=== PATIENT | male | born 1940 | race American Indian/Alaskan Native ===

== ENCOUNTER 2016-11-29 09:54 | Inpatient (IN) | payer MEDICARE ==
[2016-11-29] MEDS ORDERED: MethylPREDNISolone 40 mg Vial IVP STA (10:36)
[2016-11-29] MEDS ORDERED: Albuterol 0.5% Inhal Sol (2.5 mg/0.5 ml) UD IH STA (10:36)
[2016-11-29] MEDS ORDERED: Sodium Chloride 0.9% 500 ML IV STA (10:38)
--- NOTE | 2016-11-29 10:41 | ED PDOC ---
Arrival/HPI - General Chief Complaint: Cough, Cold, Congestion Time Seen by Provider: 11/29/16 10:11 Historian: Patient - History of Present Illness Narrative History of Present Illness (Text): 11/29/16 76 yo male w/PMHx of HTN, NIDDM, CAD with ACS in 2016 s/p PTCA, come in for evaluation of URi sx for 1.5 weeks. Pt reports, (+) bodyaches, chills, nasal congestion, sore throat, and gradual worsening of cough. Pt sts, started as dry cough and now its more productive with yellow sputum. Otherwise, pt denies high fever, severe headache, dizziness, N/V, neck pain, CP, SOB, dyspnea, diaphoresis , palpitation, abd. pain, diarrhea, rash, back pain, denies recent travel. Pt denies use OTC medication for above symptoms. Ambulate to Ed for evaluation, not in any apparent distress. Past Medical History - Provider Review Nursing Documentation Reviewed: Yes - Travel History Have you recently traveled outside [place] w/in the past 3 mons?: No - Infectious Disease Hx of Infectious Diseases: None - Cardiac Hx DE: Yes Hx Hypertension: Yes - Pulmonary Hx Respiratory Disorders: No Hx Asthma: No Hx Bronchitis: No Hx Chronic Obstructive Pulmonary Disease (COPD): No Hx Emphysema: No Hx Pneumonia: No Hx Respiratory Aspiration: No Hx Respiratory Tract Infection: No Hx Sleep Apnea: No Hx Tuberculosis: No - Neurological Hx Neurological Disorder: No - HEENT Hx HEENT Disorder: No - Renal Hx Renal Disorder: Yes (elevated BUN/Crea - see's Dr Giang) - Endocrine/Metabolic Hx Diabetes Mellitus Type 2: Yes - Hematological/Oncological Hx Blood Disorders: No - Integumentary Hx Dermatological Disorder: No - Musculoskeletal/Rheumatological Hx Musculoskeletal Disorders: No - Gastrointestinal Hx Gastrointestinal Disorders: Yes Other/Comment: Umbilical Hernia - Genitourinary/Gynecological Hx Incontinence: No Hx Prostate Problems: Yes - Psychiatric Hx Psychophysiologic Disorder: No Hx Substance Use: No - Surgical History Hx Coronary Stent: Yes (x2) Family/Social History - Physician Review Nursing Documentation Reviewed: Yes Family/Social History: No Known Family HX Smoking Status: Never Smoked Hx Alcohol Use: No Hx Substance Use: No Allergies/Home Meds Allergies/Adverse Reactions: Allergies No Known Allergies Allergy (Verified 11/29/16 16:55) Home Medications: Home Meds Medication Instructions Recorded Confirmed Atorvastatin [Lipitor] 20 mg PO DAILY 11/29/16 11/29/16 Clopidogrel [Plavix] 75 mg PO DAILY 11/29/16 11/29/16 Enalapril Maleate [Vasotec] 10 mg PO BID 11/29/16 11/29/16 Glimepiride [amaRYL] 4 mg PO BID 11/29/16 11/29/16 Insulin Aspar/Insulin N 70/30 10 ml SC BID 11/29/16 11/29/16 [Novolog MIX 70/30-U/ML 3ML] Metoprolol Tartrate 25 mg PO BID 11/29/16 11/29/16 Novolog Mix 70/30-U/ml 3Ml 10 unit SQ BID 11/29/16 11/29/16 Review of Systems - Review of Systems Constitutional: Fatigue Eyes: Normal ENT: Sore Throat, Rhinorrhea Respiratory: Cough, Sputum. absent: SOB, Wheezing Cardiovascular: Normal. absent: Chest Pain, Palpitations Gastrointestinal: Normal. absent: Abdominal Pain, Diarrhea, Vomiting Genitourinary Male: Normal Musculoskeletal: Normal Skin: Normal. absent: Rash Neurological: Normal Endocrine: Normal Hemo/Lymphatic: Normal Psychiatric: Normal Physical Exam Vital Signs Temp Pulse Resp BP Pulse Ox 11/29/16 13:21 81 17 150/70 95 11/29/16 09:57 98.9 F 102 H 18 147/73 96 Temperature: Afebrile Blood Pressure: Normal Pulse: Tachycardic Respiratory Rate: Normal Appearance: Positive for: Well-Appearing, Non-Toxic, Comfortable Pain Distress: None Mental Status: Positive for: Alert and Oriented X 3 - Systems Exam Head: Present: Atraumatic Conjunctiva: Present: Normal Ears: Present: NORMAL TM (B/L) Mouth: Present: Moist Mucous Membranes, Normal Lips. No: Drooling Pharnyx: Present: ERYTHEMA (mild B/L). No: EXUDATE, TONSILS ENLARGED Nose (Internal): Present: Clear Mucous (scant B/L) Neck: Present: Trachea Midline. No: JVD, Lymphadenopathy, Bruit Respiratory/Chest: Present: Clear to Auscultation, Good Air Exchange. No: Respiratory Distress, Accessory Muscle Use Cardiovascular: Present: Regular Rate and Rhythm, Normal S1, S2. No: Murmurs Abdomen: Present: Normal Bowel Sounds. No: Tenderness, Distention, Peritoneal Signs, Rebound, Guarding Upper Extremity: Present: Normal ROM, NORMAL PULSES. No: Deformity Lower Extremity: Present: NORMAL PULSES, Normal ROM, Neurovascularly Intact. No : Edema, CALF TENDERNESS, Swelling, Deformity Neurological: Present: GCS=15, Speech Normal Skin: Present: Warm, Dry, Normal Color. No: Rashes Psychiatric: Present: Alert, Oriented x 3, Normal Insight, Normal Concentration Medical Decision Making ED Course and Treatment: 11/29/16 12:43 On re-eval, pt remained unchanged. CXR review and c/w B/L perihilar fullness r/o infiltrate. Blood work review and appears abnormal compare to previous visits. Case discussed with pt's PMD and admission recommend and arranged. As per admission, is on blue list will place admission under . Results review and discussed with family and pt, agrees with plan. - Lab Interpretations Lab Results: 11/29/16 11:01 11/29/16 11:01 Lab Results 11/29/16 11:01: Influenza Typ A,B (EIA) Negative for flu a/b, Grp A Beta Strep Ag Negative 11/29/16 11:01: Sodium 143, Potassium 5.2 H, Chloride 110 H, Carbon Dioxide 21, Anion Gap 17, BUN 50 H, Creatinine 3.4 H, Est GFR ( Amer) 21, Est GFR ( Non-Af Amer) 18, Random Glucose 269 H, Calcium 9.3, Lactate Dehydrogenase 647, Total Creatine Kinase 712 H, CK-MB (CK-2) 3.2, CK-MB (CK-2) % Cancelled, Troponin I 0.05 D, NT-Pro-B Natriuret Pep 8810 H 11/29/16 11:01: PT 11.1, INR 1.03, APTT 33.6 H 11/29/16 11:01: WBC 9.8 D, RBC 3.55, Hgb 9.6 L, Hct 29.1 L, MCV 82.0, MCH 27.0 , MCHC 33.0, RDW 14.3, Plt Count 157, MPV 9.0, Gran % 80.9 H, Lymph % (Auto) 7.9 L, [place] % (Auto) 10.2 H, Eos % (Auto) 0.7 L, Baso % (Auto) 0.3, Gran # 7.89 H, Lymph # 0.8 L, [place] # 1.0 H, Eos # 0.1, Baso # 0.03 Interpretation: Abnormal lab values - RAD Interpretation Narrative RAD Interpretations (Text): 11/29/16 17:48 Findings are most compatible with right basilar pneumonia. Left suprahilar opacity could represent pneumonia however underlying mass cannot be entirely excluded. Follow-up after medical management is recommended to ensure complete resolution. Radiology Orders: 11/29/16 10:36 CHEST TWO VIEWS (PA/LAT) [RAD] Stat (+) perihilar B/L infiltrate - EKG Interpretation EKG Interpretation (Text): 11/29/16 10:50 SR@89/min, NAD, Qwave in III, no acute ST-T changes. Comparison: Com.w/previous EKG - Medication Orders Current Medication Orders: Discontinued Medications Albuterol Sulfate (Albuterol 0.5% Inhal Chana (2.5 Mg/0.5 Ml) Ud) 2.5 mg IH STAT STA Stop: 11/29/16 10:37 Last Admin: 11/29/16 11:02 Dose: 2.5 mg Sodium Chloride (Sodium Chloride 0.9%) 500 mls @ 999 mls/hr IV .Q31M STA Stop: 11/29/16 11:08 Last Admin: 11/29/16 11:04 Dose: 999 mls/hr Ceftriaxone Sodium (Rocephin 1 Gram Ivpb) 1 gm in 100 mls @ 200 mls/hr IVPB STAT STA PRN Reason: Protocol Stop: 11/29/16 12:13 Last Admin: 11/29/16 12:53 Dose: 200 mls/hr Azithromycin (Zithromax 500mg In Ns) 500 mg in 250 mls @ 167 mls/hr IVPB STAT STA PRN Reason: Protocol Stop: 11/29/16 13:13 Last Admin: 11/29/16 16:52 Dose: 167 mls/hr Methylprednisolone (Solu-Medrol) 80 mg IVP STAT STA Stop: 11/29/16 10:37 Last Admin: 11/29/16 11:02 Dose: 80 mg Disposition/Present on Arrival - Present on Arrival Any Indicators Present on Arrival: No History of DVT/PE: No History of Uncontrolled Diabetes: No Urinary Catheter: No History of Decub. Ulcer: No History Surgical Site Infection Following: None - Disposition Have Diagnosis and Disposition been Completed?: Yes Diagnosis: Pneumonia Disposition: HOSPITALIZED Disposition Time: 12:41 Patient Plan: Admission Patient Problems: Current Active Problems Problem Status Onset Pneumonia Acute Condition: STABLE
[2016-11-29 11:07] LABS: BASO # 0.03 K/mm3 (0.0-2.0); BASO % 0.3 % (0.0-3.0); EOS # 0.1 (0.0-0.7); EOS % 0.7 % (1.5-5.0); GRAN # 7.89 (1.4-6.5); GRAN % 80.9 % (50.0-68.0); HEMATOCRIT 29.1 % (42.0-52.0); LYMPH # 0.8 (1.2-3.4); LYMPH % 7.9 % (22.0-35.0); MONO % 10.2 % (1.0-6.0); RED CELL DISTRIBUTION WIDTH 14.3 % (11.5-14.5); WHITE BLOOD COUNT 9.8 10^3/ul (4.5-11.0)
[2016-11-29 11:17] LABS: INR 1.03 (0.93-1.08); PARTIAL THROMBOPLASTIN TIME 33.6 Seconds (23.7-30.8)
[2016-11-29 11:18] LABS: CALCIUM 9.3 mg/dL (8.4-10.5); POTASSIUM 5.2 mmol/L (3.6-5.0)
[2016-11-29 11:28] LABS: TROPONIN I 0.05 ng/mL
[2016-11-29] MEDS ORDERED: Azithromycin 500MG/NS 250ml 500 MG/250 ML BAG IVPB STA (11:44)
[2016-11-29] MEDS ORDERED: cefTRIAXone 1 gm 1 GM/100 ML BAG IVPB STA (11:44)
--- NOTE | 2016-11-29 13:05 | RAD ---
HISTORY: cough, sputum production COMPARISON: 09/16/2015 TECHNIQUE: Chest PA and lateral FINDINGS: LUNGS: The lungs are well inflated. There is airspace disease in the right lateral lung base. There is also opacity in the left suprahilar region. PLEURA: No significant pleural effusion identified. No pneumothorax apparent. CARDIOVASCULAR: Normal. OSSEOUS STRUCTURES: No significant abnormalities. VISUALIZED UPPER ABDOMEN: Normal. OTHER FINDINGS: None. IMPRESSION: Findings are most compatible with right basilar pneumonia. Left suprahilar opacity could represent pneumonia however underlying mass cannot be entirely excluded. Follow-up after medical management is recommended to ensure complete resolution.
--- NOTE | 2016-11-29 20:52 | CARD ---
APPROVED REPORT EKG Measurement Heart [id number] <Conclusion> Normal sinus rhythm Normal ECG
[2016-11-29 21:19] VITALS: BMI 24.7
[2016-11-29] MEDS ORDERED: Pneumococcal 23-Valent Vaccine IM ONE (21:19)
[2016-11-29] MEDS: Insulin Human NPH/Reg 70/30 Vial(3 ml) SC SCH (22:00)
[2016-11-30] MEDS ORDERED: Albuterol-Ipratrop 3 mg / 0.5 (3 ml) UD IH PRN (06:47)
[2016-11-30] MEDS: Albuterol-Ipratrop 3 mg / 0.5 (3 ml) UD IH SCH ×3 (07:17→20:28)
[2016-11-30] MEDS: Budesonide 0.5 mg/2 ml Inhal Susp UD IH SCH ×2 (07:17→20:28)
--- NOTE | 2016-11-30 07:38 | CON ---
PULMONARY CONSULTATION DATE: 11/30/2016 REASON FOR CONSULTATION: Pneumonia. REFERRING PHYSICIAN: Dr. Galarza. History was obtained via extensive discussion with the night nurse. I have also discussed the case with the patient at length, and reviewed the chart at length. HISTORY OF PRESENT ILLNESS: The patient is a 76-year-old male, with past medical history significant for hypertension, diabetes mellitus, coronary artery disease, myocardial infarction in the past, status post PTCA in 2016, who presents to [facility] with main complaints of worsening dyspnea on exertion, cough, and sputum production for the past week. The patient denies shortness of breath at rest. There is also no history of chest pain, coughing up of blood, or chest pain-made worse with deep respirations. The patient does state to temperatures at home. No history of chills or infectious exposure. No history of night sweats, weight loss or appetite change prior to the above events. No history of leg or calf pains. No history of syncope or diaphoresis. No history of recent travel or trauma. REVIEW OF SYSTEMS: The patient does admit to nasal congestion and runny nose-about a week ago-symptoms resolved. No history of nausea, vomiting or diarrhea. No acute urinary symptoms. No new neurologic or musculoskeletal complaints. Rest of the review of systems is negative. ALLERGIES: NO KNOWN ALLERGIES. SOCIAL HISTORY: Negative for tobacco. Negative for alcohol. FAMILY HISTORY: No inheritable diseases. HOME MEDICATIONS: Include metoprolol, insulin, glimepiride, Vasotec, Plavix, Lipitor. PHYSICAL EXAMINATION: SUBJECTIVE: The patient appears comfortable at rest. He is not short of breath. VITAL SIGNS: Temperature 99.1, pulse 70, respirations 18, blood pressure 147/74. Oxygen saturation on room is 93% to 96%. HEENT: Normocephalic and atraumatic. NECK: No JVD. CARDIOVASCULAR: Systolic ejection murmur at the lower left sternal border. No S3 gallop. LUNGS: Decreased breath sounds at the bases. Mild bilateral rhonchi. No wheezing. EXTREMITIES: No clubbing, cyanosis or edema. Calves are nontender to palpation. GASTROINTESTINAL: Abdomen is soft, nontender and nondistended. Bowel sounds are positive. SKIN: No acute rash. NEUROLOGIC: Limited at the present time. PERTINENT LABORATORY DATA: Chest x-ray was done yesterday and reviewed. There are small patchy infiltrates noted in the right lower lobe and left perihilar areas. CBC: White count 9.8, hemoglobin 9.6, hematocrit 29.1, and platelets of 157. Complete metabolic profile: Potassium 5.2, chloride 110, BUN 50, creatinine 3.4, glucose 303, creatine kinase 712, troponin 0.05. B-type natriuretic peptide 8810. Rest of the metabolic profiles within normal limits. IMPRESSION: 1. Community-acquired pneumonia. 2. Acute bronchitis. 3. Mild anemia. 4. Renal insufficiency. 5. Coronary artery disease. PLAN: Again, I did discuss the case with the nurse and the patient at length. The patient presents to [facility] with a 1-week history of worsening pulmonary symptoms. Apparently, the pulmonary symptoms were preceded by nasal congestion/runny nose. These upper respiratory symptoms have now resolved. I did review the chest x-ray as above. There are small patchy infiltrates in the right lower lobe and left perihilar areas consistent with pneumonia. Pancultures have been ordered and will be analyzed when feasible. The patient has been started on intravenous ceftriaxone. I will add intravenous doxycycline for the time being. On physical exam, there is mild bronchospasm present. There is no significant alveolar-arterial gradient. I will start the patient on DuoNeb treatment and inhaled steroids. I will try to avoid intravenous steroids at this point in time, as the patient's blood glucose is running high. Cardiology and renal evaluations have been ordered. The patient does feel better and is clinically improved this morning-compared to the past few days. Additional pulmonary intervention will be based on the clinical status of the patient. I will discuss the above with Dr. Galarza. Thank you very much for this pulmonary consultation. Bill Rose MD CHARISSA
[2016-11-30] MEDS ORDERED: cefTRIAXone 1 gm 1 GM/100 ML BAG IVPB SCH (10:00)
--- NOTE | 2016-11-30 10:05 | HP ---
HISTORY OF PRESENT ILLNESS: The patient is a 76-year-old male who was admitted with pneumonia. I received a call from the patient's daughter who was quite upset about the patient is suffering from an upper respiratory infection, being febrile, coughing, having difficulty breathing over the past several days. After discussing the case with the patient himself over the phone, the patient agreed to presentation to the emergency room, was seen, evaluated, and admitted. PAST MEDICAL HISTORY: The patient is known to have coronary artery disease, he is status post myocardial infarction, status post PTCA, history of hypertension, insulin-dependent diabetes mellitus, and benign prostatic hypertrophy. ALLERGIES: HE HAS NO KNOWN MEDICAL ALLERGIES. SOCIAL HISTORY: He never smoked. He is a non-alcoholic drinker. He works as a [employer]. Chest x-ray in the emergency room showed a white basilar infiltrate and a possible right suprahilar infiltrate versus mass lesion. REVIEW OF SYSTEMS: Otherwise unremarkable. PHYSICAL EXAMINATION GENERAL: The patient is awake, alert, and oriented. VITAL SIGNS: His blood pressures 158/80, heart rate 76, and he is afebrile at 99.1 degrees Fahrenheit. HEENT: The head, eyes, ears, nose, and throat are unremarkable. NECK: Supple. No lymphadenopathy. No goiter. LUNGS: Clear to auscultation and percussion however. HEART: Regular. Systolic murmur was appreciated. ABDOMEN: Soft and nontender. EXTREMITIES: Free of cyanosis, clubbing, or edema. NEUROLOGIC: There were no focal neurological signs. MEDICATIONS: At the time of admission, included atorvastatin 20 mg, Plavix 75 mg, Vasotec 10 mg twice a day, Amaryl 1 mg twice a day, NovoLog 70/30, 10 minutes twice a day, metoprolol tartrate 25 mg twice a day. LABORATORY STUDIES: Showed white blood cell count to be 9.8, hemoglobin and hematocrit 9.6 and 29.1, platelet count is 157. Sodium is 143, potassium is 5.2, blood urea nitrogen is 50, creatinine is 3.4, which is just above baseline for this patient. Glucose is 369, CK is elevated. BNP is elevated at 8810. IMPRESSION AND PLAN: The patient was treated with intravenous antibiotics in the emergency room. I will be ordering Rocephin 1 gram q.24 hours, continuing with the patient's medications from home for his coronary disease, diabetes, and hypertension. We are asking Dr. Giang, his residential nurse, Dr. Terrell, his graphics specialist, and Dr. Rose, his spanish language lecturer to consult on his case. The patient will be evaluated in morning and we will continue to follow him closely. Rony Galarza MD MTDD
[2016-11-30] MEDS: cefTRIAXone 1 gm 1 GM/100 ML BAG IVPB SCH (10:48)
[2016-11-30] MEDS: Insulin Human NPH/Reg 70/30 Vial(3 ml) SC SCH ×2 (13:21→18:15)
--- NOTE | 2016-11-30 19:41 | CON ---
DATE: 11/30/2016 The patient admitted for Dr. Oliver Galarza. REFERRING PHYSICIAN: Dr. Galarza. REASON FOR CONSULTATION: Evaluation of the patient known to me with chronic kidney disease stage III/IV, who presents with a right-sided pneumonia and a slight elevation of his creatinine above baseline levels. HISTORY OF PRESENT ILLNESS: The patient is a pleasant 76-year-old black male with a long history of IDDM, history of diabetic nephropathy, history of chronic kidney disease stage III/IV, history of non-nephrotic range proteinuria, history of gout, history of BPH, HTN, history of ASHD, status post PTCA, history of aortic insufficiency, mitral regurgitation, tricuspid regurgitation, history of mild anemia. The patient presented to Dr. Galarza with a 1-week history of a cough and chest congestion. He was sent over to the emergency room. Chest x-ray was done which showed a right basilar pneumonia. The patient was admitted for IV antibiotic therapy and for evaluation of what appears to be community-acquired pneumonia. The patient states that he works as a [employer] and might have been exposed to clients who had been sick. We are asked to evaluate the patient for his chronic kidney disease with a slightly higher creatinine above baseline levels, baseline creatinine is in the low 3 range. The patient presented with a creatinine of 3.4 on admission. PAST MEDICAL HISTORY: Significant history for IDDM, history of diabetic nephropathy, history of chronic kidney disease stage III/IV, BPH, gout, HTN ASHD, status post PTCA with mild valvular heart disease, history of anemia likely secondary to chronic kidney disease. PAST SURGICAL HISTORY: Significant for hand surgery almost 35 years ago. MEDICATIONS AT HOME: Include that of metoprolol, insulin, Amaryl, Vasotec, Plavix, Lipitor, [id number] iron, and vitamin D. ALLERGIES: NO KNOWN ALLERGIES TO MEDICATIONS. MEDICATIONS PRESENTLY IN THE HOSPITAL: Include that of Amaryl, doxycycline, DuoNeb, Lipitor, Rocephin, Pulmicort, Plavix, Lopressor, and Zestril. SOCIAL HISTORY: No history of cigarette smoking. No history of alcohol use. The patient was never a cigarette smoker. The patient is employed as a [employer]. FAMILY HISTORY: Positive for stroke, hypertension, and diabetes in his father who at the age of 83. The patient's mother at the age of 57, reasons unknown. REVIEW OF SYSTEMS: GENERAL: The patient states appetite and weight have been stable until this recent illness. EAR, NOSE, AND THROAT: Denies any hearing or visual problems. PULMONARY: No shortness of breath but positive cough and chest congestion. No wheezing. No history of asthma. No history of previous or recent pneumonia. No history of bronchitis. CARDIAC: History of ASHD which is stable, status post PTCA. GASTROINTESTINAL: No nausea, no vomiting, no diarrhea, no constipation, no abdominal pain. GENITOURINARY: History of chronic kidney disease, stage III/IV, stable. ENDOCRINE: History of diabetes with both micro and vascular complications. MUSCULOSKELETAL: No complaints. NEUROLOGIC: No history of CVA, TIA, seizures, or syncope. HEMATOLOGY AND ONCOLOGY: History of mild anemia, secondary to chronic kidney disease. No history of malignancy. PSYCHIATRIC: History is negative. PHYSICAL EXAMINATION: GENERAL: The patient is currently seen on 5R. He is sitting up in a chair. Family is in the room with him. He appears to be in no acute distress. VITAL SIGNS: Blood pressure ranging from 144 to 158 systolic, diastolic ranging from 67 to 81. Temperature 97.6. Respiratory rate is 18 with a pulse of 96. Oxygen saturation is 96%. HEENT: Shows him to be normocephalic and atraumatic. Conjunctivae are pale. Sclerae nonicteric. Pupils equal and reactive to light and accommodation. Extraocular muscles are intact. Posterior pharynx is normal. NECK: Supple. No neck vein distention. No thyromegaly. No lymphadenopathy. No bruits. CHEST: Clear to auscultation and percussion with slight decrease breath sounds at the right base. No rales, no rhonchi, no wheezing. CARDIOVASCULAR: Shows a regular rate and rhythm with MR/AI/TR. Distal lower extremity pulses are 2+ bilaterally. ABDOMEN: Soft. Bowel sounds normal. No rebound, no guarding, no masses. No organomegaly noted. BACK: No CVAT. No spinal tenderness. EXTREMITIES: Show no cyanosis, clubbing, or edema. NEUROLOGIC: Shows him to be alert and oriented x3 with no gross focal, motor, or sensory deficits noted. LABORATORY DATA AND IMAGING: Admitting chest x-rays showed a right basilar infiltrate consistent with a right lower lobe pneumonia. Admitting EKG showed normal sinus rhythm. Microbiology: Culture done on 11/29 are negative. Blood cultures that is 24 hours. Throat culture is negative. CBC: White blood cell count 9.8 with a hemoglobin of 9.6, platelet count of 157,000. Coags: PT 11.1, PTT 33.6. Chemistries show sodium of 143, potassium 5.2, chloride 110 with a CO2 of 21, BUN 50 with creatinine of 3.4. Again, the patient's baseline creatinine is in the low 3 range. Glucose is 269. Calcium 9.3. Cardiac enzymes are negative. BNP was 8810. Serologies negative for influenza A and B, negative beta strep. ASSESSMENT: 1. Right lower lobe pneumonia. The patient is being treated appropriately with both oral and IV antibiotics. He has been seen by pulmonary. He is thought to have a community-acquired pneumonia. 2. Stable chronic kidney disease, stage III/IV. The patient's baseline creatinine is in the low 3 range. At present, his creatinine is 3.4. This is likely in the setting of perhaps mild decrease in oral fluid intake in the setting of a right lower lobe pneumonia. The patient is able to drink fluids, IV fluids are not necessary at this point in time. Encouraged the patient to hydrate himself and I expect his creatinine to fall back to baseline levels. His BUN is close to baseline levels. His chronic kidney disease is felt to be secondary to longstanding diabetic nephropathy. 3. History of insulin-dependent diabetes mellitus. The patient will continue insulin regimen as ordered by Dr. Galarza. 4. History of benign prostatic hypertrophy, currently stable. 5. History of gout, no recent attacks. 6. History of atherosclerotic heart disease, status post percutaneous transluminal coronary angioplasty, currently stable. 7. History of anemia in part secondary to chronic kidney disease and part secondary to pneumonia with bone marrow suppression. I will check iron saturations and in light of the fact that his hemoglobin is less than 10, the patient will be dosed with Aranesp 16 mcg x1 dose. 8. No past history of secondary hyperparathyroidism, but we will check phosphorus level, PTH level, and vitamin D level. The patient will continue a renal diet. 9. HTN controlled. Continue present antihypertensive medications, NANCY inhibitor plus B- Ricardo therapy. PLAN: 1. Continue to follow labs on a daily basis. 2. Encouraged the patient to increase oral hydration. 3. Continue IV and oral antibiotic therapy as per pulmonary. 4. Aranesp with oral iron supplements, and we will check iron levels with labs tomorrow. 5. Continue renal diet. 6. Check phosphorus level, PTH, and vitamin D 25-hydroxy level. 7. No other renal diagnostics are necessary at this time as the patient had been worked up extensively in the outpatient setting. Thank you for letting me partake and share in the care of our mutual patient. Shane Giang MD MTDD
[2016-12-01] MEDS: Albuterol-Ipratrop 3 mg / 0.5 (3 ml) UD IH SCH ×4 (01:13→20:02)
--- NOTE | 2016-12-01 02:54 | PN ---
DATE: 11/30/2016 DAILY PROGRESS NOTE SUBJECTIVE: The patient was seen this Tuesday at noon hour in 573, bed #2. He is comfortable, out of bed, sitting in a chair, and in good spirits. PHYSICAL EXAMINATION: GENERAL He is awake, alert, and appropriate. HEENT: Conjunctivae are pink. Mucous membranes are moist. LUNGS: Show good aeration with some rhonchi at the bases, more so on the right. HEART: Not tachycardiac. EXTREMITIES: Show no edema. IMPRESSION: Pneumonia. PLAN: Continue antibiotics and aerosol treatment for now. The patient is doing very well and he continues to do well. He remains afebrile with normal white count. I think he is going to be discharged to home within the next few days. Oliver Galarza MD
[2016-12-01 07:03] LABS: BASO # 0.02 K/mm3 (0.0-2.0); BASO % 0.2 % (0.0-3.0); EOS # 0.1 (0.0-0.7); EOS % 1.2 % (1.5-5.0); GRAN # 9.84 (1.4-6.5); GRAN % 82.4 % (50.0-68.0); HEMATOCRIT 27.7 % (42.0-52.0); LYMPH # 1.3 (1.2-3.4); LYMPH % 10.5 % (22.0-35.0); MEAN CELL VOLUME 80.5 fl (80.0-105.0); MEAN CORPUSCULAR HGB CONC 33.6 g/dl (31.0-37.0); MEAN PLATELET VOLUME 9.4 fl (7.0-11.0); MONO # 0.7 (0.1-0.6); MONO % 5.7 % (1.0-6.0); RED CELL DISTRIBUTION WIDTH 13.9 % (11.5-14.5); WHITE BLOOD COUNT 11.9 10^3/ul (4.5-11.0)
[2016-12-01 07:28] LABS: ALB/GLOB RATIO 1.1 (1.1-1.8); ALKALINE PHOSPHATASE 97 U/L (38-126); ALT/SGPT 39 U/L (7-56); AST/SGOT 43 U/L (17-59); BILIRUBIN,TOTAL 0.2 mg/dL (0.2-1.3); BLOOD UREA NITROGEN 65 mg/dL (7-21); CARBON DIOXIDE 21 mmol/L (21-33); CHLORIDE 109 mmol/L (98-107); GFR AFRICAN-AMERICAN 25; GLUCOSE,RANDOM 233 mg/dL (70-110); MAGNESIUM 1.8 mg/dL (1.7-2.2); PHOSPHOROUS 4.4 mg/dL (2.5-4.5); POTASSIUM 4.9 mmol/L (3.6-5.0); SODIUM 142 mmol/L (132-148); TOTAL PROTEIN 6.2 g/dL (5.8-8.3)
[2016-12-01] MEDS: Budesonide 0.5 mg/2 ml Inhal Susp UD IH SCH ×2 (07:30→20:02)
--- NOTE | 2016-12-01 08:27 | PN ---
PULMONARY NOTE DATE: 12/01/2016 SUBJECTIVE: The patient appears comfortable this morning. He is not short of breath at rest. PHYSICAL EXAMINATION VITAL SIGNS: Temperature is 97.1, pulse 66, respirations 18, blood pressure 132/76. Oxygen saturation on room air is 96%. HEENT: Normocephalic and atraumatic. NECK: No JVD. CARDIOVASCULAR: Systolic ejection murmur at the lower left sternal border. No S3 gallop. LUNGS: Improved breath sounds at the bases. Much less rhonchi. No wheezing. EXTREMITIES: No clubbing, cyanosis or edema. Calves are nontender to palpation. GASTROINTESTINAL: Abdomen is soft, nontender, and nondistended. Bowel sounds are positive. SKIN: No acute rash. NEUROLOGIC: Limited at the present time. IMPRESSION: 1. Community-acquired pneumonia. 2. Acute bronchitis. 3. Mild anemia. 4. Renal insufficiency. 5. Coronary artery disease. PLAN: The patient appears very comfortable this morning. He is not short of breath at rest. His cough is much less. He does state to feeling much better overall. On physical exam, his bronchospasm is significantly less. I will continue the current nebulizer treatments and inhaled steroids for now. Cultures are so far negative. I will continue the current antibiotic therapy for now. Temperatures are resolving. Clinical status for the patient is significantly improved. I will discuss the above with Dr. Galarza. Bill Rose MD MTDD
[2016-12-01] MEDS: Insulin Human NPH/Reg 70/30 Vial(3 ml) SC SCH ×2 (08:30→16:50)
[2016-12-01] MEDS ORDERED: Darbepoetin Alfa 60 mcg/ml Inj SC ONE (10:00)
--- NOTE | 2016-12-01 10:23 | IP.NPCORE ---
Pneumonia Progress Notes - Oxygenation Assessment (REQUIRED) Documented 02: Yes O2 Saturation: 93 Oxygen Delivery Method: Room Air Date: 11/29/16 Documented P02: Yes - Blood Cultures (REQUIRED) Culture drawn: Yes - Initial Antibiotic Initial Antibiotic given within Four Hours:: Yes - Appropriate Antibiotic Appropriate Antibiotic within 24 hours of Admission:: Yes No change in antibiotics: No - Pneumonia Vaccine Pneumonia Vaccine: Yes (will be offered at discharge ) - Smoking Cessation Smoking Cessation counseling provided:: No (n/a) Ex-Smoker (has not smoked in the last 12 months): No Current Smoker - smoking cessation education provided: No
[2016-12-01] MEDS: Iron Complex Polysacch 150mg Cap PO SCH (11:09)
[2016-12-01] MEDS: cefTRIAXone 1 gm 1 GM/100 ML BAG IVPB SCH (11:13)
--- NOTE | 2016-12-01 11:39 | RAD ---
HISTORY: Pneumonia F/U COMPARISON: Chest radiographs 11/29/2016. TECHNIQUE: Chest PA and lateral FINDINGS: LUNGS: Diminished airspace disease seen at the right base and is likely resolved at this time. Persistent but diminished atelectasis or infiltrate seen at the medial left upper lung zone. No new infiltrate is identified throughout. PLEURA: No significant pleural effusion identified. No pneumothorax apparent. CARDIOVASCULAR: Normal. OSSEOUS STRUCTURES: No significant abnormalities. VISUALIZED UPPER ABDOMEN: Normal. OTHER FINDINGS: None. IMPRESSION: Likely resolved right basilar atelectasis or infiltrate with diminished medial left suprahilar infiltrate or atelectasis identified with significant residual. Continued clinical and radiographic follow-up are advised.
[2016-12-01 12:25] LABS: VITAMIN D 25 OH TOTAL 32.9 NG/ML (30.0-100.0)
--- NOTE | 2016-12-01 16:09 | CON ---
DATE: 12/01/2016 CARDIOLOGY CONSULTATION HISTORY OF PRESENT ILLNESS: The patient is a 76-year-old male who presents with symptoms consistent with upper respiratory infection. He complains of chest pain, which is worse on coughing. PAST MEDICAL HISTORY: The patient's past medical history is notable for history of PTCA and stent of his coronary arteries in 09/2015, stress test performed in 02/2016 reveal fixed defects in his perfusion scan with an ejection fraction of 52%. He denies angina. Denies shortness of breath. The patient's past medical history is notable for hypertension as well as diabetes mellitus. SOCIAL HISTORY: He does not smoke. REVIEW OF SYSTEMS: Reviewed in detail. No cardiac symptomatology is noted. PHYSICAL EXAMINATION: VITAL SIGNS: Blood pressure 142/64 with a heart rate in the 70s. NECK: Negative JVD. LUNGS: Without rales. HEART: S1 and S2. EXTREMITIES: Without edema. SIGNIFICANT STUDIES/LABORATORY DATA: EKG shows no acute changes. Hemoglobin is 9.3. Chemistries, BUN and creatinine is 65 and 3.0 with a glucose of 233. IMPRESSION: 1. Cough with upper respiratory infection. 2. Stable angina. 3. Coronary artery disease. 4. Renal insufficiency. 5. Diabetes mellitus. 6. Hypertension. PLAN: Given these findings, the patient was restarted on his clopidogrel. From a cardiac perspective, there are no acute changes at this time. Jameson Terrell MD
--- NOTE | 2016-12-01 23:31 | PN ---
DATE: 12/01/2016 SUBJECTIVE: The patient is seen lying in bed. He reports feeling much better. His cough is better. His shortness of breath is much improved. He denies any pain. He denies any chest tightness. PHYSICAL EXAMINATION: GENERAL: Elderly male lying in bed. VITAL SIGNS: Blood pressure 142/64, heart rate 79, respiratory rate 19, temperature 97.9. HEENT: Normocephalic, atraumatic. NECK: Supple, no JVD. LUNGS: Bilateral equal air entry, bilateral equal expansion. No rales. CARDIAC: S1 and S2. Regular rate and rhythm. No murmur, no rub. ABDOMEN: Soft, nondistended, nontender, bowel sounds present. EXTREMITIES: No lower extremity edema. INTAKE AND OUTPUT: Not charted. LABORATORY DATA: WBC 11.9, hemoglobin 9.3, hematocrit 27.7, platelets 173. Sodium 142, potassium 4.9, chloride 109, CO2 of 21, BUN 65, creatinine 3.0, glucose 233, calcium 9.0, phosphorus 4.4, magnesium 1.8. Iron 44, saturation 23%, and ferritin 204. Influenza serology negative. INR 1.0. Blood cultures, no growth. Chest x-ray, resolved right basilar atelectasis with diminished medial left suprahilar infiltrate. CURRENT MEDICATIONS: List reviewed. ASSESSMENT: 1. Acute kidney injury superimposed on chronic kidney disease stage IV, resolving. 2. Resolving right lower lobe pneumonia. 3. Scm-ntnihaq-aziysubdg diabetes mellitus. 4. Benign prostatic hyperplasia. 5. Gout. 6. Coronary artery disease. 7. Anemia of chronic kidney disease. 8. Secondary hyperparathyroidism. 9. Hypertension. PLAN: 1. Continue antibiotics as per ID recommendations. 2. Switch to p.o. antibiotics. 3. Will need as an outpatient. 4. Blood pressure is uncontrolled. 5. Continue to monitor fingersticks. 6. Discharge planning. Lis Pa MD
[2016-12-02] MEDS: Albuterol-Ipratrop 3 mg / 0.5 (3 ml) UD IH SCH ×2 (01:11→08:18)
[2016-12-02 03:33] VITALS: RESP 18
[2016-12-02] MEDS: Budesonide 0.5 mg/2 ml Inhal Susp UD IH SCH (08:18)
[2016-12-02] MEDS: Insulin Human NPH/Reg 70/30 Vial(3 ml) SC SCH (08:18)
[2016-12-02 08:23] VITALS: BP 165/86; PULSE 65; TEMP 97.8; O2SAT 99
--- NOTE | 2016-12-02 09:22 | PN ---
DATE: 12/02/2016 SUBJECTIVE: The patient appears very comfortable this morning. He is not short of breath at rest. PHYSICAL EXAMINATION: VITAL SIGNS: Temperature is 98.6, pulse is 71, respirations 18, blood pressure 157/79. Oxygen saturation on room is 98%. HEENT: Normocephalic and atraumatic. NECK: No JVD. CARDIOVASCULAR: Systolic ejection murmur at the lower left sternal border. No S3 gallop. LUNGS: Very minimal/much less rhonchi. No wheezing. EXTREMITIES: No clubbing, cyanosis, or edema. Calves are nontender to palpation. GASTROINTESTINAL: Abdomen is soft, nontender, and nondistended. Bowel sounds are positive. SKIN: No acute rash. NEUROLOGIC: Limited at the present time. PERTINENT LABORATORY DATA: Chest x-ray was repeated yesterday and reviewed. The chest x-ray is significantly improved-- with resolution of the right lower lobe infiltrate and almost complete resolution of the left perihilar infiltrate. IMPRESSION: 1. Community acquired pneumonia. 2. Acute bronchitis. 3. Mild anemia. 4. Renal insufficiency. 5. Coronary artery disease. PLAN: The patient appears very comfortable this morning. He is not short of breath at rest. His cough is much less. He does state this morning that he is feeling much, much better overall. On physical exam, his bronchospasm continues to resolve. I will continue the current nebulizer treatments and inhaled steroids for now. The patient remains on intravenous antibiotic therapy. His temperatures have fully resolved. The chest x-ray is also significantly improved. Inputs by cardiology and renal are noted. Clinical status of the patient is significantly improved overall. The patient is advised to increase his activity as tolerated. I will discuss the above with Dr. Galarza. Bill Rose MD MTDD
[2016-12-02] MEDS: Iron Complex Polysacch 150mg Cap PO SCH (10:03)
[2016-12-02] MEDS: cefTRIAXone 1 gm 1 GM/100 ML BAG IVPB SCH (10:04)
--- NOTE | 2016-12-03 05:07 | DS ---
SUMMARY: This is a 76-year-old man known to my office, usually seen by Dr. Rony Galarza. The patient comes to the emergency room with fever, cough, and difficulty breathing for few days. He was seen in the emergency room and evaluated. Chest x-ray showed a right lower lobe pneumonia. He was started on IV antibiotics and aerosol treatment and admitted. The patient has known coronary artery disease status post myocardial infarction and PTCA along with history of hypertension, diabetes, benign prostatic hypertrophy, and chronic renal insufficiency. He is followed by renal group, Dr. Giang, who know him for his renal disease. Course of hospital stay, the patient was admitted to the medical floor, treated with intravenous antibiotics. Consultation by Dr. Giang for renal, Dr. Rose for pulmonary, and Dr. Terrell, appeals board referee that knows him well were called. With gentle hydration, IV fluids, antibiotics, and some aerosol treatments, the patient improved nicely. Sugars remained elevated through the course of his stay, but BUN and creatinine, which initially were in the 50 and 3.4 range peaked at 65 and 3. The patient had improved clinically and was doing much better, was ambulatory, feeling well, able to sleep, and so today was discharged to home by Dr. Rony Galarza. Antibiotics were called to the drug store and he was instructed to follow up in the office in one week. Oliver Galarza MD
== END 2016-12-02 10:26 | disposition home or self-care (01) | DRG 194 ==
LOC: ED 09:54 → ERH 12:10 → 5RSO 13:51
PROVIDERS: ADMIT Internal Medicine; ATTEND Internal Medicine
PROC: 3E0F7GC Introduction of Other Therapeutic Substance into Respiratory Tract, Via Natural or Artificial Opening (ICD-10-PCS; principal; 2016-11-30)
DX: J18.9 Pneumonia, unspecified organism (principal); N18.4 Chronic kidney disease, stage 4 (severe); E11.21 Type 2 diabetes mellitus with diabetic nephropathy; N17.9 Acute kidney failure, unspecified; D63.1 Anemia in chronic kidney disease; N25.81 Secondary hyperparathyroidism of renal origin; I08.3 Combined rheumatic disorders of mitral, aortic and tricuspid valves; I12.9 Hypertensive chronic kidney disease with stage 1 through stage 4 chronic kidney disease, or unspecified chronic kidney disease; N40.0 Benign prostatic hyperplasia without lower urinary tract symptoms; I25.118 Atherosclerotic heart disease of native coronary artery with other forms of angina pectoris; E11.22 Type 2 diabetes mellitus with diabetic chronic kidney disease; M10.9 Gout, unspecified; R80.9 Proteinuria, unspecified; J20.9 Acute bronchitis, unspecified; I25.2 Old myocardial infarction; Z79.4 Long term (current) use of insulin; Z79.02 Long term (current) use of antithrombotics/antiplatelets; Z95.5 Presence of coronary angioplasty implant and graft

== ENCOUNTER 2017-04-03 06:08 | Emergency (ER) | payer MEDICARE ==
[2017-04-03 06:11] VITALS: BMI 24.6
--- NOTE | 2017-04-03 06:20 | ED PDOC ---
Arrival/HPI - General Time Seen by Provider: 04/03/17 06:12 Historian: Patient, EMS - History of Present Illness Narrative History of Present Illness (Text): 04/03/17 06:17 Shabbir Moura is a 76 year old male, whose past medical history includes hypertension, diabetes, CAD s/p PR, chronic kidney disease, and BPH, who presents to the Emergency department brought in by EMS status post fall for hypoglycemia prior to arrival. Patient states earlier this morning prior to taking his Metformin his blood sugar was 86. Patient states he lost consciousness and fell forward on to his face. Patient reports a bloody nose, but states he feels fine otherwise. EMS was notified, patient noted to be hypoglycemic at 40, and was given D-50 en route. On arrival to Emergency department, patient's fingerstick was 119. Patient denies any fever, chills, chest pain, shortness of breath, nausea, vomiting, back pain, neck pain, headache, dizziness, or any other complaints. Time/Duration: Other (today) Symptom Onset: Sudden Symptom Course: Unchanged Activities at Onset: Light Context: Home Past Medical History - Provider Review Nursing Documentation Reviewed: Yes - Infectious Disease Hx of Infectious Diseases: None - Cardiac Hx Cardiac Disorders: Yes (CAD WITH ACS,2016 PTCA.PR) Hx Hypertension: Yes - Pulmonary Hx Respiratory Disorders: No Hx Asthma: No Hx Bronchitis: No Hx Chronic Obstructive Pulmonary Disease (COPD): No Hx Emphysema: No Hx Pneumonia: No Hx Respiratory Aspiration: No Hx Respiratory Tract Infection: No Hx Sleep Apnea: No Hx Tuberculosis: No - Neurological Hx Neurological Disorder: No - HEENT Hx HEENT Disorder: No - Renal Hx Renal Disorder: Yes (elevated BUN/Crea - see's Dr Giang) - Endocrine/Metabolic Hx Diabetes Mellitus Type 2: Yes - Hematological/Oncological Hx Blood Disorders: No - Integumentary Hx Dermatological Disorder: No - Musculoskeletal/Rheumatological Hx Musculoskeletal Disorders: No Hx Falls: No - Gastrointestinal Hx Gastrointestinal Disorders: Yes Other/Comment: Umbilical Hernia - Genitourinary/Gynecological Hx Incontinence: No Hx Prostate Problems: Yes - Psychiatric Hx Psychophysiologic Disorder: No Hx Substance Use: No - Surgical History Hx Coronary Stent: Yes (x2) Family/Social History - Physician Review Nursing Documentation Reviewed: Yes Family/Social History: Unknown Family HX Smoking Status: Never Smoked Hx Alcohol Use: No Hx Substance Use: No Allergies/Home Meds Allergies/Adverse Reactions: Allergies No Known Allergies Allergy (Verified 04/03/17 06:13) Home Medications: Home Meds Medication Instructions Recorded Confirmed Atorvastatin [Lipitor] 20 mg PO DAILY 11/29/16 04/03/17 Clopidogrel [Plavix] 75 mg PO DAILY 11/29/16 04/03/17 Enalapril Maleate [Vasotec] 10 mg PO BID 11/29/16 04/03/17 Glimepiride [amaRYL] 4 mg PO BID 11/29/16 04/03/17 Insulin Aspar/Insulin N 70/30 10 unit SC BID 11/29/16 04/03/17 [Novolog Mix 70/30-U/ml 3Ml] Metoprolol Tartrate 25 mg PO BID 11/29/16 04/03/17 Colchicine [Colcrys] 0.6 mg PO DAILY 04/03/17 04/03/17 Dutasteride [Avodart] 0.5 mg PO DAILY 04/03/17 04/03/17 Gabapentin [Neurontin] 300 mg PO TID 04/03/17 04/03/17 Levofloxacin [Levaquin] 500 mg PO DAILY 04/03/17 04/03/17 Pantoprazole Sodium [Protonix] 40 mg PO DAILY 04/03/17 04/03/17 Triamterene/Hydrochlorothiazid 1 tab PO DAILY 04/03/17 04/03/17 [Triamterene-Hctz 37.5-25 mg Cp] Review of Systems - Physician Review All systems were reviewed & negative as marked: Yes - Review of Systems Constitutional: Normal. absent: Fevers Eyes: Normal ENT: Normal Respiratory: Normal. absent: SOB, Cough Cardiovascular: Syncope Gastrointestinal: Normal. absent: Abdominal Pain, Diarrhea, Nausea, Vomiting Genitourinary Male: Normal. absent: Dysuria, Frequency, Hematuria, Urinary Output Changes Musculoskeletal: Normal. absent: Back Pain, Neck Pain Skin: Normal. absent: Rash Neurological: Normal. absent: Dizziness Endocrine: Other (+hypoglycemia) Hemo/Lymphatic: Normal Psychiatric: Normal Physical Exam Vital Signs Reviewed: Yes Vital Signs Pulse Resp BP Pulse Ox 04/03/17 11:51 59 L 18 138/63 04/03/17 10:48 59 L 18 138/63 100 04/03/17 08:09 56 L 18 138/83 100 04/03/17 06:32 58 L 18 148/67 99 Temperature: Afebrile Blood Pressure: Normal Pulse: Regular Respiratory Rate: Normal Appearance: Positive for: Well-Appearing, Non-Toxic, Comfortable Pain Distress: None Mental Status: Positive for: Alert and Oriented X 3 Finger Stick Blood Glucose: 119 - Systems Exam Head: Present: Atraumatic, Normocephalic Pupils: Present: PERRL Extroacular Muscles: Present: EOMI Conjunctiva: Present: Normal Ears: Present: Normal, NORMAL TM, Normal Canal. No: Erythema, TM Bulging, Fluid Mouth: Present: Moist Mucous Membranes Pharnyx: Present: Normal. No: ERYTHEMA, EXUDATE, TONSILS ENLARGED, Peritonsilar Swelling, Uvular Deviation, Muffled/Hoarse Voice, Strider, Soft Palate/Uvular Edema Nose (External): Present: Atraumatic Neck: Present: Normal Range of Motion Respiratory/Chest: Present: Clear to Auscultation, Good Air Exchange. No: Respiratory Distress, Accessory Muscle Use Cardiovascular: Present: Regular Rate and Rhythm, Normal S1, S2. No: Murmurs Abdomen: Present: Normal Bowel Sounds. No: Tenderness, Distention, Peritoneal Signs Back: Present: Normal Inspection Upper Extremity: Present: Normal Inspection. No: Cyanosis, Edema Lower Extremity: Present: Normal Inspection. No: Edema Neurological: Present: GCS=15, CN II-XII Intact, Speech Normal Skin: Present: Warm, Dry, Normal Color. No: Rashes Psychiatric: Present: Alert, Oriented x 3, Normal Insight, Normal Concentration Medical Decision Making ED Course and Treatment: 04/03/17 06:17 Impression: 76 year old male presents for hypoglycemia s/p fall/syncopal episode today. Plan: -- CT Head w/o contrast -- CT Maxillofacial w/o contrast -- EKG -- Labs, troponin -- Reassess and disposition Prior Visits: Notes and results from previous visits were reviewed. On 11/29/16, pt was seen in the Emergency department for URI symptoms, body aches, chills, nasal conghestion, sore throat, and cough. Pt was admitted to the hospital for further evaluation. Progress Notes: Reviewed EKG, sinus bradycardia at 58 bpm. No acute changes. 04/03/17 07:[address] Imm, pending CT, labs, re-evaluation, and disposition. - Lab Interpretations Lab Results: 04/03/17 06:40 04/03/17 06:40 Lab Results 04/03/17 06:40: Sodium 143, Potassium 5.3 H, Chloride 111 H, Carbon Dioxide 18 L , Anion Gap 19, BUN 87 H, Creatinine 4.6 H, Est GFR ( Amer) 15, Est GFR ( Non-Af Amer) 13, Random Glucose 119 H, Calcium 8.8, Total Bilirubin 0.3, AST 94 H D, ALT 59 H, Alkaline Phosphatase 94, Troponin I 0.11 D, Total Protein 6.3, Albumin 3.7, Globulin 2.6, Albumin/Globulin Ratio 1.4 04/03/17 06:40: PT 11.3, INR 0.98, APTT 29.9 04/03/17 06:40: WBC 5.6 D, RBC 3.95, Hgb 10.4 L, Hct 32.3 L, MCV 81.8, MCH 26.3 , MCHC 32.2, RDW 15.3 H, Plt Count 126, MPV 10.8, Gran % 75.6 H, Lymph % (Auto) 14.7 L, Becker % (Auto) 7.0 H, Eos % (Auto) 2.3, Baso % (Auto) 0.4, Gran # 4.23, Lymph # 0.8 L, Becker # 0.4, Eos # 0.1, Baso # 0.02 - RAD Interpretation Radiology Orders: 04/03/17 06:18 HEAD W/O CONTRAST [CT] Stat 04/03/17 06:20 MAXILLOFACIAL W/O CONTRAST [CT] Stat - EKG Interpretation Interpreted by ED Physician: Yes Type: 12 lead EKG - Medication Orders Current Medication Orders: Discontinued Medications Amoxicillin/Clavulanate Potassium (Augmentin 875 Mg-125 Mg Tab) 1 tab PO STAT STA PRN Reason: Protocol Stop: 04/03/17 08:36 Last Admin: 04/03/17 09:31 Dose: 1 tab Ketorolac Tromethamine (Toradol) 15 mg IVP STAT STA Stop: 04/03/17 14:11 Last Admin: 04/03/17 14:26 Dose: 15 mg MAR Pain Assessment Document 04/03/17 14:26 [facility] (Rec: 04/03/17 14:26 [facility]-[id number]) Pain Reassessment Is this a pain reassessment? Yes Sleep Is patient sleeping during reassessment? No Presence of Pain Presence of Pain Yes Pain Scale Used Pain Scale Used Numeric Location Upper or Lower Upper Description Description Intermittent Intensity of Pain at present 4 Pain Behavior Guarding IVP Administration Document 04/03/17 14:26 [facility] (Rec: 04/03/17 14:26 [facility]-[id number]) Charges for Administration # of IVP Administrations 1 - Transfer of Care Patient signed out to Dr:: imm labs ct and dispo - Scribe Statement The provider has reviewed the documentation as recorded by the Jalilibbj Gomez Provider Scribe Attestation: All medical record entries made by the Scribe were at my direction and personally dictated by me. I have reviewed the chart and agree that the record accurately reflects my personal performance of the history, physical exam, medical decision making, and the department course for this patient. I have also personally directed, reviewed, and agree with the discharge instructions and disposition. Disposition/Present on Arrival - Present on Arrival Any Indicators Present on Arrival: No History of DVT/PE: No History of Uncontrolled Diabetes: No Urinary Catheter: No History Surgical Site Infection Following: None - Disposition Have Diagnosis and Disposition been Completed?: Yes Diagnosis: Hypoglycemia Disposition: HOSPITALIZED Disposition Time: 07:00 Patient Problems: Current Active Problems Problem Status Onset Hypoglycemia Acute Condition: FAIR
[2017-04-03 06:33] VITALS: RESP 18
[2017-04-03 07:14] LABS: BASO # 0.02 [, K/mm3] (0.0-2.0); BASO % 0.4 % (0.0-3.0); EOS # 0.1 (0.0-0.7); EOS % 2.3 % (1.5-5.0); GRAN # 4.23 (1.4-6.5); GRAN % 75.6 % (50.0-68.0); HEMOGLOBIN 10.4 g/dL (14.0-18.0); LYMPH # 0.8 (1.2-3.4); LYMPH % 14.7 % (22.0-35.0); MEAN CELL VOLUME 81.8 fl (80.0-105.0); MEAN CORPUSCULAR HEMOGLOBIN 26.3 pg (25.0-35.0); MEAN CORPUSCULAR HGB CONC 32.2 g/dl (31.0-37.0); MEAN PLATELET VOLUME 10.8 fl (7.0-11.0); MONO # 0.4 (0.1-0.6); RBC 3.95 [, 10^6/uL] (3.5-6.1); RED CELL DISTRIBUTION WIDTH 15.3 % (11.5-14.5); WHITE BLOOD COUNT 5.6 [, 10^3/ul] (4.5-11.0)
[2017-04-03 07:24] LABS: TROPONIN I 0.11 ng/mL
--- NOTE | 2017-04-03 08:00 | CT ---
EXAM: CT Head Without Intravenous Contrast EXAM DATE/TIME: 04/03/2017 6:18 AM CLINICAL HISTORY: 76 years old, male; Injury or trauma; Fall; Initial encounter; Abrasion; Face; Injury date: 04-03-17; Injury details: Injury to pt nose; Additional info: Syncope TECHNIQUE: Axial computed tomography images of the head/brain without intravenous contrast. All CT scans at this facility use one or more dose reduction techniques, viz.: automated exposure control; ma/kV adjustment per patient size (including targeted exams where dose is matched to indication; i.e. head); or iterative reconstruction technique. Coronal and sagittal reformatted images were created and reviewed. COMPARISON: No relevant prior studies available. FINDINGS: LIMITATIONS: Mild streak/motion artifact. BRAIN: Diffuse, age-related cortical atrophy and ventriculomegaly. No significant acute abnormality identified. No acute hemorrhage seen within the brain. No acute extra-axial fluid collections visualized. No evidence of significant mass effect within the brain. VENTRICLES: See above. BONES/JOINTS: No acute fractures or other acute bony abnormality noted. SOFT TISSUES: No acute abnormality of the visualized soft tissues is seen. VASCULATURE: Atherosclerotic calcification. MASTOID AIR CELLS: Mastoid air cells appear clear. IMPRESSION: - No evidence of acute intracranial injury or fractures. - See above for remaining findings.
[2017-04-03 08:01] LABS: ALB/GLOB RATIO 1.4 (1.1-1.8); ALBUMIN 3.7 g/dL (3.0-4.8); CALCIUM 8.8 mg/dL (8.4-10.5)
[2017-04-03 08:02] LABS: INR 0.98 (0.93-1.08); PARTIAL THROMBOPLASTIN TIME 29.9 Seconds (25.1-36.5); PROTHROMBIN TIME 11.3 SECONDS (9.4-12.5)
--- NOTE | 2017-04-03 08:09 | CT ---
EXAM: CT Maxillofacial Without Intravenous Contrast EXAM DATE/TIME: 04/03/2017 6:20 AM CLINICAL HISTORY: 76 years old, male; Injury or trauma; Fall; Initial encounter; Blunt trauma (contusions or hematomas); Nose; Injury date: 04-03-17; Injury details: Pt hit nose; Additional info: Syncope TECHNIQUE: Axial computed tomography images of the face without intravenous contrast. All CT scans at this facility use one or more dose reduction techniques, viz.: automated exposure control; ma/kV adjustment per patient size (including targeted exams where dose is matched to indication; i.e. head); or iterative reconstruction technique. Coronal and sagittal reformatted images were created and reviewed. COMPARISON: No relevant prior studies available. FINDINGS: BONES/JOINTS: No acute facial bone fractures are seen. No evidence of acute dislocation. SOFT TISSUES: Bilateral nasal soft tissue swelling. No evidence of soft tissue hematoma. ORBITS: Intraorbital soft tissues appear grossly intact. SINUSES: Sinus inflammatory disease. There is a tiny fluid level in the right maxillary sinus, most likely secondary to acute sinusitis. Sinus mcknight appear intact. There is also complete opacification of the right sphenoid sinus and mild mucosal thickening in the bilateral maxillary and ethmoid sinuses. DENTAL: Lucency seen surrounding the root of a right upper anterior tooth, image 64/series 601, suspicious for a periodontal abscess. NASOPHARYNX: Fluid is seen throughout the nasal cavity. THYROID: Visualized portions of the left lobe of the thyroid gland appear enlarged. No focal nodules seen. IMPRESSION: - No acute facial bone fractures identified. - Findings suspicious for a periodontal abscess. See above. - Sinus inflammatory disease, including acute right maxillary sinusitis. - See above for remaining findings.
[2017-04-03] MEDS ORDERED: Amoxicillin-Clav 875-125 mg Tab PO STA (08:35)
--- NOTE | 2017-04-03 08:35 | ED PDOC ---
Physical Exam - Physical Exam Narrative Physical Exam (Text): Signed out to me at change of shift pending CT Head. CT Head shows no ICH or fracture. Facial CT shows no fracture. Suggestion of periodontal abscess and sinusitis. Will place on Augmentin. On oral sulfonylurea, will keep for obs for hypoglycemia. Dr. Galarza accepts to his service. Vital Signs Pulse Resp BP Pulse Ox 04/03/17 08:09 56 L 18 138/83 100 04/03/17 06:32 58 L 18 148/67 99 Finger Stick Blood Glucose: 119 Medical Decision Making - Lab Interpretations Lab Results: 04/03/17 06:40 04/03/17 06:40 Lab Results 04/03/17 06:40: Sodium 143, Potassium 5.3 H, Chloride 111 H, Carbon Dioxide 18 L , Anion Gap 19, BUN 87 H, Creatinine 4.6 H, Est GFR ( Amer) 15, Est GFR ( Non-Af Amer) 13, Random Glucose 119 H, Calcium 8.8, Total Bilirubin 0.3, AST 94 H D, ALT 59 H, Alkaline Phosphatase 94, Troponin I 0.11 D, Total Protein 6.3, Albumin 3.7, Globulin 2.6, Albumin/Globulin Ratio 1.4 04/03/17 06:40: PT 11.3, INR 0.98, APTT 29.9 04/03/17 06:40: WBC 5.6 D, RBC 3.95, Hgb 10.4 L, Hct 32.3 L, MCV 81.8, MCH 26.3 , MCHC 32.2, RDW 15.3 H, Plt Count 126, MPV 10.8, Gran % 75.6 H, Lymph % (Auto) 14.7 L, [place]wood % (Auto) 7.0 H, Eos % (Auto) 2.3, Baso % (Auto) 0.4, Gran # 4.23, Lymph # 0.8 L, Haywood # 0.4, Eos # 0.1, Baso # 0.02 - RAD Interpretation Radiology Orders: 04/03/17 06:18 HEAD W/O CONTRAST [CT] Stat 04/03/17 06:20 MAXILLOFACIAL W/O CONTRAST [CT] Stat Disposition/Present on Arrival - Present on Arrival Any Indicators Present on Arrival: No History of DVT/PE: No History of Uncontrolled Diabetes: No Urinary Catheter: No History of Decub. Ulcer: No History Surgical Site Infection Following: None - Disposition Have Diagnosis and Disposition been Completed?: Yes Diagnosis: Hypoglycemia Disposition: HOSPITALIZED Disposition Time: 08:35 Patient Plan: Observation Condition: FAIR Referrals: Rony Galarza MD [Primary Care Provider] - Follow up with primary
--- NOTE | 2017-04-03 10:33 | CARD ---
APPROVED REPORT EKG Measurement Heart [id number] IA 188P63 [id number] <Conclusion> Sinus bradycardia Otherwise normal ECG No change except the rate is slower
[2017-04-03] MEDS ORDERED: levoFLOXacin 500 MG TAB PO SCH (16:00)
[2017-04-03] MEDS ORDERED: hydroCHLOROthiazide-Triamterene 25 mg-37.5 mg Cap UD PO SCH (16:00)
[2017-04-03] MEDS ORDERED: Pantoprazole 40 mg EC Tab PO SCH (16:00)
[2017-04-03] MEDS ORDERED: AVODART 0.5 MG PO SCH (16:00)
[2017-04-03] MEDS ORDERED: Iron Complex Polysacch 150mg Cap PO SCH (16:00)
[2017-04-03 17:16] VITALS: BP 150/78; PULSE 78; O2SAT 98
[2017-04-03] MEDS ORDERED: Insulin Lispro (humaLOG) MIX 75/25(10 ml) SC SCH (18:00)
== END 2017-04-03 17:26 | disposition home or self-care (01) ==
LOC: ED 06:08 → UNDOADMOB 08:40 → ERH 08:40 → ED 17:26
DX: E11.649 Type 2 diabetes mellitus with hypoglycemia without coma (principal); I25.10 Atherosclerotic heart disease of native coronary artery without angina pectoris; I12.9 Hypertensive chronic kidney disease with stage 1 through stage 4 chronic kidney disease, or unspecified chronic kidney disease; N18.9 Chronic kidney disease, unspecified; N40.0 Benign prostatic hyperplasia without lower urinary tract symptoms
CPT/HCPCS: 70450; 70486; 80053; 84484; 85025; 85610; 85730; 93005; 96374; 99284; J1885

== ENCOUNTER 2017-07-05 06:50 | Day surgery (SDC) | payer MEDICARE ==
[2017-06-29 09:52] VITALS: BMI 22.8
[2017-07-05] MEDS ORDERED: Lidocaine 2% Inj (20ml) ONE (07:06)
[2017-07-05] MEDS ORDERED: Phenylephrine 10 mg/ml Inj ONE (07:06)
[2017-07-05] MEDS ORDERED: Midazolam 2 MG/2 ML VIAL ONE ×2 (07:07→08:28)
[2017-07-05] MEDS ORDERED: Iohexol 350mgl/ml 50 ML ONE (07:09)
[2017-07-05] MEDS ORDERED: Iodixanol 320 MG/ML 200 ML BOTTLE IV ONE (07:09)
[2017-07-05] MEDS ORDERED: Nitroglycerin 50mg in D5W 50 MG/250 ML BOTTLE IV ONE (07:09)
[2017-07-05] MEDS ORDERED: Iodixanol 320 MG/ML 100 ML BOTTLE IV ONE (07:09)
[2017-07-05 07:23] LABS: BASO # 0.01 K/mm3 (0.0-2.0); BASO % 0.2 % (0.0-3.0); EOS # 0.3 (0.0-0.7); GRAN # 3.05 (1.4-6.5); HEMOGLOBIN 10.2 g/dL (14.0-18.0); LYMPH # 1.5 (1.2-3.4); LYMPH % 28.6 % (22.0-35.0); MEAN CELL VOLUME 80.1 fl (80.0-105.0); MEAN CORPUSCULAR HEMOGLOBIN 26.1 pg (25.0-35.0); MEAN CORPUSCULAR HGB CONC 32.6 g/dl (31.0-37.0); MEAN PLATELET VOLUME 9.4 fl (7.0-11.0); MONO # 0.3 (0.1-0.6); MONO % 6.2 % (1.0-6.0); RBC 3.91 10^6/uL (3.5-6.1); RED CELL DISTRIBUTION WIDTH 15.4 % (11.5-14.5); WHITE BLOOD COUNT 5.2 10^3/ul (4.5-11.0)
[2017-07-05 07:35] LABS: INR 0.97 (0.93-1.08); PARTIAL THROMBOPLASTIN TIME 31.6 Seconds (25.1-36.5); PROTHROMBIN TIME 11.1 SECONDS (9.4-12.5)
[2017-07-05 07:38] LABS: CALCIUM 9.3 mg/dL (8.4-10.5)
[2017-07-05] MEDS ORDERED: Sodium Bicarbonate (8.4%) 50 Meq Syringe IVP ONE ×2 (07:56→07:57)
[2017-07-05] MEDS: Midazolam 2 MG/2 ML VIAL ONE ×2 (08:42→08:47)
[2017-07-05] MEDS ORDERED: Sodium Chloride 0.9% 1,000 ML IV SCH (09:30)
--- NOTE | 2017-07-05 10:47 | CARD ---
APPROVED REPORT EKG Measurement Heart [id number] [place] 182P71 [id number] <Conclusion> Sinus bradycardia Otherwise normal ECG
--- NOTE | 2017-07-05 10:51 | CARD ---
APPROVED REPORT EKG Measurement Heart [id number] [place] 174P67 [id number] <Conclusion> Normal sinus rhythm Normal ECG
--- NOTE | 2017-07-05 11:03 | CARD ---
APPROVED REPORT EKG Measurement Heart [id number] DC 174P67 [id number] <Conclusion> Normal sinus rhythm Normal ECG
--- NOTE | 2017-07-05 12:16 | CARDCATH ---
PROCEDURE DATE: 07/05/2017 CARDIAC CATH AND PTCA HISTORY: The patient is a 76-year-old male with multiple cardiac risk factors including diabetes mellitus and documented coronary artery disease, who presents with angina and an abnormal stress test. The patient has a baseline renal insufficiency with a creatinine today of 3.7. He was pretreated with aggressive IV hydration with normal saline as well as IV bicarb infusion. The amount of contrast was limited due to his renal insufficiency. The right femoral artery was cannulated with a 6-[place]izen [place] sheath. There were no complications. I performed moderate sedation, which included the presence of an independent trained observer that assisted in monitoring the patient's level of consciousness and physiologic status. After administration of Versed and fentanyl, my intra service time was 30 minutes. The findings on catheterization revealed a dominant RCA. The RCA was occluded in its midportion. The left main artery was unremarkable. The LAD and diagonal vessels revealed diffuse intimal irregularities without critical lesions. The circumflex artery revealed intimal irregularities without significant stenoses. The left ventricle was entered. The LVEDP was noted to be 10 mmHg. There was no gradient across the aortic valve. The patient was started on intravenous Angiomax on the fluoroscopic guide, the guiding catheter was placed in the ostium of the RCA. An 0.014 ATW wire followed by a run-through followed by a [place] wire was used across the total occlusion with the help of a guideliner for better support. A 2 balloon was utilized to dilate the occlusion as well as the mid and distal vessel. This was followed by placement of a 2.5 x 15 mm drug-eluting stent that was deployed at 15 atmospheres of pressure. Repeat coronary arteriography revealed an excellent result with resolution of DALE 3 flow through the total occlusion and no residual stenoses. Angio-Seal was used to close the femoral artery site. The patient tolerated the procedure well. In summary, the procedure was successful for a PTCA and stent of an occluded mid RCA lesion and stented with a drug-eluting stent. Cardiac catheterization revealed single-vessel CAD with stable hemodynamics with an LVEDP of 10 mmHg. Given these findings, the patient will need to remain on aspirin indefinitely and Plavix for at least a year and undergo a strict cardiac risk reduction program. The PRU was tested to rule out resistance to Plavix. Jameson Terrell MD [facility] # [id number]
--- NOTE | 2017-07-06 05:02 | HP ---
DATE OF EXAM: 07/05/2017 CHIEF COMPLAINT: Admitted post cardiac cath. HISTORY OF PRESENT ILLNESS: This is a 76-year-old man with a history of coronary artery disease, cardiac catheterization and stent placement in the past, who was taken to [facility] today after an abnormal stress test was done last week for cardiac catheterization and stent placement by Dr. Jameson Terrell. PAST MEDICAL HISTORY: Significant for hypertension, diabetes since approximately 2002. His only surgical history was colonoscopy in 2005. He has some baseline renal insufficiency with creatinine of 3. CURRENT MEDICATIONS: Include Lipitor 20 mg, metoprolol 25 mg b.i.d., Plavix 75 daily, colchicine 0.6 daily, enalapril 10 daily, Xyzal 5 daily, gabapentin 300 mg t.i.d., amlodipine 10 mg daily, Avodart 0.5 mg daily, insulin 70/30 10, Glucophage, in the distant past. ALLERGIES: HE HAS NO KNOWN ALLERGIES TO MEDICATIONS. SOCIAL HISTORY: He does not smoke or drink alcohol. REVIEW OF SYSTEMS: Otherwise unremarkable except for arthritis pains. PHYSICAL EXAMINATION: GENERAL: The patient was seen this Tuesday at the noon hour in room 266, bed 2. He is comfortable post cardiac catheterization and in no acute distress and feels well. HEENT: Head and neck are unremarkable. Conjunctivae are pink. Mucous membranes are moist. NECK: Supple without masses. LUNGS: Show good aeration, right and left. HEART: Regular, not tachycardic. ABDOMEN: Soft, nontender. Right groin was clean with no hematoma or ecchymoses. EXTREMITIES: Patient move all extremities. There were good DP and PT pulses present. IMPRESSION: 1. Coronary artery disease, status post cardiac catheterization. 2. Hypertension. 3. Diabetes. 4. Gout. 5. Osteoarthritis. PLAN: Continue postop care per Dr. Jameson Terrell with gentle hydration in view of the patient's renal insufficiency. Check morning labs. He may be ready for discharge as early as tomorrow. We will follow. Oliver Galarza MD
[2017-07-06 05:31] VITALS: O2SAT 96
[2017-07-06 06:22] LABS: BASO # 0.02 K/mm3 (0.0-2.0); BASO % 0.4 % (0.0-3.0); EOS # 0.3 (0.0-0.7); EOS % 5.3 % (1.5-5.0); GRAN # 3.9 (1.4-6.5); GRAN % 68.3 % (50.0-68.0); HEMOGLOBIN 9.7 g/dL (14.0-18.0); LYMPH # 1.2 (1.2-3.4); LYMPH % 20.4 % (22.0-35.0); MEAN CELL VOLUME 79.7 fl (80.0-105.0); MEAN CORPUSCULAR HEMOGLOBIN 26.3 pg (25.0-35.0); MEAN PLATELET VOLUME 9.9 fl (7.0-11.0); MONO # 0.3 (0.1-0.6); MONO % 5.6 % (1.0-6.0); RBC 3.69 10^6/uL (3.5-6.1); RED CELL DISTRIBUTION WIDTH 15.5 % (11.5-14.5); WHITE BLOOD COUNT 5.7 10^3/ul (4.5-11.0)
--- NOTE | 2017-07-06 10:04 | PN ---
DATE: 07/06/2017 CARDIOLOGY FOLLOWUP SUBJECTIVE: The patient is chest pain free. PHYSICAL EXAMINATION VITAL SIGNS: Stable. NECK: Negative JVD. LUNGS: Without rales. HEART: Reveals S1, S2. EXTREMITIES: Without edema. LABORATORY DATA: Hemoglobin is 9.7. Chemistries: BUN and creatinine is 61 and 3 compared to 69 and 3.7 pre-procedure. IMPRESSION: 1. Stable post percutaneous transluminal coronary angioplasty and stent of an occluded right coronary artery. 2. Diabetes mellitus. 3. Hypercholesterolemia. 4. Renal insufficiency. PLAN: Given these findings, the patient is doing well post PTCA. The patient is for discharge today. Followup and instructions given to the patient in detail. Jameson Terrell MD
--- NOTE | 2017-07-06 10:54 | CARD ---
APPROVED REPORT EKG Measurement Heart [id number] HI 158P73 [id number] <Conclusion> Normal sinus rhythm Normal ECG
[2017-07-06] MEDS ORDERED: Sod Polystyrene Sulf 15 gm/60 ml Susp PO ONE (11:48)
[2017-07-06 12:30] VITALS: BP 134/79; PULSE 92; RESP 20; TEMP 98.1
--- NOTE | 2017-07-07 07:11 | DS ---
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 Jameson Terrell. Patient is known to have a history of hypertension, diabetes. He is status post colonoscopy in 2005. He has chronic renal disease with creatinine around 3. He also has a history of diabetic foot ulcers and toe amputations. Because of the patient's renal failure with creatinine of 3.7, he was held overnight. He received IV fluids with sodium bicarbonate. By the following morning, his creatinine was down to 3.0 and he was feeling well. He was cleared by Cardiology and therefore was discharged to home. Prior to discharge, he received a dose of Kayexalate for the potassium that is 5.5 and he will be followed up in the office next week, where his electrolytes will once again be examined. FINAL DIAGNOSES: 1. Coronary artery disease. 2. Insulin-dependent diabetes. 3. Chronic renal failure, secondary to diabetes. 4. Hypertension. Rony Galarza MD
== END 2017-07-06 13:39 | disposition home or self-care (01) ==
LOC: CATH 06:50 → 2RNO 09:45 → UNDOADMIN 10:48 → CATH 10:48 → 2RNO 10:48 → CATH 07-06 13:39
PROVIDERS: ATTEND Internal Medicine Cardiovascular Disease
DX: I25.10 Atherosclerotic heart disease of native coronary artery without angina pectoris (principal); I12.9 Hypertensive chronic kidney disease with stage 1 through stage 4 chronic kidney disease, or unspecified chronic kidney disease; E11.22 Type 2 diabetes mellitus with diabetic chronic kidney disease; N18.9 Chronic kidney disease, unspecified; E78.00 Pure hypercholesterolemia, unspecified; I25.2 Old myocardial infarction; Z79.4 Long term (current) use of insulin
CPT/HCPCS: 36415 ×2; 80048 ×2; 82948 ×2; 85025 ×2; 85576; 85610; 85730; 86850; 86900; 93005 ×2; 93458; 99152; 99153; C1725; C1760; C1769 ×4; C1874; C1887 ×2; C2629; C9600; J0583; J1644; J2250; J3010; J7030; J7040; Q9966; Q9967

== ENCOUNTER 2017-11-01 18:17 | Inpatient (IN) | payer MEDICARE ==
[2017-11-01 18:29] VITALS: BMI 23.5
[2017-11-01 19:29] LABS: BASO # 0.07 K/mm3 (0.0-2.0); EOS # 0.4 (0.0-0.7); EOS % 5.5 % (1.5-5.0); GRAN % 59.3 % (50.0-68.0); HEMOGLOBIN 8.7 g/dL (14.0-18.0); LYMPH # 1.7 (1.2-3.4); MEAN CELL VOLUME 74.4 fl (80.0-105.0); MEAN CORPUSCULAR HEMOGLOBIN 25.1 pg (25.0-35.0); MEAN CORPUSCULAR HGB CONC 33.7 g/dl (31.0-37.0); MONO # 0.7 (0.1-0.6); MONO % 10.2 % (1.0-6.0); PLATELET COUNT 138 10^3/uL (120.0-450.0); RBC 3.47 10^6/uL (3.5-6.1); RED CELL DISTRIBUTION WIDTH 18.2 % (11.5-14.5); WHITE BLOOD COUNT 7.1 10^3/ul (4.5-11.0)
[2017-11-01 19:30] LABS: VENOUS BLOOD GAS BASE EXCESS -15.4 mmol/L (0.0-2.0); VENOUS BLOOD GAS PO2 51 mm/Hg (30-55)
[2017-11-01 19:37] LABS: VENOUS BLOOD PH 7.17 (7.32-7.43)
[2017-11-01 19:43] LABS: INR 1.15; PARTIAL THROMBOPLASTIN TIME 34.1 Seconds (25.1-36.5); PROTHROMBIN TIME 13.2 SECONDS (9.4-12.5)
[2017-11-01] MEDS ORDERED: Sodium Chloride 0.9% 1,000 ML IV STA (19:46)
--- NOTE | 2017-11-01 19:57 | ED PDOC ---
Arrival/HPI - General Chief Complaint: Weakness/Neurological Deficit Time Seen by Provider: 11/01/17 18:34 Historian: Patient - History of Present Illness Narrative History of Present Illness (Text): 11/01/17 19:19 77 year old male, whose past medical history includes hypertension, diabetes, CAD s/p NE and [place] [address] [place] [facility] [place] chronic kidney disease, and BPH, who presents to the Emergency department brought in by EMS complaining of generalized weakness, loss of appetite and increased somnolence since 1 week. Patient currently denies any somatic complaints but requests medical attention. Patient denies any focal neurological deficits or any urinary symptoms. Patient denies any fever, chills, nausea, vomiting, diarrhea, abdominal pain, chest pain, shortness of breath, cough, headache, dizziness, neck pain, back pain, or any other complaints. Time/Duration: 1 week Symptom Onset: Gradual Symptom Course: Unchanged Quality: Aching Activities at Onset: Light Context: Home Past Medical History - Provider Review Nursing Documentation Reviewed: Yes - Infectious Disease Hx of Infectious Diseases: None - Cardiac Hx NE: Yes (with cardiac cath x 1 stent) Hx Hypertension: Yes Hx Pacemaker: No - Pulmonary Hx Respiratory Disorders: No Hx Asthma: No Hx Bronchitis: No Hx Chronic Obstructive Pulmonary Disease (COPD): No Hx Emphysema: No Hx Pneumonia: No Hx Respiratory Aspiration: No Hx Respiratory Tract Infection: No Hx Sleep Apnea: No Hx Tuberculosis: No - Neurological Hx Paralysis: No - HEENT Hx HEENT Disorder: No - Renal Hx Renal Disorder: Yes (elevated BUN/Crea - see's Dr Giang) - Endocrine/Metabolic Hx Diabetes Mellitus Type 2: Yes - Hematological/Oncological Hx Blood Transfusions: No - Integumentary Hx Dermatological Disorder: No - Musculoskeletal/Rheumatological Hx Musculoskeletal Disorders: No - Gastrointestinal Hx Gastrointestinal Disorders: Yes Other/Comment: Umbilical Hernia - Genitourinary/Gynecological Hx Incontinence: No Hx Prostate Problems: Yes - Psychiatric Hx Emotional Abuse: No Hx Physical Abuse: No Hx Substance Use: No - Surgical History Hx Cardiac Catheterization: Yes - Anesthesia Hx Anesthesia: Yes Hx Anesthesia Reactions: No Hx Malignant Hyperthermia: No - Suicidal Assessment Feels Threatened In Home Enviroment: No Family/Social History - Physician Review Nursing Documentation Reviewed: Yes Family/Social History: No Known Family HX Smoking Status: Never Smoked Hx Alcohol Use: No Hx Substance Use: No Allergies/Home Meds Allergies/Adverse Reactions: Allergies No Known Allergies Allergy (Verified 04/03/17 06:13) Home Medications: Home Meds Medication Instructions Recorded Confirmed Atorvastatin [Lipitor] 20 mg PO DAILY 11/29/16 07/05/17 Enalapril Maleate [Vasotec] 10 mg PO BID 11/29/16 07/05/17 Glimepiride [amaRYL] 4 mg PO BID 11/29/16 07/06/17 Metoprolol Tartrate 25 mg PO BID 11/29/16 07/06/17 Colchicine [Colcrys] 0.6 mg PO DAILY 04/03/17 07/05/17 Dutasteride [Avodart] 0.5 mg PO DAILY 04/03/17 07/05/17 Gabapentin [Neurontin] 300 mg PO TID 04/03/17 07/05/17 Triamterene/Hydrochlorothiazid 1 tab PO DAILY 04/03/17 07/05/17 [Triamterene-Hctz 37.5-25 mg Cp] Insulin Glargine, Recombina 10 unit SC HS 07/01/17 07/05/17 [Lantus] Aspirin 81 mg PO DAILY 07/06/17 07/06/17 Review of Systems - Physician Review All systems were reviewed & negative as marked: Yes - Review of Systems Constitutional: absent: Fevers Respiratory: absent: SOB, Cough Cardiovascular: absent: Chest Pain, Palpitations Gastrointestinal: absent: Abdominal Pain, Diarrhea, Nausea, Vomiting Musculoskeletal: absent: Back Pain, Neck Pain Neurological: absent: Headache, Dizziness Physical Exam Vital Signs Reviewed: Yes Vital Signs Temp Pulse Resp BP Pulse Ox 11/01/17 20:38 60 16 112/58 L 98 11/01/17 18:36 98.4 F 58 L 18 90/55 L 98 Temperature: Afebrile Blood Pressure: Hypotensive Pulse: Regular Respiratory Rate: Normal Appearance: Positive for: Non-Toxic, Other (Weak) Pain Distress: None Mental Status: Positive for: Alert and Oriented X 3 Finger Stick Blood Glucose: 176 - Systems Exam Head: Present: Atraumatic, Normocephalic Pupils: Present: PERRL Extroacular Muscles: Present: EOMI Conjunctiva: Present: Normal Mouth: Present: Moist Mucous Membranes Neck: Present: Normal Range of Motion Respiratory/Chest: Present: Clear to Auscultation, Good Air Exchange. No: Respiratory Distress, Accessory Muscle Use Cardiovascular: Present: Regular Rate and Rhythm, Normal S1, S2. No: Murmurs Abdomen: No: Tenderness, Distention, Peritoneal Signs Back: Present: Normal Inspection Upper Extremity: Present: Normal Inspection. No: Cyanosis, Edema Lower Extremity: Present: Normal Inspection. No: Edema Neurological: Present: GCS=15, CN II-XII Intact, Speech Normal, Motor Func Grossly Intact, Normal Sensory Function, Memory Normal Skin: Present: Warm, Dry, Normal Color. No: Rashes Psychiatric: Present: Alert, Oriented x 3, Normal Insight, Normal Concentration Medical Decision Making ED Course and Treatment: 11/01/17 18:49 Impression: 77 year old male presents to the Emergency Department complaining of generalized weakness, increased somnolence and loss of appetite. Plan: -- VBG -- EKG -- Labs -- Chest X-ray -- IV Fluids -- Urinalysis -- Reassess and disposition Prior Visits: Notes and results from previous visits were reviewed. Progress Notes: 11/01/17 21:26 EKG Sinus mary @ 58bpm CXR NAD Lab was reviewed, hyperkalemia was noted with no EKG changes. Elevated CR/BUN was noted. Cr was 10.0 which is significantly higher from his Cr baseline. PT have acute on chronic renal failure. ABG show that pt is in metabolic acidosis. These findings could be secondary to dehydration leading to SEJAL. 1L of NS was ordered in ED. Case was MILADIS Rios, pt's Supervisor [employer] and he recommends cocktail for medication to treat pt's hyperkalemia. States they will see pt tomorrow morning for possible emergency dialysis. Case was MILADIS weller and pt was admitted to his service. he stated that the pt's recent lab showed Cr of 7.0 and he tried to get in touch with the pt today, but couldn't. Case was MILADIS Jasmine, the intensivit. He accepted pt to the unit. States he will see pt. - Lab Interpretations Lab Results: 11/01/17 19:19 11/01/17 20:15 Lab Results 11/01/17 20:47: pCO2 25 L, pO2 104.0 H, HCO3 11.2 L, ABG pH 7.26 L, ABG Total CO2 12.0 L, ABG O2 Saturation 95.7, ABG O2 Content 11.5 L, ABG Base Excess - 14.4 L, ABG Hemoglobin 8.4 L, ABG Carboxyhemoglobin 0 L, POC ABG HHb (Measured) 4.3, ABG Methemoglobin 0.0, ABG O2 Capacity 12.0 L, Hgb O2 Saturation 95.7, FiO2 21.0 11/01/17 20:28: Blood Type Pending, Antibody Screen Pending, BBK History Checked Patient has bt 11/01/17 20:15: Sodium 142, Chloride 113 H, Potassium 6.5 H*, Carbon Dioxide 11 L, Anion Gap 24 H, BUN 131 H*, Creatinine 10.1 H* D, Est GFR ( Amer) 6, Est GFR (Non-Af Amer) 5, Random Glucose 141 H, Calcium 8.5, Magnesium 2.3 H, Total Bilirubin 1.7 H, AST 381 H D, ALT 560 H, Alkaline Phosphatase 369 H D, Troponin I < 0.01 D, Total Protein 6.0, Albumin 3.2, Globulin 2.8, Albumin/ Globulin Ratio 1.1 11/01/17 19:19: Free T4 1.65, TSH 3rd Generation 0.29 L 11/01/17 19:19: pO2 51, VBG pH 7.17 L*, VBG pCO2 33.0 L, VBG HCO3 12.0 L, VBG Total CO2 13.0 L, VBG O2 Sat (Calc) 85.5 H, VBG Base Excess -15.4 L, VBG Potassium 6.3 H*, Sodium 138.0, Chloride 112.0 H, Glucose 158 H, Lactate 1.4, FiO2 21.0, Venous Blood Potassium 6.3 H* 11/01/17 19:19: PT 13.2 H, INR 1.15, APTT 34.1 11/01/17 19:19: WBC 7.1 D, RBC 3.47 L, Hgb 8.7 L, Hct 25.8 L, MCV 74.4 L D, MCH 25.1, MCHC 33.7, RDW 18.2 H, Plt Count 138, Gran % 59.3, Lymph % (Auto) 24.0 , Moody % (Auto) 10.2 H, Eos % (Auto) 5.5 H, Baso % (Auto) 1.0, Gran # 4.20, Lymph # (Auto) 1.7, Moody # (Auto) 0.7 H, Eos # (Auto) 0.4, Baso # (Auto) 0.07 11/01/17 18:34: POC Glucose (mg/dL) 176 H - RAD Interpretation Radiology Orders: 11/01/17 18:48 CHEST PORTABLE [RAD] Stat - Medication Orders Current Medication Orders: Sodium Chloride (Sodium Chloride 0.9%) 1,000 mls @ 100 mls/hr IV .Q10H STA Stop: 11/02/17 05:45 Last Admin: 11/01/17 20:31 Dose: 100 mls/hr eMAR Start Stop Document 11/01/17 20:31 IT (Rec: 11/01/17 20:31 IT [id number]) Intravenous Solution Start Date 11/01/17 Start Time 20:31 Discontinued Medications Albuterol Sulfate (Albuterol 0.5% Inhal Chana (2.5 Mg/0.5 Ml) Ud) 10 mg IH STAT STA Stop: 11/01/17 21:10 Calcium Gluconate (Calcium Gluconate Iv) 1,000 mg IVP ONCE ONE Stop: 11/01/17 21:09 Last Admin: 11/01/17 21:30 Dose: 1,000 mg IVP Administration Document 11/01/17 21:30 IT (Rec: 11/01/17 21:30 IT [id number]) Charges for Administration # of IVP Administrations 1 Dextrose (Dextrose 50% Inj) 50 ml IVP STAT STA Stop: 11/01/17 21:18 Last Admin: 11/01/17 21:30 Dose: 50 ml IVP Administration Document 11/01/17 21:30 IT (Rec: 11/01/17 21:30 IT [id number]) Charges for Administration # of IVP Administrations 1 Insulin Human Regular (Humulin R) 10 units SC ONCE STA Stop: 11/01/17 21:12 Last Admin: 11/01/17 21:30 Dose: 10 u MAR Blood Glucose Document 11/01/17 21:30 IT (Rec: 11/01/17 21:30 IT [id number]) Blood Glucose Finger Stick Blood Glucose (70-120) 149 Subcutaneous Administrations Document 08/21/18 21:30 IT (Rec: 11/01/17 21:30 IT [id number]) Charges for Administration # of Subcutaneous Administrations 1 Sodium Polystyrene Sulfonate (Kayexalate Susp) 30 gm PO STAT STA Stop: 11/01/17 21:09 Last Admin: 11/01/17 21:29 Dose: 30 gm - Scribe Statement The provider has reviewed the documentation as recorded by the Jalilibbj Brown. All medical record entries made by the Jalilibbj were at my direction and personally dictated by me. I have reviewed the chart and agree that the record accurately reflects my personal performance of the history, physical exam, medical decision making, and the department course for this patient. I have also personally directed, reviewed, and agree with the discharge instructions and disposition. Disposition/Present on Arrival - Present on Arrival Any Indicators Present on Arrival: No History of DVT/PE: No History of Uncontrolled Diabetes: No Urinary Catheter: No History of Decub. Ulcer: No History Surgical Site Infection Following: None - Disposition Have Diagnosis and Disposition been Completed?: Yes Diagnosis: Renal failure (ARF), acute on chronic, Anemia, Hepatic failure, acute Disposition: HOSPITALIZED Disposition Time: 21:20 Patient Plan: Admission Patient Problems: Current Active Problems Problem Status Onset Anemia Acute Hepatic failure, acute Acute Renal failure (ARF), acute on chronic Acute Condition: GUARDED
[2017-11-01 20:07] LABS: FREE T4 1.65 ng/dL (0.78-2.19)
[2017-11-01 20:45] LABS: TROPONIN I < 0.01 ng/mL
[2017-11-01 20:50] LABS: ARTERIAL BLOOD GAS HCO3 11.2 mmol/L (21-28); ARTERIAL BLOOD GAS HEMOGLOBIN 8.4 g/dL (11.7-17.4); ARTERIAL BLOOD GAS O2 CONTENT 11.5 ML/dl (15-23); ARTERIAL BLOOD GAS O2 SAT 95.7 % (95-98); ARTERIAL BLOOD GAS PCO2 25 mm/Hg (35-45); ARTERIAL BLOOD GAS PH 7.26 (7.35-7.45)
[2017-11-01 20:51] LABS: ALB/GLOB RATIO 1.1 (1.1-1.8); ALBUMIN 3.2 g/dL (3.0-4.8); ALT/SGPT 560 U/L (7-56); AST/SGOT 381 U/L (17-59); BLOOD UREA NITROGEN 131 mg/dL (7-21); CALCIUM 8.5 mg/dL (8.4-10.5); GFR NON-AFRICAN AMERICAN 5
[2017-11-01] MEDS ORDERED: Sod Polystyrene Sulf 15 gm/60 ml Susp PO STA (21:08)
[2017-11-01] MEDS ORDERED: Albuterol 0.5% Inhal Sol (2.5 mg/0.5 ml) UD IH STA (21:09)
[2017-11-01] MEDS ORDERED: Insulin Regular 1 UNITS/0.01 ML ML SC STA (21:11)
[2017-11-01] MEDS ORDERED: Dextrose 50% SYRINGE Inj (50 ml) IVP STA (21:17)
--- NOTE | 2017-11-01 22:34 | CP.PCM.CON ---
<Ascencion Bennett - Last Filed: 11/02/17 03:03> History of Present Illness - History of Present Illness History of Present Illness: Ascencion Bennett, PGY-1 ICU Consult for Hospitalist Service CC: Leg weakness and loss of appetite HPI: Mr. Moura is a 77 year old with a PMHx of CAD s/p 2 stents most recently in RCA on 06/29, HTN, DM, HLD, BPH, Gout, OA who presents with a one week history of bilateral lower extremity weakness, feeling like his legs are giving out along with nausea and poor appetite. Patient reports no inciting factors or changes in medications at that time that may have caused his symptoms. Patient admits to not taking his medications for a few days because he has been feeling nauseous and unable to tolerate anything orally. Patient also complains of abdominal bloating and constipation, but states that is a chronic issue that has been with him for a long time. Patient notes that he used enema and milk of magnesia this week due to the feelings of constipation, at which point patient experienced nonpainful, nonbloody BM a day ago. Patient denies fevers, chills, headaches, dizziness, sore throat, shortness of breath, productive cough, chest pain, palpitations, abdominal pain, vomiting, changes in urinary or bowel habits, dysuria, polyuria, or pins and needles in extremities. PMHx: CAD s/p 2 stents most recently in RCA on 06/29, HTN, DM, HLD, BPH, Gout, OA PSHx: Colonscopy 2006 NKDA Social: Denies ETOH, Tobacco and IVDU. Lives at home with family and is independent with ADL's at baseline Fam hx: brother from DM complications Meds: Awaiting complete list to be brought by family member this evening PMD: Dr. Galarza Cardio: Dr. Terrell Nephrology: Dr. Giang Review of Systems - Review of Systems Review of Systems: 12 point ROS completed and negative except as described in HPI. Past Patient History - Infectious Disease Hx of Infectious Diseases: None - Past Social History Smoking Status: Never Smoked - CARDIAC Hx Heart Attack: Yes (with cardiac cath x 1 stent) Hx Hypertension: Yes Hx Pacemaker: No - PULMONARY Hx Respiratory Disorders: No Hx Asthma: No Hx Bronchitis: No Hx Chronic Obstructive Pulmonary Disease (COPD): No Hx Emphysema: No Hx Pneumonia: No Hx Respiratory Aspiration: No Hx Respiratory Tract Infection: No Hx Sleep Apnea: No Hx Tuberculosis: No - NEUROLOGICAL Hx Paralysis: No - HEENT Hx HEENT Problems: No - RENAL Hx Chronic Kidney Disease: Yes (elevated BUN/Crea - see's Dr Giang) - ENDOCRINE/METABOLIC Hx Diabetes Mellitus Type 2: Yes - HEMATOLOGICAL/ONCOLOGICAL Hx Blood Transfusions: No - INTEGUMENTARY Hx Dermatological Problems: No - MUSCULOSKELETAL/RHEUMATOLOGICAL Hx Musculoskeletal Disorders: No - GASTROINTESTINAL Hx Gastrointestinal Disorders: Yes Other/Comment: Umbilical Hernia - GENITOURINARY/GYNECOLOGICAL Hx Incontinence: No Hx Prostate Problems: Yes - PSYCHIATRIC Hx Emotional Abuse: No Hx Physical Abuse: No Hx Substance Use: No - SURGICAL HISTORY Hx Cardiac Catheterization: Yes - ANESTHESIA Hx Anesthesia: Yes Hx Anesthesia Reactions: No Hx Malignant Hyperthermia: No Meds Allergies/Adverse Reactions: Allergies Allergy/AdvReac Type Severity Reaction Status Date / Time No Known Allergies Allergy Verified 04/03/17 06:13 - Medications Medications: Current Medications Sodium Chloride (Sodium Chloride 0.9%) 1,000 mls @ 100 mls/hr IV .Q10H STA Stop: 11/02/17 05:45 Last Admin: 11/01/17 20:31 Dose: 100 mls/hr Physical Exam - Constitutional Appears: Well, Non-toxic, No Acute Distress - Head Exam Head Exam: ATRAUMATIC, NORMAL INSPECTION, NORMOCEPHALIC - Eye Exam Eye Exam: EOMI, Normal appearance Pupil Exam: PERRL - ENT Exam ENT Exam: Mucous Membranes Moist, Normal Exam - Neck Exam Neck exam: Positive for: Full Rom, Normal Inspection. Negative for: Tenderness - Respiratory Exam Respiratory Exam: Decreased Breath Sounds, Rhonchi, NORMAL BREATHING PATTERN - Cardiovascular Exam Cardiovascular Exam: RRR, +S1, +S2 - GI/Abdominal Exam GI & Abdominal Exam: Normal Bowel Sounds, Soft. absent: Distended, Firm, Guarding, Rebound, Tenderness Additional comments: Nonpainful, reducible 2 cm umbilical hernia - Extremities Exam Extremities exam: Positive for: full ROM, normal inspection, pedal edema (trace) , pedal pulses present. Negative for: calf tenderness, tenderness - Back Exam Back exam: NORMAL INSPECTION. absent: CVA tenderness (L), CVA tenderness (R) - Neurological Exam Neurological exam: Alert, Oriented x3 Additional comments: Patient responds to verbal stimuli, answers questions appropriately, follows commands, and moves extremities past midline. no focal deficits; sensory and motor intact in both UE and LE bilaterally - Psychiatric Exam Psychiatric exam: Normal Affect, Normal Mood - Skin Skin Exam: Dry, Intact, Normal Color, Warm Results - Vital Signs Recent Vital Signs: Last Vital Signs Temp 98.4 F 11/01/17 18:36 Pulse 60 11/01/17 20:38 Resp 16 11/01/17 20:38 BP 112/58 L 11/01/17 20:38 Pulse Ox 98 11/01/17 20:38 - Labs Result Diagrams: 11/01/17 19:19 11/02/17 02:05 Assessment & Plan - Assessment and Plan (Free Text) Assessment: Mr. Moura is a 77 M with PMHx of HTN, DM, HLD, BPH, Gout and CAD s/p RCA stent 06/29 who presents with a week-long history of fatigue, LE weakness and poor oral intake. Neuro: - Maintain normothermia Cardio: - HR reviewed - BPs reviewed - keep MAPs > 65 - f/u BNP (elevated last admission) - continue to monitor vitals Pulm: - no signs of respiratory distress, VSS, SaO2 98% on RA - CXR performed showed some vascular congestion bilaterally but no effusions, cardiomegaly, or consolidations. Costophrenic angles clear. f/u official read - keep SaO2 above 92% GI: - f/u Lipase (elevated in past) - T bili elevated at 1.7 without abdominal tenderness elicited or pain reported - Transaminitis AST/ALT 381/560 - will hold acetaminophen for now - prophylaxis with protonix 40 PO Renal/Electrolytes: - ABG showed gap metabolic acidosis with appropriately compensated respiratory alkalosis 2/2 uremia 2/2 medication noncompliance and poor oral intake - creatinine and BUN reviewed - SEJAL from baseline, most current 131/10.1, last was 61/3.0 - Lactate 1.4 - f/u UA - 1 amp bicarb - Hyperkalemia 6.5 on admission. Repleted with albuterol 10 mg INH, calcium gluconate 1 gm IVP, kayexalate 30 gm PO, d5 50% - F/u 2 am BMP - will hold nephrotoxic agents - Nephrology consult placed (Dr. Giang) - recommendations appreciated - HHD 2 gram Na, moderate carb - Mg 2.3 will monitor - f/u medication list from family Endo: - keep patient euglycemic - 1 amp bicarb in d5w after completion of NS @ 100 cc/hr - ISS lispro medium - accuchecks achs - f/u POC glucose at 4am to evaluate need for D5W - TSH 0.29 and Free T4 1.65 - f/u lipid panel and a1c - f/u medication list from family Heme: - Hgb reviewed at 8.7 (9.7 on last admission) - no obvious signs of bleeding - INR 1.15 - f/u FOBT - DVT prophylaxis with subq heparin. - f/u medication list from family Patient seen, case reviewed, and plan discussed with Dr. Jasmine. Ascencion Bennett, PGY-1 <Florecita Jasmine - Last Filed: 11/02/17 04:17> Meds - Medications Medications: Current Medications Heparin Sodium (Porcine) (Heparin) 5,000 units SC Q8 [facility] PRN Reason: Protocol Last Admin: 11/02/17 00:29 Dose: 5,000 units Sodium Chloride (Sodium Chloride 0.9%) 1,000 mls @ 100 mls/hr IV .Q10H STA Stop: 11/02/17 05:45 Last Admin: 11/01/17 20:31 Dose: 100 mls/hr Sodium Bicarbonate 50 meq/ (Dextrose) 1,050 mls @ 100 mls/hr IV .[id number] [facility] Last Admin: 11/02/17 00:29 Dose: 100 mls/hr Insulin Human Lispro (Humalog Med) 0 units SC ACHS [facility] PRN Reason: Protocol Pantoprazole Sodium (Protonix Ec Tab) 40 mg PO 0600 [facility] Results - Vital Signs Recent Vital Signs: Last Vital Signs Temp 98.1 F 11/01/17 23:37 Pulse 69 11/02/17 02:10 Resp 17 11/02/17 02:10 BP 148/77 11/02/17 02:00 Pulse Ox 97 11/02/17 02:10 - Labs Result Diagrams: 11/01/17 19:19 11/02/17 02:05 Labs: Laboratory Results - last 24 hr 11/02/17 02:05 Sodium 148 Potassium 5.5 H Chloride 116 H Carbon Dioxide 14 L Anion Gap 24 H BUN 128 H* Creatinine 10.3 H* Est GFR ( Amer) 6 Est GFR (Non-Af Amer) 5 Random Glucose 46 L* D Calcium 8.7 Attending/Attestation - Attestation I have personally seen and examined this patient.: Yes I have fully participated in the care of the patient.: Yes I have reviewed all pertinent clinical information: Yes Notes (Text): 11/02/17 04:16 Seen with resident when he was in bed # 2 in the ER. Agree with documentation.
[2017-11-01] MEDS ORDERED: Sodium Bicarbonate 8.4% 50 MEQ in Dextrose 5% In Water 1,000 ML IV SCH (23:15)
[2017-11-02 02:56] LABS: CALCIUM 8.7 mg/dL (8.4-10.5)
[2017-11-02] MEDS ORDERED: Dextrose 50% SYRINGE Inj (50 ml) IVP ONE (03:01)
[2017-11-02] MEDS ORDERED: Pantoprazole 40 mg EC Tab PO SCH (06:00)
[2017-11-02 06:27] LABS: BASO # 0.02 K/mm3 (0.0-2.0); BASO % 0.3 % (0.0-3.0); EOS # 0.5 (0.0-0.7); GRAN # 3.58 (1.4-6.5); HEMOGLOBIN 8.8 g/dL (14.0-18.0); LYMPH # 1.3 (1.2-3.4); LYMPH % 22.3 % (22.0-35.0); MEAN CELL VOLUME 73.8 fl (80.0-105.0); MEAN CORPUSCULAR HEMOGLOBIN 24.8 pg (25.0-35.0); MEAN CORPUSCULAR HGB CONC 33.6 g/dl (31.0-37.0); MONO # 0.5 (0.1-0.6); MONO % 8.4 % (1.0-6.0); PLATELET COUNT 114 10^3/uL (120.0-450.0); RBC 3.55 10^6/uL (3.5-6.1); RED CELL DISTRIBUTION WIDTH 18.2 % (11.5-14.5)
[2017-11-02 06:37] LABS: B-TYPE NATRIURETIC PEPTIDE 4630 pg/mL (0-450)
[2017-11-02 07:00] LABS: ALB/GLOB RATIO 1.1 (1.1-1.8); ALBUMIN 3.1 g/dL (3.0-4.8); ALT/SGPT 566 U/L (7-56); AST/SGOT 330 U/L (17-59); BLOOD UREA NITROGEN 128 mg/dL (7-21); CALCIUM 8.3 mg/dL (8.4-10.5); GFR NON-AFRICAN AMERICAN 5; HDL CHOLESTEROL 27 mg/dL (29-60); LDL CHOLESTEROL < 30 mg/dL (0-129); LIPASE 1750 U/L (23-300)
[2017-11-02 07:53] LABS: CREATININE,RANDOM URINE 87 mg/dL
[2017-11-02 07:59] LABS: CK MB% 3.7 % (2.5-3.0); CK-MB 9.1 ng/mL (0.0-3.6)
[2017-11-02] MEDS: Insulin Lispro (humaLOG) MEDIUM Coverage SC SCH ×4 (08:11→22:20)
[2017-11-02 08:26] LABS: OSMOLALITY,URINE 361 mosm/kg (300-1000)
--- NOTE | 2017-11-02 08:27 | RAD ---
Date of service: 11/01/2017 HISTORY: admission COMPARISON: Chest radiographs 12/01/2016. FINDINGS: LUNGS: No active pulmonary disease. PLEURA: No significant pleural effusion identified, no pneumothorax apparent. CARDIOVASCULAR: Stable cardiomediastinal silhouette. OSSEOUS STRUCTURES: No significant abnormalities. VISUALIZED UPPER ABDOMEN: Normal. OTHER FINDINGS: None. IMPRESSION: No interval acute cardiopulmonary disease appreciated.
[2017-11-02 08:45] LABS: URINE BILIRUBIN NEGATIVE (NEGATIVE); URINE BLOOD SMALL (NEGATIVE); URINE GLUCOSE (UA) NEGATIVE (NEGATIVE); URINE LEUKOCYTE ESTERASE NEGATIVE Leu/uL (NEGATIVE); URINE PROTEIN 100 mg/dL (<30 mg/dL); URINE UROBILINOGEN 0.2 E.U./dL (<1 E.U./dL)
[2017-11-02 08:47] LABS: URINE APPEARANCE CLEAR (CLEAR); URINE COLOR YELLOW (YELLOW)
[2017-11-02 08:58] LABS: URINE AMORPHOUS SEDIMENT FEW; URINE BACTERIA MANY (NEG); URINE COARSE GRANULAR CAST TRACE /hpf (0-2)
[2017-11-02] MEDS ORDERED: Sodium Chloride 0.9% 1,000 ML IV STA (09:28)
--- NOTE | 2017-11-02 11:35 | CP.CCUPN ---
<Bob Ramirez - Last Filed: 11/02/17 11:42> CCU Subjective - Physician Review Events Since Last Encounter (Free Text): Bob Ramirez, PGY-1 ICU Progress Note Patient seen and examined at bedside. Patient complains of poor sleep and poor appetite. Bladder scan shows post void volume of 150cc. Will get abdominal US. Admits to generalized weakness and nonspecific complaints. Denies CP, SOB, abdominal pain, urinary complaints and back pain. ROS noted here, otherwise unremarkable. CCU Objective - Vital Signs / Intake & Output Vital Signs (Last 4 hours): Vital Signs Pulse Resp BP Pulse Ox 11/02/17 09:10 84 23 100 11/02/17 09:00 84 17 167/86 H 100 11/02/17 08:50 81 19 100 11/02/17 08:40 79 18 100 11/02/17 08:30 81 16 100 11/02/17 08:20 83 18 100 11/02/17 08:10 86 30 H 95 11/02/17 08:00 80 15 100 11/02/17 07:50 81 13 11/02/17 07:40 88 41 H 11/02/17 07:30 89 100 11/02/17 07:20 82 17 99 Intake and Output (Last 8hrs): Intake & Output 11/01/17 11/02/17 11/02/17 22:59 06:59 14:59 Intake Total 1050 300 Output Total 150 325 Balance 900 -25 Intake: IV 800 200 NaBicarb 800 200 Oral 250 100 Output: Urine 150 125 Urine, Voided 150 125 Stool 200 Other: # Voids Urine, Voided 4 # Bowel Movements 4 - Physical Exam Head: Positive for: Atraumatic, Normocephalic Pupils: Positive for: PERRL Extroacular Muscles: Positive for: EOMI Conjunctiva: Positive for: Normal Mouth: Positive for: Moist Mucous Membranes Respiratory/Chest: Positive for: Clear to Auscultation, Good Air Exchange. Negative for: Respiratory Distress, Accessory Muscle Use Cardiovascular: Positive for: Regular Rate and Rhythm, Normal S1, S2. Negative for: Murmurs Abdomen: Positive for: Normal Bowel Sounds. Negative for: Tenderness, Distention, Peritoneal Signs Back: Positive for: Normal Inspection Upper Extremity: Positive for: Normal Inspection, NORMAL PULSES. Negative for: Cyanosis Lower Extremity: Positive for: Normal Inspection, NORMAL PULSES Neurological: Positive for: GCS=15, CN II-XII Intact, Speech Normal, Motor Func Grossly Intact, Normal Sensory Function, Memory Normal Skin: Positive for: Warm, Dry, Normal Color. Negative for: Rashes Psychiatric: Positive for: Alert, Oriented x 3, Normal Insight, Normal Concentration - Medications Active Medications: Active Medications Generic Name Dose Route Start Last Admin Trade Name Freq PRN Reason Stop Dose Admin Heparin Sodium (Porcine) 5,000 units 11/01/17 23:15 11/02/17 00:29 Heparin SC 5,000 units Q8 [facility] Administration Protocol Insulin Human Lispro 0 units 11/02/17 07:30 11/02/17 08:11 Humalog Med SC Not Given ACHS [facility] Protocol - Patient Studies Lab Studies: Lab Studies 11/02/17 11/02/17 11/02/17 Range/Units 07:49 07:00 06:30 WBC (4.5-11.0) 10^3/ul RBC (3.5-6.1) 10^6/uL Hgb (14.0-18.0) g/dL Hct (42.0-52.0) % MCV (80.0-105.0) fl MCH (25.0-35.0) pg MCHC (31.0-37.0) g/dl RDW (11.5-14.5) % Plt Count (120.0-450.0) 10^3/uL Gran % (50.0-68.0) % Lymph % (Auto) (22.0-35.0) % [place] % (Auto) (1.0-6.0) % Eos % (Auto) (1.5-5.0) % Baso % (Auto) (0.0-3.0) % Gran # (1.4-6.5) Lymph # (Auto) (1.2-3.4) [place] # (Auto) (0.1-0.6) Eos # (Auto) (0.0-0.7) Baso # (Auto) (0.0-2.0) K/mm3 Sodium (132-148) mmol/L Potassium (3.6-5.0) mmol/L Chloride (98-107) mmol/L Carbon Dioxide (21-33) mmol/L Anion Gap (10-20) BUN (7-21) mg/dL Creatinine (0.8-1.5) mg/dl Est GFR ( Amer) Est GFR (Non-Af Amer) POC Glucose (mg/dL) 124 H (65-110) mg/dL Random Glucose (70-110) mg/dL Serum Osmolality (272-300) mosm/kg Calcium (8.4-10.5) mg/dL Phosphorus 7.2 H (2.5-4.5) mg/dL Magnesium (1.7-2.2) mg/dL Total Bilirubin (0.2-1.3) mg/dL AST (17-59) U/L ALT (7-56) U/L Alkaline Phosphatase (38-126) U/L Total Creatine Kinase (35-230) U/L CK-MB (CK-2) (0.0-3.6) ng/mL CK-MB (CK-2) % (2.5-3.0) % NT-Pro-B Natriuret Pep (0-450) pg/mL Total Protein (5.8-8.3) g/dL Albumin (3.0-4.8) g/dL Globulin gm/dL Albumin/Globulin Ratio (1.1-1.8) Triglycerides (35-160) mg/dL Cholesterol (130-200) mg/dL LDL Cholesterol Direct (0-129) mg/dL HDL Cholesterol (29-60) mg/dL Lipase (23-300) U/L TSH 3rd Generation (0.46-4.68) mIU/mL Urine Color Yellow (YELLOW) Urine Appearance Clear (CLEAR) Urine pH 6.0 (4.7-8.0) Ur Specific [place] 1.025 (1.005-1.035) Urine Protein 100 H (<30 mg/dL) mg/dL Urine Glucose (UA) Negative (NEGATIVE) mg/dL Urine Ketones Negative (NEGATIVE) mg/dL Urine Blood Small H (NEGATIVE) Urine Nitrate Negative (NEGATIVE) Urine Bilirubin Negative (NEGATIVE) Urine Urobilinogen 0.2 (<1 E.U./dL) E.U./dL Ur Leukocyte Esterase Negative (NEGATIVE) Roman/uL Urine RBC 5 - 10 (0-2) /hpf Urine WBC 1 - 3 (0-6) /hpf Ur Epithelial Cells None (0-5) /hpf Amorphous Sediment Few Urine Bacteria Many (NEG) Coarse Granular Casts Trace H (0-2) /hpf Urine Other Uyeast Urine Osmolality (300-1000) mosm/kg Ur Random Creatinine mg/dL Ur Random Sodium meq/L 11/02/17 11/02/17 11/02/17 Range/Units 06:30 05:30 05:30 WBC (4.5-11.0) 10^3/ul RBC (3.5-6.1) 10^6/uL Hgb (14.0-18.0) g/dL Hct (42.0-52.0) % MCV (80.0-105.0) fl MCH (25.0-35.0) pg MCHC (31.0-37.0) g/dl RDW (11.5-14.5) % Plt Count (120.0-450.0) 10^3/uL Gran % (50.0-68.0) % Lymph % (Auto) (22.0-35.0) % Dixie % (Auto) (1.0-6.0) % Eos % (Auto) (1.5-5.0) % Baso % (Auto) (0.0-3.0) % Gran # (1.4-6.5) Lymph # (Auto) (1.2-3.4) [place] # (Auto) (0.1-0.6) Eos # (Auto) (0.0-0.7) Baso # (Auto) (0.0-2.0) K/mm3 Sodium (132-148) mmol/L Potassium (3.6-5.0) mmol/L Chloride (98-107) mmol/L Carbon Dioxide (21-33) mmol/L Anion Gap (10-20) BUN (7-21) mg/dL Creatinine (0.8-1.5) mg/dl Est GFR ( Amer) Est GFR (Non-Af Amer) POC Glucose (mg/dL) (65-110) mg/dL Random Glucose (70-110) mg/dL Serum Osmolality 340 H (272-300) mosm/kg Calcium (8.4-10.5) mg/dL Phosphorus (2.5-4.5) mg/dL Magnesium (1.7-2.2) mg/dL Total Bilirubin (0.2-1.3) mg/dL AST (17-59) U/L ALT (7-56) U/L Alkaline Phosphatase (38-126) U/L Total Creatine Kinase 244 H (35-230) U/L CK-MB (CK-2) 9.1 H (0.0-3.6) ng/mL CK-MB (CK-2) % 3.7 H (2.5-3.0) % NT-Pro-B Natriuret Pep (0-450) pg/mL Total Protein (5.8-8.3) g/dL Albumin (3.0-4.8) g/dL Globulin gm/dL Albumin/Globulin Ratio (1.1-1.8) Triglycerides (35-160) mg/dL Cholesterol (130-200) mg/dL LDL Cholesterol Direct (0-129) mg/dL HDL Cholesterol (29-60) mg/dL Lipase (23-300) U/L TSH 3rd Generation 0.24 L (0.46-4.68) mIU/mL Urine Color (YELLOW) Urine Appearance (CLEAR) Urine pH (4.7-8.0) Ur Specific [place] (1.005-1.035) Urine Protein (<30 mg/dL) mg/dL Urine Glucose (UA) (NEGATIVE) mg/dL Urine Ketones (NEGATIVE) mg/dL Urine Blood (NEGATIVE) Urine Nitrate (NEGATIVE) Urine Bilirubin (NEGATIVE) Urine Urobilinogen (<1 E.U./dL) E.U./dL Ur Leukocyte Esterase (NEGATIVE) Roman/uL Urine RBC (0-2) /hpf Urine WBC (0-6) /hpf Ur Epithelial Cells (0-5) /hpf Amorphous Sediment Urine Bacteria (NEG) Coarse Granular Casts (0-2) /hpf Urine Other Urine Osmolality 361 (300-1000) mosm/kg Ur Random Creatinine 87 mg/dL Ur Random Sodium 70 meq/L 11/02/17 11/02/17 11/02/17 Range/Units 05:30 05:30 02:51 WBC 6.0 (4.5-11.0) 10^3/ul RBC 3.55 (3.5-6.1) 10^6/uL Hgb 8.8 L (14.0-18.0) g/dL Hct 26.2 L (42.0-52.0) % MCV 73.8 L (80.0-105.0) fl MCH 24.8 L (25.0-35.0) pg MCHC 33.6 (31.0-37.0) g/dl RDW 18.2 H (11.5-14.5) % Plt Count 114 L (120.0-450.0) 10^3/uL Gran % 60.0 (50.0-68.0) % Lymph % (Auto) 22.3 (22.0-35.0) % Dixie % (Auto) 8.4 H (1.0-6.0) % Eos % (Auto) 9.0 H (1.5-5.0) % Baso % (Auto) 0.3 (0.0-3.0) % Gran # 3.58 (1.4-6.5) Lymph # (Auto) 1.3 (1.2-3.4) Dix[place] # (Auto) 0.5 (0.1-0.6) Eos # (Auto) 0.5 (0.0-0.7) Baso # (Auto) 0.02 (0.0-2.0) K/mm3 Sodium 144 (132-148) mmol/L Potassium 5.0 (3.6-5.0) mmol/L Chloride 112 H (98-107) mmol/L Carbon Dioxide 14 L (21-33) mmol/L Anion Gap 23 H (10-20) BUN 128 H* (7-21) mg/dL Creatinine 10.0 H* (0.8-1.5) mg/dl Est GFR ( Amer) 6 Est GFR (Non-Af Amer) 5 POC Glucose (mg/dL) 48 L (65-110) mg/dL Random Glucose 111 H (70-110) mg/dL Serum Osmolality (272-300) mosm/kg Calcium 8.3 L (8.4-10.5) mg/dL Phosphorus (2.5-4.5) mg/dL Magnesium 2.2 (1.7-2.2) mg/dL Total Bilirubin 1.9 H (0.2-1.3) mg/dL AST 330 H (17-59) U/L ALT 566 H (7-56) U/L Alkaline Phosphatase 373 H (38-126) U/L Total Creatine Kinase (35-230) U/L CK-MB (CK-2) (0.0-3.6) ng/mL CK-MB (CK-2) % (2.5-3.0) % NT-Pro-B Natriuret Pep 4630 H (0-450) pg/mL Total Protein 5.9 (5.8-8.3) g/dL Albumin 3.1 (3.0-4.8) g/dL Globulin 2.8 gm/dL Albumin/Globulin Ratio 1.1 (1.1-1.8) Triglycerides 112 (35-160) mg/dL Cholesterol 66 L (130-200) mg/dL LDL Cholesterol Direct < 30 (0-129) mg/dL HDL Cholesterol 27 L (29-60) mg/dL Lipase 1750 H (23-300) U/L TSH 3rd Generation (0.46-4.68) mIU/mL Urine Color (YELLOW) Urine Appearance (CLEAR) Urine pH (4.7-8.0) Ur Specific [place] (1.005-1.035) Urine Protein (<30 mg/dL) mg/dL Urine Glucose (UA) (NEGATIVE) mg/dL Urine Ketones (NEGATIVE) mg/dL Urine Blood (NEGATIVE) Urine Nitrate (NEGATIVE) Urine Bilirubin (NEGATIVE) Urine Urobilinogen (<1 E.U./dL) E.U./dL Ur Leukocyte Esterase (NEGATIVE) Roman/uL Urine RBC (0-2) /hpf Urine WBC (0-6) /hpf Ur Epithelial Cells (0-5) /hpf Amorphous Sediment Urine Bacteria (NEG) Coarse Granular Casts (0-2) /hpf Urine Other Urine Osmolality (300-1000) mosm/kg Ur Random Creatinine mg/dL Ur Random Sodium meq/L 11/02/17 Range/Units 02:05 WBC (4.5-11.0) 10^3/ul RBC (3.5-6.1) 10^6/uL Hgb (14.0-18.0) g/dL Hct (42.0-52.0) % MCV (80.0-105.0) fl MCH (25.0-35.0) pg MCHC (31.0-37.0) g/dl RDW (11.5-14.5) % Plt Count (120.0-450.0) 10^3/uL Gran % (50.0-68.0) % Lymph % (Auto) (22.0-35.0) % [place] % (Auto) (1.0-6.0) % Eos % (Auto) (1.5-5.0) % Baso % (Auto) (0.0-3.0) % Gran # (1.4-6.5) Lymph # (Auto) (1.2-3.4) [place] # (Auto) (0.1-0.6) Eos # (Auto) (0.0-0.7) Baso # (Auto) (0.0-2.0) K/mm3 Sodium 148 (132-148) mmol/L Potassium 5.5 H (3.6-5.0) mmol/L Chloride 116 H (98-107) mmol/L Carbon Dioxide 14 L (21-33) mmol/L Anion Gap 24 H (10-20) BUN 128 H* (7-21) mg/dL Creatinine 10.3 H* (0.8-1.5) mg/dl Est GFR ( Amer) 6 Est GFR (Non-Af Amer) 5 POC Glucose (mg/dL) (65-110) mg/dL Random Glucose 46 L* D (70-110) mg/dL Serum Osmolality (272-300) mosm/kg Calcium 8.7 (8.4-10.5) mg/dL Phosphorus (2.5-4.5) mg/dL Magnesium (1.7-2.2) mg/dL Total Bilirubin (0.2-1.3) mg/dL AST (17-59) U/L ALT (7-56) U/L Alkaline Phosphatase (38-126) U/L Total Creatine Kinase (35-230) U/L CK-MB (CK-2) (0.0-3.6) ng/mL CK-MB (CK-2) % (2.5-3.0) % NT-Pro-B Natriuret Pep (0-450) pg/mL Total Protein (5.8-8.3) g/dL Albumin (3.0-4.8) g/dL Globulin gm/dL Albumin/Globulin Ratio (1.1-1.8) Triglycerides (35-160) mg/dL Cholesterol (130-200) mg/dL LDL Cholesterol Direct (0-129) mg/dL HDL Cholesterol (29-60) mg/dL Lipase (23-300) U/L TSH 3rd Generation (0.46-4.68) mIU/mL Urine Color (YELLOW) Urine Appearance (CLEAR) Urine pH (4.7-8.0) Ur Specific [place] (1.005-1.035) Urine Protein (<30 mg/dL) mg/dL Urine Glucose (UA) (NEGATIVE) mg/dL Urine Ketones (NEGATIVE) mg/dL Urine Blood (NEGATIVE) Urine Nitrate (NEGATIVE) Urine Bilirubin (NEGATIVE) Urine Urobilinogen (<1 E.U./dL) E.U./dL Ur Leukocyte Esterase (NEGATIVE) Roman/uL Urine RBC (0-2) /hpf Urine WBC (0-6) /hpf Ur Epithelial Cells (0-5) /hpf Amorphous Sediment Urine Bacteria (NEG) Coarse Granular Casts (0-2) /hpf Urine Other Urine Osmolality (300-1000) mosm/kg Ur Random Creatinine mg/dL Ur Random Sodium meq/L Laboratory Results - last 24 hr 11/02/17 11/02/17 11/02/17 02:05 02:51 05:30 WBC 6.0 RBC 3.55 Hgb 8.8 L Hct 26.2 L MCV 73.8 L MCH 24.8 L MCHC 33.6 RDW 18.2 H Plt Count 114 L Gran % 60.0 Lymph % (Auto) 22.3 Dixie % (Auto) 8.4 H Eos % (Auto) 9.0 H Baso % (Auto) 0.3 Gran # 3.58 Lymph # (Auto) 1.3 Dixie # (Auto) 0.5 Eos # (Auto) 0.5 Baso # (Auto) 0.02 Sodium 148 Potassium 5.5 H Chloride 116 H Carbon Dioxide 14 L Anion Gap 24 H BUN 128 H* Creatinine 10.3 H* Est GFR ( Amer) 6 Est GFR (Non-Af Amer) 5 POC Glucose (mg/dL) 48 L Random Glucose 46 L* D Serum Osmolality Calcium 8.7 Phosphorus Magnesium Total Bilirubin AST ALT Alkaline Phosphatase Total Creatine Kinase CK-MB (CK-2) CK-MB (CK-2) % NT-Pro-B Natriuret Pep Total Protein Albumin Globulin Albumin/Globulin Ratio Triglycerides Cholesterol LDL Cholesterol Direct HDL Cholesterol Lipase TSH 3rd Generation Urine Color Urine Appearance Urine pH Ur Specific [place] Urine Protein Urine Glucose (UA) Urine Ketones Urine Blood Urine Nitrate Urine Bilirubin Urine Urobilinogen Ur Leukocyte Esterase Urine RBC Urine WBC Ur Epithelial Cells Amorphous Sediment Urine Bacteria Coarse Granular Casts Urine Other Urine Osmolality Ur Random Creatinine Ur Random Sodium 11/02/17 11/02/17 11/02/17 05:30 05:30 05:30 WBC RBC Hgb Hct MCV MCH MCHC RDW Plt Count Gran % Lymph % (Auto) [place] % (Auto) Eos % (Auto) Baso % (Auto) Gran # Lymph # (Auto) [place] # (Auto) Eos # (Auto) Baso # (Auto) Sodium 144 Potassium 5.0 Chloride 112 H Carbon Dioxide 14 L Anion Gap 23 H BUN 128 H* Creatinine 10.0 H* Est GFR ( Amer) 6 Est GFR (Non-Af Amer) 5 POC Glucose (mg/dL) Random Glucose 111 H Serum Osmolality 340 H Calcium 8.3 L Phosphorus Magnesium 2.2 Total Bilirubin 1.9 H AST 330 H ALT 566 H Alkaline Phosphatase 373 H Total Creatine Kinase 244 H CK-MB (CK-2) 9.1 H CK-MB (CK-2) % 3.7 H NT-Pro-B Natriuret Pep 4630 H Total Protein 5.9 Albumin 3.1 Globulin 2.8 Albumin/Globulin Ratio 1.1 Triglycerides 112 Cholesterol 66 L LDL Cholesterol Direct < 30 HDL Cholesterol 27 L Lipase 1750 H TSH 3rd Generation 0.24 L Urine Color Urine Appearance Urine pH Ur Specific [place] Urine Protein Urine Glucose (UA) Urine Ketones Urine Blood Urine Nitrate Urine Bilirubin Urine Urobilinogen Ur Leukocyte Esterase Urine RBC Urine WBC Ur Epithelial Cells Amorphous Sediment Urine Bacteria Coarse Granular Casts Urine Other Urine Osmolality Ur Random Creatinine Ur Random Sodium 11/02/17 11/02/17 11/02/17 06:30 06:30 07:00 WBC RBC Hgb Hct MCV MCH MCHC RDW Plt Count Gran % Lymph % (Auto) [place] % (Auto) Eos % (Auto) Baso % (Auto) Gran # Lymph # (Auto) [place] # (Auto) Eos # (Auto) Baso # (Auto) Sodium Potassium Chloride Carbon Dioxide Anion Gap BUN Creatinine Est GFR ( Amer) Est GFR (Non-Af Amer) POC Glucose (mg/dL) Random Glucose Serum Osmolality Calcium Phosphorus 7.2 H Magnesium Total Bilirubin AST ALT Alkaline Phosphatase Total Creatine Kinase CK-MB (CK-2) CK-MB (CK-2) % NT-Pro-B Natriuret Pep Total Protein Albumin Globulin Albumin/Globulin Ratio Triglycerides Cholesterol LDL Cholesterol Direct HDL Cholesterol Lipase TSH 3rd Generation Urine Color Yellow Urine Appearance Clear Urine pH 6.0 Ur Specific [place] 1.025 Urine Protein 100 H Urine Glucose (UA) Negative Urine Ketones Negative Urine Blood Small H Urine Nitrate Negative Urine Bilirubin Negative Urine Urobilinogen 0.2 Ur Leukocyte Esterase Negative Urine RBC 5 - 10 Urine WBC 1 - 3 Ur Epithelial Cells None Amorphous Sediment Few Urine Bacteria Many Coarse Granular Casts Trace H Urine Other Uyeast Urine Osmolality 361 Ur Random Creatinine 87 Ur Random Sodium 70 11/02/17 07:49 WBC RBC Hgb Hct MCV MCH MCHC RDW Plt Count Gran % Lymph % (Auto) [place] % (Auto) Eos % (Auto) Baso % (Auto) Gran # Lymph # (Auto) [place] # (Auto) Eos # (Auto) Baso # (Auto) Sodium Potassium Chloride Carbon Dioxide Anion Gap BUN Creatinine Est GFR ( Amer) Est GFR (Non-Af Amer) POC Glucose (mg/dL) 124 H Random Glucose Serum Osmolality Calcium Phosphorus Magnesium Total Bilirubin AST ALT Alkaline Phosphatase Total Creatine Kinase CK-MB (CK-2) CK-MB (CK-2) % NT-Pro-B Natriuret Pep Total Protein Albumin Globulin Albumin/Globulin Ratio Triglycerides Cholesterol LDL Cholesterol Direct HDL Cholesterol Lipase TSH 3rd Generation Urine Color Urine Appearance Urine pH Ur Specific [place] Urine Protein Urine Glucose (UA) Urine Ketones Urine Blood Urine Nitrate Urine Bilirubin Urine Urobilinogen Ur Leukocyte Esterase Urine RBC Urine WBC Ur Epithelial Cells Amorphous Sediment Urine Bacteria Coarse Granular Casts Urine Other Urine Osmolality Ur Random Creatinine Ur Random Sodium Fingerstick Blood Sugar Results: 176 Critical Care Progress Note - Nutrition Nutrition: Nutrition Category Date Time Status Heart Healthy Diet [DIET] Diets 11/02/17 Breakfast Active Assessment/Plan - Assessment and Plan (Free Text) Assessment: This is a 77 year old male with PMH of HT, DM, CAD s/p stents in RCA two months ago, CKD, and BPH presenting to ICU for management of acute on chronic kidney disease secondary to poor oral intake of uncertain etiology. Will consider HIV vs malignancy. Cardio on consult due to stent placement 2 months ago. Plan: Neuro: -maintain normothermia -AAO x3, moving extremities spontaneously past midline Cardio: -maintain MAP>65 -will monitor vitals including HR and BP. Stable overnight -echo 06/2017 showed EF 60% with RVSP 47 -Cardio on consult, Dr. Terrell Lungs: -SaO2 >90% -supplementary O2 PRN -CXR: no interval change Renal: -maintain euvolemia -avoid nephrotoxic agents, hypochloremia -replace electrolytes as needed -BUN/Cr today is 128/10. Baseline BUN/Cr=50s/3s. -Abdominal US pending -ABG today reads pH/pO2/pCO2/bicarb 7.26/104/25/11 at FiO2 of 21 indicating anion gap metabolic acidosis secondary to uremia. Lactate WNL. -NS @ 100 -strict I/O -post void bladder scan this morning shows 150cc -FENA is 5.6% indicating probable post renal obstructive etiology -Nephro consult, Dr. Giang Heme: -Hg today is 8.8, will monitor -Resume plavix, ASA -DVT ppx with heparin 5k Endo: -maintain euglycemia -insulin lispro ACHS ID: -WBC is WNL and afebrile -Will work up for HIV due to generalized complaints -GI: -Consistent carb diet -no need for GI prophylaxis at this time <Sylvester Barger - Last Filed: 11/02/17 16:21> CCU Objective - Vital Signs / Intake & Output Vital Signs (Last 4 hours): Vital Signs Pulse Resp BP Pulse Ox 11/02/17 15:20 86 33 H 94 L 11/02/17 15:10 87 20 100 11/02/17 15:01 86 18 167/72 H 100 11/02/17 15:00 87 23 167/72 H 100 11/02/17 14:50 88 19 100 11/02/17 14:40 91 H 12 99 11/02/17 14:30 88 16 100 11/02/17 14:20 93 H 100 11/02/17 14:10 100 H 20 11/02/17 14:00 99 H 34 H 82 L 11/02/17 13:50 91 H 17 99 11/02/17 13:40 95 H 41 H 100 11/02/17 13:30 90 23 98 11/02/17 13:20 99 H 20 100 11/02/17 13:10 91 H 31 H 100 11/02/17 13:00 92 H 21 180/86 H 99 11/02/17 12:50 90 18 100 11/02/17 12:40 89 20 100 11/02/17 12:30 93 H 19 100 Intake and Output (Last 8hrs): Intake & Output 11/02/17 11/02/17 11/02/17 06:59 14:59 22:59 Intake Total 1050 300 Output Total 150 450 Balance 900 -150 Intake: IV 800 200 Left forearm 800 200 Oral 250 100 Output: Urine 150 250 Urine, Voided 150 125 Stool 200 Other: # Voids Urine, Voided 4 # Bowel Movements 4 - Medications Active Medications: Active Medications Generic Name Dose Route Start Last Admin Trade Name Freq PRN Reason Stop Dose Admin Amlodipine Besylate 10 mg 11/02/17 13:00 11/02/17 15:00 Norvasc PO 10 mg DAILY SHIRA Administration Aspirin 81 mg 11/02/17 12:15 11/02/17 15:00 Ecotrin PO 81 mg DAILY SHIRA Administration Calcium Acetate 667 mg 11/02/17 17:00 Phoslo PO WM SHIRA Clopidogrel Bisulfate 75 mg 11/02/17 12:15 11/02/17 15:00 Plavix PO 75 mg DAILY SHIRA Administration Heparin Sodium (Porcine) 5,000 units 11/01/17 23:15 11/02/17 15:00 Heparin SC 5,000 units Q8 SHIRA Administration Protocol Sodium Chloride 1,000 mls @ 100 mls/hr 11/02/17 11:45 11/02/17 12:30 Sodium Chloride 0.9% IV 100 mls/hr .Q10H SHIRA Administration Insulin Human Lispro 0 units 11/02/17 07:30 11/02/17 12:08 Humalog Med SC Not Given ACHS [facility] Protocol - Patient Studies Lab Studies: Lab Studies 11/02/17 11/02/17 11/02/17 Range/Units 12:00 11:35 07:49 WBC (4.5-11.0) 10^3/ul RBC (3.5-6.1) 10^6/uL Hgb (14.0-18.0) g/dL Hct (42.0-52.0) % MCV (80.0-105.0) fl MCH (25.0-35.0) pg MCHC (31.0-37.0) g/dl RDW (11.5-14.5) % Plt Count (120.0-450.0) 10^3/uL Gran % (50.0-68.0) % Lymph % (Auto) (22.0-35.0) % [place] % (Auto) (1.0-6.0) % Eos % (Auto) (1.5-5.0) % Baso % (Auto) (0.0-3.0) % Gran # (1.4-6.5) Lymph # (Auto) (1.2-3.4) [place] # (Auto) (0.1-0.6) Eos # (Auto) (0.0-0.7) Baso # (Auto) (0.0-2.0) K/mm3 Sodium (132-148) mmol/L Potassium (3.6-5.0) mmol/L Chloride (98-107) mmol/L Carbon Dioxide (21-33) mmol/L Anion Gap (10-20) BUN (7-21) mg/dL Creatinine (0.8-1.5) mg/dl Est GFR ( Amer) Est GFR (Non-Af Amer) POC Glucose (mg/dL) 102 124 H (65-110) mg/dL Random Glucose (70-110) mg/dL Hemoglobin A1c (4.2-6.5) % Serum Osmolality (272-300) mosm/kg Calcium (8.4-10.5) mg/dL Phosphorus (2.5-4.5) mg/dL Magnesium (1.7-2.2) mg/dL Iron 55 (45-180) ug/dL TIBC 248 L (261-462) ug/dL % Saturation 22 (20-55) % Total Bilirubin (0.2-1.3) mg/dL AST (17-59) U/L ALT (7-56) U/L Alkaline Phosphatase (38-126) U/L Total Creatine Kinase (35-230) U/L CK-MB (CK-2) (0.0-3.6) ng/mL CK-MB (CK-2) % (2.5-3.0) % NT-Pro-B Natriuret Pep (0-450) pg/mL Total Protein (5.8-8.3) g/dL Albumin (3.0-4.8) g/dL Globulin gm/dL Albumin/Globulin Ratio (1.1-1.8) Triglycerides (35-160) mg/dL Cholesterol (130-200) mg/dL LDL Cholesterol Direct (0-129) mg/dL HDL Cholesterol (29-60) mg/dL Lipase (23-300) U/L TSH 3rd Generation (0.46-4.68) mIU/mL Urine Color (YELLOW) Urine Appearance (CLEAR) Urine pH (4.7-8.0) Ur Specific [place] (1.005-1.035) Urine Protein (<30 mg/dL) mg/dL Urine Glucose (UA) (NEGATIVE) mg/dL Urine Ketones (NEGATIVE) mg/dL Urine Blood (NEGATIVE) Urine Nitrate (NEGATIVE) Urine Bilirubin (NEGATIVE) Urine Urobilinogen (<1 E.U./dL) E.U./dL Ur Leukocyte Esterase (NEGATIVE) Roman/uL Urine RBC (0-2) /hpf Urine WBC (0-6) /hpf Ur Epithelial Cells (0-5) /hpf Amorphous Sediment Urine Bacteria (NEG) Coarse Granular Casts (0-2) /hpf Urine Other Urine Osmolality (300-1000) mosm/kg Ur Random Creatinine mg/dL Ur Random Sodium meq/L 11/02/17 11/02/17 11/02/17 Range/Units 07:00 06:30 06:30 WBC (4.5-11.0) 10^3/ul RBC (3.5-6.1) 10^6/uL Hgb (14.0-18.0) g/dL Hct (42.0-52.0) % MCV (80.0-105.0) fl MCH (25.0-35.0) pg MCHC (31.0-37.0) g/dl RDW (11.5-14.5) % Plt Count (120.0-450.0) 10^3/uL Gran % (50.0-68.0) % Lymph % (Auto) (22.0-35.0) % [place] % (Auto) (1.0-6.0) % Eos % (Auto) (1.5-5.0) % Baso % (Auto) (0.0-3.0) % Gran # (1.4-6.5) Lymph # (Auto) (1.2-3.4) [place] # (Auto) (0.1-0.6) Eos # (Auto) (0.0-0.7) Baso # (Auto) (0.0-2.0) K/mm3 Sodium (132-148) mmol/L Potassium (3.6-5.0) mmol/L Chloride (98-107) mmol/L Carbon Dioxide (21-33) mmol/L Anion Gap (10-20) BUN (7-21) mg/dL Creatinine (0.8-1.5) mg/dl Est GFR ( Amer) Est GFR (Non-Af Amer) POC Glucose (mg/dL) (65-110) mg/dL Random Glucose (70-110) mg/dL Hemoglobin A1c (4.2-6.5) % Serum Osmolality (272-300) mosm/kg Calcium (8.4-10.5) mg/dL Phosphorus 7.2 H (2.5-4.5) mg/dL Magnesium (1.7-2.2) mg/dL Iron (45-180) ug/dL TIBC (261-462) ug/dL % Saturation (20-55) % Total Bilirubin (0.2-1.3) mg/dL AST (17-59) U/L ALT (7-56) U/L Alkaline Phosphatase (38-126) U/L Total Creatine Kinase (35-230) U/L CK-MB (CK-2) (0.0-3.6) ng/mL CK-MB (CK-2) % (2.5-3.0) % NT-Pro-B Natriuret Pep (0-450) pg/mL Total Protein (5.8-8.3) g/dL Albumin (3.0-4.8) g/dL Globulin gm/dL Albumin/Globulin Ratio (1.1-1.8) Triglycerides (35-160) mg/dL Cholesterol (130-200) mg/dL LDL Cholesterol Direct (0-129) mg/dL HDL Cholesterol (29-60) mg/dL Lipase (23-300) U/L TSH 3rd Generation (0.46-4.68) mIU/mL Urine Color Yellow (YELLOW) Urine Appearance Clear (CLEAR) Urine pH 6.0 (4.7-8.0) Ur Specific [place] 1.025 (1.005-1.035) Urine Protein 100 H (<30 mg/dL) mg/dL Urine Glucose (UA) Negative (NEGATIVE) mg/dL Urine Ketones Negative (NEGATIVE) mg/dL Urine Blood Small H (NEGATIVE) Urine Nitrate Negative (NEGATIVE) Urine Bilirubin Negative (NEGATIVE) Urine Urobilinogen 0.2 (<1 E.U./dL) E.U./dL Ur Leukocyte Esterase Negative (NEGATIVE) Roman/uL Urine RBC 5 - 10 (0-2) /hpf Urine WBC 1 - 3 (0-6) /hpf Ur Epithelial Cells None (0-5) /hpf Amorphous Sediment Few Urine Bacteria Many (NEG) Coarse Granular Casts Trace H (0-2) /hpf Urine Other Uyeast Urine Osmolality 361 (300-1000) mosm/kg Ur Random Creatinine 87 mg/dL Ur Random Sodium 70 meq/L 11/02/17 11/02/17 11/02/17 Range/Units 05:30 05:30 05:30 WBC (4.5-11.0) 10^3/ul RBC (3.5-6.1) 10^6/uL Hgb (14.0-18.0) g/dL Hct (42.0-52.0) % MCV (80.0-105.0) fl MCH (25.0-35.0) pg MCHC (31.0-37.0) g/dl RDW (11.5-14.5) % Plt Count (120.0-450.0) 10^3/uL Gran % (50.0-68.0) % Lymph % (Auto) (22.0-35.0) % [place] % (Auto) (1.0-6.0) % Eos % (Auto) (1.5-5.0) % Baso % (Auto) (0.0-3.0) % Gran # (1.4-6.5) Lymph # (Auto) (1.2-3.4) [place] # (Auto) (0.1-0.6) Eos # (Auto) (0.0-0.7) Baso # (Auto) (0.0-2.0) K/mm3 Sodium (132-148) mmol/L Potassium (3.6-5.0) mmol/L Chloride (98-107) mmol/L Carbon Dioxide (21-33) mmol/L Anion Gap (10-20) BUN (7-21) mg/dL Creatinine (0.8-1.5) mg/dl Est GFR ( Amer) Est GFR (Non-Af Amer) POC Glucose (mg/dL) (65-110) mg/dL Random Glucose (70-110) mg/dL Hemoglobin A1c 7.0 H (4.2-6.5) % Serum Osmolality 340 H (272-300) mosm/kg Calcium (8.4-10.5) mg/dL Phosphorus (2.5-4.5) mg/dL Magnesium (1.7-2.2) mg/dL Iron (45-180) ug/dL TIBC (261-462) ug/dL % Saturation (20-55) % Total Bilirubin (0.2-1.3) mg/dL AST (17-59) U/L ALT (7-56) U/L Alkaline Phosphatase (38-126) U/L Total Creatine Kinase 244 H (35-230) U/L CK-MB (CK-2) 9.1 H (0.0-3.6) ng/mL CK-MB (CK-2) % 3.7 H (2.5-3.0) % NT-Pro-B Natriuret Pep (0-450) pg/mL Total Protein (5.8-8.3) g/dL Albumin (3.0-4.8) g/dL Globulin gm/dL Albumin/Globulin Ratio (1.1-1.8) Triglycerides (35-160) mg/dL Cholesterol (130-200) mg/dL LDL Cholesterol Direct (0-129) mg/dL HDL Cholesterol (29-60) mg/dL Lipase (23-300) U/L TSH 3rd Generation 0.24 L (0.46-4.68) mIU/mL Urine Color (YELLOW) Urine Appearance (CLEAR) Urine pH (4.7-8.0) Ur Specific [place] (1.005-1.035) Urine Protein (<30 mg/dL) mg/dL Urine Glucose (UA) (NEGATIVE) mg/dL Urine Ketones (NEGATIVE) mg/dL Urine Blood (NEGATIVE) Urine Nitrate (NEGATIVE) Urine Bilirubin (NEGATIVE) Urine Urobilinogen (<1 E.U./dL) E.U./dL Ur Leukocyte Esterase (NEGATIVE) Roman/uL Urine RBC (0-2) /hpf Urine WBC (0-6) /hpf Ur Epithelial Cells (0-5) /hpf Amorphous Sediment Urine Bacteria (NEG) Coarse Granular Casts (0-2) /hpf Urine Other Urine Osmolality (300-1000) mosm/kg Ur Random Creatinine mg/dL Ur Random Sodium meq/L 11/02/17 11/02/17 11/02/17 Range/Units 05:30 05:30 02:51 WBC 6.0 (4.5-11.0) 10^3/ul RBC 3.55 (3.5-6.1) 10^6/uL Hgb 8.8 L (14.0-18.0) g/dL Hct 26.2 L (42.0-52.0) % MCV 73.8 L (80.0-105.0) fl MCH 24.8 L (25.0-35.0) pg MCHC 33.6 (31.0-37.0) g/dl RDW 18.2 H (11.5-14.5) % Plt Count 114 L (120.0-450.0) 10^3/uL Gran % 60.0 (50.0-68.0) % Lymph % (Auto) 22.3 (22.0-35.0) % Dixie % (Auto) 8.4 H (1.0-6.0) % Eos % (Auto) 9.0 H (1.5-5.0) % Baso % (Auto) 0.3 (0.0-3.0) % Gran # 3.58 (1.4-6.5) Lymph # (Auto) 1.3 (1.2-3.4) Dixie # (Auto) 0.5 (0.1-0.6) Eos # (Auto) 0.5 (0.0-0.7) Baso # (Auto) 0.02 (0.0-2.0) K/mm3 Sodium 144 (132-148) mmol/L Potassium 5.0 (3.6-5.0) mmol/L Chloride 112 H (98-107) mmol/L Carbon Dioxide 14 L (21-33) mmol/L Anion Gap 23 H (10-20) BUN 128 H* (7-21) mg/dL Creatinine 10.0 H* (0.8-1.5) mg/dl Est GFR ( Amer) 6 Est GFR (Non-Af Amer) 5 POC Glucose (mg/dL) 48 L (65-110) mg/dL Random Glucose 111 H (70-110) mg/dL Hemoglobin A1c (4.2-6.5) % Serum Osmolality (272-300) mosm/kg Calcium 8.3 L (8.4-10.5) mg/dL Phosphorus (2.5-4.5) mg/dL Magnesium 2.2 (1.7-2.2) mg/dL Iron (45-180) ug/dL TIBC (261-462) ug/dL % Saturation (20-55) % Total Bilirubin 1.9 H (0.2-1.3) mg/dL AST 330 H (17-59) U/L ALT 566 H (7-56) U/L Alkaline Phosphatase 373 H (38-126) U/L Total Creatine Kinase (35-230) U/L CK-MB (CK-2) (0.0-3.6) ng/mL CK-MB (CK-2) % (2.5-3.0) % NT-Pro-B Natriuret Pep 4630 H (0-450) pg/mL Total Protein 5.9 (5.8-8.3) g/dL Albumin 3.1 (3.0-4.8) g/dL Globulin 2.8 gm/dL Albumin/Globulin Ratio 1.1 (1.1-1.8) Triglycerides 112 (35-160) mg/dL Cholesterol 66 L (130-200) mg/dL LDL Cholesterol Direct < 30 (0-129) mg/dL HDL Cholesterol 27 L (29-60) mg/dL Lipase 1750 H (23-300) U/L TSH 3rd Generation (0.46-4.68) mIU/mL Urine Color (YELLOW) Urine Appearance (CLEAR) Urine pH (4.7-8.0) Ur Specific [place] (1.005-1.035) Urine Protein (<30 mg/dL) mg/dL Urine Glucose (UA) (NEGATIVE) mg/dL Urine Ketones (NEGATIVE) mg/dL Urine Blood (NEGATIVE) Urine Nitrate (NEGATIVE) Urine Bilirubin (NEGATIVE) Urine Urobilinogen (<1 E.U./dL) E.U./dL Ur Leukocyte Esterase (NEGATIVE) Roman/uL Urine RBC (0-2) /hpf Urine WBC (0-6) /hpf Ur Epithelial Cells (0-5) /hpf Amorphous Sediment Urine Bacteria (NEG) Coarse Granular Casts (0-2) /hpf Urine Other Urine Osmolality (300-1000) mosm/kg Ur Random Creatinine mg/dL Ur Random Sodium meq/L 11/02/17 Range/Units 02:05 WBC (4.5-11.0) 10^3/ul RBC (3.5-6.1) 10^6/uL Hgb (14.0-18.0) g/dL Hct (42.0-52.0) % MCV (80.0-105.0) fl MCH (25.0-35.0) pg MCHC (31.0-37.0) g/dl RDW (11.5-14.5) % Plt Count (120.0-450.0) 10^3/uL Gran % (50.0-68.0) % Lymph % (Auto) (22.0-35.0) % Dixie % (Auto) (1.0-6.0) % Eos % (Auto) (1.5-5.0) % Baso % (Auto) (0.0-3.0) % Gran # (1.4-6.5) Lymph # (Auto) (1.2-3.4) Dixie # (Auto) (0.1-0.6) Eos # (Auto) (0.0-0.7) Baso # (Auto) (0.0-2.0) K/mm3 Sodium 148 (132-148) mmol/L Potassium 5.5 H (3.6-5.0) mmol/L Chloride 116 H (98-107) mmol/L Carbon Dioxide 14 L (21-33) mmol/L Anion Gap 24 H (10-20) BUN 128 H* (7-21) mg/dL Creatinine 10.3 H* (0.8-1.5) mg/dl Est GFR ( Amer) 6 Est GFR (Non-Af Amer) 5 POC Glucose (mg/dL) (65-110) mg/dL Random Glucose 46 L* D (70-110) mg/dL Hemoglobin A1c (4.2-6.5) % Serum Osmolality (272-300) mosm/kg Calcium 8.7 (8.4-10.5) mg/dL Phosphorus (2.5-4.5) mg/dL Magnesium (1.7-2.2) mg/dL Iron (45-180) ug/dL TIBC (261-462) ug/dL % Saturation (20-55) % Total Bilirubin (0.2-1.3) mg/dL AST (17-59) U/L ALT (7-56) U/L Alkaline Phosphatase (38-126) U/L Total Creatine Kinase (35-230) U/L CK-MB (CK-2) (0.0-3.6) ng/mL CK-MB (CK-2) % (2.5-3.0) % NT-Pro-B Natriuret Pep (0-450) pg/mL Total Protein (5.8-8.3) g/dL Albumin (3.0-4.8) g/dL Globulin gm/dL Albumin/Globulin Ratio (1.1-1.8) Triglycerides (35-160) mg/dL Cholesterol (130-200) mg/dL LDL Cholesterol Direct (0-129) mg/dL HDL Cholesterol (29-60) mg/dL Lipase (23-300) U/L TSH 3rd Generation (0.46-4.68) mIU/mL Urine Color (YELLOW) Urine Appearance (CLEAR) Urine pH (4.7-8.0) Ur Specific [place] (1.005-1.035) Urine Protein (<30 mg/dL) mg/dL Urine Glucose (UA) (NEGATIVE) mg/dL Urine Ketones (NEGATIVE) mg/dL Urine Blood (NEGATIVE) Urine Nitrate (NEGATIVE) Urine Bilirubin (NEGATIVE) Urine Urobilinogen (<1 E.U./dL) E.U./dL Ur Leukocyte Esterase (NEGATIVE) Roman/uL Urine RBC (0-2) /hpf Urine WBC (0-6) /hpf Ur Epithelial Cells (0-5) /hpf Amorphous Sediment Urine Bacteria (NEG) Coarse Granular Casts (0-2) /hpf Urine Other Urine Osmolality (300-1000) mosm/kg Ur Random Creatinine mg/dL Ur Random Sodium meq/L Laboratory Results - last 24 hr 11/02/17 11/02/17 11/02/17 02:05 02:51 05:30 WBC 6.0 RBC 3.55 Hgb 8.8 L Hct 26.2 L MCV 73.8 L MCH 24.8 L MCHC 33.6 RDW 18.2 H Plt Count 114 L Gran % 60.0 Lymph % (Auto) 22.3 Dixie % (Auto) 8.4 H Eos % (Auto) 9.0 H Baso % (Auto) 0.3 Gran # 3.58 Lymph # (Auto) 1.3 Dixie # (Auto) 0.5 Eos # (Auto) 0.5 Baso # (Auto) 0.02 Sodium 148 Potassium 5.5 H Chloride 116 H Carbon Dioxide 14 L Anion Gap 24 H BUN 128 H* Creatinine 10.3 H* Est GFR ( Amer) 6 Est GFR (Non-Af Amer) 5 POC Glucose (mg/dL) 48 L Random Glucose 46 L* D Hemoglobin A1c Serum Osmolality Calcium 8.7 Phosphorus Magnesium Iron TIBC % Saturation Total Bilirubin AST ALT Alkaline Phosphatase Total Creatine Kinase CK-MB (CK-2) CK-MB (CK-2) % NT-Pro-B Natriuret Pep Total Protein Albumin Globulin Albumin/Globulin Ratio Triglycerides Cholesterol LDL Cholesterol Direct HDL Cholesterol Lipase TSH 3rd Generation Urine Color Urine Appearance Urine pH Ur Specific [place] Urine Protein Urine Glucose (UA) Urine Ketones Urine Blood Urine Nitrate Urine Bilirubin Urine Urobilinogen Ur Leukocyte Esterase Urine RBC Urine WBC Ur Epithelial Cells Amorphous Sediment Urine Bacteria Coarse Granular Casts Urine Other Urine Osmolality Ur Random Creatinine Ur Random Sodium 11/02/17 11/02/17 11/02/17 05:30 05:30 05:30 WBC RBC Hgb Hct MCV MCH MCHC RDW Plt Count Gran % Lymph % (Auto) Dixie % (Auto) Eos % (Auto) Baso % (Auto) Gran # Lymph # (Auto) [place] # (Auto) Eos # (Auto) Baso # (Auto) Sodium 144 Potassium 5.0 Chloride 112 H Carbon Dioxide 14 L Anion Gap 23 H BUN 128 H* Creatinine 10.0 H* Est GFR ( Amer) 6 Est GFR (Non-Af Amer) 5 POC Glucose (mg/dL) Random Glucose 111 H Hemoglobin A1c 7.0 H Serum Osmolality 340 H Calcium 8.3 L Phosphorus Magnesium 2.2 Iron TIBC % Saturation Total Bilirubin 1.9 H AST 330 H ALT 566 H Alkaline Phosphatase 373 H Total Creatine Kinase CK-MB (CK-2) CK-MB (CK-2) % NT-Pro-B Natriuret Pep 4630 H Total Protein 5.9 Albumin 3.1 Globulin 2.8 Albumin/Globulin Ratio 1.1 Triglycerides 112 Cholesterol 66 L LDL Cholesterol Direct < 30 HDL Cholesterol 27 L Lipase 1750 H TSH 3rd Generation 0.24 L Urine Color Urine Appearance Urine pH Ur Specific [place] Urine Protein Urine Glucose (UA) Urine Ketones Urine Blood Urine Nitrate Urine Bilirubin Urine Urobilinogen Ur Leukocyte Esterase Urine RBC Urine WBC Ur Epithelial Cells Amorphous Sediment Urine Bacteria Coarse Granular Casts Urine Other Urine Osmolality Ur Random Creatinine Ur Random Sodium 11/02/17 11/02/17 11/02/17 05:30 06:30 06:30 WBC RBC Hgb Hct MCV MCH MCHC RDW Plt Count Gran % Lymph % (Auto) Dixie % (Auto) Eos % (Auto) Baso % (Auto) Gran # Lymph # (Auto) Dixie # (Auto) Eos # (Auto) Baso # (Auto) Sodium Potassium Chloride Carbon Dioxide Anion Gap BUN Creatinine Est GFR ( Amer) Est GFR (Non-Af Amer) POC Glucose (mg/dL) Random Glucose Hemoglobin A1c Serum Osmolality Calcium Phosphorus 7.2 H Magnesium Iron TIBC % Saturation Total Bilirubin AST ALT Alkaline Phosphatase Total Creatine Kinase 244 H CK-MB (CK-2) 9.1 H CK-MB (CK-2) % 3.7 H NT-Pro-B Natriuret Pep Total Protein Albumin Globulin Albumin/Globulin Ratio Triglycerides Cholesterol LDL Cholesterol Direct HDL Cholesterol Lipase TSH 3rd Generation Urine Color Urine Appearance Urine pH Ur Specific [place] Urine Protein Urine Glucose (UA) Urine Ketones Urine Blood Urine Nitrate Urine Bilirubin Urine Urobilinogen Ur Leukocyte Esterase Urine RBC Urine WBC Ur Epithelial Cells Amorphous Sediment Urine Bacteria Coarse Granular Casts Urine Other Urine Osmolality 361 Ur Random Creatinine 87 Ur Random Sodium 70 11/02/17 11/02/17 11/02/17 07:00 07:49 11:35 WBC RBC Hgb Hct MCV MCH MCHC RDW Plt Count Gran % Lymph % (Auto) Dixie % (Auto) Eos % (Auto) Baso % (Auto) Gran # Lymph # (Auto) Dixie # (Auto) Eos # (Auto) Baso # (Auto) Sodium Potassium Chloride Carbon Dioxide Anion Gap BUN Creatinine Est GFR ( Amer) Est GFR (Non-Af Amer) POC Glucose (mg/dL) 124 H 102 Random Glucose Hemoglobin A1c Serum Osmolality Calcium Phosphorus Magnesium Iron TIBC % Saturation Total Bilirubin AST ALT Alkaline Phosphatase Total Creatine Kinase CK-MB (CK-2) CK-MB (CK-2) % NT-Pro-B Natriuret Pep Total Protein Albumin Globulin Albumin/Globulin Ratio Triglycerides Cholesterol LDL Cholesterol Direct HDL Cholesterol Lipase TSH 3rd Generation Urine Color Yellow Urine Appearance Clear Urine pH 6.0 Ur Specific [place] 1.025 Urine Protein 100 H Urine Glucose (UA) Negative Urine Ketones Negative Urine Blood Small H Urine Nitrate Negative Urine Bilirubin Negative Urine Urobilinogen 0.2 Ur Leukocyte Esterase Negative Urine RBC 5 - 10 Urine WBC 1 - 3 Ur Epithelial Cells None Amorphous Sediment Few Urine Bacteria Many Coarse Granular Casts Trace H Urine Other Uyeast Urine Osmolality Ur Random Creatinine Ur Random Sodium 11/02/17 12:00 WBC RBC Hgb Hct MCV MCH MCHC RDW Plt Count Gran % Lymph % (Auto) Dixie % (Auto) Eos % (Auto) Baso % (Auto) Gran # Lymph # (Auto) [place] # (Auto) Eos # (Auto) Baso # (Auto) Sodium Potassium Chloride Carbon Dioxide Anion Gap BUN Creatinine Est GFR ( Amer) Est GFR (Non-Af Amer) POC Glucose (mg/dL) Random Glucose Hemoglobin A1c Serum Osmolality Calcium Phosphorus Magnesium Iron 55 TIBC 248 L % Saturation 22 Total Bilirubin AST ALT Alkaline Phosphatase Total Creatine Kinase CK-MB (CK-2) CK-MB (CK-2) % NT-Pro-B Natriuret Pep Total Protein Albumin Globulin Albumin/Globulin Ratio Triglycerides Cholesterol LDL Cholesterol Direct HDL Cholesterol Lipase TSH 3rd Generation Urine Color Urine Appearance Urine pH Ur Specific [place] Urine Protein Urine Glucose (UA) Urine Ketones Urine Blood Urine Nitrate Urine Bilirubin Urine Urobilinogen Ur Leukocyte Esterase Urine RBC Urine WBC Ur Epithelial Cells Amorphous Sediment Urine Bacteria Coarse Granular Casts Urine Other Urine Osmolality Ur Random Creatinine Ur Random Sodium Critical Care Progress Note - Nutrition Nutrition: Nutrition Category Date Time Status Consistent Carbohydrate [DIET] Diets 11/02/17 Lunch Ordered Addendum Addendum: 11/02/17 16:20 ICU Attending Addendum: Patient seen and examined. Case reviewed on round with housestaff. Agree with resident note above with the following additions/exceptions: 77 year old with a PMHx of CAD s/p 2 stents most recently in [facility] on 06/29, HTN, DM, HLD, BPH, Gout, OA who presents with a one week history of bilateral lower extremity weakness, nausea and poor appetite found to be in profound renal failure. Unclear etiology of the renal failure? Possible hypovolemia / ATN. Making some urine. Will check US of kidneys (obstructive?). He has only rec/d 1 L of fluids , will challenge him with another 1 L bolus then maintsain at 100cc/hr. Monitor urine output, insert glasgow. His cardio should be notified given his recent stents. He should be resumed on his antiplat meds to protect the stent. Lipase elevated - possible etoh / toxin ingestion / hypertrig / stone will check US abd as well obtain deeper hx as for risk factors for his renal dysfucntion including sexual , social and drug hx agree with HIV test as well nystatin for thrush Rest of care as noted above. Sylvester Barger MD [facility] Critical care time : 40 mins
[2017-11-02] MEDS: Sodium Chloride 0.9% 1,000 ML IV SCH ×2 (12:30→22:21)
[2017-11-02 13:13] LABS: IRON 55 ug/dL (45-180)
[2017-11-02 13:24] LABS: % IRON SATURATION 22 % (20-55); TOTAL IRON BINDING CAPACITY 248 ug/dL (261-462)
--- NOTE | 2017-11-02 14:31 | CON ---
Copied To: Shane Giang MD Attending MD: Shane Giang MD DATE: 11/02/2017 The patient admitted for Dr. Rony Galarza and Dr. Oliver Galarza. REFERRING MD: Dr. Galarza. REASON FOR CONSULTATION: Evaluation of a patient well known to me with progressive chronic kidney disease who presented to the hospital with an elevated BUN and creatinine and life-threatening hyperkalemia. HISTORY OF PRESENT ILLNESS: The patient is a 77-year-old black male with a history of hypertension, history of progressive chronic kidney disease, chronic kidney disease stage IV. The patient has had for the most part stable creatinines in the 3 to 4 range. He did have one outpatient creatinine in the 5 to 6 range with adjustment of medications and removal of his NANCY inhibitors. Creatinine have fallen back into the 3 to 4 range. The patient was to have [facility] to learn about all options regarding renal replacement therapy. The patient decided he was not interested in doing it at this point in time. He had not see me back for several months. The patient presents to the hospital with an elevated BUN and creatinine significantly above his baseline levels. BUN was 131 with a creatinine of 10.1. Today's BUN is 128 with a creatinine of 10. Potassium was 6.5, non-hemolyzed. He was treated appropriately in the emergency room, potassium fell to 5.5 and today it is 5. CO2 level was 11, when the patient presented, it is currently 14. The patient has a long history of IDDM, history of diabetic nephropathy, we ruled out any other causes of kidney failure in the outpatient setting. The patient had a full set of serologies several years ago, which for the most part were negative. History of BPH. The patient had an outpatient renal ultrasound when his creatinine went up into the 5-6 range, which was negative for obstructive uropathy. History of gout, history of anemia, history of diabetic neuropathy, history of secondary hyperparathyroidism. The patient presented to the hospital feeling weak and sick. He was noted to have the elevated BUN and creatinine and high potassium level as noted above. The patient is reluctant to start dialysis, but he realizes that he has limited options. PAST MEDICAL HISTORY: Significant for IDDM, diabetic nephropathy, progressive chronic kidney disease, hypertension, ASHD, history of BPH with no obstructive uropathy, history of gout, anemia, history of diabetic neuropathy and history of secondary hyperparathyroidism secondary to chronic kidney disease. PAST SURGICAL HISTORY: Significant for hand surgery done 35 to 40 years ago. MEDICATIONS AT HOME: Include that of Avodart, amlodipine, Amaryl, insulin, enalapril was discontinued in the outpatient setting, Plavix, Zanaflex, and uncertain if the patient is taking hydralazine. ALLERGIES: NO KNOWN ALLERGIES TO MEDICATIONS. CURRENT MEDICATIONS: Include that of aspirin, subcu heparin, sliding scale insulin, Plavix, and normal saline at 100 mL an hour. The patient is status post Kayexalate, insulin, D50, calcium and bicarbonate. SOCIAL HISTORY: No history of cigarette smoking. No history of alcohol use. No history of drug use. The patient does not use caffeine. The patient is a retired [employer]. He is . FAMILY HISTORY: Positive for stroke, hypertension and diabetes. REVIEW OF SYSTEMS: A 10 plus systems reviewed with the patient. All negative except what is noted above. GENERAL: The patient states appetite has been stable until recently weight have been stable. ENT: Denies any hearing or visual problems. PULMONARY: No shortness of breath. No history of COPD, asthma, bronchitis, emphysema. CARDIAC HISTORY: Negative. No chest pains, no palpitations. GI: No nausea, vomiting, diarrhea, constipation or abdominal pain. : History of chronic kidney disease, history of BPH as noted above. ENDOCRINE: History of IDDM with diabetic nephropathy and neuropathy. No history of retinopathy. MUSCULOSKELETAL: No complaints. NEUROLOGIC: No history of CVA, TIA, seizures or syncope. HEME/ONC: Positive for anemia secondary to chronic kidney disease. PSYCHIATRIC HISTORY: Negative. PHYSICAL EXAMINATION: GENERAL: The patient is currently seen in ICU, bed 1. INTAKE/OUTPUT: Since admission shows a total intake of 1350 with a total output of 475. The patient's weight is 150 pounds. VITAL SIGNS: Blood pressure is 164/74, pulse is 88, temperature is 98.1 with a respiratory rate of 19. HEENT: Shows him to be normocephalic, atraumatic. Conjunctivae are pale. Sclerae are nonicteric. Pupils are equal and reactive to light and accommodation. Posterior pharynx is normal. NECK: Supple. No neck vein distention. No thyromegaly or lymphadenopathy. No bruits. CHEST: Clear to auscultation and percussion. No rales, rhonchi or wheezing. CARDIOVASCULAR: Shows a regular rate and rhythm with MR/TR/AI. No S3, no S4, no rub. ABDOMEN: Soft. Bowel sounds normal. Mild distention. No rebound or guarding. BACK: No CVAT. No spinal tenderness. EXTREMITIES: Show no lower extremity cyanosis, clubbing or edema. Distal lower extremity pulses are 1 to 2+ bilaterally. NEUROLOGIC: Shows him to be alert and oriented. Positive mild asterixis. No gross focal motor or sensory deficits noted. LABORATORY DATA AND IMAGING: Admitting EKG shows normal sinus rhythm. Admitting chest x-ray shows no acute pulmonary disease. CBC: White blood cell count today is 6, hemoglobin 8.8, platelet count is 114,000. Coags are normal. Admitting blood gas showed a pH of 7.26 with a pO2 of 104, pCO2 25 with a bicarbonate level of 12. This was the second blood gas. The initial blood gas showed a venous blood gas of 7.17. Lactic acid level was normal. Chemistries: Sodium 142, potassium was 6.5 with medication reduced to 5.5 today 5. CO2 level up from 11 to 14. BUN was 131, it is 128 today. Creatinine is 10.1 down to 10. Glucose level was 141, repeat is 111. Estimated GFR is 5 mL/minute. Calcium is 8.3. Phosphorus level was elevated at 7.2. Mild elevation of his liver enzymes. BNP was 4630. Troponin level was negative. TSH level was low at 0.29, free T4 level was normal. Urine showed 2 to 3+ protein. Urine osmolality was 361. Urine sodium was 70 with urine creatinine of 87. Fractional secretion of sodium was greater than 1%. Microbiology: No cultures available for comment. ASSESSMENT: 1. History of chronic kidney disease stage IV. In the last 2 months, the patient has had significant progression of his kidney disease. There appears to be no acute nephrotoxic insult as best as I could tell. No recent dye studies. The patient does not use anti-inflammatories. The patient had been progressively getting weaker and sicker at home. The patient presents with an elevated BUN and creatinine in the range that requires dialysis. He also had life-threatening hyperkalemia. The patient was to have attended the outpatient renal center predialysis classes to determine what type of modality of renal replacement therapy he would like to do. This was never done. The patient appears to have been in denial to some extent about his need to accept the fact that he was approaching end-stage renal disease. Whatever be it may, the patient will receive a PermCath in the hospital to initiate dialysis. He will likely be on dialysis three times a week. He did have a negative renal ultrasound in the early part of the summer. I will await the follow-up renal ultrasound to make certain he does not have any obstructive uropathy prior to placing a PermCath and setting up dialysis. 2. Life-threatening hyperkalemia. The patient will adhere to low potassium diet. Angiotensin-converting enzyme inhibition was stopped earlier in the summer by me. The patient was also significantly acidotic. The patient will be placed on bicarb supplements until dialysis starts. 3. History of anemia secondary to chronic kidney disease. The patient will be started on Aranesp therapy. We will check his iron levels. 4. History of benign prostatic hypertrophy, but no history of obstructive uropathy. Renal ultrasound is pending. 5. History of insulin-dependent diabetes mellitus with diabetic nephropathy, longstanding history of diabetic neuropathy. 6. History of secondary hyperparathyroidism secondary to chronic kidney disease. 7. History of hypertension. The patient's blood pressure maybe treated with calcium channel maranda therapy, hydralazine and clonidine and perhaps beta-maranda therapy, but no angiotensin-converting enzyme inhibition. No angiotensin receptor maranda therapy. 8. ASHD stable. PLAN: 1. Lengthy discussion with the patient and ICU house staff and ICU nurse. The patient has approached end-stage renal disease. In all likelihood, dialysis will be initiated during present hospitalization unless we find acute reversible etiology such as obstructive uropathy. 2. Continue all dietary restrictions. 3. Supplement sodium bicarbonate. 4. Adjust blood pressure medicines. 5. Aranesp and check iron levels. 6. Continue sliding scale insulin. 7. Continue to monitor the patient in the ICU until we are certain that he is hemodynamically stable. 8. Perhaps most importantly discussed with the patient the need to initiate dialysis. He is somewhat reluctant, but agrees to start dialysis as we deem necessary. Greater than 35 minutes spent in the care of this critically ill patient. Shane Giang MD : 11/02/2017 12:53:18 CHARISSA
--- NOTE | 2017-11-02 16:11 | US ---
Date of service: 11/02/2017 HISTORY: renal failure; transaminitis COMPARISON: None. TECHNIQUE: Sonographic evaluation of the abdomen. FINDINGS: LIVER: Measures 14.1 cm. Normal echogenicity of the liver parenchyma. No mass. No intrahepatic bile duct dilatation. GALLBLADDER: Gallbladder is completely contracted limiting evaluation of the wall thickness. Trace pericholecystic fluid collection is questioned. Mild mural thickening is not excluded nevertheless. Clinically correlate. No reported sonographic Mcallister sign. COMMON BILE DUCT: Measures 3.4 mm. No stones. No dilatation. PANCREAS: The head of the pancreas is obscured by overlying bowel gas with remainder unremarkable. RIGHT KIDNEY: Measures 10.5cm. Moderate bilateral renal cortical atrophy with renal parenchyma otherwise unremarkable appearing. No calculus, mass, or hydronephrosis. LEFT KIDNEY: Measures 9.2cm. Moderate bilateral renal cortical atrophy with renal parenchyma otherwise unremarkable appearing. No calculus, mass, or hydronephrosis. SPLEEN: Normal in size and contour, measuring 9.1 cm. No mass. AORTA: No aneurysmal dilatation. IVC: Unremarkable. OTHER FINDINGS: None. IMPRESSION: Gallbladder is contracted with mural thickening likely nevertheless. Evaluation of the wall is difficult due to contraction. No cholelithiasis or sonographic Mcallister sign. Trace pericholecystic fluid may indicate inflammatory change. Clinically correlate. Normal CBD caliber. No intrahepatic biliary dilatation. Partial imaging of the pancreas with remainder the examination reflecting only bilateral renal cortical atrophy.
[2017-11-02 16:40] LABS: URINE BILIRUBIN NEGATIVE (NEGATIVE); URINE BLOOD SMALL (NEGATIVE); URINE GLUCOSE (UA) NEGATIVE (NEGATIVE); URINE LEUKOCYTE ESTERASE MODERATE Leu/uL (NEGATIVE); URINE PROTEIN 100 mg/dL (<30 mg/dL); URINE UROBILINOGEN 0.2 E.U./dL (<1 E.U./dL)
[2017-11-02 16:46] LABS: URINE APPEARANCE CLEAR (CLEAR); URINE COLOR YELLOW (YELLOW)
[2017-11-02 17:20] LABS: URINE BACTERIA MANY (NEG); URINE WBC 0 - 2 /hpf (0-6)
[2017-11-02 17:21] LABS: URINE AMORPHOUS SEDIMENT FEW; URINE COARSE GRANULAR CAST TRACE /hpf (0-2)
[2017-11-02 17:34] LABS: HEPATITIS B SURFACE AG Negative (NEGATIVE)
[2017-11-02 17:51] LABS: HEPATITIS C ANTIBODY NEGATIVE (NEGATIVE)
--- NOTE | 2017-11-02 23:33 | CARD ---
APPROVED REPORT Date of service: 11/01/2017 EKG Measurement Heart [id number] <Conclusion> Sinus bradycardia Otherwise normal ECG
--- NOTE | 2017-11-03 01:53 | PN ---
Copied To: Rony Galarza MD Attending MD: Rony Galarza MD DATE: 11/02/2017 SUBJECTIVE: The patient is a 77-year-old male with a history of insulin dependent diabetes mellitus, coronary artery disease, hypertension, chronic renal failure, baseline creatinine approximately 3, who underwent stenting of his right coronary artery in 06/2017, who was seen in office visit complaining of weakness, abdominal bloating. Blood work was drawn, and with the results, the patient presented to the emergency room for evaluation. He is admitted to the Intensive Care Unit with acute on chronic renal failure, and also with hepatic failure. When seen today, the patient is comfortable. He is lying in bed. He says he is feeling better. He has not yet received dialysis, Dr. Evans has been called for dialysis access. He underwent ultrasound of the abdomen and pelvis earlier today. The liver was essentially negative. The gallbladder was contracted and no calculi were seen. Ultrasound of the kidneys showed bilateral atrophy. This morning's laboratory shows sodium to be 144, potassium 5, blood urea nitrogen is 128, creatinine is 10. Glucose was 111, calcium is slightly depressed at 8.3. Total bilirubin is 1.9, AST is 330, ALT is 566, alkaline phosphatase is 373. BNP is elevated at 4630. Lipase is elevated at 1750. Thyroid-stimulating hormone is slightly depressed at 0.24. ASSESSMENT AND PLAN: So at this point in time, we are waiting dialysis. Case to be discussed with Dr. Giang, the director of casework. Rony Galarza MD
[2017-11-03 06:02] LABS: BASO # 0.01 K/mm3 (0.0-2.0); BASO % 0.2 % (0.0-3.0); EOS # 0.7 (0.0-0.7); EOS % 12.8 % (1.5-5.0); GRAN # 2.79 (1.4-6.5); GRAN % 54.3 % (50.0-68.0); HEMOGLOBIN 8.5 g/dL (14.0-18.0); LYMPH # 1.1 (1.2-3.4); LYMPH % 22.2 % (22.0-35.0); MEAN CELL VOLUME 72.6 fl (80.0-105.0); MEAN CORPUSCULAR HEMOGLOBIN 24.8 pg (25.0-35.0); MEAN CORPUSCULAR HGB CONC 34.1 g/dl (31.0-37.0); MONO # 0.5 (0.1-0.6); MONO % 10.5 % (1.0-6.0); PLATELET COUNT 118 10^3/uL (120.0-450.0); RBC 3.43 10^6/uL (3.5-6.1); RED CELL DISTRIBUTION WIDTH 18.2 % (11.5-14.5); WHITE BLOOD COUNT 5.1 10^3/ul (4.5-11.0)
[2017-11-03 06:22] LABS: ALBUMIN 2.7 g/dL (3.0-4.8); CALCIUM 7.9 mg/dL (8.4-10.5)
[2017-11-03] MEDS ORDERED: Dextrose 50% SYRINGE Inj (50 ml) IVP STA (06:26)
[2017-11-03] MEDS: Sodium Chloride 0.9% 1,000 ML IV SCH (07:02)
[2017-11-03] MEDS ORDERED: Dextrose 50% SYRINGE Inj (50 ml) IV PRN (08:16)
--- NOTE | 2017-11-03 08:18 | HP ---
Copied To: Rony Galarza MD Attending MD: Rony Galarza MD HISTORY OF PRESENT ILLNESS: The patient is a 77-year-old male who was complaining of weakness, lethargy, abdominal bloating. He was seen in an office visit the day before admission. Blood work was drawn. On the day of admission, I attempted calling the patient because of a marked elevation in his blood urea nitrogen, and creatinine as well as in his liver enzymes. There was no answer, and about 30 minutes later, I received a call from the emergency room that the patient presented to the ER for hospitalization. He was evaluated by the ER and admitted to the Intensive Care Unit with acute renal failure on chronic renal failure and elevated liver enzymes. 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 He has benign prostatic hypertrophy. He is status post myocardial infarction and status post PTCA with Dr. Terrell. SOCIAL HISTORY: He never smoked, is a nonalcoholic drinker. He works as a [employer]. ALLERGIES: He has no known medical allergies. MEDICATIONS: On admission, his medications included Lipitor 20 mg once a day, Vasotec 10 mg twice a day, Amaryl 4 mg twice a day, metoprolol 25 mg twice a day, colchicine 0.6 mg daily, Avodart 0.5 mg daily, gabapentin 300 mg three times a day, Dyazide one capsule daily, Lantus 10 units subcutaneously at bedtime and aspirin 81 mg once a day. PHYSICAL EXAMINATION: VITAL SIGNS: In emergency room, his blood pressure was 90/55, heart rate is 58, and he was afebrile at 98.4 degrees Fahrenheit. GENERAL: He is awake, alert and oriented x3. HEENT: The head, eyes, ears, nose and throat are unremarkable. NECK: Supple, with no lymphadenopathy and no goiter. LUNGS: Clear to auscultation and percussion. HEART: Regular. No murmurs are appreciated. ABDOMEN: Soft, nontender. Normal bowel sounds. No organomegaly. EXTREMITIES: Free of cyanosis, clubbing or edema. NEUROLOGICAL: The patient is awake, alert and oriented, with no focal neurological signs. LABORATORY DATA: EKG shows sinus bradycardia at 58 beats per minute. Chest x-ray showed no acute disease. White blood cell count was 7.1, hemoglobin was 8.7, hematocrit 25.8, platelet count is 138. Sodium is 142, potassium 6.5, chloride 113, carbon dioxide 11, blood urea nitrogen 131, creatinine is 10. The patient's baseline creatinine is approximately 3. His glucose is 141. Troponins were less than 0.01. ASSESSMENT AND PLAN: The patient is evaluated by the surveyor geodetic and admitted to the Intensive Care Unit. Dr. Giang, his electro winning operator, is called for consultation. Dr. Terrell, his silk snapper, is also called. After discussion with Dr. Giang, we will contact Dr. Jameson Evans for hemodialysis access. Ultrasound of the abdomen is ordered. Workup for the elevated liver enzymes has been started. Rony Galarza MD
--- NOTE | 2017-11-03 10:34 | CP.CCUPN ---
<NovaQing rennerruiz - Last Filed: 11/03/17 10:30> CCU Subjective - Physician Review Events Since Last Encounter (Free Text): Bob Ramirez, PGY-1 ICU Progress Note Patient seen and examined at bedside this morning. Reports no complaints and good appetite. Glucose was found to be 46 this morning, given D50 injection and started on D5 @ 75. Scheduled for dialysis catheter placement today. Will transfer to [facility]. Denies CP, SOB, abdominal pain, back pain, urinary complaints and swelling. CCU Objective - Vital Signs / Intake & Output Vital Signs (Last 4 hours): Vital Signs Pulse Resp BP Pulse Ox 11/03/17 09:30 88 19 97 11/03/17 09:23 172/86 H 11/03/17 09:20 92 H 18 100 11/03/17 09:10 89 16 100 11/03/17 09:02 95 H 19 172/86 H 100 11/03/17 09:00 94 H 53 H 87 L 11/03/17 08:50 94 H 19 100 11/03/17 08:40 94 H 18 100 11/03/17 08:30 92 H 16 100 11/03/17 08:20 96 H 28 H 100 11/03/17 08:10 95 H 19 100 11/03/17 08:00 94 H 19 175/86 H 100 11/03/17 07:50 99 H 22 91 L 11/03/17 07:45 101 H 21 11/03/17 07:40 100 H 26 H 100 11/03/17 07:30 100 H 19 100 11/03/17 07:20 93 H 32 H 100 11/03/17 07:10 93 H 18 99 11/03/17 07:00 90 16 152/63 H 100 11/03/17 06:50 91 H 17 99 11/03/17 06:40 93 H 19 96 Intake and Output (Last 8hrs): Intake & Output 11/02/17 11/03/17 11/03/17 22:59 06:59 14:59 Intake Total 700 1400 Output Total 600 950 Balance 100 450 Intake: IV 700 1200 0.9ns 1200 Left forearm 700 Oral 200 Output: Urine 600 950 Urine, Voided 600 950 - Physical Exam Head: Positive for: Atraumatic, Normocephalic Pupils: Positive for: PERRL Extroacular Muscles: Positive for: EOMI Conjunctiva: Positive for: Normal Mouth: Positive for: Moist Mucous Membranes Neck: Positive for: Normal Range of Motion Respiratory/Chest: Positive for: Clear to Auscultation, Good Air Exchange. Negative for: Respiratory Distress, Accessory Muscle Use Cardiovascular: Positive for: Regular Rate and Rhythm, Normal S1, S2. Negative for: Murmurs Abdomen: Positive for: Normal Bowel Sounds. Negative for: Tenderness, Distention, Peritoneal Signs Back: Positive for: Normal Inspection Upper Extremity: Positive for: Normal Inspection, NORMAL PULSES. Negative for: Cyanosis Lower Extremity: Positive for: Normal Inspection, NORMAL PULSES Neurological: Positive for: GCS=15, CN II-XII Intact, Speech Normal, Motor Func Grossly Intact, Normal Sensory Function, Memory Normal Skin: Positive for: Warm, Dry, Normal Color. Negative for: Rashes Psychiatric: Positive for: Alert, Oriented x 3, Normal Insight, Normal Concentration - Medications Active Medications: Active Medications Generic Name Dose Route Start Last Admin Trade Name Freq PRN Reason Stop Dose Admin Amlodipine Besylate 10 mg 11/02/17 13:00 11/03/17 09:23 Norvasc PO 10 mg DAILY SHIRA Administration Aspirin 81 mg 11/02/17 12:15 11/02/17 15:00 Ecotrin PO 81 mg DAILY SHIRA Administration Calcium Acetate 667 mg 11/02/17 17:00 11/03/17 09:25 Phoslo PO 667 mg WM SHIRA Administration Clopidogrel Bisulfate 75 mg 11/02/17 12:15 11/02/17 15:00 Plavix PO 75 mg DAILY SHIRA Administration Dextrose 0 ml 11/03/17 08:16 Dextrose 50% Inj IV STAT PRN Hypoglycemia Protocol Protocol Heparin Sodium (Porcine) 5,000 units 11/01/17 23:15 11/02/17 15:00 Heparin SC 5,000 units Q8 SHIRA Administration Protocol Dextrose 1,000 mls @ 0 mls/hr 11/03/17 08:16 Dextrose 5% In Water 1000 Ml IV .Q0M PRN Hypoglycemia Protocol Protocol Per Protocol Dextrose 1,000 mls @ 75 mls/hr 11/03/17 09:15 11/03/17 09:27 Dextrose 5% In Water 1000 Ml IV 75 mls/hr .[id number] SHIRA Administration - Patient Studies Lab Studies: Lab Studies 0811/03/17 11/03/17 Range/Units 10:05 07:32 05:35 WBC (4.5-11.0) 10^3/ul RBC (3.5-6.1) 10^6/uL Hgb (14.0-18.0) g/dL Hct (42.0-52.0) % MCV (80.0-105.0) fl MCH (25.0-35.0) pg MCHC (31.0-37.0) g/dl RDW (11.5-14.5) % Plt Count (120.0-450.0) 10^3/uL Gran % (50.0-68.0) % Lymph % (Auto) (22.0-35.0) % [place] % (Auto) (1.0-6.0) % Eos % (Auto) (1.5-5.0) % Baso % (Auto) (0.0-3.0) % Gran # (1.4-6.5) Lymph # (Auto) (1.2-3.4) [place] # (Auto) (0.1-0.6) Eos # (Auto) (0.0-0.7) Baso # (Auto) (0.0-2.0) K/mm3 Sodium 149 H (132-148) mmol/L Potassium 4.4 (3.6-5.0) mmol/L Chloride 121 H (98-107) mmol/L Carbon Dioxide 13 L (21-33) mmol/L Anion Gap 20 (10-20) BUN 106 H (7-21) mg/dL Creatinine 8.1 H* (0.8-1.5) mg/dl Est GFR ( Amer) 8 Est GFR (Non-Af Amer) 6 POC Glucose (mg/dL) 103 159 H (65-110) mg/dL Random Glucose 46 L* D (70-110) mg/dL Hemoglobin A1c (4.2-6.5) % Calcium 7.9 L (8.4-10.5) mg/dL Iron (45-180) ug/dL TIBC (261-462) ug/dL % Saturation (20-55) % Ferritin ng/mL Total Bilirubin 3.8 H (0.2-1.3) mg/dL AST 270 H (17-59) U/L ALT 491 H (7-56) U/L Alkaline Phosphatase 409 H (38-126) U/L Total Protein 5.3 L (5.8-8.3) g/dL Albumin 2.7 L (3.0-4.8) g/dL Globulin 2.6 gm/dL Albumin/Globulin Ratio 1.0 L (1.1-1.8) Vitamin B12 (239-931) pg/mL Folate ng/mL Urine Color (YELLOW) Urine Appearance (CLEAR) Urine pH (4.7-8.0) Ur Specific [place] (1.005-1.035) Urine Protein (<30 mg/dL) mg/dL Urine Glucose (UA) (NEGATIVE) mg/dL Urine Ketones (NEGATIVE) mg/dL Urine Blood (NEGATIVE) Urine Nitrate (NEGATIVE) Urine Bilirubin (NEGATIVE) Urine Urobilinogen (<1 E.U./dL) E.U./dL Ur Leukocyte Esterase (NEGATIVE) Roman/uL Urine RBC (0-2) /hpf Urine WBC (0-6) /hpf Ur Epithelial Cells (0-5) /hpf Amorphous Sediment Urine Bacteria (NEG) Coarse Granular Casts (0-2) /hpf Urine Other Hep Bs Antigen (NEGATIVE) Hep Bs Antibody (NEGATIVE) Hepatitis C Antibody (NEGATIVE) 11/03/17 11/02/17 11/02/17 Range/Units 05:35 22:08 16:34 WBC 5.1 (4.5-11.0) 10^3/ul RBC 3.43 L (3.5-6.1) 10^6/uL Hgb 8.5 L (14.0-18.0) g/dL Hct 24.9 L (42.0-52.0) % MCV 72.6 L (80.0-105.0) fl MCH 24.8 L (25.0-35.0) pg MCHC 34.1 (31.0-37.0) g/dl RDW 18.2 H (11.5-14.5) % Plt Count 118 L (120.0-450.0) 10^3/uL Gran % 54.3 (50.0-68.0) % Lymph % (Auto) 22.2 (22.0-35.0) % [place] % (Auto) 10.5 H (1.0-6.0) % Eos % (Auto) 12.8 H (1.5-5.0) % Baso % (Auto) 0.2 (0.0-3.0) % Gran # 2.79 (1.4-6.5) Lymph # (Auto) 1.1 L (1.2-3.4) [place] # (Auto) 0.5 (0.1-0.6) Eos # (Auto) 0.7 (0.0-0.7) Baso # (Auto) 0.01 (0.0-2.0) K/mm3 Sodium (132-148) mmol/L Potassium (3.6-5.0) mmol/L Chloride (98-107) mmol/L Carbon Dioxide (21-33) mmol/L Anion Gap (10-20) BUN (7-21) mg/dL Creatinine (0.8-1.5) mg/dl Est GFR ( Amer) Est GFR (Non-Af Amer) POC Glucose (mg/dL) 112 H 78 (65-110) mg/dL Random Glucose (70-110) mg/dL Hemoglobin A1c (4.2-6.5) % Calcium (8.4-10.5) mg/dL Iron (45-180) ug/dL TIBC (261-462) ug/dL % Saturation (20-55) % Ferritin ng/mL Total Bilirubin (0.2-1.3) mg/dL AST (17-59) U/L ALT (7-56) U/L Alkaline Phosphatase (38-126) U/L Total Protein (5.8-8.3) g/dL Albumin (3.0-4.8) g/dL Globulin gm/dL Albumin/Globulin Ratio (1.1-1.8) Vitamin B12 (239-931) pg/mL Folate ng/mL Urine Color (YELLOW) Urine Appearance (CLEAR) Urine pH (4.7-8.0) Ur Specific [place] (1.005-1.035) Urine Protein (<30 mg/dL) mg/dL Urine Glucose (UA) (NEGATIVE) mg/dL Urine Ketones (NEGATIVE) mg/dL Urine Blood (NEGATIVE) Urine Nitrate (NEGATIVE) Urine Bilirubin (NEGATIVE) Urine Urobilinogen (<1 E.U./dL) E.U./dL Ur Leukocyte Esterase (NEGATIVE) Roman/uL Urine RBC (0-2) /hpf Urine WBC (0-6) /hpf Ur Epithelial Cells (0-5) /hpf Amorphous Sediment Urine Bacteria (NEG) Coarse Granular Casts (0-2) /hpf Urine Other Hep Bs Antigen (NEGATIVE) Hep Bs Antibody (NEGATIVE) Hepatitis C Antibody (NEGATIVE) 11/02/17 11/02/17 11/02/17 Range/Units 16:32 12:00 12:00 WBC (4.5-11.0) 10^3/ul RBC (3.5-6.1) 10^6/uL Hgb (14.0-18.0) g/dL Hct (42.0-52.0) % MCV (80.0-105.0) fl MCH (25.0-35.0) pg MCHC (31.0-37.0) g/dl RDW (11.5-14.5) % Plt Count (120.0-450.0) 10^3/uL Gran % (50.0-68.0) % Lymph % (Auto) (22.0-35.0) % [place] % (Auto) (1.0-6.0) % Eos % (Auto) (1.5-5.0) % Baso % (Auto) (0.0-3.0) % Gran # (1.4-6.5) Lymph # (Auto) (1.2-3.4) [place] # (Auto) (0.1-0.6) Eos # (Auto) (0.0-0.7) Baso # (Auto) (0.0-2.0) K/mm3 Sodium (132-148) mmol/L Potassium (3.6-5.0) mmol/L Chloride (98-107) mmol/L Carbon Dioxide (21-33) mmol/L Anion Gap (10-20) BUN (7-21) mg/dL Creatinine (0.8-1.5) mg/dl Est GFR ( Amer) Est GFR (Non-Af Amer) POC Glucose (mg/dL) (65-110) mg/dL Random Glucose (70-110) mg/dL Hemoglobin A1c (4.2-6.5) % Calcium (8.4-10.5) mg/dL Iron 55 (45-180) ug/dL TIBC 248 L (261-462) ug/dL % Saturation 22 (20-55) % Ferritin ng/mL Total Bilirubin (0.2-1.3) mg/dL AST (17-59) U/L ALT (7-56) U/L Alkaline Phosphatase (38-126) U/L Total Protein (5.8-8.3) g/dL Albumin (3.0-4.8) g/dL Globulin gm/dL Albumin/Globulin Ratio (1.1-1.8) Vitamin B12 (239-931) pg/mL Folate ng/mL Urine Color Yellow (YELLOW) Urine Appearance Clear (CLEAR) Urine pH 6.0 (4.7-8.0) Ur Specific [place] 1.015 (1.005-1.035) Urine Protein 100 H (<30 mg/dL) mg/dL Urine Glucose (UA) Negative (NEGATIVE) mg/dL Urine Ketones Negative (NEGATIVE) mg/dL Urine Blood Small H (NEGATIVE) Urine Nitrate Negative (NEGATIVE) Urine Bilirubin Negative (NEGATIVE) Urine Urobilinogen 0.2 (<1 E.U./dL) E.U./dL Ur Leukocyte Esterase Moderate H (NEGATIVE) Roman/uL Urine RBC 5 - 10 (0-2) /hpf Urine WBC 0 - 2 (0-6) /hpf Ur Epithelial Cells 1 - 3 (0-5) /hpf Amorphous Sediment Few Urine Bacteria Many (NEG) Coarse Granular Casts Trace H (0-2) /hpf Urine Other Uyeast Hep Bs Antigen (NEGATIVE) Hep Bs Antibody Positive (NEGATIVE) Hepatitis C Antibody (NEGATIVE) 11/02/17 11/02/17 11/02/17 Range/Units 12:00 11:35 05:30 WBC (4.5-11.0) 10^3/ul RBC (3.5-6.1) 10^6/uL Hgb (14.0-18.0) g/dL Hct (42.0-52.0) % MCV (80.0-105.0) fl MCH (25.0-35.0) pg MCHC (31.0-37.0) g/dl RDW (11.5-14.5) % Plt Count (120.0-450.0) 10^3/uL Gran % (50.0-68.0) % Lymph % (Auto) (22.0-35.0) % [place] % (Auto) (1.0-6.0) % Eos % (Auto) (1.5-5.0) % Baso % (Auto) (0.0-3.0) % Gran # (1.4-6.5) Lymph # (Auto) (1.2-3.4) [place] # (Auto) (0.1-0.6) Eos # (Auto) (0.0-0.7) Baso # (Auto) (0.0-2.0) K/mm3 Sodium (132-148) mmol/L Potassium (3.6-5.0) mmol/L Chloride (98-107) mmol/L Carbon Dioxide (21-33) mmol/L Anion Gap (10-20) BUN (7-21) mg/dL Creatinine (0.8-1.5) mg/dl Est GFR ( Amer) Est GFR (Non-Af Amer) POC Glucose (mg/dL) 102 (65-110) mg/dL Random Glucose (70-110) mg/dL Hemoglobin A1c 7.0 H (4.2-6.5) % Calcium (8.4-10.5) mg/dL Iron (45-180) ug/dL TIBC (261-462) ug/dL % Saturation (20-55) % Ferritin 270.0 ng/mL Total Bilirubin (0.2-1.3) mg/dL AST (17-59) U/L ALT (7-56) U/L Alkaline Phosphatase (38-126) U/L Total Protein (5.8-8.3) g/dL Albumin (3.0-4.8) g/dL Globulin gm/dL Albumin/Globulin Ratio (1.1-1.8) Vitamin B12 > 1000 H (239-931) pg/mL Folate 13.0 ng/mL Urine Color (YELLOW) Urine Appearance (CLEAR) Urine pH (4.7-8.0) Ur Specific [place] (1.005-1.035) Urine Protein (<30 mg/dL) mg/dL Urine Glucose (UA) (NEGATIVE) mg/dL Urine Ketones (NEGATIVE) mg/dL Urine Blood (NEGATIVE) Urine Nitrate (NEGATIVE) Urine Bilirubin (NEGATIVE) Urine Urobilinogen (<1 E.U./dL) E.U./dL Ur Leukocyte Esterase (NEGATIVE) Roman/uL Urine RBC (0-2) /hpf Urine WBC (0-6) /hpf Ur Epithelial Cells (0-5) /hpf Amorphous Sediment Urine Bacteria (NEG) Coarse Granular Casts (0-2) /hpf Urine Other Hep Bs Antigen Negative (NEGATIVE) Hep Bs Antibody (NEGATIVE) Hepatitis C Antibody Negative (NEGATIVE) Laboratory Results - last 24 hr 11/02/17 11/02/17 11/02/17 05:30 11:35 12:00 WBC RBC Hgb Hct MCV MCH MCHC RDW Plt Count Gran % Lymph % (Auto) [place] % (Auto) Eos % (Auto) Baso % (Auto) Gran # Lymph # (Auto) [place] # (Auto) Eos # (Auto) Baso # (Auto) Sodium Potassium Chloride Carbon Dioxide Anion Gap BUN Creatinine Est GFR ( Amer) Est GFR (Non-Af Amer) POC Glucose (mg/dL) 102 Random Glucose Hemoglobin A1c 7.0 H Calcium Iron TIBC % Saturation Ferritin 270.0 Total Bilirubin AST ALT Alkaline Phosphatase Total Protein Albumin Globulin Albumin/Globulin Ratio Vitamin B12 > 1000 H Folate 13.0 Urine Color Urine Appearance Urine pH Ur Specific [place] Urine Protein Urine Glucose (UA) Urine Ketones Urine Blood Urine Nitrate Urine Bilirubin Urine Urobilinogen Ur Leukocyte Esterase Urine RBC Urine WBC Ur Epithelial Cells Amorphous Sediment Urine Bacteria Coarse Granular Casts Urine Other Hep Bs Antigen Negative Hep Bs Antibody Hepatitis C Antibody Negative 11/02/17 11/02/17 11/02/17 12:00 12:00 16:32 WBC RBC Hgb Hct MCV MCH MCHC RDW Plt Count Gran % Lymph % (Auto) [place] % (Auto) Eos % (Auto) Baso % (Auto) Gran # Lymph # (Auto) [place] # (Auto) Eos # (Auto) Baso # (Auto) Sodium Potassium Chloride Carbon Dioxide Anion Gap BUN Creatinine Est GFR ( Amer) Est GFR (Non-Af Amer) POC Glucose (mg/dL) Random Glucose Hemoglobin A1c Calcium Iron 55 TIBC 248 L % Saturation 22 Ferritin Total Bilirubin AST ALT Alkaline Phosphatase Total Protein Albumin Globulin Albumin/Globulin Ratio Vitamin B12 Folate Urine Color Yellow Urine Appearance Clear Urine pH 6.0 Ur Specific [place] 1.015 Urine Protein 100 H Urine Glucose (UA) Negative Urine Ketones Negative Urine Blood Small H Urine Nitrate Negative Urine Bilirubin Negative Urine Urobilinogen 0.2 Ur Leukocyte Esterase Moderate H Urine RBC 5 - 10 Urine WBC 0 - 2 Ur Epithelial Cells 1 - 3 Amorphous Sediment Few Urine Bacteria Many Coarse Granular Casts Trace H Urine Other Uyeast Hep Bs Antigen Hep Bs Antibody Positive Hepatitis C Antibody 11/02/17 11/02/17 11/03/17 16:34 22:08 05:35 WBC 5.1 RBC 3.43 L Hgb 8.5 L Hct 24.9 L MCV 72.6 L MCH 24.8 L MCHC 34.1 RDW 18.2 H Plt Count 118 L Gran % 54.3 Lymph % (Auto) 22.2 [place] % (Auto) 10.5 H Eos % (Auto) 12.8 H Baso % (Auto) 0.2 Gran # 2.79 Lymph # (Auto) 1.1 L [place] # (Auto) 0.5 Eos # (Auto) 0.7 Baso # (Auto) 0.01 Sodium Potassium Chloride Carbon Dioxide Anion Gap BUN Creatinine Est GFR ( Amer) Est GFR (Non-Af Amer) POC Glucose (mg/dL) 78 112 H Random Glucose Hemoglobin A1c Calcium Iron TIBC % Saturation Ferritin Total Bilirubin AST ALT Alkaline Phosphatase Total Protein Albumin Globulin Albumin/Globulin Ratio Vitamin B12 Folate Urine Color Urine Appearance Urine pH Ur Specific [place] Urine Protein Urine Glucose (UA) Urine Ketones Urine Blood Urine Nitrate Urine Bilirubin Urine Urobilinogen Ur Leukocyte Esterase Urine RBC Urine WBC Ur Epithelial Cells Amorphous Sediment Urine Bacteria Coarse Granular Casts Urine Other Hep Bs Antigen Hep Bs Antibody Hepatitis C Antibody 11/03/17 11/03/17 11/03/17 05:35 07:32 10:05 WBC RBC Hgb Hct MCV MCH MCHC RDW Plt Count Gran % Lymph % (Auto) [place] % (Auto) Eos % (Auto) Baso % (Auto) Gran # Lymph # (Auto) [place] # (Auto) Eos # (Auto) Baso # (Auto) Sodium 149 H Potassium 4.4 Chloride 121 H Carbon Dioxide 13 L Anion Gap 20 BUN 106 H Creatinine 8.1 H* Est GFR ( Amer) 8 Est GFR (Non-Af Amer) 6 POC Glucose (mg/dL) 159 H 103 Random Glucose 46 L* D Hemoglobin A1c Calcium 7.9 L Iron TIBC % Saturation Ferritin Total Bilirubin 3.8 H AST 270 H ALT 491 H Alkaline Phosphatase 409 H Total Protein 5.3 L Albumin 2.7 L Globulin 2.6 Albumin/Globulin Ratio 1.0 L Vitamin B12 Folate Urine Color Urine Appearance Urine pH Ur Specific [place] Urine Protein Urine Glucose (UA) Urine Ketones Urine Blood Urine Nitrate Urine Bilirubin Urine Urobilinogen Ur Leukocyte Esterase Urine RBC Urine WBC Ur Epithelial Cells Amorphous Sediment Urine Bacteria Coarse Granular Casts Urine Other Hep Bs Antigen Hep Bs Antibody Hepatitis C Antibody Fingerstick Blood Sugar Results: 112 Critical Care Progress Note - Nutrition Nutrition: Nutrition Category Date Time Status Liquid Diet [DIET] Diets 11/03/17 Breakfast Ordered Assessment/Plan - Assessment and Plan (Free Text) Assessment: This is a 77 year old male with PMH of HT, DM, CAD s/p stents in RCA two months ago, CKD, and BPH under ICU management for acute on chronic kidney disease stage 5 secondary to progressive diabetic nephropathy. Scheduled for dialysis catheter placement today. Transfer to [facility]. Plan: Neuro: -maintain normothermia -AAO x3, moving extremities spontaneously past midline Cardio: -maintain MAP>65 -will monitor vitals including HR and BP. Stable overnight -echo 06/2017 showed EF 60% with RVSP 47 -Cardio on consult, Dr. Terrell Lungs: -SaO2 >90% -supplementary O2 PRN -CXR: no interval change Renal: -maintain euvolemia -avoid nephrotoxic agents, hypochloremia -replace electrolytes as needed -BUN/Cr today is 106/8.1. Baseline BUN/Cr=50s/3s. -Abdominal US shows contracted gallbladder and bilateral renal cortical renal atrophy -strict I/O -Nephro consult, Dr. Giang Heme: -plavix, ASA and heparing on hold due to catheter placement today Endo: -maintain euglycemia -insulin lispro ACHS stopped due to hypoglycmeia. Has not required insulin since arrival to ICU -D5 @ 75 ID: -WBC is WNL and afebrile -HIV blood work pening -GI: -Consistent carb diet -no need for GI prophylaxis at this time <Sylvester Barger - Last Filed: 11/03/17 17:29> CCU Objective - Vital Signs / Intake & Output Intake and Output (Last 8hrs): Intake & Output 0811/03/17 11/03/17 06:59 14:59 22:59 Intake Total 1400 400 Output Total 950 400 Balance 450 0 Intake: IV 1200 300 0.9ns 1200 Left forearm 300 Oral 200 100 Output: Urine 950 400 Urine, Voided 950 400 - Medications Active Medications: Active Medications Generic Name Dose Route Start Last Admin Trade Name Freq PRN Reason Stop Dose Admin Acetaminophen 650 mg 11/03/17 13:03 Tylenol 325mg Tab PO Q4 PRN Pain, Mild (1-3) Amlodipine Besylate 10 mg 11/02/17 13:00 11/03/17 09:23 Norvasc PO 10 mg DAILY SHIRA Administration Aspirin 81 mg 11/02/17 12:15 11/02/17 15:00 Ecotrin PO 81 mg DAILY SHIRA Administration Calcium Acetate 667 mg 11/02/17 17:00 11/03/17 09:25 Phoslo PO 667 mg WM SHIRA Administration Clopidogrel Bisulfate 75 mg 11/02/17 12:15 11/02/17 15:00 Plavix PO 75 mg DAILY SHIRA Administration Darbepoetin Hipol[place] 100 mcg 11/04/17 13:00 Aranesp IVP 11/04/17 13:01 ONCE ONE Dextrose 0 ml 11/03/17 08:16 Dextrose 50% Inj IV STAT PRN Hypoglycemia Protocol Protocol Heparin Sodium (Porcine) 5,000 units 11/01/17 23:15 11/02/17 15:00 Heparin SC 5,000 units Q8 SHIRA Administration Protocol Dextrose 1,000 mls @ 0 mls/hr 11/03/17 08:16 Dextrose 5% In Water 1000 Ml IV .Q0M PRN Hypoglycemia Protocol Protocol Per Protocol Dextrose 1,000 mls @ 75 mls/hr 11/03/17 09:15 11/03/17 09:27 Dextrose 5% In Water 1000 Ml IV 75 mls/hr .[id number] SHIRA Administration Ondansetron HCl 4 mg 11/03/17 13:03 Zofran Inj IVP Q6H PRN Nausea/Vomiting Oxycodone/Acetaminophen 1 tab 11/03/17 13:03 Percocet 5/325 Mg Tab PO 11/06/17 13:04 Q4H PRN Pain, moderate (4-7) - Patient Studies Lab Studies: Microbiology Studies 11/02/17 16:32 Urine Culture - Final Urine,Clean Catch MULTIPLE SPECIES. SUGGEST REPEAT SPECIMEN. Lab Studies 11/03/17 11/03/17 11/03/17 Range/Units 13:16 10:05 07:32 WBC (4.5-11.0) 10^3/ul RBC (3.5-6.1) 10^6/uL Hgb (14.0-18.0) g/dL Hct (42.0-52.0) % MCV (80.0-105.0) fl MCH (25.0-35.0) pg MCHC (31.0-37.0) g/dl RDW (11.5-14.5) % Plt Count (120.0-450.0) 10^3/uL Gran % (50.0-68.0) % Lymph % (Auto) (22.0-35.0) % [place] % (Auto) (1.0-6.0) % Eos % (Auto) (1.5-5.0) % Baso % (Auto) (0.0-3.0) % Gran # (1.4-6.5) Lymph # (Auto) (1.2-3.4) [place] # (Auto) (0.1-0.6) Eos # (Auto) (0.0-0.7) Baso # (Auto) (0.0-2.0) K/mm3 Sodium (132-148) mmol/L Potassium (3.6-5.0) mmol/L Chloride (98-107) mmol/L Carbon Dioxide (21-33) mmol/L Anion Gap (10-20) BUN (7-21) mg/dL Creatinine (0.8-1.5) mg/dl Est GFR ( Amer) Est GFR (Non-Af Amer) POC Glucose (mg/dL) 105 103 159 H (65-110) mg/dL Random Glucose (70-110) mg/dL Calcium (8.4-10.5) mg/dL Ferritin ng/mL Total Bilirubin (0.2-1.3) mg/dL AST (17-59) U/L ALT (7-56) U/L Alkaline Phosphatase (38-126) U/L Total Protein (5.8-8.3) g/dL Albumin (3.0-4.8) g/dL Globulin gm/dL Albumin/Globulin Ratio (1.1-1.8) Vitamin B12 (239-931) pg/mL Folate ng/mL Hep Bs Antigen (NEGATIVE) Hep Bs Antibody (NEGATIVE) Hepatitis C Antibody (NEGATIVE) HIV 1&2 Ag/Ab, 4th Gen (Nonreactive) 11/03/17 11/03/17 11/03/17 Range/Units 05:35 05:35 05:30 WBC 5.1 (4.5-11.0) 10^3/ul RBC 3.43 L (3.5-6.1) 10^6/uL Hgb 8.5 L (14.0-18.0) g/dL Hct 24.9 L (42.0-52.0) % MCV 72.6 L (80.0-105.0) fl MCH 24.8 L (25.0-35.0) pg MCHC 34.1 (31.0-37.0) g/dl RDW 18.2 H (11.5-14.5) % Plt Count 118 L (120.0-450.0) 10^3/uL Gran % 54.3 (50.0-68.0) % Lymph % (Auto) 22.2 (22.0-35.0) % [place] % (Auto) 10.5 H (1.0-6.0) % Eos % (Auto) 12.8 H (1.5-5.0) % Baso % (Auto) 0.2 (0.0-3.0) % Gran # 2.79 (1.4-6.5) Lymph # (Auto) 1.1 L (1.2-3.4) [place] # (Auto) 0.5 (0.1-0.6) Eos # (Auto) 0.7 (0.0-0.7) Baso # (Auto) 0.01 (0.0-2.0) K/mm3 Sodium 149 H (132-148) mmol/L Potassium 4.4 (3.6-5.0) mmol/L Chloride 121 H (98-107) mmol/L Carbon Dioxide 13 L (21-33) mmol/L Anion Gap 20 (10-20) BUN 106 H (7-21) mg/dL Creatinine 8.1 H* (0.8-1.5) mg/dl Est GFR ( Amer) 8 Est GFR (Non-Af Amer) 6 POC Glucose (mg/dL) (65-110) mg/dL Random Glucose 46 L* D (70-110) mg/dL Calcium 7.9 L (8.4-10.5) mg/dL Ferritin ng/mL Total Bilirubin 3.8 H (0.2-1.3) mg/dL AST 270 H (17-59) U/L ALT 491 H (7-56) U/L Alkaline Phosphatase 409 H (38-126) U/L Total Protein 5.3 L (5.8-8.3) g/dL Albumin 2.7 L (3.0-4.8) g/dL Globulin 2.6 gm/dL Albumin/Globulin Ratio 1.0 L (1.1-1.8) Vitamin B12 (239-931) pg/mL Folate ng/mL Hep Bs Antigen Negative (NEGATIVE) Hep Bs Antibody (NEGATIVE) Hepatitis C Antibody (NEGATIVE) HIV 1&2 Ag/Ab, 4th Gen (Nonreactive) 11/02/17 11/02/17 11/02/17 Range/Units 22:08 16:34 12:00 WBC (4.5-11.0) 10^3/ul RBC (3.5-6.1) 10^6/uL Hgb (14.0-18.0) g/dL Hct (42.0-52.0) % MCV (80.0-105.0) fl MCH (25.0-35.0) pg MCHC (31.0-37.0) g/dl RDW (11.5-14.5) % Plt Count (120.0-450.0) 10^3/uL Gran % (50.0-68.0) % Lymph % (Auto) (22.0-35.0) % [place] % (Auto) (1.0-6.0) % Eos % (Auto) (1.5-5.0) % Baso % (Auto) (0.0-3.0) % Gran # (1.4-6.5) Lymph # (Auto) (1.2-3.4) [place] # (Auto) (0.1-0.6) Eos # (Auto) (0.0-0.7) Baso # (Auto) (0.0-2.0) K/mm3 Sodium (132-148) mmol/L Potassium (3.6-5.0) mmol/L Chloride (98-107) mmol/L Carbon Dioxide (21-33) mmol/L Anion Gap (10-20) BUN (7-21) mg/dL Creatinine (0.8-1.5) mg/dl Est GFR ( Amer) Est GFR (Non-Af Amer) POC Glucose (mg/dL) 112 H 78 (65-110) mg/dL Random Glucose (70-110) mg/dL Calcium (8.4-10.5) mg/dL Ferritin ng/mL Total Bilirubin (0.2-1.3) mg/dL AST (17-59) U/L ALT (7-56) U/L Alkaline Phosphatase (38-126) U/L Total Protein (5.8-8.3) g/dL Albumin (3.0-4.8) g/dL Globulin gm/dL Albumin/Globulin Ratio (1.1-1.8) Vitamin B12 (239-931) pg/mL Folate ng/mL Hep Bs Antigen (NEGATIVE) Hep Bs Antibody Positive (NEGATIVE) Hepatitis C Antibody (NEGATIVE) HIV 1&2 Ag/Ab, 4th Gen (Nonreactive) 11/02/17 11/02/17 Range/Units 12:00 09:40 WBC (4.5-11.0) 10^3/ul RBC (3.5-6.1) 10^6/uL Hgb (14.0-18.0) g/dL Hct (42.0-52.0) % MCV (80.0-105.0) fl MCH (25.0-35.0) pg MCHC (31.0-37.0) g/dl RDW (11.5-14.5) % Plt Count (120.0-450.0) 10^3/uL Gran % (50.0-68.0) % Lymph % (Auto) (22.0-35.0) % [place] % (Auto) (1.0-6.0) % Eos % (Auto) (1.5-5.0) % Baso % (Auto) (0.0-3.0) % Gran # (1.4-6.5) Lymph # (Auto) (1.2-3.4) [place] # (Auto) (0.1-0.6) Eos # (Auto) (0.0-0.7) Baso # (Auto) (0.0-2.0) K/mm3 Sodium (132-148) mmol/L Potassium (3.6-5.0) mmol/L Chloride (98-107) mmol/L Carbon Dioxide (21-33) mmol/L Anion Gap (10-20) BUN (7-21) mg/dL Creatinine (0.8-1.5) mg/dl Est GFR ( Amer) Est GFR (Non-Af Amer) POC Glucose (mg/dL) (65-110) mg/dL Random Glucose (70-110) mg/dL Calcium (8.4-10.5) mg/dL Ferritin 270.0 ng/mL Total Bilirubin (0.2-1.3) mg/dL AST (17-59) U/L ALT (7-56) U/L Alkaline Phosphatase (38-126) U/L Total Protein (5.8-8.3) g/dL Albumin (3.0-4.8) g/dL Globulin gm/dL Albumin/Globulin Ratio (1.1-1.8) Vitamin B12 > 1000 H (239-931) pg/mL Folate 13.0 ng/mL Hep Bs Antigen Negative (NEGATIVE) Hep Bs Antibody (NEGATIVE) Hepatitis C Antibody Negative (NEGATIVE) HIV 1&2 Ag/Ab, 4th Gen Nonreactive (Nonreactive) Laboratory Results - last 24 hr 11/02/17 11/02/17 11/02/17 09:40 12:00 12:00 WBC RBC Hgb Hct MCV MCH MCHC RDW Plt Count Gran % Lymph % (Auto) [place] % (Auto) Eos % (Auto) Baso % (Auto) Gran # Lymph # (Auto) [place] # (Auto) Eos # (Auto) Baso # (Auto) Sodium Potassium Chloride Carbon Dioxide Anion Gap BUN Creatinine Est GFR ( Amer) Est GFR (Non-Af Amer) POC Glucose (mg/dL) Random Glucose Calcium Ferritin 270.0 Total Bilirubin AST ALT Alkaline Phosphatase Total Protein Albumin Globulin Albumin/Globulin Ratio Vitamin B12 > 1000 H Folate 13.0 Hep Bs Antigen Negative Hep Bs Antibody Positive Hepatitis C Antibody Negative HIV 1&2 Ag/Ab, 4th Gen Nonreactive 11/02/17 11/02/17 11/03/17 16:34 22:08 05:30 WBC RBC Hgb Hct MCV MCH MCHC RDW Plt Count Gran % Lymph % (Auto) [place] % (Auto) Eos % (Auto) Baso % (Auto) Gran # Lymph # (Auto) [place] # (Auto) Eos # (Auto) Baso # (Auto) Sodium Potassium Chloride Carbon Dioxide Anion Gap BUN Creatinine Est GFR ( Amer) Est GFR (Non-Af Amer) POC Glucose (mg/dL) 78 112 H Random Glucose Calcium Ferritin Total Bilirubin AST ALT Alkaline Phosphatase Total Protein Albumin Globulin Albumin/Globulin Ratio Vitamin B12 Folate Hep Bs Antigen Negative Hep Bs Antibody Hepatitis C Antibody HIV 1&2 Ag/Ab, 4th Gen 11/03/17 11/03/17 11/03/17 05:35 05:35 07:32 WBC 5.1 RBC 3.43 L Hgb 8.5 L Hct 24.9 L MCV 72.6 L MCH 24.8 L MCHC 34.1 RDW 18.2 H Plt Count 118 L Gran % 54.3 Lymph % (Auto) 22.2 [place] % (Auto) 10.5 H Eos % (Auto) 12.8 H Baso % (Auto) 0.2 Gran # 2.79 Lymph # (Auto) 1.1 L [place] # (Auto) 0.5 Eos # (Auto) 0.7 Baso # (Auto) 0.01 Sodium 149 H Potassium 4.4 Chloride 121 H Carbon Dioxide 13 L Anion Gap 20 BUN 106 H Creatinine 8.1 H* Est GFR ( Amer) 8 Est GFR (Non-Af Amer) 6 POC Glucose (mg/dL) 159 H Random Glucose 46 L* D Calcium 7.9 L Ferritin Total Bilirubin 3.8 H AST 270 H ALT 491 H Alkaline Phosphatase 409 H Total Protein 5.3 L Albumin 2.7 L Globulin 2.6 Albumin/Globulin Ratio 1.0 L Vitamin B12 Folate Hep Bs Antigen Hep Bs Antibody Hepatitis C Antibody HIV 1&2 Ag/Ab, 4th Gen 11/03/17 11/03/17 10:05 13:16 WBC RBC Hgb Hct MCV MCH MCHC RDW Plt Count Gran % Lymph % (Auto) [place] % (Auto) Eos % (Auto) Baso % (Auto) Gran # Lymph # (Auto) [place] # (Auto) Eos # (Auto) Baso # (Auto) Sodium Potassium Chloride Carbon Dioxide Anion Gap BUN Creatinine Est GFR ( Amer) Est GFR (Non-Af Amer) POC Glucose (mg/dL) 103 105 Random Glucose Calcium Ferritin Total Bilirubin AST ALT Alkaline Phosphatase Total Protein Albumin Globulin Albumin/Globulin Ratio Vitamin B12 Folate Hep Bs Antigen Hep Bs Antibody Hepatitis C Antibody HIV 1&2 Ag/Ab, 4th Gen Critical Care Progress Note - Nutrition Nutrition: Nutrition Category Date Time Status Renal Diet [DIET] Diets 11/03/17 Lunch Ordered Addendum Addendum: 11/03/17 17:26 ICU Attending Addendum: Patient seen and examined. Case reviewed on round with housestaff. Agree with resident note above with the following additions/exceptions: 77 year old with a PMHx of CAD s/p 2 stents most recently in RCA on 06/29, HTN, DM, HLD, BPH, Gout, OA who presents with a one week history of bilateral lower extremity weakness, nausea and poor appetite found to be in profound renal failure. Unclear etiology of the renal failure? Possible hypovolemia / ATN. US kidneys not impressive. Urine output picked up significantly after increase in fluids IV yesterday (put out 2L urine) As per renal who has relationship with patient as outpatient, patient to begin HD tomorrow permacath inserted this AM His cardio should be notified given his recent stents. He should be resumed on his antiplat meds to protect the stent. oral nystatin for thrush Hemodynamically stable, actually is hypertensive. Ok to be transferred out of ICU Will hold anti-htn as he will get his first dialysis tomorrow Rest of care as noted above. Sylvester Barger MD [employer] Critical care time : 30 mins
[2017-11-03] MEDS ORDERED: Lidocaine PF 2% (5 ml) Inj (For Cardiac Arrhy) ONE (11:52)
[2017-11-03] MEDS ORDERED: Nitroglycerin 50mg in D5W 50 MG/250 ML BOTTLE IV ONE (11:53)
[2017-11-03] MEDS ORDERED: Midazolam 2 MG/2 ML VIAL ONE (12:36)
[2017-11-03] MEDS ORDERED: Oxycodone/Acetaminophen 5/325 mg Tab PO PRN (13:03)
--- NOTE | 2017-11-03 13:43 | PN ---
Copied To: Shane Giang MD Attending MD: Shane Giang MD DATE: 11/03/2017 SUBJECTIVE: The patient is currently seen in ICU, bed 1. He is leaving for placement of a PermCath catheter. His creatinine remains elevated with slight improvement secondary to IV fluid hydration. Potassium level had corrected. The patient is agreeable to initiate hemodialysis. A discussion was held with Dr. Rony Galarza regarding this matter. MEDICATIONS: Medication list reviewed. The patient is currently receiving dextrose for p.r.n. hypoglycemia, aspirin is on hold, heparin is on hold, Plavix is on hold. He is on Norvasc and PhosLo. OBJECTIVE: INTAKE/OUTPUT: Intake is 3600, output is 2000. VITAL SIGNS: Blood pressure 172/86, respiratory rate 19, oxygen saturation 97%, pulse of 88 with a temperature of 98.1. HEENT: Shows him to be normocephalic, atraumatic. Conjunctivae remain pale. Sclerae are nonicteric. NECK: Supple. No neck vein distention. CHEST: Clear to auscultation and percussion. No rales, rhonchi or wheezing. CARDIOVASCULAR: Shows regular rate and rhythm with MR/TR/AI. No S3, no S4, no rub. ABDOMEN: Soft. Bowel sounds normal. No rebound, guarding or masses. EXTREMITIES: Show no lower extremity cyanosis, clubbing or edema. NEURO: Shows him to be alert and oriented with perhaps slight reduction in his mild asterixis. LABORATORY DATA AND IMAGING: Abdominal ultrasound done yesterday showed bilateral renal cortical atrophy of moderate degree. No obstructive uropathy. Labs, CBC, white blood cell count today 5.1, hemoglobin with hydration down to 8.5, platelet count is 118,000. Chemistry shows sodium of 149. Chloride 121, CO2 is extremely low at 13. BUN 106 with a creatinine of 8.1. Glucose is 46. All insulin products have been discontinued. Calcium is 7.9 with an albumin level of 2.7, corrects to normal. The patient's phosphorus level was 7.2. Magnesium level was 2.2. Liver enzymes remain mildly elevated with a bilirubin of 3.8, AST 270, ALT of 491 and an alkaline phosphatase of 409. Abdominal ultrasound in relation to the liver shows normal liver measuring 14.1 cm. Common bile duct is normal. No stones. No dilatation. Gallbladder is contracted. ASSESSMENT: 1. Progression of chronic kidney disease in the setting of known diabetic nephropathy. There appears to be no acute injury, he had improvement in BUN and creatinine of a very mild degree and likely secondary to copious volume hydration. The patient remains severely acidotic. Hyperkalemia had been treated. The safest approach is to initiate dialysis here. The patient would all likelihood required 3 times a week dialysis, but if we do see continued improvement in urine output and a slight decline in his creatinine, perhaps the patient could be maintained on twice a week dialysis. He is currently receiving a PermCath catheter. This will allow us to initiate dialysis. The patient will likely remain in [facility] for his outpatient dialysis. 2. Status post life-threatening hyperkalemia. 3. History of anemia secondary to chronic kidney disease. Iron saturations were okay at 22%. The patient will be started on Aranesp therapy with dialysis. 4. History of benign prostatic hyperplasia, but no evidence for obstructive uropathy. 5. History of insulin-dependent diabetes mellitus with diabetic nephropathy, longstanding history of diabetic kidney disease and likely diabetic neuropathy. The patient presently has been hypoglycemic as evidenced by glucose levels in the 40 range. Insulin had been discontinued. I have explained to the patient that because of the significant weakness in the kidney, whatever insulin his pancreas might be making is not being degraded. 6. History of secondary hyperparathyroidism. The patient's phosphorus level is 7.2 and binder therapy had been started. The patient will adhere to a renal diet. 7. History of hypertension. I expect improvement of blood pressure control with the initiation of dialysis. For right now, he will remain on calcium-channel maranda therapy. 8. History of arteriosclerotic heart disease status post percutaneous transluminal coronary angioplasty stent. The patient had been on Plavix and aspirin. This is presently on hold for placement of his PermCath. PLAN: 1. Discussed with the patient in great detail again the need to initiate dialysis, consents have been signed. In all likelihood, hemodialysis will start tomorrow. 2. Expect to see improvement in blood pressure control with dialysis. 3. Aranesp with dialysis to help improve his anemia. 4. Continue all dietary restrictions and binder therapy. 5. We will have licensed clinical social worker discuss with the patient the procedure for outpatient dialysis once the patient is discharged from the ICU. 6. Case discussed with staff in Interventional Radiology, ICU staff, and ICU house staff. Greater than 35 minutes were spent in the care of this patient. Shane Giang MD
--- NOTE | 2017-11-03 18:18 | VASCULAR ---
PROCEDURE: Ultrasound and fluoroscopic tunneled right IJ dialysis catheter. CLINICAL HISTORY: ESRD PHYSICIAN(S): Jameson Evans M.D. TECHNIQUE: The relative risks and indications for the procedure were explained to the patient and informed written consent obtained. The patient was placed supine on the arteriography table and the right neck/chest was prepped and draped in the usual sterile fashion. 1% Xylocaine was used to anesthetize the skin and soft tissues at the puncture site. Conscious sedation and monitoring were provided throughout the procedure by a nurse. Under direct ultrasound guidance, the rightinternal jugular vein was punctured with a micropuncture set. A 0.035 Glidewire was advanced into the IVC. Sequential dilatation was performed with subsequent placement of a 28cm Nextgen catheter with its tip in the right atrium. A retrograde tunnel below the right clavicle was performed. The catheter was trimmed and the hub attached. Both ports aspirate and inject easily. The catheter was secured and a dressing applied. The patient tolerated the procedure well. IMPRESSION: 1. Ultrasound and fluoroscopically placed right IJ tunneled dialysis catheter.
--- NOTE | 2017-11-03 22:31 | PN ---
Copied To: Oliver Galarza MD Attending MD: Oliver Galarza MD DATE: 11/03/2017 DAILY PROGRESS NOTE SUBJECTIVE: The patient was seen this . He is in the intensive care and now headed to the OR for placement of a dialysis catheter. Case was discussed at length with Dr. Giang, whose very impressive progress note and consultation sum up his case beautifully. Interim, he will probably be ready to leave intensive care later today and begin dialysis as early as tomorrow. Arrangements were made for him to continue his dialysis on an outpatient basis after discharge. I will continue to follow the lead from Renal and reassess the patient again in the morning. Oliver Galarza MD
[2017-11-04 06:37] LABS: EOS # 0.8 (0.0-0.7); EOS % 14.6 % (1.5-5.0); GRAN # 2.84 (1.4-6.5); GRAN % 54.6 % (50.0-68.0); HEMOGLOBIN 7.8 g/dL (14.0-18.0); LYMPH # 0.9 (1.2-3.4); LYMPH % 17.5 % (22.0-35.0); MEAN CELL VOLUME 70.5 fl (80.0-105.0); MEAN CORPUSCULAR HEMOGLOBIN 24.8 pg (25.0-35.0); MEAN CORPUSCULAR HGB CONC 35.1 g/dl (31.0-37.0); MONO # 0.7 (0.1-0.6); MONO % 13.3 % (1.0-6.0); PLATELET COUNT 107 10^3/uL (120.0-450.0); RBC 3.15 10^6/uL (3.5-6.1); RED CELL DISTRIBUTION WIDTH 18.1 % (11.5-14.5); WHITE BLOOD COUNT 5.2 10^3/ul (4.5-11.0)
[2017-11-04 06:52] LABS: ALBUMIN 2.5 g/dL (3.0-4.8); CALCIUM 7.8 mg/dL (8.4-10.5)
--- NOTE | 2017-11-04 10:30 | CON ---
Copied To: Jameson Terrell MD Attending MD: Jameson Terrell MD DATE: 11/04/2017 CARDIOLOGY CONSULTATION HISTORY: The patient is a 77-year-old male who presents with shortness of breath and renal failure. The patient's past medical history includes a history of diabetes mellitus, documented coronary artery disease as well as chronic renal insufficiency with creatinine of 3.7 in 06/2017. At that time, he underwent successful PTCA and stent of an occluded RCA with a drug-eluting stent. He presents with renal failure and anemia. The patient denies chest pain. His cardiac risk factors include hypertension, diabetes mellitus and hypercholesterolemia. SOCIAL HISTORY: The patient denies smoking. REVIEW OF SYSTEMS: Fourteen-point review of systems is reviewed in detail. He complains of malaise and mild shortness of breath. PHYSICAL EXAMINATION: VITAL SIGNS: Blood pressure is 136/82, the heart rate is in the 90s. NECK: Negative JVD. LUNGS: Without rales. HEART: Reveals S1, S2. EXTREMITIES: Without edema. LABORATORY DATA: Hemoglobin is 7.8. Chemistries: BUN and creatinine are 97 and 7.1. Troponin is negative x1. IMPRESSION: 1. End-stage renal disease. 2. Diabetes mellitus. 3. Anemia. 4. Stable angina. 5. History of percutaneous transluminal coronary angioplasty and stent of an occluded right coronary artery in the past. 6. Hypercholesterolemia. 7. Diabetes mellitus. PLAN: Given these findings, the patient is to start dialysis today. We will need to restart him on his Plavix today to help protect his drug-eluting stent. Jameson Terrell MD
[2017-11-04] MEDS ORDERED: Darbepoetin Alfa 100 mcg/ml Inj IVP ONE (13:00)
--- NOTE | 2017-11-04 14:39 | PN ---
Copied To: Shane Giang MD Attending MD: Shane Giang MD DATE: 11/04/2017 SUBJECTIVE: The patient within the last half hour, had been started on dialysis. We are ultrafiltrating a small amount of fluid as the patient continues to make urine. Creatinine had trended downward slightly and presently with IV fluid hydration, it is in the 7-8 range. BUN remains at 97. CO2 level was 15. Discussed with the patient his first dialysis treatment, he appears to be accepting it and tolerating it well. I did discuss with him the possibility that perhaps we might be able to start out with twice a week dialysis as his urine output appears to be excellent. MEDICATIONS Medication list reviewed. The patient is currently on IV fluid hydration, Ecotrin, heparin, Norvasc on hold, Percocet, PhosLo, Plavix, Tylenol p.r.n. and Zofran p.r.n. OBJECTIVE: INTAKE/OUTPUT: Intake is 2920, output is 2480. VITAL SIGNS: Blood pressure is 146/71, pulse of 99, temperature is 98.6 with a respiratory rate of 20. HEENT: Exam shows him to be normocephalic, atraumatic. Conjunctiva are pale. Sclerae are nonicteric. NECK: Supple. No neck vein distention. CHEST: Clear to auscultation and percussion. No rales, rhonchi or wheezing. CARDIOVASCULAR: Shows a regular rate and rhythm with MR/TR/AI. No S3, no S4, no rub. ABDOMEN: Soft. Bowel sounds normal. No rebound, guarding or masses. EXTREMITIES: Show no lower extremity cyanosis, clubbing or edema. NEUROLOGICAL: Shows him to be alert and oriented with no focal deficits. No asterixis appreciated today. Positive right chest wall PermCath. LABORATORY DATA AND IMAGING: CBC from today: White blood cell count 5.2, hemoglobin down to 7.8, platelet count is 107,000. Chemistries today show a chloride of 117 with CO2 of 15, BUN 97, creatinine of 7.1. Glucose is 193. Calcium is 7.8. Last phosphorus was 7.2. Last magnesium level was 2.2. Bilirubin is mildly elevated. Liver enzymes are elevated. Microbiology: Urine culture showed multiple species, not a clean-catch. ASSESSMENT: 1. Progression of chronic kidney disease stage IV in the setting of known diabetic nephropathy in light of his life-threatening hyperkalemia and elevated BUN and creatinine. No apparent reversible etiology. There has been a slight reduction in BUN and creatinine with aggressive hydration. Nevertheless, the patient will initiate dialysis. His potassium was 6.5 on admission to the hospital and that happened relatively quickly in the outpatient setting. I did discuss with the patient and the hemodialysis staff the possibility of perhaps in the outpatient setting doing twice a week dialysis, should he continue to have excellent urine output and have some mild renal reserve, but for right now, the patient will be scheduled for outpatient dialysis. 2. Status post life-threatening hyperkalemia. 3. History of anemia secondary to chronic kidney disease. Iron saturations were acceptable at 22%. The patient will be started on Aranesp today with dialysis. 4. History of benign prostatic hypertrophy with no evidence for obstructive uropathy. 5. History of insulin-dependent diabetes mellitus. The patient at present has normal glucose level secondary to advance chronic kidney disease. He remains at present off insulin. 6. History of secondary hyperparathyroidism. The patient will begin vitamin D with dialysis per protocol. The patient is on a renal diet and on binder therapy. 7. History of hypertension. The patient is on calcium channel maranda therapy. This should be held on the day of dialysis. 8. History of atherosclerotic heart disease, status post percutaneous transluminal coronary angioplasty and stent. The patient may resume, from my standpoint, Plavix and aspirin. PLAN: 1. Discussed with the patient and dialysis staff and ICU staff in detail. From my standpoint, post dialysis today, the patient may be transferred out of the ICU. 2. Discussed with him the possibility of doing twice a week dialysis in the outpatient setting as his urine output appears to be excellent. 3. We will minimize ultrafiltration since his urine output is adequate. 4, Continue all dietary restrictions and binder therapy. 5. The patient will eventually need an AV fistula creation. This will be discussed with his primary care physician to choose a vascular surgeon. Greater than 35 minutes spent in the care of this patient. I am also monitoring his first dialysis closely. Shane Giang MD [facility] # [id number]
[2017-11-05 01:09] LABS: BASO # 0.01 K/mm3 (0.0-2.0); BASO % 0.1 % (0.0-3.0); EOS # 1.1 (0.0-0.7); EOS % 16.5 % (1.5-5.0); GRAN # 3.24 (1.4-6.5); GRAN % 48.2 % (50.0-68.0); HEMOGLOBIN 7.9 g/dL (14.0-18.0); LYMPH # 1.5 (1.2-3.4); LYMPH % 22.8 % (22.0-35.0); MEAN CELL VOLUME 71.1 fl (80.0-105.0); MEAN CORPUSCULAR HEMOGLOBIN 24.8 pg (25.0-35.0); MONO # 0.8 (0.1-0.6); MONO % 12.4 % (1.0-6.0); PLATELET COUNT 84 10^3/uL (120.0-450.0); RBC 3.18 10^6/uL (3.5-6.1); RED CELL DISTRIBUTION WIDTH 18.3 % (11.5-14.5); WHITE BLOOD COUNT 6.7 10^3/ul (4.5-11.0)
[2017-11-05 05:02] LABS: ALBUMIN 2.6 g/dL (3.0-4.8); CALCIUM 7.7 mg/dL (8.4-10.5)
[2017-11-05 05:19] LABS: BASO # 0.02 K/mm3 (0.0-2.0); BASO % 0.3 % (0.0-3.0); EOS % 15.4 % (1.5-5.0); GRAN # 3.17 (1.4-6.5); GRAN % 51.5 % (50.0-68.0); HEMOGLOBIN 7.9 g/dL (14.0-18.0); LYMPH # 0.9 (1.2-3.4); LYMPH % 14.9 % (22.0-35.0); MEAN CELL VOLUME 71.3 fl (80.0-105.0); MEAN CORPUSCULAR HEMOGLOBIN 24.9 pg (25.0-35.0); MONO # 1.1 (0.1-0.6); MONO % 17.9 % (1.0-6.0); PLATELET COUNT 107 10^3/uL (120.0-450.0); RBC 3.17 10^6/uL (3.5-6.1); RED CELL DISTRIBUTION WIDTH 18.2 % (11.5-14.5); WHITE BLOOD COUNT 6.2 10^3/ul (4.5-11.0)
--- NOTE | 2017-11-05 09:01 | PN ---
Copied To: Shane Giang MD Attending MD: Shane Giang MD DATE: 11/05/2017 SUBJECTIVE: The patient is currently seen comfortable in bed in ICU bed 1. He has been transferred to telemetry. He is awaiting a bed. He tolerated yesterday's first dialysis without difficulty, only 500 mL were removed. IV fluids were discontinued. The patient states that he feels perhaps slightly better post his first dialysis treatment. MEDICATIONS: Medication list reviewed. The patient is currently on aspirin, heparin, Norvasc on nondialysis days, Percocet, PhosLo, Plavix, Tylenol p.r.n. and Zofran p.r.n. OBJECTIVE: INTAKE/OUTPUT: Intake 1060, output 975. There were 475 mL of urine and 500 mL of ultrafiltration with dialysis. VITAL SIGNS: Blood pressure 132/77, respiratory rate 22, temperature 94.4, pulse of 90. HEENT: Normocephalic, atraumatic. Conjunctivae are pale. Sclerae are minimally icteric. NECK: Supple. No neck vein distention. CHEST: Clear to auscultation and percussion. No rales, rhonchi or wheezing. CARDIOVASCULAR: Regular rate and rhythm with MR/TR/AI. No S3, no S4, no rub. ABDOMEN: Soft. Bowel sounds normal. No rebound, guarding or masses. EXTREMITIES: Show no lower extremity cyanosis, clubbing or edema. The patient does have a PermCath in the right chest wall. NEURO: Shows him to be alert, oriented. No focal deficits. He no longer has any asterixis. LABORATORY DATA AND IMAGING: CBC: White blood cell count today 6.2, hemoglobin is stable at 7.9 with a platelet count of 107,000. Chemistries post dialysis showed a sodium of 141, potassium 3.8, chloride 105 with a CO2 of 26, BUN is down to 49, creatinine is 4.2. Glucose is 75, calcium was 7.7, yesterday's phosphorus was 7.2, bilirubin 4.9. Elevated liver enzymes persist. Microbiology: Urine culture showed multiple species. ASSESSMENT: 1. Progression of chronic kidney disease stage IV in the setting of diabetic nephropathy. The patient came in with life-threatening hyperkalemia and he was symptomatic from the elevated BUN and creatinine. Dialysis was initiated. The patient perhaps has some mild residual renal function. He might be able to tolerate less than three times a week dialysis. We will need to monitor the trend of his BUN and creatinine predialysis. From a renal standpoint, the patient needs Social Service evaluation to help set up outpatient dialysis. 2. Status post life-threatening hyperkalemia. 3. History of anemia secondary to chronic kidney disease. Iron saturations are acceptable at 22%. The patient will continue on Aranesp on dialysis. He received 100 mcg yesterday on 11/04/2017. 4. History of benign prostatic hypertrophy with no evidence for obstructive uropathy. 5. History of insulin-dependent diabetes mellitus. With his chronic kidney disease, the patient's sugar levels have been low. Insulin is currently on hold. 6. History of hypertension. Blood pressure is controlled with calcium channel maranda on nondialysis days. 7. History of secondary hyperparathyroidism. The patient will continue binder therapy, over time his phosphorus level will likely fall in to an acceptable range. 8. History of atherosclerotic heart disease, status post percutaneous transluminal coronary angioplasty and stent. From my standpoint, the patient may continue Plavix and aspirin. No ongoing cardiac issues. PLAN: 1. Discussed with the patient again. Next dialysis will likely be on Tuesday, which is 11/07/2017. Again, decision as to whether the patient requires 2 or 3 times a week dialysis to be made in the next several days. 2. Agree with transfer out of the ICU to telemetry. 3. Continue all dietary restrictions and binder therapy. 4. The patient will need to be seen by Vascular Surgery for AV fistula creation. Perhaps a consultation can be set up presently with a tentative plan for outpatient AV fistula creation. 5. In light of his elevated liver enzymes, perhaps GI evaluation. Shane Giang MD
[2017-11-05 10:01] LABS: URINE BILIRUBIN SMALL (NEGATIVE); URINE BLOOD SMALL (NEGATIVE); URINE GLUCOSE (UA) NEGATIVE (NEGATIVE); URINE LEUKOCYTE ESTERASE SMALL Leu/uL (NEGATIVE); URINE PROTEIN 100 mg/dL (<30 mg/dL)
[2017-11-05 10:02] LABS: URINE APPEARANCE SL CLOUDY (CLEAR); URINE COLOR YELLOW (YELLOW)
[2017-11-05 10:16] LABS: URINE RBC 0 - 2 /hpf (0-2)
--- NOTE | 2017-11-05 10:33 | RAD ---
Date of service: 11/05/2017 HISTORY: sputum production in setting of fever COMPARISON: 11/01/2017. FINDINGS: The right-sided dialysis catheter terminates at the cavoatrial junction LUNGS: The lungs are well inflated and clear. PLEURA: No significant pleural effusion identified, no pneumothorax apparent. CARDIOVASCULAR: Normal. OSSEOUS STRUCTURES: No significant abnormalities. VISUALIZED UPPER ABDOMEN: Normal. OTHER FINDINGS: None. IMPRESSION: No acute findings.
--- NOTE | 2017-11-05 14:15 | PN ---
Copied To: Oliver Galarza MD Attending MD: Oliver Galarza MD DATE: 11/04/2017 SUBJECTIVE: The patient was seen this Tuesday afternoon in ICU, bed 3. He is resting in bed comfortably, having had his first dialysis session today. He is awake, alert, clear, and in good spirits. PHYSICAL EXAMINATION: HEAD AND NECK: Unremarkable. LUNGS: Show good aeration, right and left. He has IV access catheter on the right neck IJ. HEART: Regular, not tachycardic. ABDOMEN: Soft, nontender. EXTREMITIES: Show no edema. IMPRESSION: 1. Renal failure. 2. History of diabetes. PLAN: Continuing dialysis per renal real estate consultant, out of bed physical therapy. We will follow. Oliver Galarza MD MTDD
--- NOTE | 2017-11-05 16:27 | PN ---
Copied To: Oliver Galarza MD Attending MD: Oliver Galarza MD DATE: 11/05/2017 SUBJECTIVE: The patient was seen this Tuesday morning in the intensive care unit, ICU bed 3. He is resting comfortably in bed. Of concern was that early this morning, his blood sugar was low and his p.o. intake is poor. He is also off his diabetes medicines as this no longer seems to be an issue in the setting of advanced renal disease. I encouraged the patient to eat and we added additional supplements as well as food from the outside at his choosing. PHYSICAL EXAMINATION: GENERAL: He is comfortable in bed, awake and alert, clear, in no acute distress. HEAD AND NECK: Essentially unremarkable. LUNGS: Breath sounds are good, right and left. IV access port is noted on the right chest. HEART: Regular, not tachycardic. EXTREMITIES: Show no edema. PLAN: The patient remains in ICU two days after requesting transfer. He no longer needs telemetry as his rhythm has been stable, now 4 days of monitoring his life-threatening hyperkalemia has been corrected, so I will arrange for transfer to a med-surg floor. We will keep close watch on his sugars. He will continue dialysis and then probably he come to transitional care or subacute rehab for physical therapy if needed prior to discharged home. Oliver Galarza MD
[2017-11-06 07:39] LABS: BASO # 0.03 K/mm3 (0.0-2.0); BASO % 0.4 % (0.0-3.0); EOS # 1.3 (0.0-0.7); EOS % 15.5 % (1.5-5.0); GRAN # 4.43 (1.4-6.5); HEMOGLOBIN 8.5 g/dL (14.0-18.0); LYMPH # 0.9 (1.2-3.4); LYMPH % 11.4 % (22.0-35.0); MEAN CELL VOLUME 71.6 fl (80.0-105.0); MEAN CORPUSCULAR HEMOGLOBIN 24.9 pg (25.0-35.0); MEAN CORPUSCULAR HGB CONC 34.7 g/dl (31.0-37.0); MONO # 1.5 (0.1-0.6); MONO % 18.7 % (1.0-6.0); PLATELET COUNT 113 10^3/uL (120.0-450.0); RBC 3.42 10^6/uL (3.5-6.1); WHITE BLOOD COUNT 8.2 10^3/ul (4.5-11.0)
[2017-11-06 08:48] LABS: ALBUMIN 2.8 g/dL (3.0-4.8); CALCIUM 7.9 mg/dL (8.4-10.5)
[2017-11-06 16:34] VITALS: RESP 20
--- NOTE | 2017-11-07 02:21 | PN ---
Copied To: Oliver Galarza MD Attending MD: Oliver Galarza MD DATE: 11/06/2017 SUBJECTIVE: The patient was seen this Tuesday late afternoon in room 365, bed 2. He is resting comfortably in bed. He states he was out of bed and ambulating earlier today. He is awaiting his dialysis therapy tomorrow. PHYSICAL EXAMINATION HEAD AND NECK: Unremarkable. LUNGS: Showed good aeration, right and left. EXTREMITIES: Show no edema. IMPRESSION: End-stage renal disease. PLAN: We will follow the lead of our renal instructional systems design consultant. The patient is scheduled for dialysis tomorrow. We will then work with case management and coordinators. He has a right-sided internal jugular line for dialysis, and if cleared by Renal, may be ready for home as early as tomorrow or Tuesday, and to continue dialysis as arranged. Oliver Galarza MD MTDD
[2017-11-07 07:30] LABS: BASO # 0.04 K/mm3 (0.0-2.0); BASO % 0.4 % (0.0-3.0); EOS # 1.8 (0.0-0.7); EOS % 17.3 % (1.5-5.0); GRAN # 5.53 (1.4-6.5); GRAN % 53.7 % (50.0-68.0); LYMPH # 1.5 (1.2-3.4); LYMPH % 14.8 % (22.0-35.0); MEAN CELL VOLUME 72.7 fl (80.0-105.0); MEAN CORPUSCULAR HEMOGLOBIN 24.5 pg (25.0-35.0); MEAN CORPUSCULAR HGB CONC 33.8 g/dl (31.0-37.0); MONO # 1.4 (0.1-0.6); MONO % 13.8 % (1.0-6.0); PLATELET COUNT 121 10^3/uL (120.0-450.0); RBC 3.26 10^6/uL (3.5-6.1); RED CELL DISTRIBUTION WIDTH 19.1 % (11.5-14.5); WHITE BLOOD COUNT 10.3 10^3/ul (4.5-11.0)
[2017-11-07 07:55] LABS: ALB/GLOB RATIO 1.1 (1.1-1.8); ALBUMIN 2.8 g/dL (3.0-4.8); CALCIUM 8.1 mg/dL (8.4-10.5)
--- NOTE | 2017-11-07 09:46 | PN ---
Copied To: Jameson Terrell MD Attending MD: Jameson Terrell MD DATE: 11/07/2017 CARDIOLOGY FOLLOWUP SUBJECTIVE: The patient is tolerating dialysis well. PHYSICAL EXAMINATION: VITAL SIGNS: Blood pressure varies from 140s-160s, heart rate is in the 70s. NECK: Negative JVD. LUNGS: Without rales. HEART: Reveals S1, S2. EXTREMITIES: No edema noted. LABORATORY DATA: Hemoglobin is 8, potassium is 4.3. IMPRESSION: 1. End-stage renal disease. 2. Dialysis dependent. 3. History of diabetes mellitus. 4. History of percutaneous transluminal coronary angioplasty and stent of an occluded right coronary artery. 5. Hypercholesterolemia. 6. Stable angina. 7. Anemia. PLAN: Given these findings, the patient is back on the aspirin and Plavix. Hemodynamically, the patient remained stable. Jameson Terrell MD
[2017-11-07] MEDS ORDERED: DiphenhydrAMINE 50 mg/ml Inj ONE (12:40)
[2017-11-07 14:41] LABS: HEMOGLOBIN 8.2 g/dL (14.0-18.0); MEAN CELL VOLUME 72.7 fl (80.0-105.0); MEAN CORPUSCULAR HEMOGLOBIN 24.6 pg (25.0-35.0); MEAN CORPUSCULAR HGB CONC 33.9 g/dl (31.0-37.0); PLATELET COUNT 133 10^3/uL (120.0-450.0); RBC 3.33 10^6/uL (3.5-6.1); RED CELL DISTRIBUTION WIDTH 19.3 % (11.5-14.5); WHITE BLOOD COUNT 12.3 10^3/ul (4.5-11.0)
[2017-11-07 14:52] LABS: ALB/GLOB RATIO 1.1 (1.1-1.8); ALBUMIN 2.9 g/dL (3.0-4.8); CALCIUM 8.2 mg/dL (8.4-10.5)
--- NOTE | 2017-11-07 18:58 | PN ---
Copied To: Shane Giang MD Attending MD: Shane Giang MD DATE: 11/07/2017 SUBJECTIVE: The patient is currently seen on dialysis. The patient had been transferred to . The patient has been tolerating dialysis well. He continues to make urine, it does appear that he would likely be able to do well with twice a week dialysis. There is a small chance he could have recovery in his renal function. MEDICATIONS: Medication list reviewed. The patient is currently on Ecotrin, subcu heparin, Megace, Norvasc is on hold for dialysis, PhosLo, Plavix, Tylenol p.r.n. and Zofran p.r.n. PHYSICAL EXAMINATION INTAKE/OUTPUT: Intake is 1080 and output is 1300. VITAL SIGNS: Blood pressure is ranging from 146-164 systolic, diastolic 70-72. Temperature 98.3, pulse of 74 with a respiratory rate of 20, pulse ox is 99%. HEENT: Shows him to be normocephalic, atraumatic. Conjunctivae are pale. Sclerae are nonicteric. NECK: Supple. No neck vein distention. CHEST: Clear to auscultation and percussion. No rales, rhonchi or wheezing. CARDIOVASCULAR: Shows a regular rate and rhythm with MR/TR/AI. No S3, no S4, no rub. ABDOMEN: Soft. Bowel sounds normal. No rebound, guarding or masses. EXTREMITIES: No lower extremity cyanosis, clubbing, edema. The patient has PermCath in his right chest wall. NEUROLOGIC: Shows him to be alert and oriented with no focal deficits. LABORATORY DATA AND IMAGING: CBC: White blood cell count 10.3, hemoglobin stable but low at 8, platelet count is 121,000. Chemistries from today show a BUN of 54 with a creatinine of 4.9. This is improved with dialysis. Glucose is 111. Calcium is 8.1. Phosphorus level is 7.2. Magnesium level is 2.2. Bilirubin improved at 2.6. AST and ALT remain mildly elevated. Alkaline phosphatase is mildly elevated. Microbiology was negative. Urine culture showed multiple species in a collected specimen. ASSESSMENT: 1. Progression of chronic kidney disease, now with end-stage renal disease. There had been some improvement in BUN and creatinine with dialysis treatments. It is unclear whether or not the patient will have any further improvement. He did come in with life-threatening hyperkalemia and dialysis was initiated. I would like for the patient to be discharged home on twice a week dialysis either Tuesday and or Tuesday and Tuesday or Tuesday and Tuesday. We will further assess his need for further dialysis or perhaps a decrease in dialysis pending following his pre-dialysis labs. The patient had been seen by transition social worker and are awaiting for [facility] to accept him into the outpatient unit. 2. Status post hyperkalemia. 3. History of anemia secondary to chronic kidney disease. The patient will continue with Aranesp on dialysis. He did receive 100 mcg on 11/04. Iron saturations were acceptable at 22%. 4. History of benign prostatic hypertrophy with no evidence for obstructive uropathy. 5. History of insulin-dependent diabetes mellitus. The patient has had hypoglycemia likely secondary to his worsening renal parameters and the inability to degrade insulin. He is currently off all insulin therapy and glucose control has been acceptable. 6. History of hypertension. The patient should continue blood pressure medications on non-dialysis days. 7. History of secondary hyperparathyroidism. We will repeat phosphorus level today. 8. History of atherosclerotic heart disease status post percutaneous transluminal coronary angioplasty and stent. The patient may continue Plavix and aspirin from a renal standpoint. PLAN: 1. Discuss with the patient in detail. Discuss with transition social worker in detail. Awaiting the patient's acceptance into [facility]. Once he receives this okay, discharge as possible. The patient should return twice a week for dialysis for the time being. We will monitor his lab work closely and decide on whether or not he needs further dialysis or less dialysis pending the lab results. 2. Should BUN and creatinine remain elevated, the patient will need an AV fistula and he will be referred to Vascular Surgery in the outpatient setting to have this setup. 3. Continue all dietary restrictions and binder therapy. 4. P.r.n. GI evaluation if liver enzymes remain elevated. Shane Giang MD
[2017-11-08 06:44] LABS: BASO # 0.03 K/mm3 (0.0-2.0); BASO % 0.3 % (0.0-3.0); EOS # 1.1 (0.0-0.7); EOS % 10.1 % (1.5-5.0); GRAN # 6.42 (1.4-6.5); GRAN % 59.5 % (50.0-68.0); HEMOGLOBIN 8.1 g/dL (14.0-18.0); LYMPH # 1.6 (1.2-3.4); MEAN CORPUSCULAR HEMOGLOBIN 24.3 pg (25.0-35.0); MEAN CORPUSCULAR HGB CONC 32.8 g/dl (31.0-37.0); MONO # 1.6 (0.1-0.6); MONO % 15.1 % (1.0-6.0); PLATELET COUNT 147 10^3/uL (120.0-450.0); RBC 3.34 10^6/uL (3.5-6.1); RED CELL DISTRIBUTION WIDTH 19.8 % (11.5-14.5); WHITE BLOOD COUNT 10.8 10^3/ul (4.5-11.0)
[2017-11-08 06:57] LABS: ALB/GLOB RATIO 1.1 (1.1-1.8); ALBUMIN 2.9 g/dL (3.0-4.8); CALCIUM 8.2 mg/dL (8.4-10.5)
[2017-11-08 08:17] VITALS: BP 154/87; PULSE 80; TEMP 98.5; O2SAT 100
[2017-11-08] MEDS ORDERED: Barium Sulfate Susp 2.1% w/v, 2.0% w/w 450 mL Bottle PO ONE (09:22)
--- NOTE | 2017-11-08 11:43 | PN ---
Copied To: Jameson Terrell MD Attending MD: Jameson Terrell MD DATE: 11/08/2017 CARDIOLOGY FOLLOWUP SUBJECTIVE: The patient is without chest pain. The patient is tolerating dialysis. PHYSICAL EXAMINATION: VITAL SIGNS: Blood pressure is 154/87, heart rate is in the 80s. NECK: Negative JVD. LUNGS: Without rales. HEART: Reveals S1, S2. EXTREMITIES: Without edema. LABORATORY DATA: Creatinine is up to 3.3, hemoglobin is 8.1. IMPRESSION: 1. End-stage renal disease. 2. Stable angina. 3. Coronary artery disease. 4. History of percutaneous transluminal coronary angioplasty and stent. 5. Anemia. PLAN: Given these findings, the patient's cardiac status is stable. He is back on his aspirin and Plavix. Need to remind the patient that he needs to stay on aspirin indefinitely and Plavix for at least a year given his placement of drug-eluting stent in 06/1999 and this year. Jameson Terrell MD
--- NOTE | 2017-11-08 13:50 | CT ---
Date of service: 11/08/2017 PROCEDURE: CT Abdomen and Pelvis without intravenous contrast HISTORY: see u/s, elevated LFT alk phos COMPARISON: 11/02/2017 ultrasound TECHNIQUE: Without contrast.. Contrast dose: Radiation dose: Total exam DLP = 411 mGy-cm. This CT exam was performed using one or more of the following dose reduction techniques: Automated exposure control, adjustment of the mA and/or kV according to patient size, and/or use of iterative reconstruction technique. FINDINGS: LOWER THORAX: Unremarkable. LIVER: Unremarkable. No gross lesion or ductal dilatation. GALLBLADDER AND BILE DUCTS: There is mural thickening in the gallbladder. The gallbladder is contracted. Minimal surrounding inflammatory changes are seen. Findings are suspicious for cholecystitis. Findings are similar to the previous ultrasound PANCREAS: Unremarkable. No gross lesion or ductal dilatation. SPLEEN: Unremarkable. ADRENALS: Unremarkable. No mass. KIDNEYS AND URETERS: Unremarkable. No hydronephrosis. No solid mass. VASCULATURE: Unremarkable. No aortic aneurysm. BOWEL: Unremarkable. No obstruction. No gross mural thickening. APPENDIX: Unremarkable. Normal appendix. PERITONEUM: Unremarkable. No free fluid. No free air. There is an umbilical hernia measuring 35 mm diameter LYMPH NODES: Unremarkable. No enlarged lymph nodes. BLADDER: Unremarkable. REPRODUCTIVE: Unremarkable. BONES: No acute fracture. OTHER FINDINGS: None. IMPRESSION: There is mural thickening in the gallbladder. The gallbladder is contracted. Minimal surrounding inflammatory changes are seen. Findings are suspicious for cholecystitis. Findings are similar to the previous ultrasound
--- NOTE | 2017-11-08 19:35 | PN ---
Copied To: Shane Giang MD Attending MD: Shane Giang MD DATE: 11/08/2017 SUBJECTIVE: The patient is currently seen just having returned for an abdominal CT scan for elevated liver enzymes. He tolerated yesterday's dialysis well. The patient will be discharged later today as per my discussion with the staff on 3R and Dr. Oliver Galarza. He is set up for outpatient dialysis at 02:00 p.m. twice a week on Wednesdays and Saturdays. The patient will be dialyzing with a right chest wall PermCath. Depending on any improvement he has in his renal parameters or whether they worsen, we will determine whether or not he will receive an AV fistula. MEDICATIONS: Medication list reviewed. The patient is currently on Ecotrin, subcu heparin, Megace, Norvasc on non-dialysis days, PhosLo, Plavix, Tylenol p.r.n. and Zofran p.r.n. PHYSICAL EXAMINATION INTAKE/OUTPUT: Intake 1080 and output 1300. All urine plus hemodialysis approximately 500 mL. VITAL SIGNS: Blood pressure 154/87, temperature 98.5, respiratory rate 20 with a pulse of 80. HEENT: Shows him to be normocephalic, atraumatic. Conjunctiva are pale. Sclerae are nonicteric. NECK: Supple. No neck vein distention. CHEST: Clear to auscultation and percussion. No rales, rhonchi or wheezing. CARDIOVASCULAR: Shows a regular rate and rhythm with MR/TR/AI. No S3, no S4, no rub. ABDOMEN: Soft. Bowel sounds normal. No rebound, guarding or masses. EXTREMITIES: Show no cyanosis, clubbing or edema. The patient has a chest wall right sided PermCath. NEUROLOGIC: Shows him to be alert and oriented with no focal deficits. LABORATORY DATA AND IMAGING: CBC from today, white blood cell count 10.8, hemoglobin 8.1 with a platelet count of 147,000. Chemistries today, normal electrolytes. BUN 36, creatinine 3.3. Yesterday's pre-dialysis creatinine was 4.9. Glucose is 140. Calcium is 8.2. Yesterday's phosphorus pre-dialysis was not done, post dialysis was 2.1. Bilirubin 2.5. Mild elevation of liver enzymes. Albumin is 2.9. Microbiology: All cultures were negative or unremarkable. ASSESSMENT: 1. Progression of chronic kidney disease, now with likely end-stage renal disease. Unclear whether or not the patient will have any improvement in his renal parameters. It appears that he would benefit from continued dialysis. He did present to the hospital with life-threatening hyperkalemia. The patient is willing to return to the outpatient dialysis unit 2 days a week or come on Wednesdays and Saturdays. 2. Status post life-threatening hyperkalemia. 3. History of anemia secondary to chronic kidney disease. The patient's last dose of Aranesp was on 11/04 100 mcg. Iron saturations were okay at 22%. The patient will continue receive Aranesp with dialysis and perhaps maintenance IV iron. 4. History of benign prostatic hypertrophy. No evidence for obstructive uropathy. 5. History of insulin-dependent diabetes mellitus, currently off insulin. The patient has episodes of hypoglycemia. 6. History of hypertension. The patient should continue Norvasc on non-dialysis days. 7. History of secondary hyperparathyroidism. Unfortunately, yesterday's phosphorus level was done toward the end of dialysis, so it is low. 8. History of atherosclerotic heart disease status post percutaneous transluminal coronary angioplasty and stent. The patient from my standpoint can continue Plavix and aspirin therapy. PLAN: 1. Discussed with the patient in detail. Discussed with the administration of the outpatient dialysis unit, the patient will be on twice a week hemodialysis. The patient may for the time being be regarded as an acute renal failure patient requiring dialysis. We will see in the next several weeks whether or not his numbers will worsen, he will require three times a week dialysis or whether his numbers will improve, we could decrease his dependency on dialysis. 2. Continue binder therapy. 3. Check results of abdominal and pelvic CT scan, these are pending at the time of this dictation. Shane Giang MD
--- NOTE | 2017-11-10 08:16 | DS ---
Copied To: Oliver Galarza MD Attending MD: Oliver Galarza MD HISTORY OF PRESENT ILLNESS: This is a 77-year-old black male with a history of renal insufficiency, who presented to the emergency room with weakness, lethargy and abdominal bloating. He was seen in the office the day before, labs were drawn. His creatinine and BUN were found to be elevated as well as his liver enzymes elevated and so he was called and sent to the emergency room, found in acute renal failure. He was admitted to intensive care unit, seen by a renal and hypertension business systems consultant, Dr. Shane Giang who knew the patient from an outpatient workup and followed by Dr. Terrell who knew him from his PTCA in the past. SOCIAL HISTORY: Patient did not smoke, does not drink. Works as a [employer]. ALLERGIES: HAS NO KNOWN ALLERGIES. HOME MEDICATIONS: Included Lipitor, Vasotec, Amaryl, metoprolol, colchicine, Avodart, gabapentin, Dyazide, Lantus, and aspirin. COURSE OF HOSPITAL STAY: Patient was stabilized in intensive care, severe hyperkalemia was adjusted. Arrangements were made for a dialysis to begin. The procedure and the importance of dialysis was explained to the patient, he agreed, catheter was placed and dialysis started. He had a second round on Tuesday, arrangements were made for an outpatient dialysis to continue at the dialysis center. Because of an elevated liver enzymes, an ultrasound of the abdomen was done which was somewhat unremarkable. The gallbladder wall was perhaps somewhat thickened or contracted, but no clear evidence of inflammation or cholecystitis. A followup CT scan with oral contrast was done today, the day of admission. Report was not available, but it was reported to me to be essentially the same as the ultrasound and therefore this patient was ready for discharge to home. Arrangements were made for his dialysis. Medications were called in by Dr. Giang. Patient was discharge home to follow up with us in the office within one week. FINAL DISCHARGE DIAGNOSES: 1. Acute renal failure. 2. Elevated liver function test and alkaline phosphatase with no stones present, contracted gallbladder, but no clear evidence of cholelithiasis. 3. History of diabetes. 4. Hypertension. 5. 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 6. Benign prostatic hypertrophy. 7. Coronary artery disease status post myocardial infarction and percutaneous transluminal coronary angioplasty with Dr. Terrell. 8. Diabetic neuropathy. 9. Gout. Oliver Galarza MD
== END 2017-11-08 18:28 | disposition home or self-care (01) | DRG 674 ==
LOC: ED 18:17 → ERH 21:20 → ICU 22:46 → 3RNO 11-05 22:21
PROVIDERS: ADMIT Internal Medicine; ATTEND Internal Medicine
PROC: 0JH63XZ Insertion of Tunneled Vascular Access Device into Chest Subcutaneous Tissue and Fascia, Percutaneous Approach (ICD-10-PCS; principal; 2017-11-03)
PROC: 02H633Z Insertion of Infusion Device into Right Atrium, Percutaneous Approach (ICD-10-PCS; 2017-11-03)
PROC: 5A1D70Z Performance of Urinary Filtration, Intermittent, Less than 6 Hours Per Day (ICD-10-PCS; 2017-11-04)
PROC: 5A1D70Z Performance of Urinary Filtration, Intermittent, Less than 6 Hours Per Day (ICD-10-PCS; 2017-11-07)
DX: N17.9 Acute kidney failure, unspecified (principal); I12.0 Hypertensive chronic kidney disease with stage 5 chronic kidney disease or end stage renal disease; E87.4 Mixed disorder of acid-base balance; B37.0 Candidal stomatitis; E11.22 Type 2 diabetes mellitus with diabetic chronic kidney disease; N40.0 Benign prostatic hyperplasia without lower urinary tract symptoms; E87.5 Hyperkalemia; E11.21 Type 2 diabetes mellitus with diabetic nephropathy; N25.81 Secondary hyperparathyroidism of renal origin; E11.40 Type 2 diabetes mellitus with diabetic neuropathy, unspecified; D63.1 Anemia in chronic kidney disease; N18.6 End stage renal disease; I25.118 Atherosclerotic heart disease of native coronary artery with other forms of angina pectoris; E78.00 Pure hypercholesterolemia, unspecified; E11.649 Type 2 diabetes mellitus with hypoglycemia without coma; M10.9 Gout, unspecified; I25.2 Old myocardial infarction; Z79.4 Long term (current) use of insulin; Z91.14 Patient's other noncompliance with medication regimen; Z89.429 Acquired absence of other toe(s), unspecified side; Z95.5 Presence of coronary angioplasty implant and graft

== ENCOUNTER 2018-01-11 18:42 | Observation (INO) | payer MEDICARE ==
[2018-01-11 18:46] VITALS: BMI 21.2
[2018-01-11 18:50] VITALS: RESP 18
--- NOTE | 2018-01-11 19:56 | ED PDOC ---
Arrival/HPI - General Chief Complaint: Medical Clearance Time Seen by Provider: 01/11/18 19:21 Historian: Patient - History of Present Illness Narrative History of Present Illness (Text): 01/11/18 19:50 Patient is a 77 year old male whose past medical history includes diabetes mellitus type 2 , hypertension, end stage renal disease(on dialysis), CAD, history of PTCA(on Effient), who presents to the Emergency department complai iveth of jerky movements to extremities and body. Patient's symptoms occurred during dialysis and continued afterwards, which prompted him being brought down to the emergency room for further evaluation. Patient had similar history of myoclonic jerks one month prior, which he was admitted to the hospital for further evaluation. Patient was placed on Depakote at that time. Patient denies fevers, chills, cough, shortness of breath, chest pain, or any other complaint. Time/Duration: 4-6 hours Symptom Onset: Sudden Symptom Course: Unchanged Context: Other (during dialysis) Past Medical History - Provider Review Nursing Documentation Reviewed: Yes - Infectious Disease Hx of Infectious Diseases: None - Cardiac Hx AL: Yes (with cardiac cath x 1 stent) Hx Hypertension: Yes Hx Pacemaker: No - Pulmonary Hx Respiratory Disorders: No Hx Asthma: No Hx Bronchitis: No Hx Chronic Obstructive Pulmonary Disease (COPD): No Hx Emphysema: No Hx Pneumonia: No Hx Respiratory Aspiration: No Hx Respiratory Tract Infection: No Hx Sleep Apnea: No Hx Tuberculosis: No - Neurological Hx Paralysis: No - HEENT Hx HEENT Disorder: No - Renal Hx Renal Failure: Yes - Endocrine/Metabolic Hx Diabetes Mellitus Type 2: Yes - Hematological/Oncological Hx Blood Transfusions: No - Integumentary Hx Dermatological Disorder: No - Musculoskeletal/Rheumatological Hx Musculoskeletal Disorders: No - Gastrointestinal Hx Gastrointestinal Disorders: Yes Other/Comment: Umbilical Hernia - Genitourinary/Gynecological Hx Incontinence: No Hx Prostate Problems: Yes - Psychiatric Hx Emotional Abuse: No Hx Physical Abuse: No Hx Substance Use: No - Surgical History Hx Cardiac Catheterization: Yes - Anesthesia Hx Anesthesia: Yes Hx Anesthesia Reactions: No Hx Malignant Hyperthermia: No - Suicidal Assessment Feels Threatened In Home Enviroment: No Family/Social History - Physician Review Nursing Documentation Reviewed: Yes Family/Social History: No Known Family HX Smoking Status: Never Smoked Hx Alcohol Use: No Hx Substance Use: No Allergies/Home Meds Allergies/Adverse Reactions: Allergies No Known Allergies Allergy (Verified 04/03/17 06:13) Home Medications: Home Meds Medication Instructions Recorded Confirmed Atorvastatin [Lipitor] 20 mg PO DAILY 11/29/16 11/17/17 Metoprolol Tartrate 25 mg PO BID 11/29/16 11/17/17 Dutasteride [Avodart] 0.5 mg PO DAILY 04/03/17 11/17/17 Triamterene/Hydrochlorothiazid 1 tab PO DAILY 04/03/17 11/17/17 [Triamterene-Hctz 37.5-25 mg Cp] Allopurinol [Zyloprim] 300 mg PO DAILY 11/02/17 11/17/17 Sennosides [Senna Concentrate] 8.5 mg PO BID PRN 11/02/17 11/17/17 hydrALAZINE [Apresoline] 25 mg PO DAILY 11/02/17 11/17/17 Review of Systems - Physician Review All systems were reviewed & negative as marked: Yes - Review of Systems Constitutional: absent: Fevers, Other (chills) Respiratory: absent: SOB, Cough Cardiovascular: absent: Chest Pain Physical Exam Vital Signs Reviewed: Yes Vital Signs Temp Pulse Resp Pulse Ox 01/11/18 18:46 97.4 F L 88 18 99 Temperature: Afebrile Pulse: Regular Respiratory Rate: Normal Appearance: Positive for: Well-Appearing Pain Distress: None Mental Status: Positive for: Alert and Oriented X 3 - Systems Exam Head: Present: Atraumatic, Normocephalic Pupils: Present: PERRL Extroacular Muscles: Present: EOMI Conjunctiva: Present: Normal Mouth: Present: Moist Mucous Membranes Neck: Present: Normal Range of Motion Respiratory/Chest: Present: Clear to Auscultation, Good Air Exchange, Other (right sided chest port catheter). No: Respiratory Distress, Accessory Muscle Use Cardiovascular: Present: Regular Rate and Rhythm, Normal S1, S2. No: Murmurs Abdomen: No: Tenderness, Distention, Peritoneal Signs Back: Present: Normal Inspection Upper Extremity: Present: Normal Inspection. No: Cyanosis, Edema Lower Extremity: Present: Normal Inspection. No: Edema Neurological: Present: GCS=15, CN II-XII Intact, Speech Normal, Normal Sensory Function, Other (Has intermittent myoclonic jerking movement. No focal motor weakness or sensory deficits.) Skin: Present: Warm, Dry, Normal Color. No: Rashes Psychiatric: Present: Alert, Oriented x 3, Normal Insight, Normal Concentration Medical Decision Making ED Course and Treatment: 01/11/18 19:59 Impression: 77 year old male who started experiencing myoclonic jerks during dialysis today and continued afterwards. Differential Diagnosis included but are not limited to: Myoclonic jerks vs. Seizure vs. Electrolyte abnormalities Plan: -- EKG -- Labs -- Blood work -- Chest X-ray -- Ativan -- Reassess and disposition Prior Visits: Notes and results from previous visits were reviewed. Progress Notes: Reviewed EKG, NSR at 72 bpm. Premature supraventricular complexes. No acute ST/T wave changes. 01/11/18 21:23 Chest X-ray reviewed, shows no acute processes. 01/11/18 22:[address] Galarza, who is aware and agrees with plan. Accepts pt in to his service. Pt will go to [facility] observation for myoclonic jerks. Requests Dr. Danny Deng on consult. - RAD Interpretation Radiology Orders: 01/11/18 19:30 CHEST PORTABLE [RAD] Stat - Medication Orders Current Medication Orders: Discontinued Medications Lorazepam (Ativan) 1 mg PO ONCE ONE; Protocol Stop: 01/11/18 19:46 - Scribe Statement The provider has reviewed the documentation as recorded by the Jalilibbj Wilson Provider Scribe Attestation: All medical record entries made by the Scribe were at my direction and personally dictated by me. I have reviewed the chart and agree that the record accurately reflects my personal performance of the history, physical exam, medical decision making, and the department course for this patient. I have also personally directed, reviewed, and agree with the discharge instructions and disposition. Disposition/Present on Arrival - Present on Arrival Any Indicators Present on Arrival: No History of DVT/PE: No History of Uncontrolled Diabetes: Yes Urinary Catheter: No History of Decub. Ulcer: No History Surgical Site Infection Following: None - Disposition Have Diagnosis and Disposition been Completed?: Yes Diagnosis: Tremor, Myoclonic jerking Disposition: HOSPITALIZED Disposition Time: 23:17 Condition: STABLE Referrals: Rony Galarza MD [Primary Care Provider] - Follow up with primary Forms: [employer] (Swazi)
[2018-01-11 20:23] LABS: HEMOGLOBIN 12.5 g/dL (14.0-18.0); MEAN CELL VOLUME 87.3 fl (80.0-105.0); MEAN CORPUSCULAR HEMOGLOBIN 28.8 pg (25.0-35.0); MEAN PLATELET VOLUME 10.2 fl (7.0-11.0); RBC 4.34 10^6/uL (3.5-6.1); RED CELL DISTRIBUTION WIDTH 18.4 % (11.5-14.5); WHITE BLOOD COUNT 8.3 10^3/uL (4.5-11.0)
[2018-01-11 20:38] LABS: ALB/GLOB RATIO 1.3 (1.1-1.8); ALBUMIN 3.7 g/dL (3.0-4.8); CALCIUM 8.6 mg/dL (8.4-10.5)
[2018-01-11] MEDS ORDERED: Divalproex 250 mg DR (BID formulation) PO STA (23:01)
--- NOTE | 2018-01-12 07:15 | RAD ---
Date of service: 01/11/2018 HISTORY: twitching COMPARISON: 11/16/2017 FINDINGS: LUNGS: No active pulmonary disease. PLEURA: No significant pleural effusion identified, no pneumothorax apparent. CARDIOVASCULAR: No aortic atherosclerotic calcification present. Normal cardiac size. No pulmonary vascular congestion. OSSEOUS STRUCTURES: No significant abnormalities. VISUALIZED UPPER ABDOMEN: Normal. OTHER FINDINGS: Right internal jugular dialysis catheter in the right atrium IMPRESSION: No active disease.
[2018-01-12] MEDS ORDERED: hydroCHLOROthiazide-Triamterene 25 mg-37.5 mg Cap UD PO SCH (13:00)
--- NOTE | 2018-01-12 13:30 | CP.PCM.PCO ---
Physician Communication Note - Physician Communication Note Physician Communication Note: c/w depakote. cleared to go home.
--- NOTE | 2018-01-12 14:40 | CT ---
Date of service: 01/12/2018 PROCEDURE: CT HEAD WITHOUT CONTRAST. HISTORY: tremors COMPARISON: Noncontrast head CT 11/16/2017. TECHNIQUE: Axial computed tomography images were obtained through the head/brain without intravenous contrast. Radiation dose: Total exam DLP = 849.1 mGy-cm. This CT exam was performed using one or more of the following dose reduction techniques: Automated exposure control, adjustment of the mA and/or kV according to patient size, and/or use of iterative reconstruction technique. FINDINGS: HEMORRHAGE: No intracranial hemorrhage. BRAIN: The mcnamara-white matter differentiation is well preserved. There is no mass effect or definitive edema pattern appreciated including the cortex. There is proportional expansion of the ventriculosulcal and cisternal spaces however in a pattern most compatible with diffuse cerebral atrophy. No suspicious extra-axial fluid collection is identified in the midline brain anatomy appears grossly nonfocal as imaged. VENTRICLES: Unremarkable. No hydrocephalus. CALVARIUM: Unremarkable. PARANASAL SINUSES: Chronic right sphenoid cyst or polyp noted. MASTOID AIR CELLS: Unremarkable as visualized. No inflammatory changes. OTHER FINDINGS: None. IMPRESSION: Stable limited diffuse cerebral atrophy reiterated, appropriate for the patient's stated age. No acute intracranial findings by standard CT criteria. Follow-up CT or MRI are available if clinically warranted.
[2018-01-12 15:27] VITALS: BP 95/59; PULSE 69; TEMP 97.7; O2SAT 97
--- NOTE | 2018-01-12 18:10 | CARD ---
APPROVED REPORT Date of service: 01/11/2018 EKG Measurement Heart [id number] <Conclusion> Sinus rhythm with premature supraventricular complexes Baseline artifact Otherwise normal ECG
--- NOTE | 2018-01-13 04:42 | HP ---
DATE OF EXAM: 01/12/2018 CHIEF COMPLAINT: Myoclonic jerks, twitching. HISTORY OF PRESENT ILLNESS: This is a 77-year-old man with end-stage renal disease, on dialysis who developed a series of twitching-like myoclonic jerks while at dialysis yesterday. After dialysis, the symptoms were frequent enough that it warranted him going to the emergency room. He was evaluated and admitted. 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 Jameson Terrell, and end-stage renal disease, on dialysis as mentioned above. SOCIAL HISTORY: He does not smoke, he never did. He does not drink alcohol. He works as a [employer]. ALLERGIES: HE HAS NO KNOWN ALLERGIES TO MEDICATIONS. MEDICATIONS AT THE TIME OF ADMISSION: Include Lipitor, Avodart, Neurontin, metoprolol, Dyazide, valproic acid 250 mg b.i.d., hydralazine, aspirin, and allopurinol. REVIEW OF SYSTEMS: Significant for typical complaints of age related to arthritis and diabetic neuropathy, but no other symptoms. PHYSICAL EXAMINATION GENERAL: Patient seen this morning in room 577, bed 1, resting comfortably in bed. I spoke with his daughter by phone as she was on her way to come visit her father. Patient is awake, alert, and clear. Myoclonic jerks has stopped completely. He was in good spirits hoping to go home soon. HEENT: Head and neck are unremarkable. Conjunctivae pink. Mucous membranes moist. NECK: Supple without masses. LUNGS: Clear. HEART: Regular, non-tachycardic. ABDOMEN: Soft, nontender. EXTREMITIES: Showed no edema. IMPRESSION: 1. Myoclonic jerks, possibly related to dialysis. 2. End-stage renal disease, dialysis. 3. Hypertension. 4. Diabetes. 5. Coronary artery disease, status post percutaneous coronary transluminal angioplasty. PLAN: I will check with Neurology and Renal. Patient seems to be doing very well. If he continues to do well, he may be discharged to home as early as later today. I spoke with his daughter about this plan and she is in agreement. Oliver Galarza MD [facility] # [id number]
--- NOTE | 2018-01-13 06:56 | DS ---
HISTORY OF PRESENT ILLNESS: This is a 77-year-old man who was admitted through the emergency room after developing a series of twitching-like reactions during dialysis yesterday. Patient had a similar episode only six weeks ago and was admitted to the hospital on 11/16/2017 for the same kind of twitching tic-like spasms, which also either occurred or was made worse at the time of dialysis. I spoke with his renal client experience consultant today and it was felt that since that first admission, his dialysis sessions have an increase in frequency from twice a week to three times a week. Patient has been tolerating it well. By the time I came to see him on the morning of admission, the twitching had stopped completely. He was comfortable and looking forward to going home. After discussing the case with Renal and Neurology, he was ready for discharge. PAST MEDICAL HISTORY: Also significant for hypertension, diabetes, and status post amputation of the toe due to diabetic foot. He has BPH, coronary artery disease, status post PTCA and stent placement with Dr. Terrell. He undergoes dialysis with Dr. Pa and Dr. Giang, his renal attendings. HABITS: He does not smoke and does not drink alcohol. 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 ALLERGIES: HE HAS NO ALLERGIES. COURSE OF HOSPITAL STAY: Hospital stay was brief as the twitching had stopped by this morning. As mentioned above, case was discussed with Renal and Neurology. Patient will be discharged to home to continue his current medications. Medication list was reconciled. Order was placed. I spoke with the patient's daughter by telephone this morning when I was in the room explaining to her that it is very high probability that he will be discharged as early as later today and patient was quite pleased to hear that. He will follow up with us in the office in less than one week. FINAL DISCHARGE DIAGNOSES: 1. Myoclonic jerks. 2. Twitching, possibly related to dialysis. 3. End-stage renal failure, dialysis. 4. Hypertension. 5. Diabetes. 6. Coronary artery disease. 7. Status post percutaneous coronary transluminal angioplasty and stent placement. Oliver Galarza MD [facility] # [id number]
--- NOTE | 2018-01-13 09:39 | CON ---
DATE: 01/12/2018 HISTORY OF PRESENT ILLNESS: This is a 77-year-old male with past medical history of diabetes, hypertension, end-stage renal disease, on dialysis, coronary artery disease, who came to the emergency room with jerking movement of the extremities and these symptoms occurred during dialysis and brought to the floor for further evaluation and the patient's symptoms improved and CAT scan of the head was done, which was negative for bleed. PAST MEDICAL HISTORY: Hypertension, IA, diabetes, end-stage renal disease, and coronary artery disease. PHYSICAL EXAMINATION HEENT: Normocephalic and atraumatic. NECK: Supple. NEURO: He is alert, awake and oriented to x3. No aphasia. Cranial nerves II through XII were tested. Pupils reactive. EOM intact. Visual field full. No facial asymmetry. Tongue midline. Motor exam: Moves all the extremities equally. Tone normal. Deep tendon reflexes are 1+. Both plantars are downgoing. Sensory appears intact. Cerebellar gait deferred. IMPRESSION: Abnormal involuntary movement, during dialysis. CAT of the head was done, which was reported negative. The patient cleared, will follow up in the office. Primo Deng MD
[2018-01-13] MEDS ORDERED: hydroCHLOROthiazide-Triamterene 25 mg-37.5 mg Cap UD PO SCH (10:00)
== END 2018-01-12 18:11 | disposition home or self-care (01) ==
LOC: ED 18:42 → ERH 23:13 → 5RSO 01-12 03:58
PROVIDERS: ADMIT Internal Medicine; ATTEND Internal Medicine
DX: G25.3 Myoclonus (principal); I12.0 Hypertensive chronic kidney disease with stage 5 chronic kidney disease or end stage renal disease; N18.6 End stage renal disease; N40.0 Benign prostatic hyperplasia without lower urinary tract symptoms; I25.10 Atherosclerotic heart disease of native coronary artery without angina pectoris; E11.22 Type 2 diabetes mellitus with diabetic chronic kidney disease; I25.2 Old myocardial infarction; Z99.2 Dependence on renal dialysis; Z95.5 Presence of coronary angioplasty implant and graft
CPT/HCPCS: 70450; 71045; 80053; 83735; 84100; 85027; 93005; G0378

== ENCOUNTER 2018-01-27 18:33 | Inpatient (IN) | payer MEDICARE ==
--- NOTE | 2018-01-27 18:59 | PCM.RRT ---
<Tiburcio Jackson - Last Filed: 01/27/18 19:24> SITE PROMOTION AGENT Nurse Assessment - Situation Date: 01/27/18 Time SITE PROMOTION AGENT was called: 18:19 SITE PROMOTION AGENT Responder Arrival Time: 18:21 SITE PROMOTION AGENT Location:: Renal Dialysis SITE PROMOTION AGENT Reason for Call: Looks Sicker SITE PROMOTION AGENT Called By: RN - IV IV Inserted during SITE PROMOTION AGENT?: No - Respiratory Oxygen Delivery Method: Nasal Cannula @L/min (5 L) Oxygen Flow Rate: 5 Received Nebulizer Treatments:: No Was the Patient Ventilated with Bag/Mask 100% O2?: No Secretions Suctioned?: No Was the Patient Intubated?: No Was the Patient Placed on a Ventilator?: No CPR started during SITE PROMOTION AGENT?: No - Constitutional Appears: No Acute Distress - Head Head Exam: ATRAUMATIC, NORMAL INSPECTION, NORMOCEPHALIC - Eyes Eye Exam: EOMI, Normal appearance - Respiratory Exam Respiratory Exam: NORMAL BREATHING PATTERN. absent: Rales, Rhonchi, Wheezes - Cardiovascular Exam Cardiovascular Exam: RRR, +S1, +S2 - GI/Abdominal Exam GI & Abdominal Exam: Normal Bowel Sounds. absent: Tenderness - Neurological Exam Neurological Exam: Alert, Awake, Oriented x3 - Extremities Exam Extremities Exam: Normal Inspection Plan - Assessment of Findings&Treatment Plan Tiburcio Jackson, PGY1 SITE PROMOTION AGENT Note for Dr. Pearl Patient is a 77 y/o M that was receiving HD during the time of SITE PROMOTION AGENT. RN called SITE PROMOTION AGENT because patient was "twitching" during time of dialysis. 3 Liters were taken off at the time of dialysis. Patient had 17 minutes remaining of HD session. Patient's vital signs were stable: SBP was trending in the 130s. Pulse ox was 99%. Patient was on 5L NC. He did not show signs of respiratory distress, no a ccessory muscle use or tachypnea. Patient was AAOx3. When asked how he was feeling, patient said he "felt good." However, nursing staff said that he was twitching but there was no foaming of the mouth, urinary incontinence, or biting of the tongue. On physical exam, patient had normal breath sounds with no obstruction to the airway. Patient was not complaining of any chest pain, shortness of breath, numbness or tingling of the extremities. After vital signs, patient was immediately transferred to the ED. Care was transferred to the ED physician. <Amelia Pearl - Last Filed: 01/28/18 06:43> Attending/Attestation - Attestation I have personally seen and examined this patient.: No I have fully participated in the care of the patient.: No I have reviewed all pertinent clinical information, including history, physical exam and plan: No
[2018-01-27 19:06] VITALS: BMI 22.0
--- NOTE | 2018-01-27 20:00 | ED PDOC ---
Arrival/HPI - General Chief Complaint: Altered Mental Status Time Seen by Provider: 01/27/18 18:34 Historian: Patient - History of Present Illness Narrative History of Present Illness (Text): 01/27/18 19:56 A 77 year old male, whose past medical history includes diabetes, hypertension, end stage renal disease(on dialysis), CAD, history of PTCA, is brought into the emergency department from dialysis center after having a brief episode of change in mentation. In the emergency department patient is more awake and has no physical complaints. Patient has a history of muscle twitching/ tonic jerking movements. Dialysis was nearly completed (15 minutes from completion). Patient notes that he ate today. The patient denies fevers, chills, headache, dizziness, chest pain, shortness of breath, dyspnea on exertion, cough, abdominal pain, nausea, vomiting, diarrhea, back pain, neck pain, urinary/bowel changes, or any other complaint. Time/Duration: Prior to Arrival Symptom Onset: Sudden Symptom Course: Resolved Activities at Onset: Rest, Light Context: Home Past Medical History - Provider Review Nursing Documentation Reviewed: Yes - Infectious Disease Hx of Infectious Diseases: None - Cardiac Hx Hypertension: Yes Hx Pacemaker: No - Pulmonary Hx Respiratory Disorders: No Hx Asthma: No Hx Bronchitis: No Hx Chronic Obstructive Pulmonary Disease (COPD): No Hx Emphysema: No Hx Pneumonia: No Hx Respiratory Aspiration: No Hx Respiratory Tract Infection: No Hx Sleep Apnea: No Hx Tuberculosis: No - Neurological Hx Neurological Disorder: No - HEENT Hx HEENT Disorder: No - Renal Hx Renal Failure: Yes - Endocrine/Metabolic Hx Diabetes Mellitus Type 2: Yes - Hematological/Oncological Hx Blood Disorders: No - Integumentary Hx Dermatological Disorder: No - Musculoskeletal/Rheumatological Hx Falls: No - Gastrointestinal Hx Gastrointestinal Disorders: Yes Other/Comment: Umbilical Hernia - Genitourinary/Gynecological Hx Incontinence: No Hx Prostate Problems: Yes - Psychiatric Hx Emotional Abuse: No Hx Physical Abuse: No Hx Substance Use: No - Surgical History Hx Cardiac Catheterization: Yes - Anesthesia Hx Anesthesia: Yes Hx Anesthesia Reactions: No Hx Malignant Hyperthermia: No - Suicidal Assessment Feels Threatened In Home Enviroment: No Family/Social History - Physician Review Nursing Documentation Reviewed: Yes Family/Social History: No Known Family HX Smoking Status: Never Smoked Hx Alcohol Use: No Hx Substance Use: No Allergies/Home Meds Allergies/Adverse Reactions: Allergies No Known Allergies Allergy (Verified 01/27/18 19:06) Home Medications: Home Meds Medication Instructions Recorded Confirmed Atorvastatin [Lipitor] 20 mg PO DAILY 11/29/16 01/12/18 Dutasteride [Avodart] 0.5 mg PO DAILY 04/03/17 01/12/18 Triamterene/Hydrochlorothiazid 1 tab PO DAILY 04/03/17 01/12/18 [Triamterene-Hctz 37.5-25 mg Cp] Allopurinol [Zyloprim] 300 mg PO DAILY 11/02/17 01/12/18 Sennosides [Senna Concentrate] 8.5 mg PO BID PRN 11/02/17 11/17/17 hydrALAZINE [Apresoline] 25 mg PO DAILY 11/02/17 01/28/18 Review of Systems - Physician Review All systems were reviewed & negative as marked: Yes - Review of Systems Constitutional: absent: Fevers ENT: absent: Sore Throat Respiratory: absent: SOB, Cough Cardiovascular: absent: Chest Pain, BRAVO Gastrointestinal: absent: Abdominal Pain, Stool Changes, Diarrhea, Nausea, Vomiting Genitourinary Male: absent: Urinary Output Changes Musculoskeletal: absent: Back Pain, Neck Pain Neurological: absent: Headache, Dizziness Physical Exam Vital Signs Reviewed: Yes Vital Signs Pulse Resp BP Pulse Ox 01/27/18 19:19 101 H 20 128/82 100 Blood Pressure: Normal Pulse: Tachycardic Respiratory Rate: Normal Appearance: Positive for: Well-Appearing, Non-Toxic, Comfortable Pain Distress: None Mental Status: Positive for: Alert and Oriented X 3 - Systems Exam Head: Present: Atraumatic, Normocephalic Pupils: Present: PERRL Extroacular Muscles: Present: EOMI Conjunctiva: Present: Normal Mouth: Present: Moist Mucous Membranes Neck: Present: Normal Range of Motion Respiratory/Chest: Present: Clear to Auscultation, Good Air Exchange, Other (Port on right chest.). No: Respiratory Distress, Accessory Muscle Use Cardiovascular: Present: Regular Rate and Rhythm, Normal S1, S2. No: Murmurs Abdomen: No: Tenderness, Distention, Peritoneal Signs Back: Present: Normal Inspection Upper Extremity: Present: Normal Inspection. No: Cyanosis, Edema Lower Extremity: Present: Normal Inspection. No: Edema Neurological: Present: GCS=15, CN II-XII Intact, Speech Normal Skin: Present: Warm, Dry, Normal Color. No: Rashes Psychiatric: Present: Alert, Oriented x 3, Normal Insight, Normal Concentration, Other (Patient answering questions appropriately.) Medical Decision Making ED Course and Treatment: 01/27/18 20:01 Impression: A 77 year old male is brought into the emergency department from dialysis for further evaluation of change in mentation Plan: -- Head CT -- EKG -- Chest X-ray -- Labs -- Urinalysis -- Urine Culture -- Reassess and disposition Prior Visits: Notes and results from previous visits were reviewed. Progress Notes: EKG: Ordered, reviewed, and independently interpreted the EKG. Rate : 96 BPM Rhythm : NSR Interpretation : PAC 01/27/18 20:39 CT Head reviewed, shows: IMPRESSION: 1. There is generalized parenchymal atrophy noted as demonstrated by symmetrical dilatation of ventricles and sulci. 2. Chronic periventricular and subcortical microvascular disease is seen. 3. No acute intracranial pathology. 01/27/18 21:[address] Oliver Galarza, who is aware and agrees with plan. Accepts pt to his service. Pt to be admitted to remote telemetry for observation. - Lab Interpretations I have reviewed the lab results: Yes - RAD Interpretation Radiology Orders: 01/27/18 19:25 HEAD W/O CONTRAST [CT] Stat CHEST ONE VIEW [RAD] Stat - EKG Interpretation Interpreted by ED Physician: Yes Type: 12 lead EKG - Scribe Statement The provider has reviewed the documentation as recorded by the Scribe Sandi Levy Provider Scribe Attestation: All medical record entries made by the Scribe were at my direction and personally dictated by me. I have reviewed the chart and agree that the record accurately reflects my personal performance of the history, physical exam, medical decision making, and the department course for this patient. I have also personally directed, reviewed, and agree with the discharge instructions and disposition. Disposition/Present on Arrival - Present on Arrival Any Indicators Present on Arrival: No History of DVT/PE: No History of Uncontrolled Diabetes: Yes Urinary Catheter: No History of Decub. Ulcer: No History Surgical Site Infection Following: None - Disposition Have Diagnosis and Disposition been Completed?: Yes Diagnosis: Myoclonic jerking, Near syncope Disposition: HOSPITALIZED Disposition Time: 21:00 Condition: STABLE
[2018-01-27 20:06] LABS: BASO # 0.05 K/mm3 (0.0-2.0); BASO % 0.4 % (0.0-3.0); EOS # 0.6 (0.0-0.7); EOS % 4.4 % (1.5-5.0); GRAN # 6.91 (1.4-6.5); GRAN % 52.9 % (50.0-68.0); HEMOGLOBIN 13.8 g/dL (14.0-18.0); LYMPH # 4.2 (1.2-3.4); LYMPH % 32.1 % (22.0-35.0); MEAN CORPUSCULAR HEMOGLOBIN 29.5 pg (25.0-35.0); MEAN CORPUSCULAR HGB CONC 33.9 g/dl (31.0-37.0); MEAN PLATELET VOLUME 9.5 fl (7.0-11.0); MONO # 1.3 (0.1-0.6); MONO % 10.2 % (1.0-6.0); RBC 4.68 10^6/uL (3.5-6.1); RED CELL DISTRIBUTION WIDTH 16.7 % (11.5-14.5); WHITE BLOOD COUNT 13.1 10^3/uL (4.5-11.0)
[2018-01-27 20:21] LABS: ALB/GLOB RATIO 1.2 (1.1-1.8); ALBUMIN 4.8 g/dL (3.0-4.8); CALCIUM 9.5 mg/dL (8.4-10.5)
[2018-01-27 20:26] LABS: TROPONIN I 0.02 ng/mL
[2018-01-28 07:28] LABS: BASO # 0.03 K/mm3 (0.0-2.0); BASO % 0.4 % (0.0-3.0); EOS # 0.3 (0.0-0.7); GRAN # 4.5 (1.4-6.5); GRAN % 55.5 % (50.0-68.0); HEMOGLOBIN 11.3 g/dL (14.0-18.0); LYMPH # 2.3 (1.2-3.4); LYMPH % 28.6 % (22.0-35.0); MEAN CELL VOLUME 87.9 fl (80.0-105.0); MEAN CORPUSCULAR HEMOGLOBIN 28.5 pg (25.0-35.0); MEAN CORPUSCULAR HGB CONC 32.5 g/dl (31.0-37.0); MEAN PLATELET VOLUME 9.6 fl (7.0-11.0); MONO # 0.9 (0.1-0.6); MONO % 11.5 % (1.0-6.0); RBC 3.96 10^6/uL (3.5-6.1); RED CELL DISTRIBUTION WIDTH 16.6 % (11.5-14.5); WHITE BLOOD COUNT 8.1 10^3/uL (4.5-11.0)
[2018-01-28 07:46] LABS: CALCIUM 8.5 mg/dL (8.4-10.5)
--- NOTE | 2018-01-28 08:48 | CT ---
Date of service: 01/27/2018 PROCEDURE: CT HEAD WITHOUT CONTRAST. HISTORY: r/o ICH noncontrast head CT performed 01/12/18 COMPARISON: Noncontrast head CT performed 01/12/18 TECHNIQUE: Axial computed tomography images were obtained through the head/brain without intravenous contrast. Radiation dose: Total exam DLP = 1233.13 mGy-cm. This CT exam was performed using one or more of the following dose reduction techniques: Automated exposure control, adjustment of the mA and/or kV according to patient size, and/or use of iterative reconstruction technique. FINDINGS: Streak artifact limits evaluation of the skull base. HEMORRHAGE: No intracranial hemorrhage. BRAIN: Diffuse atrophy with prominence of the ventricles and sulci noted. No mass effect or edema. Dense intracranial atherosclerotic calcifications. Scattered periventricular and subcortical white matter hypodensities, which are nonspecific, but often seen with chronic microvascular ischemic disease. Please note that MRI with diffusion imaging is more sensitive in the detection of acute ischemic event. VENTRICLES: No hydrocephalus. CALVARIUM: Unremarkable. PARANASAL SINUSES: Partial opacification of the right sphenoid sinus. Mild mucosal thickening of the ethmoid air cells. MASTOID AIR CELLS: Unremarkable as visualized. No inflammatory changes. OTHER FINDINGS: None. IMPRESSION: Generalized atrophy. Nonspecific white matter changes. Partial opacification of the right sphenoid sinus and mild mucosal thickening of the ethmoid air cells. Correlate clinically for sinusitis. Preliminary impression was provided by [facility].
--- NOTE | 2018-01-28 09:18 | RAD ---
HISTORY: r/o infiltrate COMPARISON: Chest x-ray performed 01/11/18 TECHNIQUE: Chest, one view. FINDINGS: Right IJ approach dialysis catheter with tips in the expected location of the SVC and right atrium. LUNGS: Hyperinflation may be seen in the setting of COPD. No focal consolidation. Please note that chest x-ray has limited sensitivity for the detection of pulmonary masses. PLEURA: No significant pleural effusion identified. No definite pneumothorax . CARDIOVASCULAR: Heart size appears top normal. Atherosclerotic calcification of the aorta. OSSEOUS STRUCTURES: Degenerative changes of the spine. VISUALIZED UPPER ABDOMEN: Unremarkable. OTHER FINDINGS: None. IMPRESSION: Right IJ approach dialysis catheter with tips in the expected location of the SVC and right atrium. Hyperinflation may be seen in the setting of COPD.
[2018-01-28] MEDS ORDERED: Sodium Chloride 0.9% 250 ML IV SCH ×2 (10:00→13:30)
--- NOTE | 2018-01-28 13:33 | CARD ---
APPROVED REPORT Date of service: 01/27/2018 EKG Measurement Heart [id number] MD [id number] <Conclusion> Sinus rhythm with premature atrial complexes Nonspecific ST and T wave abnormality Abnormal ECG
--- NOTE | 2018-01-28 20:08 | CON ---
DATE: 01/28/2018 REASON FOR CONSULTATION: Involuntary jerky movements of the upper extremities, altered mental status, ?syncope during dialysis treatment yesterday. HISTORY OF PRESENTING ILLNESS: A 77-year-old male known to me from outpatient dialysis. The patient underwent a rapid response during dialysis towards at the end. He had 15 minutes left on the machine. 3 kg of fluid was removed. The patient became unresponsive and also was found to have involuntary jerky movements of his upper extremities. The patient has had similar episodes of myoclonic jerks/involuntary movements of his upper extremities two other times. He has been seen by Neurology. He was started on valproic acid last time. Currently, he is seen lying in bed, he is awake, he is alert. He continues to have jerky movements of his upper extremities. He is unable to hold the fork. He is awake and alert x3. PAST MEDICAL AND SURGICAL HISTORY: NIDDM, hypertension, ESRD, BPH, neurogenic bladder, anemia of chronic kidney disease, CAD, repeated abnormal involuntary movements of his upper extremities. FAMILY HISTORY: Noncontributory. SOCIAL HISTORY: No smoking, no alcohol use, no IV drug abuse. ALLERGIES: NO KNOWN DRUG ALLERGIES. MEDICATIONS: Medications at home unclear, but the patient was started on Depakote 250 mg b.i.d. last admission. According to his list, he is on triamterene/hydrochlorothiazide, which I had advised him to stop couple of weeks ago, gabapentin 300 b.i.d., Lipitor, aspirin, allopurinol. REVIEW OF SYSTEMS: All systems are reviewed, pertinent positives as mentioned in history presenting illness, rest unremarkable. PHYSICAL EXAMINATION: GENERAL: Thinly built elderly male, lying in bed with involuntary movements. VITAL SIGNS: Blood pressure 119/67, heart rate 86, respiratory rate 18, temperature 98.7. HEENT: Normocephalic, atraumatic, positive pallor. NECK: Supple, no JVD. LUNGS: Bilateral equal entry, bilateral equal expansion, no rales. CARDIAC: S1 and S2, regular rate rhythm, no murmur, no rub. ABDOMEN: Obese, soft, nontender, bowel sounds present. EXTREMITIES: No lower extremity edema. LABORATORY DATA: WBC 8, hemoglobin 11, hematocrit 35, platelets 124. Sodium 137, potassium 3.8, chloride 96, CO2 of 28, BUN 46, creatinine 6.9, glucose 144, calcium 8.5, albumin 4.8. CURRENT MEDICATIONS: Aspirin, Depakote, Effient, Lipitor, gabapentin, Senokot, normal saline, Zyloprim. ASSESSMENT: 1. Recurrent repeated myoclonic jerks, the timing of the jerks is usually on dialysis. 2. Low blood pressure, dehydration? 3. Excessive ultrafiltration on dialysis? PLAN: 1. Continue Depakote. 2. Agree with fluid challenge, we will increase it to 500 mL. 3. Push p.o. fluids. 4. We will change dialyzer on dialysis and see if there is any reason to think HE IS ALLERGIC TO THE DIALYZER. Case discussed with the patient at bedside. Thank you for the courtesy of this consultation. We will follow this patient with you. Lis Pa MD
[2018-01-29 06:39] LABS: CALCIUM 8.3 mg/dL (8.4-10.5)
[2018-01-29] MEDS: Insulin Reg-MEDIUM-Coverage SC SCH ×3 (12:10→21:55)
--- NOTE | 2018-01-29 12:49 | HP ---
DATE OF EXAM: CHIEF COMPLAINT: Twitching during dialysis. HISTORY OF PRESENT ILLNESS: This is a third hospitalization for this 77-year-old man in the last several months for the same reason. While I dialysis on Tuesday late afternoon he would began twitching. They had taken approximately 3 liters of fluids, the patient became a bit groggy. I am unclear as to whether he became hypotensive. A rapid response was called, he was taken to the emergency room. After arrival in the emergency room he was awake, alert, sharp, and clear. Mental status was baseline. Labs were acceptable given his dialysis status. I spoke with the ER physician, who was concern with patient's ongoing twitching, so arranges were made for him to be admitted. PAST MEDICAL HISTORY: Significant for hypertension, diabetes, amputation of the toe due to diabetic foot, benign prosthetic hypertrophy, coronary artery disease, status post PCTA with Dr. Jameson Terrell, and end-stage renal disease for which he is on dialysis as mentioned above. SOCIAL HISTORY: He does not smoke, he never did. He does not drink alcohol. He works as a [employer]. ALLERGIES: HE HAS NO KNOWN ALLERGIES TO MEDICATIONS. MEDICATIONS AT THE TIME OF ADMISSIONS: Include; Lipitor, Avodart, Neurontin, metoprolol, Dyazide, valproic acid, hydralazine, aspirin and allopurinol. REVIEW OF SYSTEMS: Multiple points is negative, but for symptoms of arthritis and neuropathy and chief complaint of twitching. PHYSICAL EXAMINATION GENERAL: The patient seen this Tuesday morning in room 272, bed 2. He was sitting in bed awake, alert, clear, comfortable with his daughter at the bedside. HEENT: Head and neck are unremarkable. Conjunctivae pink. Mucous membranes moist. Mouth is dry. NECK: Supple without masses. There is no JVD. No carotid bruits. CARDIOPULMONARY: Regular, not tachycardic. LUNGS: Clear with good breath sounds both right and left. ABDOMEN: Soft and nontender. EXTREMITIES: Thin with no edema. Musculo- Skeletal: Upper and lower body wtitches and tic like jerking movements once again. same as on prior admission IMPRESSION: 1. Twitching, myoclonic jerks which again seeming to be related to dialysis session. 2. Clinically dry after dialysis and removing 3 liters of fluids. 3. End-stage renal disease on dialysis. 4. Hypertension. 5. Diabetes. 6. History of coronary artery disease, status post percutaneous coronary transluminal angioplasty. PLAN: I was hoping that I will be able to discharge the patient to home today after gentle overnight hydration. I doubt this will be possible as we are dealing with ongoing twitching. I see that his IVs have been discontinued so I will give him 200 mL of normal saline. Request consultation with Renal validation consultant Dr. Pa. I discussed the case with the patient and his daughter. We will order morning labs and follow closely. Oliver Galarza MD MTDD
--- NOTE | 2018-01-29 19:05 | PN ---
DATE: 01/29/2018 SUBJECTIVE: The patient was seen this Tuesday morning in room 272, bed 2. Lying comfortably in bed. Unfortunately, the twitching continues at about the same rate as it did yesterday morning. I spoke to the nurse at the bedside. I see Dr. Pa who saw him yesterday. Consultation is appreciated and an additional bolus of 200 mL of normal saline was given. Unfortunately, twitching continues. B1 and creatinine are up this morning at 73 and 8.6 and I hear that dialysis is scheduled. I obtained consent from the patient with his daughter present. They are both familiar with dialysis and the risks of the procedure and will continue here, if ordered by Dr. Pa. PHYSICAL EXAMINATION: LUNGS: Remain clear. HEART: Regular, not tachycardiac. Review of surveillance monitor is unremarkable. ASSESSMENT AND PLAN: The patient's sugars were good except for once 457, we will add coverage for such events, undergo dialysis today and wait input from renal. In the past, the patient was seen by neurologist, Dr. Jairo Deng. I will ask him to consult and perhaps order a Depakote level to the morning. Of course, I will change the admission status to admission, not just overnight observation. Oliver Galarza MD
[2018-01-30 00:13] VITALS: O2SAT 97
--- NOTE | 2018-01-30 02:59 | CON ---
DATE: 01/29/2018 HISTORY OF PRESENT ILLNESS: This is a 77-year-old black male with past medical history of non-insulin dependent diabetes; hypertension; end-stage renal disease, on hemodialysis; coronary artery disease, and the patient is having involuntary movement of the upper part of the body and the patient is involuntary and jerking. No loss of consciousness. No tongue bite. No urinary incontinence. PAST MEDICAL HISTORY: As above. SOCIAL HISTORY: Does not smoke. Does not drink. ALLERGIES: NO KNOWN DRUG ALLERGIES. MEDICATIONS: On Depakote 250 mg b.i.d., gabapentin 300 b.i.d., Lipitor, aspirin, and allopurinol. REVIEW OF SYSTEMS: Ten-point review of systems was negative except jerking of the upper extremities. PHYSICAL EXAMINATION: HEENT: Normocephalic and atraumatic. NECK: Supple. NEURO: Alert, awake, and oriented x3. No aphasia. Cranial nerves II through XII were tested. Pupils reactive. ____ spontaneous. Deep tendon reflexes are 1+. Both plantars are downgoing. Sensory appears intact. Cerebellar gait, deferred. IMPRESSION AND PLAN: Abnormal involuntary movement and usually occurs after the dialysis, and less likely a seizure. We will start Klonopin 0.5 mg in the evening daily and further management after the results of above. Primo Deng MD
[2018-01-30 06:43] LABS: BASO # 0.02 K/mm3 (0.0-2.0); BASO % 0.3 % (0.0-3.0); EOS # 0.2 (0.0-0.7); EOS % 3.5 % (1.5-5.0); GRAN # 3.73 (1.4-6.5); GRAN % 57.2 % (50.0-68.0); HEMOGLOBIN 11.6 g/dL (14.0-18.0); LYMPH # 1.7 (1.2-3.4); LYMPH % 26.6 % (22.0-35.0); MEAN CELL VOLUME 86.9 fl (80.0-105.0); MEAN CORPUSCULAR HEMOGLOBIN 28.6 pg (25.0-35.0); MEAN PLATELET VOLUME 9.5 fl (7.0-11.0); MONO # 0.8 (0.1-0.6); MONO % 12.4 % (1.0-6.0); RBC 4.05 10^6/uL (3.5-6.1); RED CELL DISTRIBUTION WIDTH 16.3 % (11.5-14.5); WHITE BLOOD COUNT 6.5 10^3/uL (4.5-11.0)
[2018-01-30 07:27] LABS: CALCIUM 8.6 mg/dL (8.4-10.5)
[2018-01-30] MEDS: Insulin Reg-MEDIUM-Coverage SC SCH ×4 (07:58→22:00)
--- NOTE | 2018-01-30 13:37 | PN ---
DATE: 01/30/2018 CHIEF COMPLAINT: Involuntary jerky movements. SUBJECTIVE: The patient is seen and examined at the bedside with mild intermittent jerks. Klonopin was added 0.5 mg p.o. daily. In addition, the patient is on Depakote 250 mg p.o. twice daily, valproic acid is low, could be possible that the patient is not taking the valproic properly. Patient also came in with hyperglycemia of blood sugars more than 457, which can worsen the myoclonic jerks. Follows commands. PAST MEDICAL HISTORY: History of diabetes type 2, hypertension; cardiac disease, on Effient; history of end-stage renal disease, on hemodialysis. SOCIAL HISTORY: No illicit drug use, smoking, or EtOH abuse. REVIEW OF SYSTEMS: A 12-point review of system is negative except for the HPI. FAMILY HISTORY: Noncontributory. MEDICATIONS: Reviewed by nurses' reconciliation sheet. ALLERGIES: NO KNOWN DRUG ALLERGIES. PHYSICAL EXAMINATION GENERAL: The patient is sitting up in bed, in no acute distress. VITAL SIGNS: Temperature 98, pulse 72, blood pressure 131/74, respiratory rate of 18 and oxygen saturation of 97% by room air. HEENT: Atraumatic and normocephalic. PERRLA. Extraocular muscles intact. NECK: Supple. No JVD. No adenopathy noted. LUNGS: Clear to auscultation. No adventitious sounds. HEART: S1 and S2. Normal rate and rhythm. No murmurs, rubs, or gallops. ABDOMEN: Soft, nontender, and nondistended. Bowel sounds are present. EXTREMITIES: No clubbing. No cyanosis. Peripheral pulses 2+ felt bilaterally. NEUROLOGIC: The patient is alert and oriented to person, place, month and year. Recall after 5 minutes is 0/2. Poor attention span and slow thought process. Speech is fluent without errors. No aphasia noted. Cranial nerves II through XII intact. Motor exam: Moves all extremities equally. No pronator drift seen. He has occasional myoclonic jerks when hands are outstretched. Sensory exam: Light touch and pinprick up to the calves bilaterally. Decreased vibration of the toes. DTRs are 2+ throughout, 1 at both knees and ankles. Coordination: Ersnup-va-anlk intact. No dysmetria noted except for myoclonic jerks seen when the hands are outstretched on the upper extremities. Gait is deferred for now. LABORATORY DATA: Sodium is 141, potassium 4.1, chloride 102, carbon dioxide 26, BUN of , creatinine of 8.8 and random glucose 143. ASSESSMENT AND PLAN: This is a 77-year-old man with history of type 2 diabetes mellitus, hypertension, coronary artery disease, on Effient and Plavix, right coronary artery occlusion in 06/2017 status post percutaneous transluminal coronary angioplasty, end-stage renal disease on hemodialysis, history of gout presented with worsening more jerks, also found to be hyperglycemic of blood sugars more than 457 in the ER. At this time, his jerks are more likely myoclonic, metabolic in nature, aggravated by hyperglycemia when he had blood sugars more than 457, which can worsen the drugs itself as well as anything metabolic. At this time, we will recommend: 1. Klonopin 0.5 mg p.o. daily, which will help with the drugs. In addition, we will increase his Depakote to 250 mg in the morning and 500 mg at night. 2. Keep systolic blood pressure 130s to 140s and diastolic 70 to 80s. 3. Continue to monitor electrolytes and correct accordingly. Thank you for this followup. Jairo Deng MD
--- NOTE | 2018-01-30 17:48 | PN ---
DATE: 01/30/2018 SUBJECTIVE: The patient is in the dialysis unit. He is awake, he is alert, he is comfortable. No involuntary movements at present. PHYSICAL EXAMINATION: VITAL SIGNS: Blood pressure 131/74, heart rate 58, respiratory rate 18, temperature 98. HEENT: Normocephalic, atraumatic, positive pallor. NECK: Supple, no JVD. LUNGS: Bilateral equal air entry, bilateral equal expansion. CARDIAC: S1 and S2, regular rate and rhythm, no murmur, no rub. ABDOMEN: Soft, nondistended, nontender, bowel sounds present. EXTREMITIES: No lower extremity edema. LABORATORY DATA: WBC 6.5, hemoglobin 11.6, hematocrit 35, platelets 120. Sodium 141, potassium 4.4, chloride 102, CO2 of 26, BUN 91, creatinine 8.8, glucose 143, calcium 8.6, valproic acid 40. CURRENT MEDICATIONS: Aspirin, Depakote 500 daily, Effient, insulin, Klonopin, Lipitor, Neurontin, allopurinol. ASSESSMENT: 1. Involuntary abnormal jerky movements of the upper extremities ? seizure ? related to dialysis ? ALLERGY TO DIALYZER. 2.. Hypertension. 3. End-stage renal disease. 4. Anemia of chronic disease. PLAN: 1. Stable dialysis currently. 2. Change allopurinol to 100 mg daily. 3. Continue Depakote ER per PMD. 3. Okay to continue gabapentin 100 three times a day. 4. Decrease ultrafiltration on dialysis. 5. Discontinued Lopressor, triamterene and hydrochlorothiazide. Lis Pa MD
[2018-01-30] MEDS ORDERED: POLYETHYLENE GLYCOL 3350 17 GM/Dose PACKET PO ONE (18:49)
[2018-01-31] MEDS: Insulin Reg-MEDIUM-Coverage SC SCH ×2 (07:52→12:33)
[2018-01-31] MEDS ORDERED: Divalproex 500 mg ER (ONCE DAILY formulation) PO SCH (10:00)
[2018-01-31] MEDS ORDERED: Divalproex 250 mg DR (BID formulation) PO SCH (10:00)
[2018-01-31 13:52] VITALS: BP 126/77; PULSE 77; RESP 19; TEMP 98
--- NOTE | 2018-01-31 16:18 | PN ---
DATE: 01/31/2018 SUBJECTIVE: The patient is currently seen in his room. He is preparing for discharge later this afternoon. He had an uneventful dialysis yesterday and is scheduled tomorrow for dialysis in the outpatient unit. The patient's involuntary movements have resolved. He is no longer having any tremors. MEDICATIONS: Medication list reviewed. The patient is currently on aspirin, Depakote, Effient, insulin, Klonopin, Lipitor, Neurontin, and allopurinol. OBJECTIVE: INTAKE/OUTPUT: Intake 1740, output with hemodialysis. VITAL SIGNS: Blood pressure 126/77, pulse 77, temperature 98 with a respiratory rate of 19. HEENT: Shows him to be normocephalic, atraumatic. Conjunctivae are pink. Sclerae nonicteric. NECK: Supple. No neck vein distention. CHEST: Clear to auscultation and percussion. No rales, rhonchi or wheezing. CARDIOVASCULAR: Shows regular rate and rhythm without murmurs, rubs or gallops. ABDOMEN: Soft. Bowel sounds normal. No rebound, guarding or masses. EXTREMITIES: Show no lower extremity cyanosis, clubbing or edema. LABORATORY DATA AND IMAGING: Yesterday's predialysis labs, white blood cell count 6.5, hemoglobin 11.6 with platelet count of 120,000. Chemistries yesterday showed normal electrolytes. BUN 91 with a creatinine of 8.8. Today's glucose was 90, calcium was 8.6. His last magnesium level was 2.2, phosphorus levels were not sent. Microbiology: No cultures were sent. ASSESSMENT: 1. Status post involuntary abnormal jerky movements, tremors of his upper extremity. The patient was seen by Neurology. 2. History of end-stage renal disease. The patient will continue three times a week dialysis. He is at [facility] ([facility] on a Tuesday, Tuesday, Tuesday dialysis schedule. 3. History of hypertension. Blood pressure is controlled on present medical therapy. 4. History of noninsulin-dependent diabetes mellitus. The patient's glucose control is acceptable. 5. History of atherosclerotic heart disease, stable. 6. History of benign prostatic hypertrophy with neurogenic bladder, stable. 7. History of anemia of chronic kidney disease. Hemoglobin is stable at 11.6. Erythropoietin is presently on hold. PLAN: 1. We will continue to monitor the patient in the outpatient setting. He is being discharged later today. 2. Continue Klonopin and Depakote under the advice and guidance of Neurology. 3. Agree with discontinuation of diuretic therapy. Shane Giang MD
--- NOTE | 2018-02-01 22:55 | DS ---
HISTORY OF PRESENT ILLNESS: This is a 77-year-old man I had known from recent hospitalizations. This is his third hospitalization for the same. Reason, apparently during dialysis, he develops an arm and leg shaking, twitching. On this episode, the rapid response was called and patient was taken to the emergency room. He continued to twitch and arrangements were made for him to be admitted. Reviewing the medical record shows that 3 liters of fluid had been taken off. He was reported to be groggy and it is uncertain whether he was hypotensive. 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 Terrell, and end-stage renal disease for which he is on the above-mentioned dialysis. HABITS: He does not smoke or drink. 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 ALLERGIES: HE HAS NO KNOWN ALLERGIES TO MEDICATIONS. COURSE OF HOSPITAL STAY: Patient was admitted to the supervisor wool shearing bed. Electrolytes, calcium, and magnesium were acceptable and monitored regularly. There was hope that just like in the past, the twitching would stop the next day, but it continued. He was hydrated back up to euvolemic state thinking that perhaps it was related to volume depletion of dialysis, but the twitching continued. Renal home energy consultant supervisor and Neurology who knew him before were called and consults were appreciated. His valproic acid was continued and benzodiazepine was added. After 3 or 4 days, the twitching subsided. Patient underwent additional episode of dialysis on Tuesday and then again on Tuesday. He was feeling much improved. Able to ambulate about the room without difficulty. There was still some minor twitching noted, but he was safe and ambulatory and ready for discharge home. He will follow up with us in the office within one week. FINAL DISCHARGE DIAGNOSES: 1. Myoclonic twitching related to dialysis. 2. Perhaps allergic type reaction to the dialysate used. 3. Hypertension. 4. Diabetes. 5. End-stage renal disease. 6. Coronary artery disease. 7. History of diabetic foot. 8. Benign prostatic hyperplasia. Oliver Galarza MD MTDD
== END 2018-01-31 14:54 | disposition home or self-care (01) | DRG 91 ==
LOC: ED 18:33 → ERH 21:03 → 2RSO 22:18 → OBSVTOIN 01-29 09:38
PROVIDERS: ADMIT Internal Medicine; ATTEND Internal Medicine
PROC: 5A1D70Z Performance of Urinary Filtration, Intermittent, Less than 6 Hours Per Day (ICD-10-PCS; principal; 2018-01-30)
DX: G25.3 Myoclonus (principal); N18.6 End stage renal disease; I12.0 Hypertensive chronic kidney disease with stage 5 chronic kidney disease or end stage renal disease; R25.3 Fasciculation; T50.3X5A Adverse effect of electrolytic, caloric and water-balance agents, initial encounter; D63.1 Anemia in chronic kidney disease; E11.65 Type 2 diabetes mellitus with hyperglycemia; E11.22 Type 2 diabetes mellitus with diabetic chronic kidney disease; N31.9 Neuromuscular dysfunction of bladder, unspecified; N40.0 Benign prostatic hyperplasia without lower urinary tract symptoms; I25.10 Atherosclerotic heart disease of native coronary artery without angina pectoris; Z99.2 Dependence on renal dialysis; Z98.61 Coronary angioplasty status

== ENCOUNTER 2018-02-04 18:02 | Observation (INO) | payer MEDICARE ==
--- NOTE | 2018-02-04 18:50 | ED PDOC ---
Arrival/HPI - General Chief Complaint: Syncope Time Seen by Provider: 02/04/18 18:13 Historian: Patient - History of Present Illness Narrative History of Present Illness (Text): 02/04/18 20:06 77-year-old male with a history of diabetes and end-stage renal disease on dialysis presents today status post syncopal episode. Patient states he was feeling fine today and while leaving work he found himself on the ground. Patient states initially he was feeling weakness in both lower legs while trying to get up. Patient states symptoms resolved he was able to stand up and was brought to the emergency room for evaluation. At present time patient denies headaches dizziness weakness. He denies chest pain or shortness of breath. Patient denies abdominal pain. No nausea or vomiting. No neck or back pain. No other complaints Past Medical History - Provider Review Nursing Documentation Reviewed: Yes - Travel History Have you recently traveled outside [place] w/in the past 3 mons?: No - Infectious Disease Hx of Infectious Diseases: None - Cardiac Hx Cardiac Disorders: Yes (CAD s/p PTCA) Hx Hypertension: Yes - Pulmonary Hx Respiratory Disorders: No - Neurological Hx Neurological Disorder: No - HEENT Hx HEENT Disorder: No - Renal Hx Dialysis: Yes Hx Renal Failure: Yes (on Hemodialysis) - Endocrine/Metabolic Hx Diabetes Mellitus Type 2: Yes - Hematological/Oncological Hx Blood Disorders: No - Integumentary Hx Dermatological Disorder: No - Musculoskeletal/Rheumatological Hx Falls: No - Gastrointestinal Hx Gastrointestinal Disorders: Yes Other/Comment: Umbilical Hernia - Genitourinary/Gynecological Hx Prostate Problems: Yes - Psychiatric Hx Physical Abuse: No Hx Substance Use: No - Surgical History Hx Cardiac Catheterization: Yes - Anesthesia Hx Anesthesia: Yes Hx Anesthesia Reactions: No Hx Malignant Hyperthermia: No - Suicidal Assessment Feels Threatened In Home Enviroment: No Family/Social History - Physician Review Nursing Documentation Reviewed: Yes Family/Social History: Unknown Family HX Smoking Status: Never Smoked Hx Alcohol Use: No Hx Substance Use: No Allergies/Home Meds Allergies/Adverse Reactions: Allergies No Known Allergies Allergy (Verified 01/27/18 19:06) Home Medications: Home Meds Medication Instructions Recorded Confirmed Atorvastatin [Lipitor] 20 mg PO DAILY 11/29/16 02/04/18 Dutasteride [Avodart] 0.5 mg PO DAILY 04/03/17 02/04/18 Triamterene/Hydrochlorothiazid 1 tab PO DAILY 04/03/17 02/04/18 [Triamterene-Hctz 37.5-25 mg Cp] Allopurinol [Zyloprim] 300 mg PO DAILY 11/02/17 02/04/18 Sennosides [Senna Concentrate] 8.5 mg PO BID PRN 11/02/17 11/17/17 hydrALAZINE [Apresoline] 25 mg PO DAILY 11/02/17 02/04/18 Review of Systems - Review of Systems Constitutional: absent: Fatigue, Fevers Eyes: absent: Vision Changes, Photophobia, Eye Pain ENT: absent: Sore Throat, Epistaxis, Sinus Congestion Respiratory: absent: SOB, Cough Cardiovascular: absent: Chest Pain, Palpitations Gastrointestinal: absent: Abdominal Pain, Nausea, Vomiting Genitourinary Male: absent: Dysuria Musculoskeletal: absent: Arthralgias, Back Pain, Neck Pain Skin: absent: Rash, Pruritis Neurological: Other (syncope). absent: Headache, Dizziness Psychiatric: absent: Anxiety, Depression Physical Exam Vital Signs Reviewed: Yes Vital Signs Temp Pulse Resp BP Pulse Ox 02/04/18 18:18 98 F 84 18 115/62 95 Temperature: Afebrile Blood Pressure: Normal Pulse: Regular Respiratory Rate: Normal Appearance: Positive for: Well-Appearing, Non-Toxic, Comfortable Pain Distress: None Mental Status: Positive for: Alert and Oriented X 3 Finger Stick Blood Glucose: 206 - Systems Exam Head: Present: Atraumatic Pupils: Present: PERRL Extroacular Muscles: Present: EOMI Mouth: Present: Moist Mucous Membranes Neck: Present: Normal Range of Motion Respiratory/Chest: Present: Clear to Auscultation, Good Air Exchange. No: Respiratory Distress, Accessory Muscle Use Cardiovascular: Present: Regular Rate and Rhythm, Normal S1, S2. No: Murmurs Abdomen: No: Tenderness, Distention, Peritoneal Signs, Rebound, Guarding Back: Present: Normal Inspection. No: Midline Tenderness, Paraspinal Tenderness Upper Extremity: Present: Normal ROM Lower Extremity: Present: Normal ROM Neurological: Present: GCS=15, Speech Normal Skin: Present: Warm, Dry, Normal Color. No: Rashes Psychiatric: Present: Alert, Oriented x 3 Medical Decision Making ED Course and Treatment: 02/04/18 20:51 77yr old male presents today with syncope cbc; wbc; 14.1 cmp; elevated bun/cr; on Dialysis trop; wnl cxr: wnl ekg; NSR at 84 b/m no st elevations, normal axis, normal intervals. UA pending ct head; FINDINGS: BRAIN No acute intraparenchymal hemorrhage. No mass lesion. No CT evidence for acute territorial infarct. No midline shift or extra-axial collections. VENTRICLES: No hydrocephalus. ORBITS: The orbits are unremarkable. SINUSES AND MASTOIDS: Right sphenoid sinusitis. The mastoid air cells are clear. BONES: No fracture. SOFT TISSUES: Unremarkable. IMPRESSION: Right sphenoid sinusitis. No acute intracranial abnormality. pt given asa po case discussed with dr. weller; accepts obs admission to [facility] for syncope. pt with multiple risk factors for cardiac event. impression; syncope admit - Lab Interpretations Lab Results: Lab Results 02/04/18 18:07: POC Glucose (mg/dL) 206 H - RAD Interpretation Radiology Orders: 02/04/18 18:14 CHEST PORTABLE [RAD] Stat 02/04/18 18:41 HEAD W/O CONTRAST [CT] Stat NIHSS Scale ([place]) Time Performed: 18:13 - How Severe is the Stoke Baseline Level of Consciousness: 0=Alert LOC to Questions: 0=Both comments correct LOC to commands: 0=Obeys both correctly Best Gaze: 0=Normal Visual: 0=No visual loss Facial: 0=Normal Motor Arm - Left: 0=No drift Motor Arm - Right: 0=No drift Motor Leg - Left: 0=No drift Motor Leg - Right: 0=No drift Limb Ataxia: 0=Absent Sensory: 0=Normal Best Language: 0=No aphasia Dysarthia: 0=Normal articulation Extinction & Inattention (Neglect): 0=Normal, no object Score: 0 Risk Level: No Stroke Risk rTPA Inclusion/Exclusion - Refusal of Treatment Patient Refused Treatment: No - Inclusion Criteria for Altepase Patient is 18 years or Older: Yes The Clinical Diagnosis of Ischemic Stroke That is Causing a Potentially Disabling Neurological Deficit: No Time of Onset is Well Established to be Less Than 270 Minute Before Treatment Would Begin: Yes Risk/Benefit Discussed With Patient/Family Member Present: No Disposition/Present on Arrival - Present on Arrival Any Indicators Present on Arrival: Yes History of DVT/PE: No History of Uncontrolled Diabetes: Yes Urinary Catheter: No History of Decub. Ulcer: No History Surgical Site Infection Following: None - Disposition Have Diagnosis and Disposition been Completed?: Yes Diagnosis: Syncope Disposition: HOSPITALIZED Disposition Time: 19:53 Patient Plan: Observation Patient Problems: Current Active Problems Problem Status Onset Syncope Acute Condition: FAIR Discharge Instructions (ExitCare): Syncope (ED) Forms: [employer] (Norwegian)
[2018-02-04 19:08] LABS: BASO # 0.02 K/mm3 (0.0-2.0); BASO % 0.1 % (0.0-3.0); EOS # 0.1 (0.0-0.7); EOS % 0.5 % (1.5-5.0); GRAN # 11.99 (1.4-6.5); GRAN % 84.5 % (50.0-68.0); HEMOGLOBIN 11.3 g/dL (14.0-18.0); LYMPH # 1.3 (1.2-3.4); LYMPH % 9.3 % (22.0-35.0); MEAN CELL VOLUME 88.5 fl (80.0-105.0); MEAN CORPUSCULAR HEMOGLOBIN 29.4 pg (25.0-35.0); MEAN CORPUSCULAR HGB CONC 33.2 g/dl (31.0-37.0); MEAN PLATELET VOLUME 9.7 fl (7.0-11.0); MONO # 0.8 (0.1-0.6); MONO % 5.6 % (1.0-6.0); RBC 3.84 10^6/uL (3.5-6.1); RED CELL DISTRIBUTION WIDTH 16.1 % (11.5-14.5); WHITE BLOOD COUNT 14.2 10^3/uL (4.5-11.0)
[2018-02-04 19:12] LABS: INR 1.09; PARTIAL THROMBOPLASTIN TIME 30.6 Seconds (25.1-36.5); PROTHROMBIN TIME 12.5 SECONDS (9.4-12.5)
[2018-02-04 19:24] LABS: TROPONIN I 0.01 ng/mL
[2018-02-04 19:31] LABS: ALB/GLOB RATIO 1.4 (1.1-1.8); ALBUMIN 4.1 g/dL (3.0-4.8); CALCIUM 9.2 mg/dL (8.4-10.5)
[2018-02-05 02:24] VITALS: BMI 21.7
[2018-02-05 06:12] VITALS: PULSE 68; RESP 20; TEMP 97.8; O2SAT 97
--- NOTE | 2018-02-05 08:11 | CARD ---
APPROVED REPORT Date of service: 02/04/2018 EKG Measurement Heart [id number] <Conclusion> Normal sinus rhythm NSSTW changes No change
--- NOTE | 2018-02-05 09:11 | CT ---
Date of service: 02/04/2018 PROCEDURE: CT HEAD WITHOUT CONTRAST. HISTORY: syncope COMPARISON: Noncontrast head CT performed 01/27/18 TECHNIQUE: Axial computed tomography images were obtained through the head/brain without intravenous contrast. Radiation dose: Total exam DLP = 1013.66 mGy-cm. This CT exam was performed using one or more of the following dose reduction techniques: Automated exposure control, adjustment of the mA and/or kV according to patient size, and/or use of iterative reconstruction technique. FINDINGS: Streak artifact obscures evaluation of the skull base. HEMORRHAGE: No intracranial hemorrhage. BRAIN: Diffuse atrophy with prominence of the ventricles and sulci noted. No mass effect or edema. Scattered periventricular and subcortical white matter hypodensities, which are nonspecific, but often seen with chronic microvascular ischemic disease. Please note that MRI with diffusion imaging is more sensitive in the detection of acute ischemic event. VENTRICLES: No hydrocephalus. CALVARIUM: Unremarkable. PARANASAL SINUSES: Opacification of the right sphenoid sinus. The remainder of the visualized paranasal sinuses appear clear. MASTOID AIR CELLS: Unremarkable as visualized. No inflammatory changes. OTHER FINDINGS: None. IMPRESSION: Nonspecific white matter changes. Right sphenoid sinusitis. Preliminary impression was provided by [employer].
--- NOTE | 2018-02-05 09:51 | RAD ---
HISTORY: syncope COMPARISON: Chest x-ray performed 01/27/18 TECHNIQUE: Chest, one view. FINDINGS: Right IJ approach dialysis catheter with tips at the expected location of the SVC/proximal right atrium. LUNGS: No focal consolidation. Please note that chest x-ray has limited sensitivity for the detection of pulmonary masses. PLEURA: No significant pleural effusion identified. No definite pneumothorax . CARDIOVASCULAR: Heart size appears within normal limits. Atherosclerotic calcification present. OSSEOUS STRUCTURES: Degenerative changes. VISUALIZED UPPER ABDOMEN: Unremarkable. OTHER FINDINGS: None. IMPRESSION: Right IJ approach central venous catheter is above. No focal consolidation.
[2018-02-05 10:00] VITALS: BP 124/76
[2018-02-05] MEDS ORDERED: hydroCHLOROthiazide-Triamterene 25 mg-37.5 mg Cap UD PO SCH (10:00)
--- NOTE | 2018-02-05 12:24 | DS ---
The patient is a 77-year-old male who was admitted yesterday after suffering a syncopal episode. 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 Denies any dizziness. Denies any palpitations. The patient cannot say if he had lost consciousness for a matter of seconds or a matter of minutes. However, when the patient was able to get himself up off the floor, he continued to turn down the thermostat, shed off the lights and called for the squad. His workup in the emergency room was essentially negative. His laboratory is positive for chronic renal failure, which we know the patient has a history of, with him on dialysis schedule. His CK was normal. Liver enzymes are normal. Vital signs were stable through the hospital stay. CAT scan showed no acute changes. EKG was regular sinus rhythm with nonspecific ST-T wave changes. When seen on the day of discharge, the patient was awake, alert and oriented with no focal neurological signs. He was able to ambulate to the bathroom on his own without difficulty. He denies any urine or bowel problems. Denies any palpitations or diaphoresis. He explains his syncopal episode as that being a long hectic day, everyone wanting haircuts for the holiday season and the patient, who is an insulin-dependent diabetic, with a history of chronic renal disease, on dialysis, with a history of coronary artery disease, status post PTCA, simply did not have time to eat nor to take his medicines, which he had with him in his pocket. He thought he had taken them. However, when he got to the emergency room, he felt them still in this pocket. When seen this morning, he was awake, alert and oriented, had no problems ambulating in his room. Therefore, he is discharged to home in an improved condition. He is to follow up with me in an office visit later on this week for his medications to be reviewed and renewed. FINAL DIAGNOSES: 1. Syncope. 2. Coronary artery disease, status post PTCA. 3. Chronic renal failure. 4. Insulin-dependent diabetes mellitus. Rony Galarza MD [facility] # [id number]
--- NOTE | 2018-02-05 14:07 | HP ---
DATE OF EXAM: 02/05/2018 HISTORY OF PRESENT ILLNESS: The patient is a 77-year-old male who is brought to the emergency room via squad after suffering a syncopal episode. 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 After a long hectic day he was locking the front door and suddenly collapsed. He cannot tell if he lost consciousness for a matter of seconds or a matter of minutes; however, when he did come to he was able to get himself up, continue to turn down the thermostat, shut off the lights, and call the squad. The patient is evaluated in the emergency room and is admitted. The patient is known to have a history of end-stage renal disease, he is on dialysis. 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 He has benign prostatic hypertrophy. Status post myocardial infarction with PTCA placement by Dr. Terrell in the past. He is followed by Dr. Giang and Dr. Pa for his dialysis. SOCIAL HISTORY: He never smoked. He is a nonalcoholic drinker. 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 ALLERGIES: HE HAS NO KNOWN MEDICAL ALLERGIES. He is quite diligent and compliant with his medications and concerned about his medical status. MEDICATIONS: At the time of admission include gabapentin 300 mg twice a day, atorvastatin 20 mg daily, aspirin 81 mg daily, allopurinol 300 mg daily, Apresoline 25 mg daily, triamterene hydrochlorothiazide 1 tablet daily, Effient 10 mg daily, Avodart 0.5 mg daily, Depakene 250 mg twice a day. REVIEW OF SYSTEMS: Positive for conditions in his history as mentioned above in addition to a more recent complaint of twitching, muscular twitching, involuntary. He was evaluated for this in the past with us as well as with Neurology, that is the reason for him taking gabapentin and valproic acid. It has somewhat subsided in that the muscular twitching has subsided and the patient can continue his profession as a rogers. PHYSICAL EXAMINATION HEAD, EYES, EARS, NOSE AND THROAT: Unremarkable. NECK: Supple with no lymphadenopathy. No goiter. LUNGS: Clear to auscultation and percussion. HEART: Regular. No murmurs are appreciated. ABDOMEN: Soft, nontender with no organomegaly. EXTREMITIES: Free of cyanosis, clubbing, or edema. NEUROLOGIC: The patient is awake, alert, and oriented with no focal neurological signs. CAT scan of the brain shows right sphenoid sinusitis but no acute intracranial abnormality. EKG shows regular sinus rhythm with nonspecific ST-T wave changes. LABORATORY STUDIES: Show the white blood cell count to be 14.2, hemoglobin and hematocrit are 11.3 and 34.0 respectively, platelet count is 134. Sodium is 137, potassium 4.1, blood urea nitrogen is 52, creatinine is 7.1, glucose is 206. His CK is normal at 0.01. Liver enzymes are normal. So the patient is admitted to observation status for his syncope. He will be reevaluated in the morning. Rony Galarza MD
== END 2018-02-05 14:03 | disposition home or self-care (01) ==
LOC: ED 18:02 → ERH 20:49 → 2RNO 22:22
PROVIDERS: ADMIT Internal Medicine; ATTEND Internal Medicine
DX: R55 Syncope and collapse (principal); N18.6 End stage renal disease; I12.0 Hypertensive chronic kidney disease with stage 5 chronic kidney disease or end stage renal disease; E11.22 Type 2 diabetes mellitus with diabetic chronic kidney disease; I25.10 Atherosclerotic heart disease of native coronary artery without angina pectoris; J32.3 Chronic sphenoidal sinusitis; N40.0 Benign prostatic hyperplasia without lower urinary tract symptoms; I25.2 Old myocardial infarction; Z99.2 Dependence on renal dialysis; Z79.4 Long term (current) use of insulin; Z89.429 Acquired absence of other toe(s), unspecified side; Z98.61 Coronary angioplasty status
CPT/HCPCS: 70450; 71045; 80053; 82550; 82948; 83615; 84484; 85025; 85610; 85730; 93005; 99285; G0378

== ENCOUNTER 2018-03-13 10:49 | Emergency (ER) | payer MEDICARE ==
[2018-03-13 11:05] VITALS: BMI 24.3
--- NOTE | 2018-03-13 11:28 | ED PDOC ---
Arrival/HPI - General Time Seen by Provider: 03/13/18 11:08 Historian: Patient - History of Present Illness Narrative History of Present Illness (Text): 03/13/18 11:24 77 year old male, with past medical history of ESRD on hemodialysis, htn, diabetes s/p toe amputation, prostatic hypertrophy and GA w/ PTCA placement, presents to the ED accompanied by daughter for medical evaluation of possible syncopal episode 1 hour prior to arrival. 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 Upon arrival to the ED, patient denies any syncopal episode and states he was only listening to music on the floor and then fell asleep. As per daughter, patient has been expressing generalized weakness since after dialysis yesterday and was not answering her phone calls this morning. Patient currently denies any medical complaints. Patient denies any falls, fevers, chills, headache, dizziness, neck pain, chest pain, shortness of breath, dyspnea on exertion, cough, abdominal pain, nausea, vomiting, diarrhea, back pain, neck pain, or any other complaints. Patient reports having dialysis done yesterday. 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 Giang and Dr. Pa Time/Duration: 1-3 hours Symptom Onset: Gradual Symptom Course: Resolved Activities at Onset: Light Context: Work Past Medical History - Provider Review Nursing Documentation Reviewed: Yes - Infectious Disease Hx of Infectious Diseases: None - Cardiac Hx Cardiac Disorders: Yes (CAD s/p PTCA) Hx Hypertension: Yes - Pulmonary Hx Respiratory Disorders: No - Neurological Hx Neurological Disorder: No - HEENT Hx HEENT Disorder: No - Renal Hx Dialysis: Yes Hx Renal Failure: Yes (on Hemodialysis) - Endocrine/Metabolic Hx Diabetes Mellitus Type 2: Yes - Hematological/Oncological Hx Blood Disorders: No - Integumentary Hx Dermatological Disorder: No - Musculoskeletal/Rheumatological Hx Falls: No - Gastrointestinal Hx Gastrointestinal Disorders: Yes Other/Comment: Umbilical Hernia - Genitourinary/Gynecological Hx Prostate Problems: Yes - Psychiatric Hx Physical Abuse: No Hx Substance Use: No - Surgical History Hx Cardiac Catheterization: Yes - Anesthesia Hx Anesthesia: Yes Hx Anesthesia Reactions: No Hx Malignant Hyperthermia: No - Suicidal Assessment Feels Threatened In Home Enviroment: No Family/Social History - Physician Review Nursing Documentation Reviewed: Yes Family/Social History: Unknown Family HX Smoking Status: Never Smoked Hx Alcohol Use: No Hx Substance Use: No Allergies/Home Meds Allergies/Adverse Reactions: Allergies No Known Allergies Allergy (Verified 01/27/18 19:06) Home Medications: Home Meds Medication Instructions Recorded Confirmed Atorvastatin [Lipitor] 20 mg PO DAILY 11/29/16 02/05/18 Dutasteride [Avodart] 0.5 mg PO DAILY 04/03/17 02/04/18 Triamterene/Hydrochlorothiazid 1 tab PO DAILY 04/03/17 02/05/18 [Triamterene-Hctz 37.5-25 mg Cp] Allopurinol [Zyloprim] 300 mg PO DAILY 11/02/17 02/05/18 Sennosides [Senna Concentrate] 8.5 mg PO BID PRN 11/02/17 11/17/17 hydrALAZINE [Apresoline] 25 mg PO DAILY 11/02/17 02/05/18 Review of Systems - Physician Review All systems were reviewed & negative as marked: Yes - Review of Systems Constitutional: absent: Fevers Respiratory: absent: SOB, Cough Cardiovascular: Syncope (possible syncope). absent: Chest Pain Gastrointestinal: absent: Abdominal Pain, Diarrhea, Nausea, Vomiting Genitourinary Male: absent: Dysuria, Urinary Output Changes Musculoskeletal: absent: Back Pain, Neck Pain Skin: absent: Rash Neurological: absent: Headache, Dizziness Physical Exam Appearance: Positive for: Well-Appearing, Non-Toxic, Comfortable Pain Distress: None Mental Status: Positive for: Alert and Oriented X 3 - Systems Exam Head: Present: Atraumatic, Normocephalic Pupils: Present: PERRL Extroacular Muscles: Present: EOMI Conjunctiva: Present: Normal Mouth: Present: Moist Mucous Membranes Neck: Present: Normal Range of Motion Respiratory/Chest: Present: Clear to Auscultation, Good Air Exchange, Other (Catheter noticed to right upper chest wall). No: Respiratory Distress, Accessory Muscle Use Cardiovascular: Present: Regular Rate and Rhythm, Normal S1, S2. No: Murmurs Abdomen: Present: Hernias (Reducible umbilical hernia noted with duct tape placed on top by patient.). No: Tenderness, Distention, Peritoneal Signs Back: Present: Normal Inspection Upper Extremity: Present: Normal Inspection. No: Cyanosis, Edema Lower Extremity: Present: Normal Inspection. No: Edema Neurological: Present: GCS=15, CN II-XII Intact, Speech Normal Skin: Present: Warm, Dry, Normal Color. No: Rashes Psychiatric: Present: Alert, Oriented x 3, Normal Insight, Normal Concentration Medical Decision Making ED Course and Treatment: 03/13/18 11:21 Impression: 77 year old male presents to the ED for evaluation of possible syncopal episode today. Plan: -- CT of Head -- EKG -- Labs -- Chest X-ray -- Blood Culture -- Urine Culture -- Urinalysis -- Reassess and disposition Prior Visits: Notes and results from previous visits were reviewed. Progress Notes: 03/13/18 12:00 EKG: Ordered, reviewed, and independently interpreted the EKG. Rate : 65 BPM Rhythm : NSR Interpretation : Nml axis, Nml interval, no st elevation, non-specific t wave abnormality. 03/13/18 13:08 Chest X-ray reviewed by radiologist, shows: No active disease. 03/13/18 13:43 CT of head reviewed by radiologist, shows: Right sphenoid sinus opacification. No acute hemorrhage. 03/13/18 13:[address] Galarza, who is aware of negative workup and agrees with ED management plan to discharge patient home with follow-up instructions. Dr. Galarza informed he spoke to patient on the phone prior to arrival, when patient stated he was only sleeping on the floor because his back intermittently aches. Patient denied any loss of consciousness. Dr. Galazra requests to discharge patient with instructions of putting up a sign when he is sleeping as to not worry bystanders or customers. Patient was made aware, understand and agrees with plan. Patient states feeling better and would like to go home. Patient is very well appearing and non-toxic. Vital signs are stable. I discussed the results of the work-up, diagnosis and treatment. Written discharge instructions were provided to patient. Additional verbal instructions were given and discussed with patient. We discussed the importance of follow up with PCP/consultants. I also reiterated reasons to immediately return to the ER including: worsening in current symptoms and/or new, continued, or concerning symptoms. Pt understood and agreed. - RAD Interpretation Radiology Orders: 03/13/18 11:21 HEAD W/O CONTRAST [CT] Stat 12/31/18 11:22 CHEST PORTABLE [RAD] Stat Door Repairer Bus: Radiologist - EKG Interpretation Interpreted by ED Physician: Yes Type: 12 lead EKG - Scribe Statement The provider has reviewed the documentation as recorded by the Scribe Chavo Brown. All medical record entries made by the Scribe were at my direction and personally dictated by me. I have reviewed the chart and agree that the record accurately reflects my personal performance of the history, physical exam, medical decision making, and the department course for this patient. I have also personally directed, reviewed, and agree with the discharge instructions and disposition. Disposition/Present on Arrival - Present on Arrival Any Indicators Present on Arrival: Yes History of DVT/PE: No History of Uncontrolled Diabetes: Yes Urinary Catheter: No History Surgical Site Infection Following: None - Disposition Have Diagnosis and Disposition been Completed?: Yes Diagnosis: Hyperglycemia, ESRD on hemodialysis, Fatigue Disposition: HOME/ ROUTINE Disposition Time: 14:06 Patient Plan: Discharge Patient Problems: Current Active Problems Problem Status Onset ESRD on hemodialysis Acute Hyperglycemia Acute Condition: GOOD Discharge Instructions (ExitCare): Hyperglycemia, Adult (DC), End Stage Kidney Disease (DC), Fatigue (DC) Additional Instructions: LAW ATKINSON, thank you for letting us take care of you today. Your provider was Azucena Camara MD and you were treated for AMS. The emergency medical care you received today was directed at your acute symptoms. If you were prescribed any medication, please fill it and take as directed. It may take several days for your symptoms to resolve. Return to the Emergency Department if your symptoms worsen, do not improve, or if you have any other problems. Please contact your doctor for a follow up appointment in 1-2 days. Bring any paperwork you were given at discharge with you along with any medications you are taking to your follow up visit. Our treatment cannot replace ongoing medical care by a primary care provider outside of the emergency department. Thank you for allowing the [facility] team to be part of your care today. Referrals: Rony Galarza MD [Primary Care Provider] - Follow up with primary
[2018-03-13 11:46] VITALS: RESP 18; TEMP 98.2
[2018-03-13 12:24] LABS: BASO # 0.01 K/mm3 (0.0-2.0); BASO % 0.2 % (0.0-3.0); EOS % 0.7 % (1.5-5.0); GRAN # 4.35 (1.4-6.5); GRAN % 74.4 % (50.0-68.0); HEMOGLOBIN 10.5 g/dL (14.0-18.0); LYMPH % 17.5 % (22.0-35.0); MEAN CELL VOLUME 90.5 fl (80.0-105.0); MEAN CORPUSCULAR HEMOGLOBIN 29.3 pg (25.0-35.0); MEAN CORPUSCULAR HGB CONC 32.4 g/dl (31.0-37.0); MEAN PLATELET VOLUME 9.5 fl (7.0-11.0); MONO # 0.4 (0.1-0.6); MONO % 7.2 % (1.0-6.0); RBC 3.58 10^6/uL (3.5-6.1); RED CELL DISTRIBUTION WIDTH 16.1 % (11.5-14.5); WHITE BLOOD COUNT 5.8 10^3/uL (4.5-11.0)
[2018-03-13 12:32] LABS: INR 0.94; PARTIAL THROMBOPLASTIN TIME 30.1 Seconds (25.1-36.5); PROTHROMBIN TIME 10.8 SECONDS (9.4-12.5)
[2018-03-13 12:37] LABS: ALB/GLOB RATIO 1.3 (1.1-1.8); ALBUMIN 3.7 g/dL (3.0-4.8); ALT/SGPT 26 U/L (7-56); AST/SGOT 46 U/L (17-59); BLOOD UREA NITROGEN 45 mg/dL (7-21); GFR NON-AFRICAN AMERICAN 13
--- NOTE | 2018-03-13 12:46 | RAD ---
Date of service: 03/13/2018 HISTORY: ams COMPARISON: 02/04/2018 FINDINGS: LUNGS: No active pulmonary disease. PLEURA: No significant pleural effusion identified, no pneumothorax apparent. CARDIOVASCULAR: No aortic atherosclerotic calcification present. Normal cardiac size. No pulmonary vascular congestion. OSSEOUS STRUCTURES: No significant abnormalities. VISUALIZED UPPER ABDOMEN: Normal. OTHER FINDINGS: Right-sided dialysis catheter IMPRESSION: No active disease.
[2018-03-13 12:48] LABS: TROPONIN I < 0.01 ng/mL
--- NOTE | 2018-03-13 13:27 | CT ---
Date of service: 03/13/2018 PROCEDURE: CT HEAD WITHOUT CONTRAST. HISTORY: ams COMPARISON: None available. TECHNIQUE: Axial computed tomography images were obtained through the head/brain without intravenous contrast. Radiation dose: Total exam DLP = 814.43 mGy-cm. This CT exam was performed using one or more of the following dose reduction techniques: Automated exposure control, adjustment of the mA and/or kV according to patient size, and/or use of iterative reconstruction technique. FINDINGS: HEMORRHAGE: No intracranial hemorrhage. BRAIN: No mass effect or edema. No atrophy or chronic microvascular ischemic changes. VENTRICLES: Unremarkable. No hydrocephalus. CALVARIUM: Unremarkable. PARANASAL SINUSES: Right sphenoid sinus opacification. MASTOID AIR CELLS: Unremarkable as visualized. No inflammatory changes. OTHER FINDINGS: None. IMPRESSION: Right sphenoid sinus opacification. No acute hemorrhage.
[2018-03-13 16:41] VITALS: O2SAT 99
[2018-03-13 16:43] VITALS: BP 133/77; PULSE 70
--- NOTE | 2018-03-13 16:55 | CARD ---
APPROVED REPORT Date of service: 03/13/2018 EKG Measurement Heart [id number] <Conclusion> Normal sinus rhythm Nonspecific T wave abnormality Abnormal ECG
== END 2018-03-13 16:43 | disposition home or self-care (01) ==
LOC: ED 10:49
DX: I12.0 Hypertensive chronic kidney disease with stage 5 chronic kidney disease or end stage renal disease (principal); N18.6 End stage renal disease; Z99.2 Dependence on renal dialysis; E11.65 Type 2 diabetes mellitus with hyperglycemia; I25.10 Atherosclerotic heart disease of native coronary artery without angina pectoris
CPT/HCPCS: 70450; 71045; 80053; 82140; 82550; 82948; 83615; 83735; 84100; 84484; 85025; 85610; 85730; 87040; 93005; 99284; G0480

== ENCOUNTER 2018-04-03 15:21 | Observation (INO) | payer MEDICARE ==
[2018-04-03] MEDS ORDERED: Insulin Regular 1 UNITS/0.01 ML ML SC STA (15:47)
--- NOTE | 2018-04-03 15:49 | PCM.RRT ---
<Silverio,Rayan - Last Filed: 04/03/18 15:55> BOOKS SALESPERSON Nurse Assessment - Situation Date: 04/03/18 - Neurological Status (Select all that apply): Alert, Responsive, Verbal - Respiratory Oxygen Delivery Method: Nasal Cannula @L/min (2L) - Constitutional Appears: Well, Non-toxic, No Acute Distress - Head Head Exam: NORMAL INSPECTION, NORMOCEPHALIC - Eyes Eye Exam: EOMI, Normal appearance, PERRL - Respiratory Exam Respiratory Exam: Clear to Ausculation Bilateral, NORMAL BREATHING PATTERN - Cardiovascular Exam Cardiovascular Exam: REGULAR RHYTHM, +S1, +S2 - GI/Abdominal Exam GI & Abdominal Exam: Soft. absent: Tenderness - Neurological Exam Neurological Exam: Alert, Awake, Oriented x3 - Extremities Exam Extremities Exam: Normal Inspection Plan - Assessment of Findings&Treatment Plan Rapid response call ed on 77 y/o M in dialysis area [facility] for witnessed syncopal episode. Per family present, pt had passed out while in the dialysis area and fell, but did not hit his head. He had not underwent dialysis yet today. Upon arrival, patient was laying down face up with 3L O2 NC. He was awake, alert and verbal, responding to questions in no acute distress. He reports no complaints when seen in the lob. His BS in [facility] was 430, saturating at 94% on 2L O2. He was in NAD. He was normocephalic, atraumatic. PERRLA. No focal neuro deficits. Heart RRR no M/R/G. Lung CTA. No peripheral edema. Pt was subsequently transferred to ED immediately for further evaluation. Case was signed out to ED physician. <Gilma Anderson - Last Filed: 04/04/18 15:36> Attending/Attestation - Attestation I have personally seen and examined this patient.: Yes I have fully participated in the care of the patient.: Yes I have reviewed all pertinent clinical information, including history, physical exam and plan: Yes Notes (Text): 04/04/18 15:34 Attending note; Patient seen and examined during [employer]OO[employer] SALESPERSON. Patient was lying on the floor next to hemodialysis unit. No injury noted. Patient is alert and awake. Vitals stable. Blood sugar is 430. Not in any acute distress. Denies any pain. Patient apparently was feeling very weak before coming to dialysis. Patient had near syncope as per family. Patient was immediately transferred to the ER. Case signed out to ER attending for further care and treatment. Patient's daughter by the bedside. 04/04/18 15:36
--- NOTE | 2018-04-03 15:51 | ED PDOC ---
Arrival/HPI - General Chief Complaint: Syncope Time Seen by Provider: 04/03/18 15:29 Historian: Patient, Family (2 daughters) - History of Present Illness Time/Duration: Prior to Arrival Symptom Onset: Sudden Symptom Course: Improving Associated Symptoms (Text): 04/03/18 15:48 Daughter reports that last evening the patient was not acting like himself. They were on their way to dialysis today when he fell asleep in the car. He states that he is very sleepy. When they were about to go into dialysis the patient had a syncopal episode and fell backwards into his daughter's arms. She laid him onto the ground. There was no trauma. Denies any chest pain or palpitations. No dyspnea. No headache dizziness or lightheadedness. He did not receive dialysis t tami. Multiple previous syncopal episodes in the past. He reports that he just feels tired and sleepy and wants to take a nap. He states that he usually takes a nap during dialysis. History of myocardial infarction and stent placement. Past Medical History - Infectious Disease Hx of Infectious Diseases: None - Cardiac Hx Cardiac Disorders: Yes (CAD s/p PTCA) Hx Hypertension: Yes - Pulmonary Hx Respiratory Disorders: No - Neurological Hx Neurological Disorder: No - HEENT Hx HEENT Disorder: No - Renal Hx Dialysis: Yes Hx Renal Failure: Yes (on Hemodialysis) - Endocrine/Metabolic Hx Diabetes Mellitus Type 2: Yes - Hematological/Oncological Hx Blood Disorders: No - Integumentary Hx Dermatological Disorder: No - Musculoskeletal/Rheumatological Hx Falls: No - Gastrointestinal Hx Gastrointestinal Disorders: Yes Other/Comment: Umbilical Hernia - Genitourinary/Gynecological Hx Prostate Problems: Yes - Psychiatric Hx Physical Abuse: No Hx Substance Use: No - Surgical History Hx Cardiac Catheterization: Yes - Anesthesia Hx Anesthesia: Yes Hx Anesthesia Reactions: No Hx Malignant Hyperthermia: No - Suicidal Assessment Feels Threatened In Home Enviroment: No Family/Social History - Physician Review Nursing Documentation Reviewed: Yes Family/Social History: Unknown Family HX Smoking Status: Never Smoked Hx Alcohol Use: No Hx Substance Use: No Allergies/Home Meds Allergies/Adverse Reactions: Allergies No Known Allergies Allergy (Verified 01/27/18 19:06) Home Medications: Home Meds Medication Instructions Recorded Confirmed RX: Atorvastatin [Lipitor] 20 mg PO DAILY 11/29/16 02/05/18 RX: Dutasteride [Avodart] 0.5 mg PO DAILY 04/03/17 02/04/18 RX: Triamterene/Hydrochlorothiazid 1 tab PO DAILY 04/03/17 02/05/18 [Triamterene-Hctz 37.5-25 mg Cp] RX: Allopurinol [Zyloprim] 300 mg PO DAILY 11/02/17 02/05/18 RX: Sennosides [Senna Concentrate] 8.5 mg PO BID PRN 11/02/17 11/17/17 RX: hydrALAZINE [Apresoline] 25 mg PO DAILY 11/02/17 02/05/18 Review of Systems - Physician Review All systems were reviewed & negative as marked: Yes - Review of Systems Constitutional: Fatigue. absent: Fevers Respiratory: absent: SOB, Cough, Wheezing Cardiovascular: absent: Chest Pain, Palpitations, Syncope Gastrointestinal: absent: Abdominal Pain, Nausea, Vomiting Neurological: absent: Headache, Dizziness, Focal Weakness, Gait Changes Physical Exam Vital Signs Temp Pulse Resp BP Pulse Ox 04/03/18 15:28 98.1 F 62 17 113/44 L 98 Temperature: Afebrile Blood Pressure: Normal Pulse: Regular Respiratory Rate: Normal Appearance: Positive for: Well-Appearing, Non-Toxic, Comfortable Pain Distress: None Mental Status: Positive for: Alert and Oriented X 3 Finger Stick Blood Glucose: 430 - Systems Exam Head: Present: Atraumatic, Normocephalic Pupils: Present: PERRL Extroacular Muscles: Present: EOMI Conjunctiva: Present: Normal Mouth: Present: Moist Mucous Membranes Pharnyx: No: ERYTHEMA, EXUDATE, TONSILS ENLARGED Neck: Present: Normal Range of Motion Respiratory/Chest: Present: Clear to Auscultation, Good Air Exchange, Decreased Breath Sounds. No: Respiratory Distress, Accessory Muscle Use Cardiovascular: Present: Regular Rate and Rhythm, Normal S1, S2. No: Murmurs Abdomen: No: Tenderness, Distention, Peritoneal Signs, Rebound, Guarding Upper Extremity: Present: Normal Inspection. No: Cyanosis, Edema Lower Extremity: Present: Normal Inspection. No: Edema Neurological: Present: GCS=15, CN II-XII Intact, Speech Normal, Motor Func Grossly Intact Skin: Present: Warm, Dry, Normal Color. No: Rashes Psychiatric: Present: Alert, Oriented x 3, Normal Insight, Normal Concentration Medical Decision Making ED Course and Treatment: 04/03/18 15:50 EKG shows normal sinus rhythm rate approximately [address] or T-wave changes. 04/03/18 16:[address]E Galarza, who will place on telemetry observation. 04/03/18 17:01 Chest one view shows no infiltrate effusion or cardiomegaly. There is a right sided line present. - RAD Interpretation Radiology Orders: 04/03/18 15:46 HEAD W/O CONTRAST [CT] Stat CHEST PORTABLE [RAD] Stat CT scan of the head as read by the radiologist is positive for sinusitis. Unremarkable brain. Magistrate Judge: Radiologist Disposition/Present on Arrival - Present on Arrival Any Indicators Present on Arrival: No History of DVT/PE: No History of Uncontrolled Diabetes: Yes Urinary Catheter: No History of Decub. Ulcer: No History Surgical Site Infection Following: None - Disposition Have Diagnosis and Disposition been Completed?: Yes Diagnosis: Syncope, Chronic renal failure, Hyperglycemia Disposition: HOSPITALIZED Disposition Time: 16:46 Patient Plan: Observation, Telemetry Patient Problems: Current Active Problems Problem Status Onset Chronic renal failure Acute Hyperglycemia Acute Syncope Acute Condition: FAIR
[2018-04-03 16:08] LABS: BASO # 0.01 K/mm3 (0.0-2.0); BASO % 0.2 % (0.0-3.0); EOS # 0.1 (0.0-0.7); EOS % 2.3 % (1.5-5.0); GRAN # 3.93 (1.4-6.5); GRAN % 65.5 % (50.0-68.0); HEMOGLOBIN 9.3 g/dL (14.0-18.0); LYMPH # 1.6 (1.2-3.4); LYMPH % 26.2 % (22.0-35.0); MEAN CELL VOLUME 91.3 fl (80.0-105.0); MEAN CORPUSCULAR HEMOGLOBIN 30.1 pg (25.0-35.0); MEAN PLATELET VOLUME 9.9 fl (7.0-11.0); MONO # 0.4 (0.1-0.6); MONO % 5.8 % (1.0-6.0); RBC 3.09 10^6/uL (3.5-6.1); RED CELL DISTRIBUTION WIDTH 16.9 % (11.5-14.5)
[2018-04-03 16:19] LABS: INR 0.91; PARTIAL THROMBOPLASTIN TIME 28.6 Seconds (25.1-36.5); PROTHROMBIN TIME 10.3 SECONDS (9.4-12.5)
[2018-04-03 16:28] LABS: ALB/GLOB RATIO 1.4 (1.1-1.8); ALBUMIN 3.1 g/dL (3.0-4.8); ALT/SGPT 26 U/L (7-56); AST/SGOT 29 U/L (17-59); BLOOD UREA NITROGEN 66 mg/dL (7-21); CALCIUM 8.4 mg/dL (8.4-10.5); GFR NON-AFRICAN AMERICAN 8
[2018-04-03 16:30] LABS: TROPONIN I < 0.01 ng/mL
--- NOTE | 2018-04-03 16:39 | CT ---
Date of service: 04/03/2018 PROCEDURE: CT HEAD WITHOUT CONTRAST. HISTORY: syncope COMPARISON: Comparison is made with the previous study dated 03/13/2018 TECHNIQUE: Axial computed tomography images were obtained through the head/brain without intravenous contrast. Radiation dose: Total exam DLP = 816.41 mGy-cm. This CT exam was performed using one or more of the following dose reduction techniques: Automated exposure control, adjustment of the mA and/or kV according to patient size, and/or use of iterative reconstruction technique. FINDINGS: HEMORRHAGE: No intracranial hemorrhage. BRAIN: No mass effect or edema. Again noted is [id number] atrophy and mild white matter ischemic changes. VENTRICLES: Unremarkable. No hydrocephalus. CALVARIUM: Unremarkable. PARANASAL SINUSES: There is almost complete opacification of the right sphenoid sinus noted. MASTOID AIR CELLS: Unremarkable as visualized. No inflammatory changes. OTHER FINDINGS: None. IMPRESSION: No evidence of acute intracranial hemorrhage intracranial collection mass effect or midline shift. Almost complete opacification of the right sphenoid sinus suggestive of sinusitis.
--- NOTE | 2018-04-03 17:05 | RAD ---
Date of service: 04/03/2018 HISTORY: syncope COMPARISON: 03/13/2018 FINDINGS: LUNGS: No active pulmonary disease. PLEURA: No significant pleural effusion identified, no pneumothorax apparent. CARDIOVASCULAR: Minimal aortic calcification Normal cardiac size. No pulmonary vascular congestion. OSSEOUS STRUCTURES: No significant abnormalities. VISUALIZED UPPER ABDOMEN: Normal. OTHER FINDINGS: Right-sided dialysis catheter IMPRESSION: No active disease.
--- NOTE | 2018-04-03 20:21 | CARD ---
APPROVED REPORT Date of service: 04/03/2018 EKG Measurement Heart [id number] <Conclusion> Normal sinus rhythm CPT improved STT abnormalities Normal ECG
[2018-04-04] MEDS ORDERED: hydroCHLOROthiazide-Triamterene 25 mg-37.5 mg Cap UD PO SCH (10:00)
--- NOTE | 2018-04-04 12:01 | HP ---
DATE OF EXAM: 04/04/2018 HISTORY OF PRESENT ILLNESS: The patient is a 77-year-old male who suffered a syncopal episode while getting out of the car to go to dialysis on the day of admission. He was driven there by his daughter and apparently was feeling weak. As per the patient's daughter, he simply was not himself, getting out of the car, he collapsed, squad was called. The patient was placed in a wheelchair and brought to the emergency room where he is evaluated and admitted. 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 He has benign prostatic hypertrophy, status post myocardial infarction, status post PTCA with Dr. Terrell. He has end-stage renal disease and is on dialysis and being followed by Dr. Giang and Dr. Pa. SOCIAL HISTORY: He is a nonsmoker, never did, nonalcoholic drinker. ALLERGIES: HE HAS NO KNOWN MEDICAL ALLERGIES. MEDICATIONS: At the time of admission, his medications included atorvastatin 20 mg daily, Avodart 0.5 mg daily, Dyazide once 1 capsule daily, Zyloprim 300 mg daily, senna 8.5 mg twice a day and Apresoline 25 mg daily. REVIEW OF SYSTEMS: Otherwise unremarkable. 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 PHYSICAL EXAMINATION: VITAL SIGNS: His blood pressure is 113/44, heart rate is 62 and he is afebrile. Examination of the head, eyes, ears, nose and throat: Is unremarkable. NECK: Supple with no lymphadenopathy. No goiter. LUNGS: Fairly clear to auscultation and percussion. HEART: Regular. No murmurs are appreciated. ABDOMEN; Soft, nontender with no organomegaly. EXTREMITIES: Free of cyanosis, clubbing or edema. NEUROLOGICAL: The patient was dozing in the emergency room when seen; however, he is easily aroused and he is awake and oriented. He does recall the events surrounding he is getting weak and being placed in a wheelchair on side of dialysis earlier today. LABORATORY DATA: His white blood cell count is 6.0, hemoglobin and hematocrit are 9.3 and 28.2 respectively, platelet count is 105. Serum chemistries show the sodium is 136, potassium is 4.8, blood urea nitrogen is 66, creatinine 6.5, glucose is 234. Magnesium is 3.7. Liver enzymes are normal. Ammonia is less than 9. Troponins are less than 0.01. CT scan of the head shows no evidence of intracranial hemorrhage or mass effect or midline shift. EKG shows normal sinus rhythm with ST-T wave abnormalities unchanged from previous tracings. Chest x-ray shows no active disease. So the patient is to be admitted with a diagnosis of syncope. He will be reevaluated in the morning. Rony Galarza MD
[2018-04-04 13:45] VITALS: BMI 23.6
[2018-04-04] MEDS ORDERED: Influenza Vaccine 60 mcg/0.5 mL SYR (4YR UP) IM ONE (13:46)
[2018-04-04] MEDS ORDERED: Pneumococcal 23-Valent Vaccine IM ONE (13:46)
[2018-04-04] MEDS ORDERED: DUTASTERIDE 0.5 MG PO SCH (18:17)
[2018-04-04 23:33] VITALS: O2SAT 98
--- NOTE | 2018-04-04 23:53 | PN ---
DATE: 04/04/2018 This unfortunate 77-year-old man is again in [facility]. He was seen and admitted by Dr. Rnoy Galarza yesterday. He is undergoing dialysis today. Room should soon hopefully be assigned, and he will leave the emergency room holding area. We will re-evaluate his status in the morning for possible discharge to home. Oliver Galarza MD
--- NOTE | 2018-04-05 04:41 | CON ---
DATE: 04/04/2018 REASON FOR CONSULTATION: Syncopal episode, ESRD, need for dialysis. HISTORY OF PRESENT ILLNESS: A 77-year-old male known to me from outpatient hemodialysis. The patient was on his way to the dialysis unit. He was brought to the dialysis unit by his family members. As he stepped out of the car, he collapsed. The patient has no recollection. He was brought to the emergency room. The patient denied any chest pain or palpitations. He denies any shortness of breath. He gave no history of headache, dizziness, or lightheadedness. As per the daughter, he was unresponsive during the night. They thought he stopped breathing for almost 1 minute. His blood pressure was 113/44, it dropped down to as low as 99/55 in the emergency room. His hemoglobin was found to be 9.3. His potassium was 4.8. He did not receive dialysis yesterday. PAST MEDICAL AND SURGICAL HISTORY: Hypertension, NIDDM, peripheral vascular disease, BPH, CAD, PTCA stent. FAMILY HISTORY: Noncontributory. SOCIAL HISTORY: No smoking. No alcohol use. No IV drug abuse. ALLERGIES: NO KNOWN DRUG ALLERGIES. MEDICATIONS: Lipitor 20, Avodart 0.5, Dyazide, Zyloprim 300, senna, Apresoline 25 daily. REVIEW OF SYSTEMS: All systems are reviewed, pertinent positives as mentioned in history presenting illness, rest unremarkable. PHYSICAL EXAMINATION: GENERAL: Elderly male, lying in bed. VITAL SIGNS: Blood pressure 162/81, heart rate 70, respiratory rate 18, although during dialysis his blood pressure was found to be 110/60. HEENT: Normocephalic, atraumatic, positive pallor. NECK: Supple. No JVD. LUNGS: Bilateral equal entry, bilateral equal expansion. CARDIAC: S1 and S2, regular rate rhythm, no murmur, no rub. ABDOMEN: Soft, nondistended, nontender, bowel sounds present. EXTREMITIES: No lower extremity edema. INTAKE AND OUTPUT: Not charted. LABORATORY DATA: Hemoglobin 9.3, potassium 4.8, BUN 56, creatinine 6.5, glucose 234, calcium 8.4, phosphorus 2.6, magnesium 3.7, albumin 3.1. ASSESSMENT: 1. Syncopal episode. 2. Low blood pressure. 3. End-stage renal disease. 4. Anemia of chronic kidney disease. 5. Yjq-tjghmbd-qieygzjcc diabetes mellitus. 6. History of hypertension. 7. Coronary artery disease, percutaneous transluminal coronary angioplasty and stent. PLAN: 1. Discontinue Dyazide. 2. ? Sleep apnea, as per the daughter the patient was not breathing in the night for almost 1 minute. 3. ? Holter monitor for arrhythmia evaluation. 4. Dialysis today, Em 500 mL. 5. Continue insulin coverage. 6. Discontinue hydralazine. 7. Pulmonary evaluation for sleep study. Lis Pa MD
[2018-04-05 08:49] LABS: HEMOGLOBIN 11.4 g/dL (14.0-18.0); MEAN CELL VOLUME 92.4 fl (80.0-105.0); MEAN CORPUSCULAR HEMOGLOBIN 29.9 pg (25.0-35.0); MEAN CORPUSCULAR HGB CONC 32.4 g/dl (31.0-37.0); MEAN PLATELET VOLUME 9.5 fl (7.0-11.0); RBC 3.81 10^6/uL (3.5-6.1); RED CELL DISTRIBUTION WIDTH 17.1 % (11.5-14.5); WHITE BLOOD COUNT 4.8 10^3/uL (4.5-11.0)
[2018-04-05 09:26] LABS: CALCIUM 8.5 mg/dL (8.4-10.5)
--- NOTE | 2018-04-05 16:07 | CON ---
DATE: 04/05/2018 PULMONARY CONSULT NOTE REFERRING PHYSICIAN: Oliver Galarza MD REASON FOR CONSULT: Suspected sleep apnea syndrome. HISTORY OF PRESENT ILLNESS: This is a 77-year-old male, who came to the emergency room after suffering syncopal episode, where he collapsed getting out of the car while going to dialysis. The patient reports that he missed his dialysis day on Tuesday as he thought it was a holiday, but when being taken to dialysis by his family member, he stepped out of the car and collapsed. He was then brought to the emergency room. Today, the patient seen receiving hemodialysis, reports feeling better today. 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 FAMILY HISTORY: No cardiopulmonary disease reported. SOCIAL HISTORY: Denies smoking. No EtOH abuse. No illicit drug use. ALLERGIES: NO KNOWN ALLERGIES. MEDICATIONS: Allopurinol 300 mg p.o. daily, aspirin 81 mg daily, Lipitor 20 mg daily, Neurontin 300 mg twice a day, hydralazine 25 mg daily, prasugrel 10 mg daily, Senokot 8.6 mg twice a day p.r.n., and Depakene 250 mg twice a day. REVIEW OF SYSTEMS: No headache, rhinitis, cough, shortness of breath, chest pain, abdominal pain, nausea, vomiting, diarrhea, leg pain, or leg swelling reported. The patient reports not knowing if he snores. There is no nasal congestion. PHYSICAL EXAMINATION GENERAL: No acute distress. VITAL SIGNS: Blood pressure 139/69, pulse 90, temperature 98.7, and oxygen saturation 98%. HEENT: Moist mucous membranes. Mallampati score of 4. NECK: Supple. No JVD. LUNGS: Clear bilaterally. CARDIOVASCULAR: S1 and S2 audible. ABDOMEN: Soft and nontender. No distension. No organomegaly. EXTREMITIES: No bilateral lower extremity edema. NEUROLOGIC: Awake, alert, verbal, follows commands. LABORATORY DATA: Reviewed. WBC 4.8, RBC 3.81, hemoglobin 11.4, hematocrit 35.2, and platelets 115. Sodium 137, potassium 5.0, chloride 98, carbon dioxide 33, anion gap 11, BUN 30, creatinine 4, GFR 18, POC glucose 91, random glucose 103, calcium 8.5. IMAGING DATA: Head CT showed no evidence of acute intracranial hemorrhage, intracranial collection, mass effect, or midline shift. Almost complete opacification of the right sphenoid sinus suggestive of sinusitis. Chest x-ray showed no active disease. Electrocardiogram, normal sinus rhythm. IMPRESSION AND PLAN: Syncope; end-stage renal disease, on hemodialysis; diabetes mellitus; hypertension; suspected sleep apnea syndrome. The patient's echocardiogram from 06/2017 reviewed, showed ejection fraction of 63%, right ventricular systolic pressure of 47 suggests the patient has pulmonary hypertension, may have diastolic dysfunction. Need to rule out if sleep apnea is not a cause. Head of bed elevated 45 degrees, avoid sedatives, sleep apnea precaution. We will not use CPAP at this time. We suggest the patient have sleep study as outpatient. PFT as outpatient to be done due to pulmonary hypertension. We will order venous Doppler, bilateral lower extremities. We will start the patient on heparin 5000 units every 12 hours. We will add gastric prophylaxis. Will order Flonase nasal spray, nasal saline spray, prednisone, and antibiotics for Sinusitis. The patient was seen and examined with Dr. Dennis. Discussed assessment and plan as described above. Thank you for this consult. We will follow with you. Chinedu Altamirano APN Shonna Dennis MD MTDHelen
--- NOTE | 2018-04-05 17:18 | US ---
HISTORY: Leg pain and swelling. Evaluate for DVT PHYSICIAN(S): Jameson Evans MD. TECHNIQUE: Duplex sonography and color-flow Doppler with graded compression were used to evaluate the deep venous systems of both lower extremities. FINDINGS: The visualized deep venous systems of both lower extremities are sonographically normal and compressible. Normal wave forms and augmentation are seen. There is no sonographic evidence for deep venous thrombosis in the visualized segments of both lower extremities. IMPRESSION: No sonographic evidence for deep venous thrombosis in the visualized segments of both lower extremities.
--- NOTE | 2018-04-05 18:27 | PN ---
DATE: 04/05/2018 SUBJECTIVE: The patient is seen lying in bed in the dialysis unit. He is awake, he is alert, he is comfortable. He denies any dizziness. He denies any lightheadedness. PHYSICAL EXAMINATION: GENERAL: Elderly male lying in bed. VITAL SIGNS: Blood pressure 139/69, heart rate 90, respiratory rate 18, temperature 98.7. HEENT: Normocephalic, atraumatic, positive pallor. NECK: Supple, no JVD. LUNGS: Bilateral equal air entry, bilateral equal expansion. CARDIAC: S1 and S2. Regular rate and rhythm. No murmur, no rub. ABDOMEN: Soft, nondistended, nontender, bowel sounds present. EXTREMITIES: No lower extremity edema. LABORATORY DATA: Hemoglobin 11.4. Sodium 137, potassium 5, chloride 98, CO2 33, BUN 30, creatinine 4, glucose 103, calcium 8.5. CURRENT MEDICATIONS: Apresoline 25 daily, Ecotrin 81, Effient, Lipitor 20, Neurontin 300 b.i.d., Senokot, Zyloprim. . ASSESSMENT AND PLAN: 1. Status post syncopal episode. 2. Hypotension. 3. Endstage renal disease. 4. Non-insulin dependent diabetes mellitus. 5. Coronary artery disease. PLAN: 1. Stable dialysis. 2. Off Dyazide. 3. Continue hydralazine 25 mg daily now but will have to reassess; may have to be discontinued. Lis Pa MD Jo # [id number]
[2018-04-05 19:47] VITALS: BP 134/71; PULSE 79; RESP 19; TEMP 98.4
[2018-04-05] MEDS ORDERED: Amoxicillin-Clav 500-125 mg Tab PO SCH (22:00)
[2018-04-05] MEDS ORDERED: Pantoprazole 40 mg EC Tab PO SCH (22:00)
[2018-04-05] MEDS ORDERED: Fluticasone Nasal 50 mcg/Spray NS SCH (22:00)
== END 2018-04-05 22:34 | disposition home or self-care (01) ==
LOC: ED 15:21 → ERH 16:47 → 2RSO 04-04 17:49
PROVIDERS: ADMIT Internal Medicine; ATTEND Internal Medicine
DX: R55 Syncope and collapse (principal); I12.0 Hypertensive chronic kidney disease with stage 5 chronic kidney disease or end stage renal disease; N18.6 End stage renal disease; I25.10 Atherosclerotic heart disease of native coronary artery without angina pectoris; E11.22 Type 2 diabetes mellitus with diabetic chronic kidney disease; D63.1 Anemia in chronic kidney disease; E11.51 Type 2 diabetes mellitus with diabetic peripheral angiopathy without gangrene; E11.65 Type 2 diabetes mellitus with hyperglycemia; N40.0 Benign prostatic hyperplasia without lower urinary tract symptoms; I95.9 Hypotension, unspecified; I27.20 Pulmonary hypertension, unspecified; I25.2 Old myocardial infarction; Z99.2 Dependence on renal dialysis; Z79.4 Long term (current) use of insulin; Z89.429 Acquired absence of other toe(s), unspecified side; Z95.5 Presence of coronary angioplasty implant and graft
CPT/HCPCS: 36415; 70450; 71045; 80048; 80053; 82550; 82948; 83615; 83735; 84100; 84484; 85025; 85027; 85610; 85730; 93005; 93970; 99285; G0378

== ENCOUNTER 2018-04-19 13:12 | Emergency (ER) | payer OTHER, MEDICARE ==
[2018-04-19 13:14] VITALS: BMI 21.2
[2018-04-19 13:31] VITALS: RESP 18; TEMP 98; O2SAT 98
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
[2018-04-19 14:14] VITALS: BP 116/69; PULSE 75
== END 2018-04-19 14:45 | disposition home or self-care (01) ==
LOC: ED 13:12
DX: Z04.1 Encounter for examination and observation following transport accident (principal); V49.60XA Unspecified car occupant injured in collision with unspecified motor vehicles in traffic accident, initial encounter; E11.9 Type 2 diabetes mellitus without complications; I12.0 Hypertensive chronic kidney disease with stage 5 chronic kidney disease or end stage renal disease; N18.6 End stage renal disease; Z99.2 Dependence on renal dialysis; I25.10 Atherosclerotic heart disease of native coronary artery without angina pectoris

== ENCOUNTER 2018-04-20 13:45 | Emergency (ER) | payer MEDICARE, OTHER ==
[2018-04-20 14:11] VITALS: BMI 25.0
[2018-04-20 14:20] VITALS: RESP 18
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
[2018-04-20 15:47] VITALS: O2SAT 98
[2018-04-20 16:57] VITALS: BP 122/70; PULSE 67; TEMP 98.3
--- NOTE | 2018-04-20 22:06 | CARD ---
APPROVED REPORT Date of service: 04/20/2018 EKG Measurement Heart [id number] <Conclusion> Sinus bradycardia Otherwise normal ECG
== END 2018-04-20 16:55 | disposition home or self-care (01) ==
LOC: ED 13:45
DX: I12.0 Hypertensive chronic kidney disease with stage 5 chronic kidney disease or end stage renal disease (principal); N18.6 End stage renal disease; Z99.2 Dependence on renal dialysis; E11.9 Type 2 diabetes mellitus without complications; I25.10 Atherosclerotic heart disease of native coronary artery without angina pectoris; Z98.61 Coronary angioplasty status; N40.0 Benign prostatic hyperplasia without lower urinary tract symptoms; I25.2 Old myocardial infarction

== ENCOUNTER 2018-04-27 09:56 | Emergency (ER) | payer MEDICARE ==
[2018-04-27 09:56] VITALS: BMI 25.0
[2018-04-27 10:30] VITALS: TEMP 98
[2018-04-27 11:21] LABS: BASO # 0.03 K/mm3 (0.0-2.0); BASO % 0.3 % (0.0-3.0); EOS # 0.1 (0.0-0.7); EOS % 1.3 % (1.5-5.0); HEMOGLOBIN 9.7 g/dL (14.0-18.0); LYMPH # 1.3 (1.2-3.4); LYMPH % 14.6 % (22.0-35.0); MEAN CELL VOLUME 92.8 fl (80.0-105.0); MEAN CORPUSCULAR HEMOGLOBIN 30.5 pg (25.0-35.0); MEAN CORPUSCULAR HGB CONC 32.9 g/dl (31.0-37.0); MEAN PLATELET VOLUME 9.3 fl (7.0-11.0); MONO % 11.1 % (1.0-6.0); RBC 3.18 10^6/uL (3.5-6.1); RED CELL DISTRIBUTION WIDTH 15.5 % (11.5-14.5); WHITE BLOOD COUNT 8.7 10^3/uL (4.5-11.0)
[2018-04-27 11:28] LABS: INR 1.04; PARTIAL THROMBOPLASTIN TIME 33.6 Seconds (26.9-38.3); PROTHROMBIN TIME 11.8 SECONDS (9.4-12.5)
[2018-04-27 11:29] LABS: ALB/GLOB RATIO 1.4 (1.1-1.8); ALBUMIN 3.7 g/dL (3.0-4.8); ALT/SGPT 11 U/L (7-56); AST/SGOT 27 U/L (17-59); BLOOD UREA NITROGEN 40 mg/dL (7-21); CALCIUM 8.9 mg/dL (8.4-10.5); GFR NON-AFRICAN AMERICAN 9
[2018-04-27 11:40] LABS: TROPONIN I < 0.01 ng/mL
[2018-04-27] MEDS ORDERED: Sodium Chloride 0.9% 250 ML IV STA (11:48)
--- NOTE | 2018-04-27 12:22 | RAD ---
Date of service: 04/27/2018 HISTORY: admission COMPARISON: 04/03/2018 FINDINGS: LUNGS: No active pulmonary disease. PLEURA: No significant pleural effusion identified, no pneumothorax apparent. CARDIOVASCULAR: No aortic atherosclerotic calcification present. Normal cardiac size. No pulmonary vascular congestion. OSSEOUS STRUCTURES: No significant abnormalities. VISUALIZED UPPER ABDOMEN: Normal. OTHER FINDINGS: Dialysis catheter in the right atrium IMPRESSION: No active disease.
[2018-04-27] MEDS ORDERED: Insulin Regular 1 UNITS/0.01 ML ML IVP STA (12:52)
--- NOTE | 2018-04-27 13:18 | ED PDOC ---
Arrival/HPI - General Chief Complaint: High Blood Sugar Time Seen by Provider: 04/27/18 09:58 Historian: Patient, Family - History of Present Illness Narrative History of Present Illness (Text): 04/27/18 13:05 77yo male with pmhx of Diabetes, hypertension, ESRD on dialysis MWF present to ED with his daughter by the bedside with complaint of elevated BS and hypotension. Patient states he was dizzy while at work and when he checked his BP it was low. States he was told to stop taking his antihypertensive because of previous history of hypotension. Patient states he only took his oral hypoglycemic this morning, did not take his insulin. He denies chest pain, SOB, current dizziness, nausea, vomiting, headache, focal weakness, fever, chills, any sick contact. Past Medical History - Provider Review Nursing Documentation Reviewed: Yes - Infectious Disease Hx of Infectious Diseases: None - Cardiac Hx Cardiac Disorders: Yes (CAD s/p PTCA) Hx Hypertension: Yes Other/Comment: mi, abnormal stress test, hypotension - Pulmonary Hx Respiratory Disorders: Yes Hx Pneumonia: Yes - Neurological Hx Neurological Disorder: Yes (syncope, tremors) Other/Comment: peripher neuropathy left foot numbness - HEENT Hx HEENT Disorder: Yes (eyeglasses) - Renal Hx Renal Disorder: Yes Hx Dialysis: Yes Date of Last Dialysis Treatment: 04/04/18 Hx Renal Failure: Yes (on Hemodialysis [facility]) Other/Comment: started hd about 3-4 months ago, vascular acess device 11/03/17 dr rosetta eng - Endocrine/Metabolic Hx Endocrine Disorders: Yes (hypoglycemia) Hx Diabetes Mellitus Type 2: Yes - Hematological/Oncological Hx Blood Disorders: No - Integumentary Hx Dermatological Disorder: Yes Other/Comment: ble dry skin multiple skin discolorations, dry thick toenails, dry skin to arms, rcw hd cath, pt covers umbilical hernia with tape "for protection" - Musculoskeletal/Rheumatological Hx Musculoskeletal Disorders: Yes Hx Falls: Yes (syncope and fall 04/03/18) Hx Gout: Yes (left elbow and feet) Hx Unsteady Gait: Yes - Gastrointestinal Hx Gastrointestinal Disorders: Yes Other/Comment: Umbilical Hernia protruding - Genitourinary/Gynecological Hx Genitourinary Disorders: Yes (anuria) Hx Prostate Problems: Yes (bph) - Psychiatric Hx Psychophysiologic Disorder: No Hx Physical Abuse: No Hx Substance Use: No - Surgical History Hx Cardiac Catheterization: Yes (x1 stent 07/05/17 dr raza) Hx Coronary Stent: Yes Other/Comment: denies finger sx, cardiac catherization w/stent - Anesthesia Hx Anesthesia: Yes Hx Anesthesia Reactions: No Hx Malignant Hyperthermia: No - Suicidal Assessment Feels Threatened In Home Enviroment: No Family/Social History - Physician Review Nursing Documentation Reviewed: Yes Family/Social History: Unknown Family HX Smoking Status: Never Smoked Hx Alcohol Use: No Hx Substance Use: No Allergies/Home Meds Allergies/Adverse Reactions: Allergies No Known Allergies Allergy (Verified 04/20/18 14:21) Home Medications: Home Meds Medication Instructions Recorded Confirmed RX: Atorvastatin [Lipitor] 20 mg PO DAILY 11/29/16 04/20/18 RX: Dutasteride [Avodart] 0.5 mg PO DAILY 04/03/17 04/20/18 RX: Triamterene/Hydrochlorothiazid 1 tab PO DAILY 04/03/17 04/20/18 [Triamterene-Hctz 37.5-25 mg Cp] RX: Allopurinol [Zyloprim] 300 mg PO DAILY 11/02/17 04/20/18 Insulin Aspart Prot/Insuln Asp 10 units SC BID 04/03/18 04/20/18 [Novolog Mix 70-30 Vial] RX: Glimepiride [amaRYL] 1 tab PO BID 04/03/18 04/20/18 RX: Indomethacin [Indocin] 1 cap PO DAILY 04/03/18 04/20/18 RX: Valproic Acid [Depakene] 1 tab PO TID 04/03/18 04/20/18 Calcium Acetate [Phoslo] 667 mg PO TID 04/20/18 04/20/18 Clopidogrel [Plavix] 75 mg PO DAILY 04/20/18 04/20/18 amLODIPine [Norvasc] 5 mg PO DAILY 04/20/18 04/20/18 hydrALAZINE [hydralazine 25 mg PO DAILY 04/20/18 04/20/18 Hydrochloride] tiZANidine [Zanaflex] 4 mg PO QID PRN 04/20/18 04/20/18 Review of Systems - Physician Review All systems were reviewed & negative as marked: Yes - Review of Systems Constitutional: Normal, Other (Elevated BS and hypotension) Eyes: Normal ENT: Normal Respiratory: Normal Cardiovascular: Normal Gastrointestinal: Normal Genitourinary Male: Normal Musculoskeletal: Normal Skin: Normal Neurological: Normal Endocrine: Normal Hemo/Lymphatic: Normal Psychiatric: Normal Physical Exam Vital Signs Reviewed: Yes Vital Signs Temp Pulse Resp BP Pulse Ox 04/27/18 12:00 56 L 16 99/51 L 97 04/27/18 10:16 98 F 61 16 99/42 L 97 Temperature: Afebrile Blood Pressure: Normal Pulse: Regular Respiratory Rate: Normal Appearance: Positive for: Well-Appearing, Non-Toxic, Comfortable Pain Distress: None Mental Status: Positive for: Alert and Oriented X 3 Finger Stick Blood Glucose: 287 - Systems Exam Head: Present: Atraumatic, Normocephalic Pupils: Present: PERRL Extroacular Muscles: Present: EOMI Conjunctiva: Present: Normal Mouth: Present: Moist Mucous Membranes Neck: Present: Normal Range of Motion Respiratory/Chest: Present: Clear to Auscultation, Good Air Exchange. No: Respiratory Distress, Accessory Muscle Use Cardiovascular: Present: Regular Rate and Rhythm, Normal S1, S2. No: Murmurs Abdomen: No: Tenderness, Distention, Peritoneal Signs Back: Present: Normal Inspection Upper Extremity: Present: Normal Inspection. No: Cyanosis, Edema Lower Extremity: Present: Normal Inspection. No: Edema Neurological: Present: GCS=15, CN II-XII Intact, Speech Normal Skin: Present: Warm, Dry, Normal Color. No: Rashes Psychiatric: Present: Alert, Oriented x 3, Normal Insight, Normal Concentration Medical Decision Making ED Course and Treatment: 04/27/18 19:54 77yo male who present with stated history. He denied any focal somatic complaint in ED. He was not in any distress in ED. His repeat BP improved in ED. Labs EKG chest xray 250ml NS EKG Sinus mary @ 59bpm. N-stemi Lab was reviewed and elevated Cr was noted which is similar to his previous labs. K was wnl Chest xray IMPRESSION: No active disease. On re evaluation his BP improved even more with 250ml of fluid in ED Case was MILADIS Rihcardson the PMD, and he recommended DC of pt. states pt's hypotension is an ongoing problem and they area aware of it. notes outpt follow up. Result and plan was MILADIS the pt and her verbalized understanding. He was ambulatory with normal/steady gait. AAO x3 in ED. Stable for discharge. - Lab Interpretations Lab Results: PT 11.8 SECONDS (9.4-12.5) 04/27/18 11:05 INR 1.04 04/27/18 11:05 APTT 33.6 Seconds (26.9-38.3) 04/27/18 11:05 Troponin I < 0.01 ng/mL 04/27/18 11:05 Total Bilirubin 0.3 mg/dL (0.2-1.3) 04/27/18 11:05 AST 27 U/L (17-59) 04/27/18 11:05 ALT 11 U/L (7-56) 04/27/18 11:05 Alkaline Phosphatase 94 U/L (38-126) 04/27/18 11:05 Total Protein 6.4 g/dL (5.8-8.3) 04/27/18 11:05 Albumin 3.7 g/dL (3.0-4.8) 04/27/18 11:05 Globulin 2.7 gm/dL 04/27/18 11:05 Albumin/Globulin Ratio 1.4 (1.1-1.8) 04/27/18 11:05 - RAD Interpretation Radiology Orders: 04/27/18 10:48 CHEST PORTABLE [RAD] Stat - Medication Orders Current Medication Orders: Discontinued Medications Sodium Chloride (Sodium Chloride 0.9%) 250 mls @ 50 mls/min IV .Q5M STA Stop: 04/27/18 11:52 Last Admin: 04/27/18 12:10 Dose: 50 mls/min eMAR Start Stop Document 04/27/18 12:10 KV (Rec: 04/27/18 12:10 [place] [facility] [id number] Intravenous Solution Start Date 04/27/18 Start Time 12:10 Insulin Human Regular (Humulin R) 4 units IVP ONCE STA Stop: 04/27/18 12:53 Disposition/Present on Arrival - Present on Arrival Any Indicators Present on Arrival: No History of DVT/PE: No History of Uncontrolled Diabetes: Yes Urinary Catheter: No History of Decub. Ulcer: No History Surgical Site Infection Following: None - Disposition Have Diagnosis and Disposition been Completed?: Yes Diagnosis: Chronic renal failure, Hyperglycemia, Hypotension Disposition: HOME/ ROUTINE Disposition Time: 14:20 Patient Plan: Discharge Condition: STABLE Discharge Instructions (ExitCare): Hyperglycemia, Adult, Low Blood Pressure (DC) Additional Instructions: Follow up with your doctor Return to ED for any new or worsening symptoms Referrals: Oliver Galarza MD [Staff Provider] - Follow up with primary Forms: [employer] (Arabic)
[2018-04-27 14:34] VITALS: BP 117/57; PULSE 72; RESP 15; O2SAT 99
--- NOTE | 2018-04-27 15:10 | CARD ---
APPROVED REPORT Date of service: 04/27/2018 EKG Measurement Heart [id number] CO [id number] [id number] <Conclusion> Sinus bradycardia Otherwise normal ECG
== END 2018-04-27 15:07 | disposition home or self-care (01) ==
LOC: ED 09:56
DX: E11.65 Type 2 diabetes mellitus with hyperglycemia (principal); I25.10 Atherosclerotic heart disease of native coronary artery without angina pectoris; I12.0 Hypertensive chronic kidney disease with stage 5 chronic kidney disease or end stage renal disease; N18.6 End stage renal disease; Z99.2 Dependence on renal dialysis

== ENCOUNTER 2018-05-09 10:22 | Inpatient (IN) | payer MEDICARE, OTHER ==
[2018-05-09 10:27] VITALS: BMI 28.8
[2018-05-09] MEDS ORDERED: Naloxone 0.4 mg/ml Inj (Adult) IVP STA (10:33)
[2018-05-09] MEDS ORDERED: Naloxone 0.4 mg/ml Inj (Adult) ONE (10:34)
[2018-05-09] MEDS ORDERED: Sodium Chloride 0.9% 1,000 ML IV STA (10:34)
--- NOTE | 2018-05-09 10:40 | ED PDOC ---
Arrival/HPI - General Time Seen by Provider: 05/09/18 10:31 Historian: Other (hospital staff) EM Caveat: Acuity of Condition - History of Present Illness Narrative History of Present Illness (Text): 05/09/18 10:35 77 year old male, who presents to the emergency department unresponsive. Hospital staff states he was waiting to receive dialysis when he became extremely lethargic and brought him to the emergency department for further evaluation. Nurses say he responded to a few questions before, but now patient is completely unresponsive. HPI and ROS are limited due to patient's clinical condition. Time/Duration: Prior to Arrival Symptom Onset: Sudden Symptom Course: Unchanged Activities at Onset: Light Context: Other (hospital) Past Medical History - Provider Review Nursing Documentation Reviewed: Yes - Infectious Disease Hx of Infectious Diseases: None - Cardiac Hx Cardiac Disorders: Yes (CAD s/p PTCA) Hx Hypertension: Yes Other/Comment: mi, abnormal stress test, hypotension - Pulmonary Hx Respiratory Disorders: Yes Hx Pneumonia: Yes - Neurological Hx Neurological Disorder: Yes (syncope, tremors) Other/Comment: peripher neuropathy left foot numbness - HEENT Hx HEENT Disorder: Yes (eyeglasses) - Renal Hx Renal Disorder: Yes Hx Dialysis: Yes Date of Last Dialysis Treatment: 04/04/18 Hx Renal Failure: Yes (on Hemodialysis [facility]) Other/Comment: started hd about 3-4 months ago, vascular acess device 11/03/17 dr rosetta eng - Endocrine/Metabolic Hx Endocrine Disorders: Yes (hypoglycemia) Hx Diabetes Mellitus Type 2: Yes - Hematological/Oncological Hx Blood Disorders: No - Integumentary Hx Dermatological Disorder: Yes Other/Comment: ble dry skin multiple skin discolorations, dry thick toenails, dry skin to arms, rcw hd cath, pt covers umbilical hernia with tape "for protection" - Musculoskeletal/Rheumatological Hx Musculoskeletal Disorders: Yes Hx Falls: Yes (syncope and fall 04/03/18) Hx Gout: Yes (left elbow and feet) Hx Unsteady Gait: Yes - Gastrointestinal Hx Gastrointestinal Disorders: Yes Other/Comment: Umbilical Hernia protruding - Genitourinary/Gynecological Hx Genitourinary Disorders: Yes (anuria) Hx Prostate Problems: Yes (bph) - Psychiatric Hx Psychophysiologic Disorder: No Hx Physical Abuse: No Hx Substance Use: No - Surgical History Hx Cardiac Catheterization: Yes (x1 stent 07/05/17 dr raza) Hx Coronary Stent: Yes Other/Comment: denies finger sx, cardiac catherization w/stent - Anesthesia Hx Anesthesia: Yes Hx Anesthesia Reactions: No Hx Malignant Hyperthermia: No - Suicidal Assessment Feels Threatened In Home Enviroment: No Family/Social History - Physician Review Nursing Documentation Reviewed: Yes Family/Social History: No Known Family HX Smoking Status: Never Smoked Hx Alcohol Use: No Hx Substance Use: No Allergies/Home Meds Allergies/Adverse Reactions: Allergies No Known Allergies Allergy (Verified 05/09/18 10:27) Home Medications: Home Meds Medication Instructions Recorded Confirmed Atorvastatin [Lipitor] 20 mg PO DAILY 11/29/16 05/09/18 Dutasteride [Avodart] 0.5 mg PO DAILY 04/03/17 05/09/18 Allopurinol [Zyloprim] 300 mg PO DAILY 11/02/17 05/09/18 Glimepiride [amaRYL] 4 mg PO BID 04/03/18 05/09/18 Insulin Aspart Prot/Insuln Asp 10 units SC HS 04/03/18 05/09/18 [Novolog Mix 70-30 Vial] Valproic Acid [Depakene] 250 mg PO TID 04/03/18 05/09/18 Calcium Acetate [Phoslo] 667 mg PO TID 04/20/18 05/09/18 tiZANidine [Zanaflex] 4 mg PO QID PRN 04/20/18 05/09/18 Colchicine [Colcrys] 0.6 mg PO DAILY 05/09/18 05/09/18 Dyazide 25/37.5 1 tab PO DAILY 05/09/18 05/09/18 Gabapentin [Neurontin] 300 mg PO TID 05/09/18 05/09/18 Indomethacin [Indocin] 50 mg PO TID 05/09/18 05/09/18 Metoprolol Tartrate [Lopressor] 25 mg PO BID 05/09/18 05/09/18 Prasugrel [Effient] 10 mg PO DAILY 05/09/18 05/09/18 hydrALAZINE [Apresoline] 25 mg PO DAILY 05/09/18 05/09/18 Review of Systems - Review of Systems Systems not reviewed;Unavailable: Acuity of Condition Physical Exam - Physical Exam Narrative Physical Exam (Text): 05/09/18 10:43 Gen: VS reviewed, well developed, well nourished, nontoxic, mild distress. ENT: normal pharynx. Eye: pupil are pinpoint bilaterally, unresponsive to light Neck: no JVD, supple, no adenopathy. CV: regular rate, regular rhythm, no rubs, no murmur, no gallops, S1, S2, pulses equal and strong. Pulm: breathing spontaneously, no distress, clear to auscultation, no wheeze, no rhonchi, breath sounds equal, no rales. Abd: soft, nondistended, normal bowel sounds. Ext: no edema. Skin: good color, no rash, no cyanosis. dialysis catheter placed on the right upper chest wall Psych: unresponsive Neuro: limited due to secondary unresponsive nature. Physical Exam Limitations: Clinical Condition, Other (unresponsive) Vital Signs Reviewed: Yes Temperature: Afebrile Blood Pressure: Normal Pulse: Bradycardic Respiratory Rate: Normal Appearance: Positive for: Well-Appearing, Non-Toxic Pain Distress: None Medical Decision Making ED Course and Treatment: 05/09/18 10:30 Impression: 77 year old male who presents to the emergency department unresponsive. Plan: -- BBK -- VBG -- Head CT -- EKG -- Labs -- Chest X-ray -- Narcan -- IV fluids -- Reassess and disposition Prior Visits: Notes and results from previous visits were reviewed. Progress Notes: 05/09/18 10:30 Patient was seen immediately upon arrival to the emergency department. Code stroke called. Patient was hypotensive, kept in the er for IV fluids and resuscitation before able to go to CAT scan. 05/09/18 10:48 Patient is now awake in the emergency department. 05/09/18 10:44 patient is now suddenly awake and alert, able to follow commands and moves all extremities appropriately. this clinical finding was noticed after IVF were started and blood pressure improved. 05/09/18 12:[address] weller, patient to be admitted for transient loss of consciousness in light of hypotension which resolved with IVF and return of relative normalize blood pressure. patient does not have amnesia to some events today but there was no witnessed convulsions, no tongue biting, no incontinence. the loss of consciousness was not immediately responsive to narcan as expected with a opioid overdose. will get blood pressure to rule out sepsis/bacteremia. 02/26/19 12:23 - RAD Interpretation Narrative RAD Interpretations (Text): 05/09/18 11:[address] reviewed by radiologist, shows: IMPRESSION: No acute intracranial abnormality. If there is a persistent focal neurologic deficit and an ongoing clinical concern for acute infarction, an MRI of the brain without intravenous contrast would be a more sensitive modality for evaluation of hyperacute/acute ischemic infarction. Acute and/or chronic sphenoid sinusitis. Important findings were discussed with Dr. Eugene Li in the ER on 05/09/2018 at 11:05 a.m. 05/09/18 12:28 Chest X-ray reviewed by radiologist, shows: IMPRESSION: No active disease. Department Clerk: Radiologist - Scribe Statement The provider has reviewed the documentation as recorded by the Scribe Milagro Doyle Provider Scribe Attestation: All medical record entries made by the Scribe were at my direction and personally dictated by me. I have reviewed the chart and agree that the record accurately reflects my personal performance of the history, physical exam, medical decision making, and the department course for this patient. I have also personally directed, reviewed, and agree with the discharge instructions and disposition. Disposition/Present on Arrival - Present on Arrival Any Indicators Present on Arrival: No History of DVT/PE: No History of Uncontrolled Diabetes: Yes Urinary Catheter: No History of Decub. Ulcer: No History Surgical Site Infection Following: None - Disposition Have Diagnosis and Disposition been Completed?: Yes Diagnosis: Syncope, Hypotension Disposition: HOSPITALIZED Disposition Time: 12:21 Patient Plan: Admission Patient Problems: Current Active Problems Problem Status Onset Hypotension Acute Syncope Acute Condition: GUARDED
[2018-05-09 10:55] LABS: BASO # 0.02 K/mm3 (0.0-2.0); BASO % 0.1 % (0.0-3.0); EOS # 0.5 (0.0-0.7); EOS % 2.6 % (1.5-5.0); HEMOGLOBIN 9.4 g/dL (14.0-18.0); LYMPH % 22.9 % (22.0-35.0); MEAN CELL VOLUME 90.8 fl (80.0-105.0); MEAN CORPUSCULAR HGB CONC 34.2 g/dl (31.0-37.0); MEAN PLATELET VOLUME 9.5 fl (7.0-11.0); MONO # 0.8 (0.1-0.6); MONO % 4.5 % (1.0-6.0); RBC 3.03 10^6/uL (3.5-6.1); RED CELL DISTRIBUTION WIDTH 15.3 % (11.5-14.5); WHITE BLOOD COUNT 17.3 10^3/uL (4.5-11.0)
[2018-05-09 11:00] LABS: INR 0.98; PARTIAL THROMBOPLASTIN TIME 33.3 Seconds (26.9-38.3); PROTHROMBIN TIME 11.1 SECONDS (9.4-12.5)
[2018-05-09 11:11] LABS: ALB/GLOB RATIO 1.4 (1.1-1.8); ALBUMIN 3.6 g/dL (3.0-4.8); ALT/SGPT 17 U/L (7-56); AST/SGOT 43 U/L (17-59); BLOOD UREA NITROGEN 112 mg/dL (7-21); CALCIUM 9.3 mg/dL (8.4-10.5); GFR NON-AFRICAN AMERICAN 6; HDL CHOLESTEROL 40 mg/dL (29-60); LDL CHOLESTEROL 33 mg/dL (0-129)
[2018-05-09 11:14] LABS: TROPONIN I < 0.01 ng/mL
--- NOTE | 2018-05-09 11:15 | CT ---
Date of service: 05/09/2018 PROCEDURE: CT HEAD WITHOUT CONTRAST. HISTORY: Code Stroke COMPARISON: 04/20/2018. TECHNIQUE: Axial computed tomography images were obtained through the head/brain without intravenous contrast. Radiation dose: Total exam DLP = 923.36 mGy-cm. This CT exam was performed using one or more of the following dose reduction techniques: Automated exposure control, adjustment of the mA and/or kV according to patient size, and/or use of iterative reconstruction technique. FINDINGS: HEMORRHAGE: No intracranial hemorrhage. BRAIN: Shook-white matter differentiation is preserved. There is no mass, mass effect or abnormal extra-axial fluid collection. There is no territorial infarction. The midline sagittal structures are normal.There are coarse atherosclerotic calcifications in the cavernous carotid arteries. VENTRICLES: There is mild age-related global parenchymal volume loss and proportionate enlargement of the ventricles and cortical sulci. CALVARIUM: There is no calvarial fracture or extracranial soft tissue swelling. PARANASAL SINUSES: There is polypoid mucosal thickening and fluid right sphenoid chamber. The remaining included paranasal sinuses are clear. MASTOID AIR CELLS: Predominantly clear. OTHER FINDINGS: None. IMPRESSION: No acute intracranial abnormality. If there is a persistent focal neurologic deficit and an ongoing clinical concern for acute infarction, an MRI of the brain without intravenous contrast would be a more sensitive modality for evaluation of hyperacute/acute ischemic infarction. Acute and/or chronic sphenoid sinusitis. Important findings were discussed with Dr. Eugene Li in the ER on 05/09/2018 at 11:05 a.m.
[2018-05-09 11:19] LABS: VENOUS BLOOD GAS PO2 78 mm/Hg (30-55)
--- NOTE | 2018-05-09 11:43 | PCM.RRT ---
<Gurpreet Jo - Last Filed: 05/09/18 11:39> CLINICAL NURSE REVIEWER Nurse Assessment - Situation Date: 05/09/18 Time CLINICAL NURSE REVIEWER was called: 10:14 CLINICAL NURSE REVIEWER Location:: [facility] CLINICAL NURSE REVIEWER Reason for Call: Change in Mental Status CLINICAL NURSE REVIEWER Called By: RN I.Reason for CLINICAL NURSE REVIEWER - A) Acute Change in Patient: (Select all that apply): Staff member or family is worried about patient - Neurological Status (Select all that apply): Lethargic. absent: Responsive, Verbal - Respiratory Oxygen Delivery Method: Room Air - Constitutional Appears: Non-toxic, Confused Additional Comments: drowsy, lethargic - Head Head Exam: ATRAUMATIC, NORMAL INSPECTION, NORMOCEPHALIC - Eyes Eye Exam: absent: Normal appearance Additional Comments: pinpoint pupils - Respiratory Exam Respiratory Exam: Clear to Ausculation Bilateral, NORMAL BREATHING PATTERN - Cardiovascular Exam Cardiovascular Exam: REGULAR RHYTHM, +S1, +S2. absent: Tachycardia - GI/Abdominal Exam GI & Abdominal Exam: Soft. absent: Tenderness - Neurological Exam Neurological Exam: absent: Alert, Awake, Oriented x3 - Extremities Exam Extremities Exam: absent: Pedal Edema, Tenderness Plan - Assessment of Findings&Treatment Plan Rapid response was called because patient was sitting on chair and not responded to verbal commands in dialysis waiting room. Patient was given sternal rub with eyes opening slightly. Patient was seated on chair, slouching with eyes closed. Pupils were pinpoint. Fingerstick glucose and vitals were taken. Heart and lung sounds were normal and patient was protecting his airway. Glucose was 263, BP was 65/38. Patient was transferred to a wheelchair and sent to the ED immediately. Patient was given narcan in ED, fluids, and Code Stroke was called and patient was taken for Head CT which did not show any acute pathology. Patiently is in ED for further workup. Transfer of care to Ed physician Dr. Li. <Kalpana Harrison - Last Filed: 05/12/18 15:33> Attending/Attestation - Attestation I have personally seen and examined this patient.: Yes I have fully participated in the care of the patient.: Yes I have reviewed all pertinent clinical information, including history, physical exam and plan: Yes Notes (Text): Patient seen and examined by me with resident at approximately 10:15AM on 05/09/18. Agree with above with following additions/corrections. Rapid response called for patient not being responsive while waiting in the [facility] for dailysis. Patient with minimal eye movement with deep sternal rub. Pupils pinpoint. Patient with no difficulty breathing. Patient was transferred to wheel chair and taken to the emergency room. Care was transferred to Dr. Eugene Li. Physical exam: General: Lethargic, slightly responsive to sternal rub HEENT: Normocephalic, atraumatic. Pin point pupils Cardiovascular: Regular rhythm. Normal S1 and S2. No murmurs, rubs, or gallops appreciated Pulmonary: Normal respiratory effort. No rhonchi, rales, or wheezing appreciated. Central nervous system:Lethargic, slightly moves eyes to deep sternal rub.
--- NOTE | 2018-05-09 12:05 | RAD ---
Date of service: 05/09/2018 HISTORY: Code Stroke COMPARISON: 04/27/2018 FINDINGS: LUNGS: No active pulmonary disease. PLEURA: No significant pleural effusion identified, no pneumothorax apparent. CARDIOVASCULAR: There is atherosclerotic calcification of the thoracic aorta. Normal cardiac size. No congestive change. Right tunneled central venous dialysis catheter again noted. OSSEOUS STRUCTURES: No significant abnormalities. VISUALIZED UPPER ABDOMEN: Normal. OTHER FINDINGS: None. IMPRESSION: No active disease.
--- NOTE | 2018-05-09 17:54 | CARD ---
APPROVED REPORT Date of service: 05/09/2018 EKG Measurement Heart [id number] [id number] <Conclusion> Sinus rhythm with occasional premature ventricular complexes ST abnormality, possible digitalis effect Abnormal ECG
[2018-05-09] MEDS ORDERED: Influenza Vaccine 60 mcg/0.5 mL SYR (4YR UP) IM ONE (19:57)
[2018-05-09] MEDS ORDERED: Pneumococcal 23-Valent Vaccine IM ONE (19:57)
[2018-05-09] MEDS: Insulin Reg-MEDIUM-Coverage SC SCH (22:27)
--- NOTE | 2018-05-10 00:44 | HP ---
DATE OF EXAM: 05/09/2018 CHIEF COMPLAINT: Syncope on his way to the emergency room. HISTORY OF PRESENT ILLNESS: This is a 77-year-old man, the patient of dialysis, usually seen in the office by Dr. Rony Galarza. Shabbir was not feeling well today and came to the emergency room. On his way to the emergency room, he had a syncopal episode, was brought into the ER, totally unresponsive, flaccid, unresponsive to deep pain. He had a heart rate, he had a pulse, he was breathing on his own. Did not require intubation or chest compressions, then, in a reported bizarre and sudden fashion. He simply awaken and was alert, sharp, clear and not seeming postictal or lethargic. Labs were done and arrangements were made for him to be admitted and schedule dialysis. 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 Terrell, and end-stage renal disease, on dialysis as mentioned above. ALLERGIES: HE HAS NO KNOWN ALLERGIES TO MEDICATIONS. MEDICATIONS AT THE TIME OF ADMISSION: Include Lipitor, Avodart, Neurontin, metoprolol, Dyazide, valproic acid, hydralazine, aspirin, and allopurinol. SOCIAL HISTORY: He does not smoke, never did. Does not drink alcohol. He works as a [employer]. REVIEW OF SYSTEMS: Significant for typical complaints related to age, arthritis and diabetic neuropathy. PHYSICAL EXAMINATION: GENERAL: The patient was seen this Tuesday evening in room 261, bed 2. He is resting in bed comfortably, awake and alert. Answers appropriately and recognizes me. His body has a generalized twitch of the extremities rather frequently as this has been noted in the past several admissions. HEENT: Head and neck are unremarkable except for some evidence of temporalis muscle wasting. Conjunctivae are pink. Mucous membranes are moist. Neck is supple without masses. LUNGS: Show good aeration right and left. HEART: Regular, not tachycardic. ABDOMEN: Soft and nontender. EXTREMITIES: Thin. No edema with decreased pulses in dorsalis pedis and posterior tibial regions. IMPRESSION: 1. True witnessed syncope with a rapid recovery as noted in the emergency room, rule out seizure disorder, cardiac arrhythmia. 2. Myoclonic twitching. 3. End-stage renal disease, on dialysis. 4. Hypertension. 5. Diabetes. 6. Benign prostatic hypertrophy. 7. Coronary artery disease. 8. Status post percutaneous coronary transluminal angioplasty. PLAN: The patient will be admitted to Neurology and Renal consultations have been called. We will check orthostatic blood pressures. We will talk with Neurology about the possibility of starting antiseizure medications. I will continue his valproic acid for those myoclonic jerks, we are seeing on a rather regular basis and pursue further. Oliver Galarza MD MTDD
[2018-05-10 06:17] LABS: BASO # 0.01 K/mm3 (0.0-2.0); BASO % 0.1 % (0.0-3.0); EOS # 0.2 (0.0-0.7); EOS % 1.4 % (1.5-5.0); LYMPH # 1.2 (1.2-3.4); LYMPH % 9.8 % (22.0-35.0); MEAN CORPUSCULAR HEMOGLOBIN 29.9 pg (25.0-35.0); MEAN CORPUSCULAR HGB CONC 32.8 g/dl (31.0-37.0); MEAN PLATELET VOLUME 9.3 fl (7.0-11.0); MONO # 0.9 (0.1-0.6); MONO % 7.9 % (1.0-6.0); RBC 3.01 10^6/uL (3.5-6.1); RED CELL DISTRIBUTION WIDTH 15.4 % (11.5-14.5); WHITE BLOOD COUNT 11.8 10^3/uL (4.5-11.0)
[2018-05-10 07:19] LABS: URIC ACID 1.4 mg/dL (3.5-8.5)
[2018-05-10] MEDS: Divalproex 250 mg DR (BID formulation) PO SCH ×3 (10:26→18:24)
[2018-05-10] MEDS: Insulin Reg-MEDIUM-Coverage SC SCH ×4 (10:29→22:17)
--- NOTE | 2018-05-10 13:47 | CON ---
DATE OF CONSULTATION: 05/10/2018 REASON FOR CONSULTATION: Syncopal episode while the patient was waiting for dialysis. HISTORY OF PRESENTING ILLNESS: This 77-year-old male, known to me from outpatient hemodialysis. The patient was waiting in the [facility] for dialysis. He was found to be unresponsive. He did not sustain any fall. Currently, the patient does not remember anything. He denies any chest pain. He denies any shortness of breath. He denies any palpitations. He denies any dizziness. In the emergency room, his blood pressure was found to be extremely low at 63/39. He was not tachycardic though. His blood work showed his WBC count to be 17,000 and hemoglobin to be 9.4. He was admitted for workup of syncope. He received dialysis late last night. PAST MEDICAL AND SURGICAL HISTORY: Hypertension, NIDDM, BPH, CAD, PTCA and stent, ESRD, recurrent syncopal episodes? seizures, hypotension, myoclonic jerks. FAMILY HISTORY: Hypertension. SOCIAL HISTORY: No smoking, no alcohol use, no IV drug abuse. ALLERGIES: NO KNOWN DRUG ALLERGIES. MEDICATIONS AT HOME: Allopurinol, aspirin, Lipitor, PhosLo, Avodart. The patient is not on Lopressor or hydralazine. They were stopped a couple of months ago. REVIEW OF SYSTEMS: Currently, the patient denies any chest pain, shortness of breath, or palpitations. He denies any abdominal pain, nausea, vomiting, or diarrhea. PHYSICAL EXAMINATION: GENERAL: Elderly male, lying in bed. VITAL SIGNS: Blood pressure 139/90, heart rate 80, respiratory rate 18, temperature 99.2, T-max is 99.9. HEENT: Normocephalic, atraumatic, positive pallor. NECK: Supple, no JVD. LUNGS: Bilateral equal entry, bilateral equal expansion, no rales. CARDIAC: S1, S2, regular rate and rhythm, no murmur, no rub. ABDOMEN: Soft, nondistended, nontender, bowel sounds present. EXTREMITIES: No lower extremity edema. INTAKE AND OUTPUT: Not charted. CURRENT MEDICATIONS: Colcrys, Depakote, Ecotrin, Effient, Lipitor, Lopressor 25 b.i.d., Neurontin, PhosLo. ASSESSMENT: 1. Syncopal episode versus seizure, absent seizure? 2. Profound hypotension. 3. Coronary artery disease, history of percutaneous transluminal coronary angioplasty and stent. 4. [id number] diabetes mellitus. 5. End-stage renal disease. 6. Anemia of chronic kidney disease. 7. Fever, leukocytosis. PLAN: 1. Blood cultures x2. 2. Monitor blood pressure closely. 3. Urology evaluation. 4. Cardiac evaluation? arrhythmia, event monitor placement? 5. Dialysis tomorrow. Lis Pa MD
--- NOTE | 2018-05-10 14:08 | CP.PCM.PCO ---
Physician Communication Note - Physician Communication Note Physician Communication Note: syncope sec to profund hypotension rather than actual sz. c/w monitoring bp
--- NOTE | 2018-05-10 17:32 | CON ---
DATE: 05/10/2018 HISTORY OF PRESENT ILLNESS: This is a 77-year-old black male, with past medical history of diabetes, hypertension, benign prostate hypertrophy, coronary artery disease status post PTCA, and end-stage renal disease on hemodialysis, came to the hospital because the patient had a syncopal episode on the way enroute to the hospital for dialysis and brought him to the floor. CAT scan of the head was done which was reported negative for stroke or bleed. The patient is more awake and alert now. Called to evaluate the patient. PAST MEDICAL HISTORY: Hypertension, diabetes, and benign prostate hypertrophy. ALLERGY: NO KNOWN DRUG ALLERGY. HOME MEDICATIONS: Lipitor, Neurontin, metoprolol, valproic acid, hydralazine, aspirin, and allopurinol. REVIEW OF SYSTEMS: A 10-point review of systems was negative except end-stage renal disease. PHYSICAL EXAMINATION: HEENT: Normocephalic and atraumatic. NECK: Supple. NEUROLOGIC: Awake and orientated x3. No aphasia. Cranial nerves II through XII are tested. Pupil reactive. EOM intact. Visual field full. No facial asymmetry. Tongue is midline. Motor examination; spontaneous movement of all the extremities noted. Deep tendon reflexes 1+. Plantars downgoing. Sensory appears intact. Cerebellar gait deferred. IMPRESSION: Syncope, less likely seizure. The patient also had myoclonic twitching, hypertension, diabetes, prostatic hypertrophy, coronary artery disease, and end-stage renal disease on hemodialysis. Continue present management. I will increase the Depakote to 500 mg twice a day. We will follow up. Primo Deng MD
--- NOTE | 2018-05-10 18:10 | CON ---
DATE OF CONSULTATION: 05/10/2018 CARDIOLOGY CONSULTATION HISTORY: The patient is a 77-year-old male, who apparently had a syncopal episode prior to waiting for dialysis. He was awoken immediately with tactile stimulation, found to have a blood pressure in the 60s. His sugar was in the 200s. PAST MEDICAL HISTORY: The patient's past medical history includes hypertension, diabetes mellitus, end-stage renal disease, PTCA and stent approximately a year ago. He denies angina. Denies shortness of breath. He is feeling well now. No previous seizure disorder. SOCIAL HISTORY: The patient does not smoke. REVIEW OF SYSTEMS: Fourteen-point review of systems is reviewed in detail. No additional cardiac symptoms are noted. PHYSICAL EXAMINATION: VITAL SIGNS: Blood pressure varies from 139 to 167, heart rate is in the 60s, normal sinus rhythm. NECK: Negative JVD. LUNGS: Without rales. CARDIAC: Heart rate S1, S2. EXTREMITIES: Without edema. EKG shows no acute changes. LABORATORY DATA: Hemoglobin is 9. Chemistries, BUN and creatinine as noted. Potassium is 4.9. Troponin is negative x1. IMPRESSION: 1. Syncopal episode. 2. This is associated with hypotension. 3. Diabetes mellitus. 4. Stable angina. 5. Coronary artery disease. 6. End-stage renal disease. PLAN: Given these findings, we will decrease his antihypertensive medications, which may be part of the cause of his syncopal episode. We will repeat an echocardiogram. Jameson Terrell MD
[2018-05-11] MEDS: Insulin Reg-MEDIUM-Coverage SC SCH ×4 (08:07→21:25)
--- NOTE | 2018-05-11 08:24 | PN ---
DATE: 05/10/2018 SUBJECTIVE: The patient is a 77-year-old male who was admitted after suffering a syncopal episode prior to his hemodialysis. He was in the waiting room and he suddenly collapsed. He was flaccid, unresponsive to deep pain. He did have a heart rate and a pulse and he was breathing on his own. He was brought to the emergency room where the above symptoms persisted and then suddenly the patient awoke. He was alert, sharp and speaking in full sentences. 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 Terrell. When seen in the hospital visit, he was sitting up at the edge of his bed. He was awake, alert and oriented. He cannot recall the events surrounding his syncopal episode. Of note at the hemodialysis waiting area, his blood pressure was 65/32. It was still low in the 60s on presentation to the emergency room. As the patient awoke, the blood pressure came up. PHYSICAL EXAMINATION: The patient is awake, alert and oriented. His lungs are clear. Heart is regular. Abdomen is soft and nontender. LABORATORY DATA: Laboratory studies show the BUN and creatinine was 45 and 4.7 respectively, status post hemodialysis yesterday and white blood cell count is 11.8, hemoglobin is 9, hematocrit is 27.4. PLAN: I will ask Dr. Terrell, his home service director to consult on the patient concerning this hypotensive syncopal episode. His medications will be adjusted accordingly and the patient will be reevaluated in the morning. Rony Galarza MD
--- NOTE | 2018-05-11 09:43 | CP.PCM.APN ---
Subjective - Date & Time of Evaluation Date of Evaluation: 05/11/18 Time of Evaluation: 09:37 - Subjective Subjective: pt off the floor for hd Review of Systems - Review of Systems All systems: reviewed and no additional remarkable complaints except Objective - Vital Signs/Intake and Output Vital Signs (last 24 hours): Temp Pulse Resp BP Pulse Ox 98.2 F 66 20 136/90 96 05/11/18 05:44 05/11/18 05:44 05/11/18 05:44 05/11/18 05:44 05/11/18 05:44 Intake and Output: 05/11/18 05/11/18 06:59 18:59 Intake Total 1420 Output Total 900 Balance 520 - Medications Medications: Current Medications Aspirin (Ecotrin) 81 mg PO DAILY [facility] Last Admin: 05/10/18 10:25 Dose: 81 mg Atorvastatin Calcium (Lipitor) 10 mg PO DIN [facility] Last Admin: 05/10/18 18:24 Dose: 10 mg Calcium Acetate (Phoslo) 667 mg PO WM [facility] Last Admin: 05/11/18 08:37 Dose: Not Given Colchicine (Colocrys) 0.6 mg PO DAILY [facility] Last Admin: 05/10/18 10:29 Dose: 0.6 mg Divalproex Sodium (Depakote Dr (*Bid*)) 250 mg PO TID [facility]; Protocol Last Admin: 05/10/18 18:24 Dose: 250 mg Gabapentin (Neurontin) 300 mg PO TID [facility]; Protocol Last Admin: 05/10/18 18:29 Dose: 300 mg Insulin Human Regular (Humulin R Med) 0 units SC [facility]; Protocol Last Admin: 05/11/18 08:07 Dose: Not Given Metoprolol Tartrate (Lopressor) 12.5 mg PO BRKDIN [facility] Last Admin: 05/11/18 07:45 Dose: Not Given Prasugrel (Effient) 10 mg PO DAILY [facility] Last Admin: 05/10/18 10:26 Dose: 10 mg - Labs Labs: 05/10/18 05:55 05/10/18 05:55 PT 11.1 SECONDS (9.4-12.5) 05/09/18 10:40 INR 0.98 05/09/18 10:40 APTT 33.3 Seconds (26.9-38.3) 05/09/18 10:40 - Constitutional Appears: No Acute Distress - Head Exam Head Exam: NORMOCEPHALIC - ENT Exam ENT Exam: Normal Exam - Respiratory Exam Respiratory Exam: Decreased Breath Sounds, Clear to Ausculation Bilateral - Cardiovascular Exam Cardiovascular Exam: +S1, +S2 - GI/Abdominal Exam GI & Abdominal Exam: Soft, Normal Bowel Sounds - Neurological Exam Neurological Exam: Alert, Oriented x3 Assessment and Plan - Assessment and Plan (Free Text) Plan: 77 YR OLD MALE WITH PMH SIG FOR HTN, DM, CAD WITH STENTS BPH, amputation who was admitted with severe hypotension undergoing cardio and neurology workup and treatment. Pt at HD then plan for echo to reevaluate LVF severe hypotension with adjustment of antihypertensives will continue to monitor BPCI/TIC - BPCIA/TIC Educated pt/family on BPCIA/CIR/Med to Bed Programs: N/A Flyers given, including [facility] Beneficiary letter: N/A Pt/family verbalized understanding & agreed to program: N/A
[2018-05-11] MEDS: Divalproex 250 mg DR (BID formulation) PO SCH ×3 (10:00→18:03)
--- NOTE | 2018-05-11 16:05 | PN ---
DATE: 05/11/2018 CARDIOLOGY FOLLOWUP SUBJECTIVE: The patient is asymptomatic. No chest pain, no shortness of breath. PHYSICAL EXAMINATION: VITAL SIGNS: Blood pressure varies from 136 systolic to 156 systolic, heart rate varies from the 70s to 80s, normal sinus rhythm. NECK: Negative JVD. LUNGS: Without rales. HEART: Reveals S1 and S2. EXTREMITIES: Without edema. LABORATORY DATA: Hemoglobin is 9. Chemistries, BUN and creatinine is 45 and 4.7. IMPRESSION: 1. Status post syncope. 2. End-stage renal disease. 3. Stable angina. 4. History of percutaneous transluminal coronary angioplasty and stent. 5. Diabetes mellitus. Given these findings, a repeat echocardiogram is pending; however, I do not think it will be significantly different than his echo from a year ago. We have cut his Lopressor in half. Given his propensity for hypotension, we will need to accept a blood pressure in the 130-140 systolic. There are no cardiac contraindications to AV access surgery. Jameson Terrell MD
--- NOTE | 2018-05-11 20:06 | PN ---
DATE: 05/11/2018 SUBJECTIVE: The patient is seen in the dialysis unit. He is awake, he is alert, is comfortable. He denies any chest pain. Denies any shortness of breath. PHYSICAL EXAMINATION: GENERAL: An elderly male lying in bed. VITAL SIGNS: Blood pressure 142/72, heart rate 87, respiratory rate 20, and temperature 98.1. HEENT: Normocephalic and atraumatic, positive pallor. NECK: Supple. No JVD. LUNGS: Bilateral equal entry, bilateral equal expansion. CARDIAC: S1 and S2. Regular rate and rhythm. No murmur, no rub. ABDOMEN: Soft, nondistended, and nontender. Bowel sounds present. EXTREMITIES: No lower extremity edema. LABORATORY DATA: WBC 11.8, hemoglobin 9, hematocrit 27, and platelets 153. Sodium 139, potassium 4.0, chloride 100, CO2 of 30, BUN 45, creatinine 4.7, glucose 85, and calcium 9.0. A1c 6.9, uric acid 1.4, and phosphorus 3.8. Blood cultures, no growth. CURRENT MEDICATIONS: Colcrys, Depakote 250 mg t.i.d., Ecotrin 81 mg, Effient, Lipitor, metoprolol 12.5 mg b.i.d., Neurontin, and PhosLo. ASSESSMENT: 1. Recurrent syncope with hypotension versus absent seizure? 2. Swt-xtgivpl-qhpeuojrs diabetes mellitus. 3. Hypertension. 4. End-stage renal disease. 5. Anemia of chronic kidney disease. PLAN: 1. Stable dialysis. 2. Case discussed with Dr. Jameson Terrell, plan is to get Lopressor in half. 3. Workup for arrhythmia?, event monitor? 4. I noted that the patient is cleared for AV access surgery as per Cardiology. 5. Neurology followup. Lis Pa MD
[2018-05-12] MEDS: Insulin Reg-MEDIUM-Coverage SC SCH ×4 (08:30→22:20)
[2018-05-12] MEDS: Divalproex 250 mg DR (BID formulation) PO SCH ×3 (09:50→18:50)
--- NOTE | 2018-05-12 10:03 | CARD ---
APPROVED REPORT Date of service: 05/11/2018 EXAM: Two-dimensional and M-mode echocardiogram with Doppler and color Doppler. INDICATION Syncope 2D DIMENSIONS Left Atrium (2D)4.3 (1.6-4.0cm)IVSd1.4 (0.7-1.1cm) LVDd4.3 (3.9-5.9cm)PWd1.2 (0.7-1.1cm) LVDs2.8 (2.5-4.0cm)FS (%) 33.8 % LVEF (%)63.0 (>50%) M-Mode DIMENSIONS Aortic Root3.60 (2.2-3.7cm)Aortic Cusp Exc.1.80 (1.5-2.0cm) Aortic Valve AoV Peak Rvonxxvv297.0cm/Tiburcio Peak GR.10mmHg Mitral Valve MV E Amvcvrxo67.8cm/sMV A Iedtdtyw418.0cm/sE/A ratio0.6 TDI Lateral E' Peak V8.58cm/sE/Lateral E'9.2E/Medial E'0.0 Pulmonary Valve PV Peak Eubdlxgh814.0cm/sPV Peak Grad.9mmHg Tricuspid Valve TR Peak Gygcxqkj641bm/sRAP YLMVDSPO82ytJwSO Peak Gr.38mmHg [id number] LEFT VENTRICLE There is mild concentric left ventricular hypertrophy. The left ventricular function is normal. The left ventricular ejection fraction is within the normal range. RIGHT VENTRICLE The right ventricle is normal size. ATRIA The left atrium is mildly dilated. The right atrium size is normal. AORTIC VALVE The aortic valve is thickened but opens well. MITRAL VALVE The mitral valve is thickened but opens well. TRICUSPID VALVE The tricuspid valve leaflets are thickened , but open well. There is mild tricuspid regurgitation. There is moderate pulmonary hypertension. PULMONIC VALVE The pulmonic valve is not well visualized. PERICARDIAL EFFUSION There is no pericardial effusion. <Conclusion> LVH with good LV function DIlated LA Mild TR Moderate pulmonry hypertension
--- NOTE | 2018-05-12 13:13 | PN ---
DATE: 05/12/2018 CARDIOLOGY FOLLOWUP SUBJECTIVE: The patient is in bed without complaints, without shortness of breath. OBJECTIVE: VITAL SIGNS: Blood pressure varies from 128-156, heart rate varies from the 60s to 80s. NECK: Negative JVD. LUNGS: Without rales. HEART: S1 and S2. EXTREMITIES: Without edema. LABORATORY DATA: Hemoglobin is 9. Chemistries, potassium is 4.0. Echocardiogram reveals LVH with good LV function, no LV outflow obstruction. There is moderate pulmonary hypertension. IMPRESSION: 1. Syncope. 2. Transient hypotension. 3. End-stage renal disease. 4. Pulmonary hypertension. 5. No cardiac cause of his syncope. PLAN: His medications have been reduced for his . We will begin physical therapy. There are no cardiac contraindications to his planned AV access surgery. Jameson Terrell MD
--- NOTE | 2018-05-12 21:17 | PN ---
DATE: 05/12/2018 SUBJECTIVE: Patient is seen lying in bed. He is awake. He is alert. He is comfortable. He does not appear to be in any kind of distress. PHYSICAL EXAMINATION VITAL SIGNS: Blood pressure 113/55, heart rate 66, respiratory rate 20, temperature 97.9. HEENT: Normocephalic and atraumatic, positive pallor. NECK: Supple. No JVD. LUNGS: Bilateral equal entry, bilateral equal expansion. CARDIAC: S1 and S2. Regular rate and rhythm. No murmur, no rub. ABDOMEN: Soft, nondistended, nontender, bowel sounds present. EXTREMITIES: No lower extremity edema. LABORATORY DATA: No new labs. CURRENT MEDICATIONS: Depakote 250 mg t.i.d., Ecotrin, Effient, insulin, Lipitor, Lopressor 12.5 mg b.i.d., Neurontin, and PhosLo. ASSESSMENT: 1. Status syncope, status post severe hypotension, ? seizure. 2. Jyp-lhuaxxw-kvyeiamuc diabetes mellitus. 3. Coronary artery disease. 4. End-stage renal disease. 5. Anemia of chronic kidney disease. PLAN: 1. Lopressor has been decreased by Cardiology, continue to monitor on this. 2. Continue Depakote. 3. Patient is cleared for AV access placement as per Cardiology. 4. Next dialysis tomorrow. Lis Pa MD
--- NOTE | 2018-05-12 23:42 | PN ---
DATE: 05/11/2018 SUBJECTIVE: The patient was seen this morning in room 261, bed 2. He was actually at dialysis when I came to visit him, admitted for syncopal episode outside. Low blood pressures have been noted. His blood pressure medicines have been adjusted. He is undergoing dialysis. We will need to monitor his pressure and consider event or loop recorder if arrhythmias are strongly suspected. Oliver Galarza MD
[2018-05-13] MEDS: Insulin Reg-MEDIUM-Coverage SC SCH ×4 (08:39→21:57)
--- NOTE | 2018-05-13 09:28 | PN ---
DATE: 05/13/2018 SUBJECTIVE: The patient is currently seen lying comfortable receiving his routine dialysis treatment. 1.5 liters of fluid are being ultrafiltrated. The patient's hemodynamics are stable. Blood pressure is stable. The patient and his daughter asking me if he can go home today. MEDICATIONS: Medication list reviewed. The patient is currently on colchicine, Depakote, Ecotrin, Effient, sliding scale insulin, Lipitor, Lopressor, Neurontin, and PhosLo. OBJECTIVE: INTAKE/OUTPUT: Intake is 360, output is not charted. VITAL SIGNS: Present blood pressure 133/54, pulse of 60, temperature 98.7, respiratory rate of 20, pulse ox 99%. HEENT: Exam shows him to be normocephalic, atraumatic. Conjunctivae are pale. Sclerae nonicteric. NECK: Supple. No neck vein distention. CHEST: Clear to auscultation and percussion. No rales, rhonchi or wheezing. CARDIOVASCULAR: Shows irregular S1, S2. Positive tricuspid regurgitation. No S3, no S4, no rub. ABDOMEN: Soft. Bowel sounds normal. EXTREMITIES: Show no lower extremity cyanosis, clubbing or edema. The patient is dialyzing via a right chest wall PermCath. LABORATORY DATA AND IMAGING STUDIES: No new labs available for comment. Last hemoglobin was 9.0 with a white blood cell count of 11.8. Last chemistry showed normal electrolytes with a BUN of 45 with a creatinine of 4.7. Last hemoglobin A1c 6.9%. No documented episodes of hypoglycemia. Microbiology blood cultures are negative at 48 hours. ASSESSMENT: 1. Status post syncopal episode while awaiting dialysis on the day of admission. Perhaps secondary to hypotension. His blood pressure/cardiac medications have been adjusted. No evidence for seizure activity as per neurology. No evidence for any ongoing coronary artery disease as per Cardiology. 2. Non-insulin dependent diabetes mellitus. Glucose control is acceptable. 3. History of coronary artery disease status post percutaneous transluminal coronary angioplasty, stable. 4. History of end-stage renal disease. The patient will continue Tuesday, , Tuesday routine dialysis. 5. History of anemia secondary to chronic kidney disease. The patient will receive Aranesp per protocol on dialysis. Iron levels to be monitored and IV Venofer to be given per protocol. 6. History of HTN. Blood pressure is currently well controlled. 7. History of left ventricular hypertrophy with good left ventricular function. 8. History of benign prostatic hyperplasia. PLAN: 1. Agree with decisions to adjust his cardiac medications to avoid hypotension. 2. The patient is presently on Depakote. This medication may be continued. 3. The patient should be scheduled for AV fistula placement at some point in time as he is dialyzing with a PermCath. 4. From renal standpoint, the patient is stable and ready for discharge. Shane Giang MD MTDD
[2018-05-13] MEDS: Divalproex 250 mg DR (BID formulation) PO SCH ×3 (12:08→19:42)
[2018-05-13 13:02] VITALS: RESP 18
--- NOTE | 2018-05-13 15:19 | PN ---
DATE: 05/13/2018 SUBJECTIVE: The patient is without complaints. PHYSICAL EXAMINATION: VITAL SIGNS: Blood pressure is 133/54, the heart rate is in the 60s. NECK: Negative JVD. LUNGS: Without rales. HEART: S1, S2. EXTREMITIES: Without edema. LABORATORY DATA: Hemoglobin is 9.3. Chemistries, BUN and creatinine 45 and 4.7. IMPRESSION: 1. Change of medication has resulted in much better blood pressure numbers. 2. Diabetes mellitus. 3. End-stage renal disease. 4. Coronary artery disease. 5. History of percutaneous transluminal coronary angioplasty and stent. 6. Anemia. PLAN: Given these findings, the patient is scheduled for AV fistula placement. He is doing well from a cardiac perspective. From a cardiac perspective, the patient can be discharged. Jameson Terrell MD
[2018-05-14] MEDS: Insulin Reg-MEDIUM-Coverage SC SCH ×4 (08:21→22:01)
[2018-05-14] MEDS: Divalproex 250 mg DR (BID formulation) PO SCH ×3 (09:14→17:41)
--- NOTE | 2018-05-14 14:07 | PN ---
DATE: 05/14/2018 SUBJECTIVE: The patient is currently seen sitting on 2R reading a newspaper. There was some thought about him leaving the hospital after dialysis yesterday; however, post discussion with his primary care physician, Dr. Galarza it was decided that he would go to the TCU for further rehabilitation and gait stability. The patient is agreeable to this plan and is awaiting transfer to the TCU. MEDICATIONS: Medication list reviewed. The patient is on colchicine, Depakote, Ecotrin, Effient, insulin, Lipitor, Lopressor, Neurontin and PhosLo. OBJECTIVE: INTAKE/OUTPUT. Intake is 1220, output is 1500 mL with dialysis. Urine output is not charted. VITAL SIGNS: Blood pressure is currently 136/66, temperature 98, pulse of 68 with a respiratory rate of 18, oxygen saturation 96%. HEENT: Exam shows him to be normocephalic, atraumatic. Conjunctivae are pale. Sclerae are nonicteric. NECK: Supple. No neck vein distention. CHEST: Clear to auscultation and percussion. No rales, rhonchi or wheezing. CARDIOVASCULAR: Shows an irregular S1, S2. TR. No S3, no S4, no rub. ABDOMEN: Soft. Bowel sounds normal. EXTREMITIES: Show no cyanosis of lower extremity. No clubbing or edema. He is dialyzing via a right chest wall PermCath. LABORATORY DATA AND IMAGING STUDIES: No recent labs were done. Labs will be done with his next set of dialysis, which will be on 05/16/2018. ASSESSMENT: 1. Status post syncopal episode while awaiting the initiation of dialysis early last week. The patient was found to be hypotensive. His blood pressure and cardiac medications have been adjusted. No evidence for seizure activity as per Neurology. No evidence for any ongoing coronary ischemia as per Cardiology. 2. Non-insulin dependent diabetes mellitus. Glucose control is acceptable. 3. History of coronary artery disease, status post percutaneous transluminal coronary, stable. 4. History of end-stage renal disease. The patient will continue Tuesday, , Tuesday dialysis. 5. History of anemia secondary to chronic kidney disease. Suggest repeating a set of laboratory work with his next set of dialysis in the TCU. 6. History of hypertension. Blood pressure is currently well controlled on present medication. No further episodes of hypotension. 7. History of left ventricular hypertrophy with normal left ventricular function. 8. History of benign prostatic hypertrophy. PLAN: 1. Continue present medications. 2. Await transfer to the CCU. 3. Continue to monitor the patient on telemetry until he is transferred. 4. Eventually, the patient will need an AV fistula placement as he is dialyzing with a PermCath. The patient is agreeable to this plan. 5. The patient is stable from a renal standpoint. Repeat phosphorus levels with his next set of dialysis. The patient will continue binder therapy and a renal diet. Shane Giang MD
--- NOTE | 2018-05-14 14:18 | PN ---
DATE: 05/14/2018 SUBJECTIVE: The patient is asymptomatic. PHYSICAL EXAMINATION: VITAL SIGNS: Blood pressure 136/66, heart rate is in the 60s. NECK: Negative JVD. LUNGS: Without rales. HEART: S1, S2. EXTREMITIES: Without edema. LABORATORY DATA: Hemoglobin is 9. Chemistries, BUN and creatinine 45 and 4.7. IMPRESSION: 1. End-stage renal disease. 2. Diabetes mellitus. 3. Coronary artery disease. 4. History of percutaneous transluminal coronary angioplasty and stent. 5. Anemia. 6. Stable blood pressure. PLAN: Given these findings, we will discontinue telemetry today. Awaiting AV fistula placement. Jameson Terrell MD
[2018-05-15 06:42] VITALS: BP 128/58; PULSE 86
[2018-05-15 08:08] VITALS: TEMP 98.3; O2SAT 98
[2018-05-15] MEDS: Insulin Reg-MEDIUM-Coverage SC SCH ×3 (08:26→16:26)
[2018-05-15] MEDS: Divalproex 250 mg DR (BID formulation) PO SCH ×2 (09:33→15:13)
--- NOTE | 2018-05-15 09:44 | MRI ---
Date of service: 05/13/2018 PROCEDURE: MRI BRAIN WITHOUT CONTRAST HISTORY: increased confusion COMPARISON: 11/19/2017 TECHNIQUE: Multiplanar, multisequence MR images of the brain were obtained without intravenous contrast enhancement. FINDINGS: HEMORRHAGE: None DWI: No evidence of an acute or early subacute infarction. BRAIN PARENCHYMA: No mass effect or edema. No atrophy or chronic microvascular ischemic changes. VENTRICLES: Unremarkable. No hydrocephalus. CRANIUM: Unremarkable. ORBITS: Grossly unremarkable. PARANASAL SINUSES/MASTOIDS: There opacification of the right sphenoid sinus. VASCULAR SYSTEM: Skull base flow voids intact. OTHER FINDINGS: None. IMPRESSION: No acute intracranial findings
--- NOTE | 2018-05-15 17:17 | PN ---
DATE: 05/15/2018 CARDIOLOGY FOLLOWUP SUBJECTIVE: The patient is resting comfortably without complaints. OBJECTIVE: ANTHONY SIGNS: Blood pressure 128/60, heart rate in the 80s. NECK: Negative JVD. LUNGS: Without rales. HEART: S1 and S2. EXTREMITIES: Without edema. LABORATORY DATA: Hemoglobin is 9. Glucose is 122. IMPRESSION: 1. End stage renal disease. 2. Diabetes mellitus. 3. Stable angina. 4. Coronary artery disease. 5. History of percutaneous transluminal coronary angioplasty and stent. 6, Anemia, PLAN: Given these findings, the patient would benefit from a stay in a TCU, waiting for transfer. Jameson Terrell MD
--- NOTE | 2018-05-15 22:14 | PN ---
DATE: 05/15/2018 SUBJECTIVE: The patient is seen lying in bed, he is awake, he is alert, he is comfortable. He denies any shortness of breath. He denies any chest pain. He denies any dizziness. He denies any lightheadedness. PHYSICAL EXAMINATION: GENERAL: An elderly male lying in bed. VITAL SIGNS: Blood pressure 128/58, heart rate 86, respiratory rate 18, and temperature 98.3. NECK: Supple. No JVD. LUNGS: Bilateral equal entry, bilateral equal expansion. CARDIAC: S1 and S2, regular rate and rhythm. No murmur, no rub. ABDOMEN: Soft, nondistended, and nontender. Bowel sounds present. EXTREMITIES: No lower extremity edema. LABORATORY DATA: No new labs. CURRENT MEDICATIONS: Colcrys, divalproex, Ecotrin, Effient, Lipitor, Lopressor 12.5 mg b.i.d., Neurontin, and PhosLo. ASSESSMENT: 1. Syncope, severe hypotension, ?seizure. 2. Coronary artery disease, percutaneous transluminal coronary angioplasty and stent. 3. End-stage renal disease. 4. Myoclonic jerks. 5. Anemia. PLAN: 1. Monitor blood pressure in three positions daily. 2. Now on Lopressor 12.5 mg b.i.d. 3. Physical therapy. 4. Next dialysis tomorrow. Lis Pa MD
--- NOTE | 2018-05-16 13:36 | CON ---
DATE: 05/16/2018 HISTORY OF PRESENT ILLNESS: This is a 77-year-old black male with past medical history of diabetes; hypertension and amputation of the toes due to diabetic foot; coronary artery disease, status post PTCA and end-stage renal disease, on dialysis transferred here to [facility] for rehab. ALLERGIES: NO KNOWS DRUG ALLERGIES. PHYSICAL EXAMINATION HEENT: Normocephalic, atraumatic. No aphasia. NEUROLOGIC: Cranial nerves II through XII were tested. Pupils reactive. EOM intact. Visual field full. No facial asymmetry. Tongue midline. Motor examination; moves all the extremities equally. Tone normal. Deep tendon reflexes 1+. Cerebellar gait deferred. IMPRESSION AND PLAN: Syncope. MRI of the head was negative. Continue physical therapy. We will follow up. Primo Deng MD
== END 2018-05-15 17:07 | DRG 314 ==
LOC: ED 10:22 → ERH 12:22 → 2RNO 15:49 → 3RNO 05-14 19:13
PROVIDERS: ADMIT Internal Medicine; ATTEND Internal Medicine
PROC: 5A1D70Z Performance of Urinary Filtration, Intermittent, Less than 6 Hours Per Day (ICD-10-PCS; principal; 2018-05-10)
PROC: 5A1D70Z Performance of Urinary Filtration, Intermittent, Less than 6 Hours Per Day (ICD-10-PCS; 2018-05-11)
PROC: 5A1D70Z Performance of Urinary Filtration, Intermittent, Less than 6 Hours Per Day (ICD-10-PCS; 2018-05-13)
DX: I95.9 Hypotension, unspecified (principal); N18.6 End stage renal disease; I12.0 Hypertensive chronic kidney disease with stage 5 chronic kidney disease or end stage renal disease; E11.22 Type 2 diabetes mellitus with diabetic chronic kidney disease; G25.3 Myoclonus; I25.118 Atherosclerotic heart disease of native coronary artery with other forms of angina pectoris; D63.1 Anemia in chronic kidney disease; D72.829 Elevated white blood cell count, unspecified; R50.9 Fever, unspecified; N40.0 Benign prostatic hyperplasia without lower urinary tract symptoms; I27.20 Pulmonary hypertension, unspecified; Z99.2 Dependence on renal dialysis; Z79.02 Long term (current) use of antithrombotics/antiplatelets; Z95.5 Presence of coronary angioplasty implant and graft

== ENCOUNTER 2018-05-15 17:11 | Inpatient (IN) | payer MEDICARE ==
[2018-05-15] MEDS: Divalproex 250 mg DR (BID formulation) PO SCH (18:08)
[2018-05-15 20:01] VITALS: BMI 21.6
[2018-05-15] MEDS ORDERED: Pneumococcal 23-Valent Vaccine IM ONE (20:01)
[2018-05-15] MEDS ORDERED: Influenza Vaccine 60 mcg/0.5 mL SYR (4YR UP) IM ONE (20:01)
[2018-05-15] MEDS: Insulin Reg-MEDIUM-Coverage SC SCH (22:00)
[2018-05-16] MEDS: Insulin Reg-MEDIUM-Coverage SC SCH ×4 (06:49→21:40)
[2018-05-16] MEDS: Divalproex 250 mg DR (BID formulation) PO SCH ×3 (10:15→18:16)
[2018-05-16] MEDS: POLYETHYLENE GLYCOL 3350 17 GM/Dose PACKET PO SCH (10:16)
--- NOTE | 2018-05-16 18:51 | PN ---
DATE: 05/16/2018 SUBJECTIVE: The patient is currently seen in hemodialysis. He was transferred over to the TCU and is receiving his dialysis treatment in the outpatient unit. He appears to be in no acute distress. The patient was transferred over to the TCU for rehabilitation status post a syncopal episode related to hypotension. MEDICATIONS Medication list reviewed. The patient is on colchicine, Depakote, Ecotrin, Effient, insulin, Lipitor, Lopressor, MiraLax, Neurontin, and PhosLo. OBJECTIVE PHYSICAL EXAMINATION VITAL SIGNS: Blood pressure presently 131/58, temperature 98.7, respiratory rate is 18 with a pulse of 60. HEENT: Shows him to be normocephalic, atraumatic. Conjunctivae remain pale. Sclerae are nonicteric. NECK: Supple. No neck vein distention. CARDIOPULMONARY: Shows an irregular S1, S2. Positive tricuspid regurgitation. No S3. No S4. No rub. LUNGS: Clear to auscultation and percussion. No rales, rhonchi or wheezing. ABDOMEN: Soft. Bowel sounds normal. No rebound, guarding or masses. EXTREMITIES: Show no lower extremity cyanosis, clubbing or edema. MUSCULOSKELETAL: The patient is dialyzing for a right chest wall PermCath. LABORATORY DATA AND IMAGING STUDIES: No recent labs were done. Last CBC available shows a hemoglobin of 9.0 with a white blood cell count of 11.8 and a platelet count of 153,000 dating back to 05/10/2018. Last set of full chemistries showed normal electrolytes. BUN 45 with a creatinine of 4.7, a calcium of 9.0 with a phosphorus of 3.8. ASSESSMENT 1. Status post syncopal episode secondary to hypotension. The patient's blood pressure and cardiac medicines were adjusted. The patient had an uneventful stay in acute care. He has currently been transferred over to the Transitional Care Unit for rehabilitation and exercise. 2. History of non insulin-dependent diabetes mellitus. Glucose control is acceptable. The patient will continue on the sliding scale insulin. 3. History of coronary artery disease status post percutaneous transluminal coronary angioplasty, stable. 4. History of end-stage renal disease. The patient will continue Tuesday, , Tuesday dialysis. 5. History of anemia secondary to chronic kidney disease. We will plan for predialysis laboratory work in the Transitional Care Unit with dialysis on 05/18/2018. 6. History of left ventricular hypertrophy with normal left ventricular function. 7. History of hypertension. Blood pressure control is acceptable on an adjusted dose of blood pressure and cardiac medications. 8. History of benign prostatic hypertrophy, stable. PLAN: 1. As discussed with the patient. We will continue routine dialysis with dialysis down to his estimated dry weight. We are currently taking off approximately 1 liter of fluid. 2. The patient will eventually need placement of an AV fistula as he could not dialyze indefinitely with a PermCath. 3. The patient is stable from a renal standpoint. He may continue rehabilitation in the TCU and we will follow him loosely with you in the TCU. Next set of laboratory work can be predialysis on 05/18/2018. Shane Giang MD
[2018-05-17] MEDS: Insulin Reg-MEDIUM-Coverage SC SCH ×4 (06:47→22:27)
[2018-05-17] MEDS: Divalproex 250 mg DR (BID formulation) PO SCH ×3 (10:16→17:43)
[2018-05-17] MEDS: POLYETHYLENE GLYCOL 3350 17 GM/Dose PACKET PO SCH (10:16)
--- NOTE | 2018-05-17 15:46 | PN ---
DATE: 05/17/2018 SUBJECTIVE: The patient is seen lying in bed. He is awake, he is alert, he is comfortable. He denies any headaches, he denies any dizziness. PHYSICAL EXAMINATION GENERAL: Elderly male lying in bed. VITAL SIGNS: Blood pressure 136/77, heart rate 65, respiratory rate 18 and temperature 99.3. HEENT: Normocephalic and atraumatic. Positive pallor. NECK: Supple, no JVD. LUNGS: Bilateral equal entry, bilaterally equal expansion. CARDIAC: S1 and S2, regular rate and rhythm, no murmur, no rub. ABDOMEN: Soft, nondistended, nontender, bowel sounds present. EXTREMITIES: No lower extremity edema. LABORATORY DATA: No new labs. CURRENT MEDICATIONS: , Depakote ER b.i.d., Ecotrin, Effient 10 mg, Lipitor 10, Lopressor 12.5 b.i.d., Neurontin 300 and PhosLo t.i.d. ASSESSMENT: 1. Status post syncopal episode. 2. Noninsulin-dependent diabetes mellitus. 3. Hypertension. 4. Coronary artery disease, percutaneous transluminal coronary angioplasty and stent, 5. History of myoclonic jerks. 6. Anemia of chronic kidney disease. PLAN: 1. Continue dialysis Tuesday, and Tuesday. 2. Monitor blood pressure. 3. Physical therapy. 4. AV access as outpatient. Lis Pa MD
[2018-05-17] MEDS ORDERED: Magnesium Citrate Oral SOL (300 ml) PO ONE (18:34)
[2018-05-17 18:51] LABS: BASO # 0.01 K/mm3 (0.0-2.0); BASO % 0.2 % (0.0-3.0); EOS # 0.1 (0.0-0.7); EOS % 1.7 % (1.5-5.0); HEMOGLOBIN 8.7 g/dL (14.0-18.0); LYMPH # 1.9 (1.2-3.4); LYMPH % 29.6 % (22.0-35.0); MEAN CELL VOLUME 93.6 fl (80.0-105.0); MEAN CORPUSCULAR HEMOGLOBIN 30.7 pg (25.0-35.0); MEAN CORPUSCULAR HGB CONC 32.8 g/dl (31.0-37.0); MEAN PLATELET VOLUME 9.4 fl (7.0-11.0); MONO # 0.5 (0.1-0.6); MONO % 7.6 % (1.0-6.0); RBC 2.83 10^6/uL (3.5-6.1); RED CELL DISTRIBUTION WIDTH 14.9 % (11.5-14.5); WHITE BLOOD COUNT 6.4 10^3/uL (4.5-11.0)
[2018-05-18] MEDS: Insulin Reg-MEDIUM-Coverage SC SCH ×4 (06:51→21:48)
[2018-05-18] MEDS: Divalproex 250 mg DR (BID formulation) PO SCH ×3 (10:00→18:44)
[2018-05-18] MEDS: POLYETHYLENE GLYCOL 3350 17 GM/Dose PACKET PO SCH (10:01)
[2018-05-18 13:06] LABS: MEAN CELL VOLUME 93.8 fl (80.0-105.0); MEAN CORPUSCULAR HGB CONC 33.1 g/dl (31.0-37.0); MEAN PLATELET VOLUME 9.9 fl (7.0-11.0); RBC 2.9 10^6/uL (3.5-6.1); WHITE BLOOD COUNT 7.1 10^3/uL (4.5-11.0)
[2018-05-18 13:39] LABS: ALB/GLOB RATIO 1.3 (1.1-1.8); CALCIUM 9.6 mg/dL (8.4-10.5)
--- NOTE | 2018-05-18 15:27 | PN ---
DATE: 05/18/2018 SUBJECTIVE: The patient is currently seen ambulating in the TCU. He was going to take a shower. There was some concern about a hemoglobin that was sent from outpatient dialysis which was 7. The patient has no evidence of any bleeding. A repeat hemoglobin was done stat last night which was 8.7 which is within his baseline range. In all likelihood, the specimen sent from the hemodialysis unit was not correct. MEDICATIONS: Medication list reviewed. The patient is on colchicine, Depakote, Ecotrin, Effient, insulin p.r.n., Lipitor, Lopressor, MiraLax, Neurontin and PhosLo. OBJECTIVE: VITAL SIGNS: Blood pressure 121/65, pulse 64, temperature 98.1, respiratory rate is 14. HEENT: Exam shows him to be normocephalic, atraumatic. Conjunctivae are pale. Sclerae nonicteric. NECK: Supple. No neck vein distention. CHEST: Clear to auscultation and percussion. No rales, rhonchi or wheezing. CARDIAC: Irregular S1, S2, TR. No S3, no S4, no rub. ABDOMEN: Soft. Bowel sounds normal. No rebound, guarding or masses. EXTREMITIES: Show no lower extremity cyanosis, clubbing or edema. The patient is dialyzing via a right chest wall PermCath. LABORATORY DATA AND IMAGING STUDIES: Hemoglobin done last night was 8.7 with a white blood cell count of 6.4. Chemistry, sugar this morning was 177. ASSESSMENT: 1. Status post syncopal episode requiring admission to the hospital. This is secondary to hypotension. No evidence for hypoglycemia. The patient's cardiac and blood pressure medications were adjusted. He is no longer hypotensive. He has been transferred over to the TCU for rehabilitation. 2. History of luw-ednzsuq-uorilddni diabetes mellitus. Glucose control is acceptable. The patient remains on sliding scale insulin. 3. History of arteriosclerotic heart disease status post percutaneous transluminal coronary angioplasty, currently stable. 4. History of end-stage renal disease. The patient will continue his routine Tuesday, , Tuesday dialysis. 5. History of anemia secondary to chronic kidney disease. Hemoglobin is stable at 8.7. The patient will continue receiving Aranesp and iron per protocol on dialysis. 6. History of left ventricular hypertrophy with normal left ventricular function. 7. History of hypertension. Blood pressure control is acceptable on low-dose beta-maranda therapy. 8. History of secondary hyperparathyroidism. Check phosphorus level today. The patient will continue renal diet and PhosLo. 9. History of benign prostatic hypertrophy, currently stable. PLAN: 1. Discussed with hemodialysis staff regarding the hemoglobin level of 7. The repeat level is actually his baseline at 8.7. 2. Hemodialysis today in the outpatient unit. 3. Continue rehabilitation in the TCU. Shane Giang MD
--- NOTE | 2018-05-18 15:35 | PN ---
DATE: 05/18/2018 SUBJECTIVE: The patient is chest pain free. OBJECTIVE: VITAL SIGNS: Blood pressure 121/65, heart rate is in the 60s. NECK: Negative JVD. LUNGS: Without rales. HEART: S1, S2. EXTREMITIES: Without edema. LABORATORY DATA: Glucose is 177. IMPRESSION: 1. End-stage renal disease. 2. Stable angina. 3. End-stage renal disease. 4. Diabetes mellitus. Given these findings, the patient's cardiac status is stable. The patient is for dialysis today. Awaiting for placement of an AV shunt for his dialysis. Jameson Terrell MD
[2018-05-19] MEDS: Insulin Reg-MEDIUM-Coverage SC SCH ×4 (08:01→21:32)
[2018-05-19] MEDS: Divalproex 250 mg DR (BID formulation) PO SCH ×3 (09:08→17:41)
[2018-05-19] MEDS: POLYETHYLENE GLYCOL 3350 17 GM/Dose PACKET PO SCH (09:09)
[2018-05-19 14:14] VITALS: RESP 18
[2018-05-19 14:15] VITALS: PULSE 80; TEMP 98.8; O2SAT 94
--- NOTE | 2018-05-19 19:23 | PN ---
DATE: 05/19/2018 SUBJECTIVE: The patient is currently seen lying comfortable supine in the TCU. No ongoing issues. The patient states he might be discharged as early as tomorrow post dialysis, so might stick around until the early part of next week. Repeat laboratory work showed a hemoglobin which was excellent at 9.0. OBJECTIVE PHYSICAL EXAMINATION VITAL SIGNS: Blood pressure presently 120/75, temperature 98.8, respiratory rate 18 with a pulse of 80, pulse ox is 94%. HEENT: Normocephalic, atraumatic. Conjunctiva pale. Sclerae nonicteric. NECK: Supple. No neck vein distention. CARDIOPULMONARY: Shows an irregular S1, S2. Positive tricuspid regurgitation. No S3. No S4. No rub. LUNGS: Clear to auscultation and percussion. No rales, rhonchi or wheezing. ABDOMEN: Soft. Bowel sounds normal. No rebound, guarding or masses. EXTREMITIES: Show no lower extremity cyanosis, clubbing or edema. The patient is dialyzing via a right chest wall PermCath. LABORATORY DATA: CBC from yesterday; white blood cell count 7.0, hemoglobin stable 9.0, platelet count is 182,000. Chemistries show a BUN of 71 with a creatinine of 4.5. Calcium level was 9.6. Phosphorus level was low at 2.4 and his binder therapy will be placed on hold. Repeat glucose level was 110. MEDICATIONS: Medication list reviewed. The patient is on colchicine, Depakote, Ecotrin, Effient, insulin, Lipitor, Lopressor, MiraLax and Neurontin. ASSESSMENT: 1. Status post syncopal episode requiring admission to the hospital. This was secondary to hypotension. No evidence for hypoglycemia. The patient's cardiac and blood pressure medications were adjusted and he no longer is hypotensive. I will continue rehabilitation in the Transient Care Unit. 2. History of noninsulin-dependent diabetes mellitus. Glucose control is acceptable. The patient remains on sliding scale insulin and diet therapy. 3. Arteriosclerotic heart disease status post percutaneous transluminal coronary angioplasty, currently stable. 4. History of end-stage renal disease. The patient will continue Tuesday, , Tuesday dialysis. 5. History of anemia secondary to chronic kidney disease. Hemoglobin repeat was 9.0. He will continue receiving Aranesp and iron per protocol with dialysis. 6. Left ventricular hypertrophy with normal left ventricular function. 7. History of hypertension. Blood pressure control is acceptable on low-dose beta-maranda therapy. 8. History of secondary hyperparathyroidism. Phosphorus level was 2.40, I will hold his binder therapy. All likelihood he will need to restart binder therapy as an outpatient. He may continue on a renal diet. 9. History of benign prostatic hypertrophy. PLAN: 1. Discussed with the patient and staff in the TCU. From my standpoint, discharge post dialysis tomorrow is fine. If the patient requires further rehabilitation, he may stay in the TCU for the full course of therapy. 2. Continue to monitor lab work with dialysis. Shane Giang MD
--- NOTE | 2018-05-19 23:31 | PN ---
DATE: 05/19/2018 The patient was seen this Tuesday morning in transitional care unit, room 327, bed 2. He is in bed resting comfortably, awake, alert and clear. Medications were adjusted. Blood pressure is stable. He is no longer orthostatic. He feels well, eating well and looking forward to discharge to home soon. I spoke with him about the plan. Today is day #4 of his hospital stay. He was doing well with physical therapy. Later in the day, I received a call that he is scheduled for discharge to home tomorrow. I will check the patient again in the morning. He should be ready to go as he is doing quite well. Some medicines were adjusted and in view of his renal function. As was suggested by pharmacy, I decreased his colchicine dose. In view of recent total cholesterol of less than 100, I will decrease his atorvastatin dose. We will check his valproic acid level as well as uric acid level in the blood tomorrow. Oliver Galarza MD MTDD
[2018-05-20] MEDS: Insulin Reg-MEDIUM-Coverage SC SCH ×2 (06:43→12:24)
[2018-05-20 07:07] LABS: URIC ACID 4.7 mg/dL (3.5-8.5)
[2018-05-20 08:38] VITALS: BP 131/66
[2018-05-20] MEDS: Divalproex 250 mg DR (BID formulation) PO SCH ×2 (10:15→13:47)
[2018-05-20] MEDS: POLYETHYLENE GLYCOL 3350 17 GM/Dose PACKET PO SCH (10:15)
--- NOTE | 2018-05-20 19:30 | DS ---
HISTORY OF PRESENT ILLNESS: This is a 77-year-old man I found through recent hospitalizations for syncope. He was on his way to dialysis and had a syncopal episode outside the dialysis unit prompting his coming to the acute care facility after being stabilized and having his medication adjusted, he now comes to Transitional Care Unit for further medication adjustment as well as physical therapy and conditioning exercise. This is a discharge summary for the patient setting on the Transitional Care Unit. The patient was seen regularly by Renal as well as Dr. Rony Galarza who knows him best, when I returned from my , the patient was on transitional care, engaging in the activities of the unit, and doing rather well. Blood pressure was stable. He was not orthostatic. He continued dialysis and after day 5 having reached the goals of his therapy and per his insurance carriers coverage, he was ready for discharge to home. FINAL DISCHARGE DIAGNOSES: 1. Deconditioning. 2. Hypotension related to medication effect. 3. Hypertension. 4. End-stage renal disease. 5. Diabetes. PLAN: The patient will follow up with us in the office in 1 week. Medications were reconciled. He was discharged on aspirin 81 daily, Lipitor 10 mg Tuesday, Tuesday, and Tuesday; PhosLo with meals, colchicine 0.6 twice a week, Depakote 250 t.i.d., Neurontin 300 t.i.d., insulin for his diabetes, metoprolol 12.5 b.i.d., and Effient 10 mg daily. He was advised to stop the amlodipine and Dyazide, which he may have been taking at home prior to this admission. Call me if there was any questions and his home medications or if there is any variations was on this list as I will keep a copy with me for the next 48 hours and the patient is to bring that list and all his medicines to the office and followup later this week. Oliver Galarza MD
== END 2018-05-20 16:39 | disposition home or self-care (01) | DRG 312 ==
LOC: TRCU 17:11
PROVIDERS: ADMIT Internal Medicine; ATTEND Internal Medicine
PROC: F07Z9ZZ Gait Training/Functional Ambulation Treatment (ICD-10-PCS; principal; 2018-05-16)
PROC: F08Z4ZZ Home Management Treatment (ICD-10-PCS; 2018-05-16)
PROC: 5A1D70Z Performance of Urinary Filtration, Intermittent, Less than 6 Hours Per Day (ICD-10-PCS; 2018-05-16)
PROC: 5A1D70Z Performance of Urinary Filtration, Intermittent, Less than 6 Hours Per Day (ICD-10-PCS; 2018-05-18)
PROC: 5A1D70Z Performance of Urinary Filtration, Intermittent, Less than 6 Hours Per Day (ICD-10-PCS; 2018-05-20)
DX: I95.2 Hypotension due to drugs (principal); N18.6 End stage renal disease; I13.11 Hypertensive heart and chronic kidney disease without heart failure, with stage 5 chronic kidney disease, or end stage renal disease; N25.81 Secondary hyperparathyroidism of renal origin; E11.22 Type 2 diabetes mellitus with diabetic chronic kidney disease; T46.5X5A Adverse effect of other antihypertensive drugs, initial encounter; N40.0 Benign prostatic hyperplasia without lower urinary tract symptoms; I25.118 Atherosclerotic heart disease of native coronary artery with other forms of angina pectoris; D63.1 Anemia in chronic kidney disease; Z99.2 Dependence on renal dialysis; Z95.5 Presence of coronary angioplasty implant and graft; Z79.84 Long term (current) use of oral hypoglycemic drugs

== ENCOUNTER 2018-06-14 06:14 | Day surgery (SDC) | payer MEDICARE ==
[2018-06-09 13:17] VITALS: BMI 19.8
[2018-06-14 07:02] LABS: BASO # 0.02 K/mm3 (0.0-2.0); BASO % 0.4 % (0.0-3.0); EOS # 0.1 (0.0-0.7); EOS % 2.2 % (1.5-5.0); LYMPH % 35.7 % (22.0-35.0); MEAN CELL VOLUME 93.9 fl (80.0-105.0); MEAN CORPUSCULAR HEMOGLOBIN 30.5 pg (25.0-35.0); MEAN CORPUSCULAR HGB CONC 32.4 g/dl (31.0-37.0); MEAN PLATELET VOLUME 9.9 fl (7.0-11.0); MONO # 0.3 (0.1-0.6); MONO % 5.7 % (1.0-6.0); RBC 3.61 10^6/uL (3.5-6.1); RED CELL DISTRIBUTION WIDTH 15.1 % (11.5-14.5); WHITE BLOOD COUNT 5.6 10^3/uL (4.5-11.0)
[2018-06-14 07:08] LABS: INR 1.01; PARTIAL THROMBOPLASTIN TIME 34.1 Seconds (26.9-38.3); PROTHROMBIN TIME 11.4 SECONDS (9.4-12.5)
[2018-06-14 07:15] LABS: CALCIUM 9.8 mg/dL (8.4-10.5)
[2018-06-14] MEDS ORDERED: Lidocaine 1% Inj (20ml) ONE (07:33)
[2018-06-14] MEDS ORDERED: Liquid Adhesive TOP ONE (07:33)
[2018-06-14] MEDS ORDERED: Bupivacaine 0.5% 50 ML IJ ONE ×3 (07:33→08:45)
[2018-06-14] MEDS ORDERED: Thrombin Topical 20,000 Intl Units Spray Kit TOP ONE (07:34)
[2018-06-14] MEDS ORDERED: Propofol 10 mg/ml Inj (20 ML) ONE (08:06)
[2018-06-14] MEDS ORDERED: CeFAZolin 1 gm in NS 100ml IVPB ONE (08:20)
[2018-06-14] MEDS ORDERED: Midazolam 2 MG/2 ML VIAL ONE (08:21)
[2018-06-14] MEDS ORDERED: ePHEDrine 50 mg/ml Inj ONE (08:52)
[2018-06-14] MEDS ORDERED: Sodium Chloride 0.9% 1,000 ML IV SCH (10:45)
[2018-06-14] MEDS ORDERED: Oxycodone/Acetaminophen 5/325 mg Tab PO ONE (11:30)
[2018-06-14 11:38] VITALS: TEMP 97.6
[2018-06-14 13:07] VITALS: RESP 16; O2SAT 99
[2018-06-14 13:30] VITALS: BP 115/59; PULSE 79
--- NOTE | 2018-06-16 13:48 | OP ---
PROCEDURE DATE: 06/14/2018 PREOPERATIVE DIAGNOSIS: End-stage renal disease. POSTOPERATIVE DIAGNOSIS: End-stage renal disease. PROCEDURES PERFORMED: 1. Left upper arm arteriovenous fistula creation between basilic vein and brachial artery and transposition of the basilic vein. 2. Venous mapping of the left upper extremity veins. SURGEON: Andrea Wilburn MD ANESTHESIOLOGIST: Dr. Rodríguez. TYPE OF ANESTHESIA: LMA general anesthesia. ESTIMATED BLOOD LOSS: Minimal. SPECIMEN: None. INDICATIONS: The patient is a 77-year-old male with history of end-stage renal disease, on dialysis via the tunneled catheter. The patient also has history of non-insulin dependent diabetes, hypertension, and coronary artery disease. The patient was brought in today for creation of an arteriovenous fistula in the left arm. First, standard time-out procedure took place and everybody in the room agreed as to the patient's identity, diagnoses and procedure to be performed. The appropriate site was marked and checked accordingly. The patient was placed on the operating table in supine position. The patient was connected to EKG, blood pressure, and pulse oximetry monitors. The patient then underwent general LMA anesthesia and was prepped and draped in usual sterile fashion. First using ultrasound vascular probe, the left upper extremity was scanned. The course of the basilic vein was carefully marked on the left arm starting from below the elbow through the upper arm. All the side branches were marked. The vessel itself appeared to be about 3 mm in diameter in the smallest portion. I then carefully scanned and also looked at the position of the cephalic vein which was not present. Now, I carefully scanned the brachial artery and noted that there were 2 arteries present in the position of the brachial artery and is carefully followed up towards the axilla. I noted that there was very high division of the brachial artery into the radial and ulnar arteries. The ulnar artery appeared to be slightly larger and positioned deeper in the tissue. I then carefully marked that position and now proceeded with surgery. Using lidocaine mixed with Marcaine, the transverse incision was infiltrated directly overlying the antecubital fossa medially. Careful dissection was done in order to expose the basilic vein. Once it was done, the vein was elevated with a vessel loop and carefully dissected out proximally and distally. The two smaller branches which were ligated and the vein appeared to be now free from attachments. I then proceeded to dissection of the ulnar artery distal to the superficial radial artery. This artery was also elevated and tied up with vessel loops and dissected out medially and laterally for about 3 cm distance. Once this was completed, the patient received 4000 units of heparin prior to the arteriotomy. Once the heparin was given, in about 2 minutes we proceeded with cross clamping of artery until the vein was transected and infiltrated with heparinized saline and dilated. The vein dilated quite nice. I then proceeded with creating an end-to-side anastomosis between the basilic vein and the ulnar artery. This was done using standard 6-0 Prolene stitches in a running fashion from both ends of the anastomosis. Once completed, a forward flow was established in the fistula. First, reducing the distal anterior occlusion and clamping it and then opening the proximal arterial occlusion. Next, both ends of the artery were opened and there was good thrill in the vein. Prior to this, a decision was made not to proceed with tunneling of the basilic vein as there was a high chance of possibly not having appropriate flow due to the bifurcation of the brachial veins so high and small size of the arteries. A decision was made to proceed with two-stage procedure where first we create an anastomosis and once the vessel matures and if it matures then would proceed with transposing the entire basilic vein anteriorly. Now, the wound was copiously irrigated. All the bleeding ports were cauterized. There was excellent hemostasis of the anastomosis. I then proceeded with closure of the skin using 3-0 Vicryl for the skin and 4-0 Monocryl for subcuticular closure of the skin. A sterile Dermabond dressing was applied to the wound. A palpable thrill was noted in the basilic vein. The patient was awakened and transferred to the recovery room for further observation. Andrea Wilburn MD
== END 2018-06-14 13:49 | disposition home or self-care (01) ==
LOC: SDS 06:14
PROVIDERS: ATTEND General Practice
DX: E11.22 Type 2 diabetes mellitus with diabetic chronic kidney disease (principal); N18.6 End stage renal disease; I12.0 Hypertensive chronic kidney disease with stage 5 chronic kidney disease or end stage renal disease; I25.10 Atherosclerotic heart disease of native coronary artery without angina pectoris
CPT/HCPCS: 36415; 36821; 80048; 82948; 85025; 85610; 85730; J0690; J1644; J2001; J2250; J2405; J2704; J3010; J7030

== ENCOUNTER 2018-07-19 05:59 | Outpatient (CLI) | payer MEDICARE | END 2018-07-19 06:00 | disposition home or self-care (01) | LOC: CARDIO 05:59 | DX: I25.10 Atherosclerotic heart disease of native coronary artery without angina pectoris (principal); R07.9 Chest pain, unspecified ==